=== PATIENT | female | born 1975 | race Caucasian/White ===

== ENCOUNTER 2024-06-20 11:13 | Outpatient (OUT) | payer BC, SELFPAY | END 2024-06-20 11:14 | disposition home or self-care (01) | LOC: PST 11:14 | PROVIDERS: Visit Provider Surgery | DX: Z01.818 Encounter for other preprocedural examination (principal); Z12.11 Encounter for screening for malignant neoplasm of colon ==

== ENCOUNTER 2024-06-25 09:51 | Day surgery (SDC) | payer BC, SELFPAY ==
--- NOTE | 2024-06-25 | OP_ITS ---
OPERATION DATE: 06/25/2024 PREOPERATIVE DIAGNOSIS: Colorectal screening. POSTOPERATIVE DIAGNOSIS: Normal colonoscopy to cecum. PROCEDURE: Colonoscopy to cecum. SURGEON: Aly Willingham M.D. ANESTHESIA: Monitored anesthesia care. ESTIMATED BLOOD LOSS: Zero. INDICATIONS AND CONSENT: Patient is a 48-year-old female who presents for colorectal screening. Indications, risks, benefits, alternatives of proceeding with colonoscopy were explained extensively to the patient, including the risks of bleeding, colon perforation or anesthetic complications. All of her questions were answered. Informed consent was obtained. PROCEDURE: Patient brought to the operating room, placed in the left lateral decubitus position. Monitored anesthesia care was provided. Rectal exam was performed which showed no masses or blood. The scope was inserted into the anal canal. Under direct visualization was advanced. With the aid of abdominal compression, it was advanced to the cecum where cecal markings were clearly identified. There was noted to be a good prep. Upon withdrawal of the scope, mucosal surfaces were carefully examined. There were no mass lesions or polyps. No inflammatory changes or ulcerations. No significant diverticulosis. The scope was retroflexed in the anal canal. There were noted to be some prominent rectal veins. No significant hemorrhoidal disease. Scope was then withdrawn. Patient tolerated procedure well, was sent to recovery room in good condition. Follow up colonoscopy for screening should be in 10 years. CC: Patient?s family physician BRET
[2024-06-25 10:15] VITALS: BP 113/74; PULSE 83; TEMP 36.2; O2SAT 98; BMI 29.8
[2024-06-25] MEDS: 0.9 % SODIUM CHLORIDE 500 ML 50 ML IV (10:28)
[2024-06-25 11:52] VITALS: BP 93/64; PULSE 75; TEMP 36.6; O2SAT 97
[2024-06-25 12:07] VITALS: BP 106/56; PULSE 70; O2SAT 99
[2024-06-25 12:22] VITALS: BP 115/78; PULSE 68; O2SAT 100
== END 2024-06-25 12:29 | disposition home or self-care (01) ==
PROVIDERS: PCP Family Medicine; Visit Provider Surgery
PROC: (CPT 00812; principal; 2024-06-25 10:45)
DX: Z12.11 Encounter for screening for malignant neoplasm of colon (principal); Z86.73 Personal history of transient ischemic attack (TIA), and cerebral infarction without residual deficits; Z79.01 Long term (current) use of anticoagulants; Z79.02 Long term (current) use of antithrombotics/antiplatelets; I77.6 Arteritis, unspecified; D68.59 Other primary thrombophilia; M47.812 Spondylosis without myelopathy or radiculopathy, cervical region; E78.5 Hyperlipidemia, unspecified; Z90.710 Acquired absence of both cervix and uterus; Z90.49 Acquired absence of other specified parts of digestive tract; Z90.81 Acquired absence of spleen; E11.9 Type 2 diabetes mellitus without complications
CPT/HCPCS: 00812; 45378; J2704

== ENCOUNTER 2025-01-27 19:29 | Outpatient (REF) | payer BC, SELFPAY ==
--- OUTSIDE RECORDS SUMMARY | 2024-10-17 11:15 | XMS_ITS ---
Author Organization [facility] in [place] Address [address] [place] [address] Care Team Providers Care Manager Wind Name Role Phone Kinza BERGER, Ilana Primary Care Provider Mahad Egan Unavailable REASON FOR VISIT MD Encounters Encounter Location Date Provider Diagnosis [address] [place] [address] 10/17/2024 Mahad Dodd Plan Of Treatment Next Appt Details Provider Name:uJlianne rivera, 04/22/2025 08:15:00 AM, [address] [place], [address], Progress Notes * Zo HEADLEY RDOB: [birth year] (49 yo F)Acc No.[id number]:10/17/2024 UNLOCKED PROGRESS NOTE Progress Notes Patient: Abelardo ZAMORAnicole Oliveira Provider: Chelsi Dodd MD :1975 A ge:48 Y S ex:Female Date:10/17/2024 Address:[address] [id number] Pcp:Ilana Echols MD Subjective: * Chief Complaints: * 1 . MD. * Medical History: Objective: * Vitals: Assessment: Plan: * Treatment: * * Electronic signature of Sulma Dodd MD, [id number] on 01/27/2025 at 01:39 PM EDT Sign off status: Pending Visit Status: C ANC (Cancelled) * Provider: Chelsi Dodd MD Date: 0 10/17/2024 Generated for Jessie lundberg/Sunitha/Cheikh on: 0 01/27/2025 01:39 PM EDT
--- OUTSIDE RECORDS SUMMARY | 2024-10-30 09:00 | XMS_ITS | Encounter Summary ---
Author Organization [facility] Address [address] [place] [address] Care Team Providers Care Global Lead Name Role Phone Ilana Echols MD Primary Care Provider [phone] Ilana Echols MD Unavailable Encounter Details Date Type Department Care Team (Late st Contact Info) Description 10/30/2024 9:00 AM EDT Office Visit [facility] [address] [place] [address] Ilana Echols MD [address] [place] [address] Viral upper respiratory tract infection (Primary Dx); Nasal congestion; Left foot drop Social History Tobacco Use Types Packs/Day Years Used Date Smoking Tobacco: Never Smokeless Tobacco: Never Alcohol Use Standard Drinks/Week Comments Never 0 (1 standard drink = 0.6 oz pur e alcohol) Caffine: 1 cup B1300 Health Literacy Answer Date Recor ded How often do you need to hav e someone help you when you read instructions, pamphlets, or other written material from your doctor or pharmacy? Never 01/29/2024 Humiliation, Afraid, Rape, and Kick questionnair e Answer Date Recorded Within the last year, have y ou been afraid of your partner or ex-partner? No 01/24/2023 Within the last year, have y ou been humiliated or emotionally abused in other ways by your partner or ex-partner? No Within the last year, have y ou been kicked, hit, slapped, or otherwise physically hurt by your partner or ex-partner? No 01/24/2023 Within the last year, have y ou been raped or forced to have any kind of sexual activity by your partner or ex-partner? No 01/24/2023 Social Connection and Isolat ion Panel [NHANES] Answer Date Recorded In a typical week, how many times do you talk on the phone with family, friends, or neighbors? More than three times a week 01/29/2024 How often do you get togethe r with friends or relatives? More than three times a week 01/29/2024 How often do you attend chur or synagogue services? More than 4 times per year 01/29/2024 Do you belong to any clubs o r organizations such as uatsdin groups, unions, fraternal or athletic groups, or school groups? No 01/29/2024 How often do you attend meet ings of the clubs or organizations you belong to? Never 01/29/2024 Are you , , di vorced, , never , or living with a partner? 01/29/2024 AUDIT-C Answer Date Recorded Q1: How often do you have a drink containing alcohol? Never 01/29/2024 Q2: How many drinks containi ng alcohol do you have on a typical day when you are drinking? Patient does not drink Q3: How often do you have si x or more drinks on one occasion? Never 01/29/2024 Overall Financial Resource Strain (CARDIA) Answe r Date Recorded How hard is it for you to pa y for the very basics like food, housing, medical care, and heating? Not hard at all 01/29/2024 PHQ-2 Answer Date Recorded Patient Health Questionnaire-2 Score 0 10/30/2024 [facility] Occupat ional Health - Occupational Stress Questionnaire Answer Date Recorded Do you feel stress - tense, restless, nervous, or anxious, or unable to sleep at night because your mind is troubled all the time - these days? Only a little 01/29/2024 Exercise Vital Sign Answer Date Recorde d On average, how many days pe r week do you engage in moderate to strenuous exercise (like a brisk walk)? 3 days 01/29/2024 On average, how many minutes do you engage in exercise at this level? 20 min 01/29/2024 Hunger Vital Sign Answer Date Recorded Within the past 12 months, y ou worried that your food would run out before you got the money to buy more. Never true 01/29/20 24 Within the past 12 months, t he food you bought just didn't last and you didn't have money to get more. Never true 01/29/2024 PRAPARE - Transportation Answer Date Re corded In the past 12 months, has l ack of transportation kept you from medical appointments or from getting medications? No 03/2024 In the past 12 months, has l ack of transportation kept you from meetings, work, or from getting things needed for daily living? No 01/29/2024 Housing Stability Vital Sign Answer Malcolm e Recorded In the last 12 months, was t here a time when you were not able to pay the mortgage or rent on time? No 01/24/2023 In the last 12 months, how many places have you lived? 1 01/24/2023 In the last 12 months, was t here a time when you did not have a steady place to sleep or slept in a prison (including now)? No 01/24/2023 Housing Stability Vital Sign Answer Malcolm e Recorded In the last 12 months, was t here a time when you were not able to pay the mortgage or rent on time? No 01/29/2024 In the past 12 months, how m any times have you moved where you were living? 0 01/29/2024 At any time in the past 12 m [place], were you homeless or living in a prison (including now)? No 01/29/2024 Comments No Sex and Gender Information Value Date Recorded Sex Assigned at Not on file Legal Sex Female 7:16 PM EDT Gender Identity Not on file Sexual Orientation Not on file documented as of this encounter Last Filed Vital Signs Vital Sign Reading Time Taken Comments Blood Pressure 128/82 10/30/2024 8:51 AM EDT Pulse 86 10/30/2024 8:51 AM EDT Temperature - - Respiratory Rate - - Oxygen Saturation 99% 10/30/2024 8:51 AM EDT Inhaled Oxygen Concentration - - Weight 83.5 kg (184 lb) 10/30/2024 8:51 AM EDT Height 165.1 cm (5' 5 ) 10/30/2024 8:51 AM EDT Body Mass Index 30.62 10/30/2024 8:51 AM EDT documented in this encounter Functional Status * Over the past 2 weeks, how often have you been bothered by any of the following problems? Question Answer Date of Assessment Author Little interest or pleasure in doing things Not at all 10/30/2024 8:56 AM EDT Rohini Ruvalcaba MA Feeling down, depressed, or hopeless Not at all 10/30/2024 8:56 AM EDT Rohini Ruvalcaba MA Patient Health Questionnaire -2 Score 0 10/30/2024 8:56 AM EDT Rohini Ruvalcaba MA documented as of this encounter Progress Notes * Ilana Echols MD - 10/30/2024 9:00 AM EDT Images from the original note were not included. Zo Mike is a 49 y.o. female presents with chief complaint of URI follow up. Sx the same aslast week. HPI: HPI History of Present Illness The patient presents for evaluation of ear infection, throat irritation, nasal inflammation, and lung immobility. She was diagnosed with an ear infection last week and prescribed Augmentin. Despite the treatment, she reports no improvement in her symptoms. She has been experiencing ear pain, a new symptom for her. She also reports persistent throat discomfort and a sensation of a foreign body in her throat, necessitating constant clearing. She is currently on Augmentin. She was diagnosed with throat irritation last week and prescribed Augmentin. Despite the treatment,she reports no improvement in her symptoms. She also reports persistent throat discomfort and a sensation of a foreign body in her throat, necessitating constant clearing. She is currently on Augmentin. She was diagnosed with nasal inflammation last week and prescribed Augmentin. Despite the treatment, she reports no improvement in her symptoms. She has been using Flonase, which does not seem to be effective. She experiences nosebleeds when blowing her nose but does not have active bleeding. She has been using saline nasal spray in conjunction with Flonase. She is currently on Augmentin and Flonase. She was diagnosed with lung immobility last week and prescribed Augmentin. Despite the treatment, she reports no improvement in her symptoms. She is currently on Augmentin. Supplemental Information She is coming up on 2 years of long-term disability. They want her to fill out that she is unable to do any work of any sort and then send it back to them. She is taking [employer] to work for 12-hour shift yesterday. She slept 8 out of the 12 hours. She is sure right now it is because she is not feeling good. Mike had her order a different brace, the one that they were doing for the footdrop is not working, so she is going to look like an old person and wear the one that goes from the knee down tothe bottom of the foot. She can not concentrate. He was very concerned that it is just fatigue. He is like you can not do a 30- minute exercise with him and he is worried about her driving home. She is following heme-onc and cardiology. MEDICATIONS Current: Augmentin, Flonase SUBJECTIVE: MEDICATIONS: Current Outpatient Medications Medication Instructions albuterol HFA 90 mcg/act inhaler 2 puffs, Inhalation, Every 4 hours PRN atorvastatin (Lipitor) 40 MG tablet calcium 500 mg, 2 times daily with meals chlorhexidine (Peridex) 0.12 % solution 15 mL, 2 times daily clopidogrel (PLAVIX) 75 mg, Oral, Every morning cyanocobalamin (VITAMIN B-12) 1,000 mcg, Every 48 hours fluticasone (Flonase) 50 MCG/ACT nasal spray 1 spray, Each Nostril, Daily, Shake gently. Before first use, prime pump. After use, clean tip and replace cap. folic acid (FOLVITE) 1,000 mcg, Every morning hydroxychloroquine (PLAQUENIL) 200 mg, Daily magnesium oxide (MAG-OX) 400 mg, Daily methotrexate 2.5 MG tablet take 7 tablets by mouth ONE TIME PER WEEK as directed predniSONE (DELTASONE) 7.5 mg, Daily predniSONE (DELTASONE) 1 mg, Every morning pyridoxine (VITAMIN B-6) 50 mg, Oral, Every morning SF 5000 Plus 1.1 % cream USE DIRECTED IN PLACE OF TOOTHPASTE. BRUSH FOR TWO MINUTES TWI... (REFER TO PRESCRIPTION NOTES). tiZANidine (Zanaflex) 2 MG tablet topiramate (TOPAMAX) 200 mg, 2 times daily venlafaxine XR (Effexor XR) 37.5 MG 24 hr capsule Vitamin D-[address] 1,000 Units, Daily RT warfarin (Coumadin) 5 MG tablet TAKE 1 TABLET BY MOUTH four times weekly, TAKE 1 & 1/2 (ONE ANDONE-HALF) TABLETS BY MOUTH three times a week warfarin (COUMADIN) 1 mg, Oral, Daily I have reviewed and reconciled the history and medication list with the patient today. REVIEW OF SYMPTOMS: Review of Systems HENT: Positive for congestion and sore throat. Respiratory: Positive for cough. OBJECTIVE: Visit Vitals BP 128/82 Pulse 86 Ht 5' 5 Wt 184 lb SpO2 99% BMI 30.62 kg/m?? OB Status Hysterectomy Smoking Status Never BSA 1.96 m?? Physical Exam Vitals and nursing note reviewed. Constitutional: Appearance: Normal appearance. HENT: Head: Normocephalic and atraumatic. Right Ear: Tympanic membrane normal. Left Ear: Tympanic membrane normal. Ears: Comments: Cerumen removed from the right ear. Nose: Nose normal. Mouth/Throat: Comments: Swelling in posterior pharynx bilaterally with drainage down the middle. Cardiovascular: Rate and Rhythm: Normal rate and regular rhythm. Pulses: Normal pulses. Heart sounds: Normal heart sounds. Pulmonary: Effort: Pulmonary effort is normal. Breath sounds: Normal breath sounds. Musculoskeletal: Cervical back: Normal range of motion and neck supple. Neurological: Mental Status: She is alert. ASSESSMENT AND PLAN: Assessment & Plan 1. Ear Infection. The patient was previously diagnosed with an ear infection and prescribed Augmentin. However, she reports no improvement in symptoms. Examination revealed wax in the ear, which will be flushed out toallow for a better assessment. 2. Throat Irritation. The patient's throat remains red and swollen with significant drainage, likely causing the sensation of a foreign body in the throat. Despite being on Augmentin, there has been no improvement. A chest x-ray was considered but deemed unnecessary due to good air movement in the lungs. Guaifenesin will be prescribed to help dry up the drainage and reduce throat swelling. 3. Nasal Inflammation. The patient reports nasal inflammation and bleeding when blowing her nose. Examination showed slight swelling and congestion, but not severe. Flonase appears to be helping somewhat. Guaifenesin will be prescribed to help dry up the nasal drainage. 4. Lung Immobility. The patient reported a lack of movement in one lung as previously noted by another provider. However, examination today showed good air movement and no issues in the lungs. No further action is required at this time. Assessment/Plan Problem List Items Addressed This Visit None Visit Diagnoses Viral upper respiratory tract infection - Primary Nasal congestion Left foot drop She is in need of an AFO for this foot drop. PHYSICAL THERAPY has tried multiple strengthening exercises and braces with no resolution or help. Other braces have been tried and failed. Concern for falls and difficulties with ambulation with current state. documented in this encounter Plan of Treatment Upcoming Encounters Date Type Department Care Team (Late st Contact Info) Description 07/13/2025 8:00 AM EST Ancillary Procedure [facility] [address] [facility] [address] [place] [id number] documented as of this encounter Visit Diagnoses Diagnosis Viral upper respiratory tract infection- Primary Acute upper respiratory infections of unspecified site Nasal congestion Other diseases of nasal cavity and sinuses Left foot drop Other acquired deformity of ankle and foot documented in this encounter Additional Health Concerns Assessment Noted Time PHQ-9 Depression Total Score: 0 03/06/20 23 8:10 AM EDT documented as of this encounter Care Teams Global Lead Relationship Specialty Start Date End Date Ilana Echols MD [address] [facility] [place] [address] PCP - General Family Medicine 12/11/22 Ilana Echols MD [address] [place] [address] PCP - Bea Bland 04/22/23 documented as of this encounter
--- OUTSIDE RECORDS SUMMARY | 2025-01-07 09:20 | XMS_ITS ---
Author Organization [facility] [place] in [place] Address [address] [place] [address] Care Team Providers Care Ms Sql Dba Name Role Phone Kinza BERGER, Ilana Primary Care Provider Le Oconnell [phone] Allergies Allergen (clinical drug ingredient) Drug/Non Drug Allergy documented on EMR Reaction Allergy Type Onset Date Status Biaxin Unknown Drug Allergy Active meperidine Demerol Unknown Drug Allergy Active REASON FOR VISIT h/o right MCA M1 subocclusive thrombus (prior Eliquis, as of 06/2023 plavix + coumadin)- sees Dr. Dodd [facility] ( Dr. Knox- [employer]PER[employer] vasculitis specialist), Headache s/p stroke (right basal ganglia, predominantly in the putamen), cognitive complaints Medications Medication SIG (Take, Route, Frequency, Duration) Notes Start Date End Date Status Methotrexate Sodium 2.5 MG 7 tablets Orally once a day 10/08/2024 Active Vitamin B12 1000 MCG 1 tablet Orally every other day Active predniSONE 5 MG 1 tablet Orally Once a day Active Plavix 75 MG 1 tablet Orally Once a day Active Plaquenil 200 MG 1 tablet Orally daily Active Magnesium Oxide 400 MG 1 tablet as neede d Orally Once a day Active Folic Acid 1 MG 1 tablet Orally Once a day Active Lipitor 40 MG 1 tablet Orally Once a day HOLD per pt Active Warfarin Sodium 5 MG 1 tablet Orally Onc e a day twice a week Active Topamax 200 MG 1 tablet Orally BID Active Warfarin Sodium 6 MG 1 tablet Orally 5 days a week 5 times per week Active Vitamin B6 50 MG 1 tablet Orally Active Venlafaxine HCl ER 37.5 mg TAKE 1 CAPSULE BY MOUTH EVERY EVENING Active Social History Tobacco Use: Social History Observation Description Date Details (start date - stop date) Never Smoker NA - NA Tobacco Use/Smoking Question Answer Notes Patient is a nonsmoker Encounters Encounter Location Date Provider Diagnosis Adult Neurology [facility] [address] [place] [address] 01/07/2025 Le Hernández Headache, unspecifie d R51.9 and Personal history of transient ischemic attack (TIA), and cerebral infarction without residual deficits Z86.73 Assessments Encounter Date Diagnosis (ICD Code) Assessment Notes Treatment Notes Treatment Clinical Notes Section Notes 01/07/2025 Headache, unspecified (ICD-10 - R51.9) At this point I know that she still having headaches but they are low-grade and manageable and for right now I would like to hold off on changing her Topamax. She does still feel that he manage it would be appropriate for her neck and we agree that is why we provided the referral in the first place. I did let her know if she feels the tizanidine was offering her relief that typically I would recommend refilling this but during our conversation today there was a concern that she had mentioned to her master black belt where she was having difficulty getting up from the floor she has left sided weakness which is known since her stroke and she is not sure for the weakness that is preventing her from getting up but she is really not having pain limitations either. I would like to hold off on refilling the muscle relaxer and allow us to reevaluate her strength testing if our examination does not show any change then I do feel at that point I would recommend getting back on the atorvastatin. She is very well aware of why this is being utilized the risk factors around stroke management and for that reason I would like to see her sometime next week she is aware that I am going to try to move some things around to get her into reevaluate this. It is simply to make sure that her strength is intact at her baseline and to allow us to quickly as possible get her back on atorvastatin if needed. If however there is additional weakness concerns I feel it would still be appropriate for me to reevaluate her for this. She does remain on her Plavix she is still utilizing her warfarin and I have no new recommendations for this. She is aware if there is any concern for any stroke or strokelike symptoms to go to the emergency room. I did find a spot in our schedule she is comfortable with this and I we will be seeing her January 15 at 4:40 PM to reevaluate. Time of visit: 1:15 PM of and 1:32 PM, 17 minutes and 30 seconds 01/07/2025 Personal history of transient ischemic attack (TIA), and cerebral infarction without residual deficits (ICD-10 - Z86.73) At this point I know that she still having headaches but they are low-grade and manageable and for right now I would like to hold off on changing her Topamax. She does still feel that he manage it would be appropriate for her neck and we agree that is why we provided the referral in the first place. I did let her know if she feels the tizanidine was offering her relief that typically I would recommend refilling this but during our conversation today there was a concern that she had mentioned to her master black belt where she was having difficulty getting up from the floor she has left sided weakness which is known since her stroke and she is not sure for the weakness that is preventing her from getting up but she is really not having pain limitations either. I would like to hold off on refilling the muscle relaxer and allow us to reevaluate her strength testing if our examination does not show any change then I do feel at that point I would recommend getting back on the atorvastatin. She is very well aware of why this is being utilized the risk factors around stroke management and for that reason I would like to see her sometime next week she is aware that I am going to try to move some things around to get her into reevaluate this. It is simply to make sure that her strength is intact at her baseline and to allow us to quickly as possible get her back on atorvastatin if needed. If however there is additional weakness concerns I feel it would still be appropriate for me to reevaluate her for this. She does remain on her Plavix she is still utilizing her warfarin and I have no new recommendations for this. She is aware if there is any concern for any stroke or strokelike symptoms to go to the emergency room. I did find a spot in our schedule she is comfortable with this and I we will be seeing her January 15 at 4:40 PM to reevaluate. Time of visit: 1:15 PM of and 1:32 PM, 17 minutes and 30 seconds Plan Of Treatment Medication Medication Name Sig Start Date Stop Date Notes Plavix 75 MG 1 tablet Orally Once a day Topamax 200 MG 1 tablet Orally BID Venlafaxine HCl ER 37.5 mg TAKE 1 CAPSUL E BY MOUTH EVERY EVENING Next Appt Details Follow Up: keep appt schedul ed today, Reason: Provider Name:Julianne So nciole, 04/22/2025 08:15:00 AM, [address], [place], [address], Progress Notes * Zo HEADLEY RDOB: [birth year] (49 yo F)Acc No.[id number]:01/07/2025 TeleMed via [employer] Patient: Zo ZAMORA Provider: SKINNY Silva :1975 A ge:49 Y S ex:Female Date:01/07/2025 Address:[address] [place], [place] [id number] Pcp:Ilana Echols MD Check In:01:15 PM ESTCheck O ut:01:33 PM EST Subjective: * Chief Complaints: * h /o right MCA M1 subocclusive thrombus (prior Eliquis, as of 06/2023 plavix + coumadin)- sees Dr. Dodd [facility] ( Dr. Knox- [employer] vasculitis specialist)Headache s/p stroke (right basal ganglia, predominantly in the putamen)Cognitive complaints * HPI: G eneral: The patient's name and date of have been confirmed This is a telemedicine with audio and video using [employer].nd visit that was performed with the patient in [place], [place] and provider in [place], [place] The verbal consent to participate in the video visit was obtained. I discussed with the patient the nature of the telemedicine visit that: 1) I would evaluate the patient and the recommended diagnostics and the treatment based on my assessment. 2) the sessions are not being recorded and that personal information is protected 3) our team will provide follow-up care in person if/when patient requires. 4) Reason for virtual appointment: schedule availability she is seeing Silvia Dsouza for breast nodules at [facility] and she is going to have biopsies. she is getting an US on January 16 to do follow up after MRI findings. The patient is on Topamax for headaches. She is having about 12 headache days a month which is about 3/week but she states that they are only made about a 3 out of 10 on a pain scale she feels she can function with them and they are not coming with any nausea light or sound sensitivity. The patient was recommended to try tizanidine for muscle relaxation. She states the tizanidine was offering some relief with her neck but that the plan was for her to see pain management which was provided by our office in referral but because everything mentioned above around her breast evaluation she has held off on doing so. Interestingly made in the last couple weeks between appointments she started to experience weakness of the proximal joints around the shoulders and hips she had sat down on the floor and was having trouble getting up. Her master black belt felt this may be related to her Lipitor and recommend that she hold this for a month it has been a week. It is important to mention that this was recommended because of her history of right MCA M1 subocclusive thrombus. She is on Plavix still high along with warfarin. She has not had any concern for any stroke or strokelike symptoms between appointments. * ROS: r efer to hpi. * Active Problem List Z47.89 Encounter for other orthopedic aftercare Modified On:07/03/2022/U Status:confirmed R22.32 Localized swelling, mass and lump, left upper limb Modified On:02/01/2023/U Status:confirmed I77.6 Arteritis, unspecifi ed Modified On:10/08/2024/U Status:confirmed I69.30 Unspecified sequelae of cerebral infarction Modified On:02/13/2024/U Status:confirmed G40.89 Other seizures Modified On:02/13/2024/U Status:confirmed R93.89 Abnormal findings on diagnostic imaging of other specified body structures Modified On:08/26/2024/U Status:confirmed * Medical History: * Surgical History: S pleen removal 1989Appendix/gallbladder removal 1992Tonsil removal 1993Hysterectomy 2010 * Hospitalization/Major Diagno stic Procedure: F [facility] for 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 M other: alive 66 yrs, hypothyroidism, diagnosed with Unspecified essential hypertension.?Brother(s): alive 42 yrs. * Social History: T obacco Use: T obacco Use/Smoking P atient is a n onsmoker * Medications: T akingFolic Acid 1 MG Tablet 1 tablet Orally Once a day Lipitor(Atorvastatin Calcium) 40 MG Tablet 1 tablet Orally Once a day , Notes to Pharmacist: HOLD per ptMagnesium Oxide 400 MG Tablet 1 tablet as needed Orally Once a day Methotrexate Sodium 2.5 MG Tablet 7 tablets Orally once a day Plaquenil(Hydroxychloroquine Sulfate) 200 MG Tablet 1 tablet Orally daily Plavix(Clopidogrel Bisulfate) 75 MG Tablet 1 tablet Orally Once a day predniSONE 5 MG Tablet 1 tablet Orally Once a day Topamax(Topiramate) 200 MG Tablet 1 tablet Orally BID Venlafaxine HCl ER 37.5 mg Capsule Extended Release 24 Hour TAKE 1 CAPSULE BY MOUTH EVERY EVENING Vitamin B12 1000 MCG Tablet Extended Release 1 tablet Orally every other day Vitamin B6 50 MG Tablet 1 tablet Orally Warfarin Sodium 5 MG Tablet 1 tablet Orally Once a day , Notes to Pharmacist: twice a weekWarfarin Sodium 6 MG Tablet 1 tablet Orally 5 days a week , Notes to Pharmacist: 5 times per weekTaking Folic Acid 1 MG Tablet 1 tablet Orally Once a day Taking Lipitor(Atorvastatin Calcium) 40 MG Tablet 1 tablet Orally Once a day , Notes to Pharmacist: HOLD per ptTaking Magnesium Oxide 400 MG Tablet 1 tablet as needed Orally Once a day Taking Methotrexate Sodium 2.5 MG Tablet 7 tablets Orally once a day Taking Plaquenil(Hydroxychloroquine Sulfate) 200 MG Tablet 1 tablet Orally daily Taking Plavix(Clopidogrel Bisulfate) 75 MG Tablet 1 tablet Orally Once a day Taking predniSONE 5 MG Tablet 1 tablet Orally Once a day Taking Topamax(Topiramate) 200 MG Tablet 1 tablet Orally BID Taking Venlafaxine HCl ER 37.5 mg Capsule Extended Release 24 Hour TAKE 1 CAPSULE BY MOUTH EVERY EVENING Taking Vitamin B12 1000 MCG Tablet Extended Release 1 tablet Orally every other day Taking Vitamin B6 50 MG Tablet 1 tablet Orally Taking Warfarin Sodium 5 MG Tablet 1 tablet Orally Once a day , Notes to Pharmacist: twice a weekTaking Warfarin Sodium 6 MG Tablet 1 tablet Orally 5 days a week , Notes to Pharmacist: 5 times per weekDiscontinuedtiZANidine HCl 2 MG Tablet Take 1 tablet at bedtime for 1 week then take 2 tablets at bedtime. Orally Once a day Medication List reviewed and reconciled with the patientDiscontinued tiZANidine HCl 2 MG Tablet Take 1 tablet at bedtime for 1 week then take 2 tablets at bedtime. Orally Once a day Medication List reviewed and reconciled with the patient * Allergies: B iakassiDemerolbridger[Allergies Verified] Objective: * Vitals: * Examination: N eurological: T he patient is awake, alert, attentive. Speech, language, cognition are normal. Patient does not appear to be in distress. Well-nourished. extraocular movements are intact without nystagmus. Pupils are symmetric and normal in size. Face is symmetric and has full movement of the facial muscles. Hearing is intact to voice. Sensation is intact when touching one's own face bilaterally, Tongue is midline and has normal range of motion. Shoulders shrug is normal bilaterally. She does still have that gait steadiness but with decreased movement on that left lower extremity, no ataxia, no tremors on exam, she follows directions well and she is able to stand up and sit down with no difficulty no walking aid was required today, no involuntary movements and no numbness reported. Assessment: * Assessment: 1. H eadache, unspecified - R51.9 (Primary) 2 . P ersonal history of transient ischemic attack (TIA), and cerebral infarction without residual deficits - Z86.73 ? At this point I know that sh e still having headaches but they are low-grade and manageable and for right now I would like to hold off on changing her Topamax. She does still feel that he manage it would be appropriate for her neck and we agree that is why we provided the referral in the first place. I did let her know if she feels the tizanidine was offering her relief that typically I would recommend refilling this but during our conversation today there was a concern that she had mentioned to her master black belt where she was having difficulty getting up from the floor she has left sided weakness which is known since her stroke and she is not sure for the weakness that is preventing her from getting up but she is really not having pain limitations either. I would like to hold off on refilling the muscle relaxer and allow us to reevaluate her strength testing if our examination does not show any change then I do feel at that point I would recommend getting back on the atorvastatin. She is very well aware of why this is being utilized the risk factors around stroke management and for that reason I would like to see her sometime next week she is aware that I am going to try to move some things around to get her into reevaluate this. It is simply to make sure that her strength is intact at her baseline and to allow us to quickly as possible get her back on atorvastatin if needed. If however there is additional weakness concerns I feel it would still be appropriate for me to reevaluate her for this. She does remain on her Plavix she is still utilizing her warfarin and I have no new recommendations for this. She is aware if there is any concern for any stroke or strokelike symptoms to go to the emergency room. I did find a spot in our schedule she is comfortable with this and I we will be seeing her January 15 at 4:40 PM to reevaluate. Time of visit: 1:15 PM of and 1:32 PM, 17 minutes and 30 seconds Plan: * Treatment: 2. 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 * Procedure Codes: * Follow Up: k eep appt scheduled today * * Sign off status: Completed Visit Status: C HK (Check Out) true * Provider: SKINNY Silva Date: 0 01/07/2025 Generated for Jessie lundberg/Sunitha/Daronitting on: 0 01/27/2025 01:39 PM EDT History and Physical Notes * Examination Category Sub-Category Detail Notes Category Not es Neurological The patient is awake, alert, attentive. Speech, language, cognition are normal. Patient does not appear to be in distress. Well-nourished. extraocular movements are intact without nystagmus. Pupils are symmetric and normal in size. Face is symmetric and has full movement of the facial muscles. Hearing is intact to voice. Sensation is intact when touching one's own face bilaterally, Tongue is midline and has normal range of motion. Shoulders shrug is normal bilaterally. She does still have that gait steadiness but with decreased movement on that left lower extremity, no ataxia, no tremors on exam, she follows directions well and she is able to stand up and sit down with no difficulty no walking aid was required today, no involuntary movements and no numbness reported
--- OUTSIDE RECORDS SUMMARY | 2025-01-16 13:32 | XMS_ITS | Encounter Summary ---
Author Organization [facility] Address [address] [place] [address] Care Team Providers Care Post Office Clerk Name Role Phone Ilana Echols MD Primary Care Provider [phone] Mahad Dodd MD Unavailable [phone] Encounter Details Date Type Department Care Team (Latest Contact Info) Description 01/16/2025 1:32 PM EDT - 01/16/2025 11:59 PM EDT Hospital Encounter [facility] Ul[facility]ound Imaging [address] [place] [id number] Abnormal MRI, breast Discharge Disposition: Home or Self Care () Social History Tobacco Use Types Packs/Day Years Used Date Smoking Tobacco: Never Smokeless Tobacco: Never Alcohol Use Standard Drinks/Week Comments Never 0 (1 standard drink = 0.6 oz pur e alcohol) Humiliation, Afraid, Rape, and Kick questionnair e Answer Date Recorded Within the last year, have y ou been afraid of your partner or ex-partner? No 12/25/2024 Emotionally Abused Not on file 12/25/2024 Physically Abused Not on file 12/25/2024 Sexually Abused Not on file 12/25/2024 PHQ-2 Answer Date Recorded Patient Health Questionnaire-2 Score 0 12/25/2024 Transportation Answer Date Recorded In the past 12 months, has l ack of transportation kept you from medical appointments or from getting medications? No 02/20 In the past 12 months, has l ack of transportation kept you from meetings, work, or from getting things needed for daily living? No 03/08/2023 Housing Stability Vital Sign Answer Malcolm e Recorded In the last 12 months, was t here a time when you were not able to pay the mortgage or rent on time? No 03/08/2023 [address] Lived in the Last Year Not on f ile 03/08/2023 In the last 12 months, was t here a time when you did not have a steady place to sleep or slept in a assisted (including now)? No 03/08/2023 Comments Unknown Sex and Gender Information Value Date Recorded Sex Assigned at Female 10/04/2022 8:34 AM EDT Legal Sex Female 2:18 PM EST Gender Identity Female 10/04/2022 8:34 AM EDT Sexual Orientation Heterosexual or Straight 09/20 8:34 AM EDT documented as of this encounter Medications at Time of Discharge acetaminophen (Tylenol 8 Hour) 650 mg ER tablet every 8 (eight) hours. amoxicillin (Amoxil) 500 mg capsule TAKE 1 CAPSULE BY MOUTH THREE TIMES DAILY (IN THE MORNING, IN THE EVENING and BEFORE bedtime) 04/10/2024 atorvastatin (Lipitor) 20 mg tablet Take 20 mg by mouth in the morning. 01/02/2023 atorvastatin (Lipitor) 40 mg tablet Take 40 mg by mouth in the morning. benzocaine-menthoL (Cepastat Sore Throat) 15-3.6 mg Take 1 lozenge by mouth every 2 (two) hours if needed. 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 180 tablet 3 09/24/2024 chlorhexidine (Peridex) 0.12 % solution Use 15 mL in the mouth or throat twice a day. 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 90 tablet 3 09/24/2024 6 clopidogrel (Plavix) 75 mg tablet Take 75 mg by mouth in the morning. 04/03/2023 cyanocobalamin (Vitamin B-12) 1,000 mcg tablet Take 1,000 mcg by mouth every other day. 02/07/2023 enoxaparin (Lovenox) 80 mg/0.8 mL syringe INJECT 1 syringe TWICE DAILY (IN THE MORNING and BEFORE bedtime) FOR 7 DAYS 06/10/2024 fluconazole (Diflucan) 150 mg tablet TAKE 1 TABLET BY MOUTH A SINGLE DOSE 05/01/2024 folic acid (Folvite) 1 mg tabletIndications:C NS vasculitis Take 1 tablet (1,000 mcg) by mouth in the morning. 90 tablet 3 09/24/2024 6 hydroxychloroquine (Plaquenil) 200 mg tabletIndications:S ystemic lupus erythematosus, unspecified SLE type, unspecified organ involvement status (CMS/HCC) Take 1 tablet (200 mg) by mouth in the morning. 30 tablet 11 04/09/2024 5 magnesium oxide (Mag-Ox) 400 mg (241.3 mg magnesium) tablet Take 400 mg by mouth in the morning. 11/12/2022 magnesium oxide (Mag-Ox) 400 mg (241.3 mg magnesium) tablet every 12 (twelve) hours. methotrexate (Xatmep) 2.5 mg/mL oral solution as directed Orally methotrexate 2.5 mg tabletIndications:C NS vasculitis Take 7 tablets (17.5 mg total) by mouth 1 (one) time per week Follow directions carefully, and ask to explain any part you do not understand. Take exactly as directed. 84 tablet 3 09/24/2024 6 nitrofurantoin, macrocrystal-monohy drate, (Macrobid) 100 mg capsule TAKE 1 CAPSULE BY MOUTH TWICE DAILY (IN THE MORNING and BEFORE bedtime) 04/30/2024 Nurtec ODT 75 mg tablet,disintegrati ng dissolve 75 milligram under the tongue once daily if needed for MIGRAINE HEADACHE 05/08/2023 oxyCODONE-acetamino phen (Percocet) 5-325 mg tablet Take 1 tablet by mouth every 6 (six) hours if needed. 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 90 tablet 3 09/24/2024 scopolamine (Transderm-Scop) 1 mg over 3 days patch [address] 1 patch on the skin every 3rd (third) day. 08/20/2024 topiramate (Topamax) 100 mg tablet Take 200 mg by mouth in the morning and at bedtime. 07/10/2023 topiramate (Topamax) 200 mg tablet Take 200 mg by mouth in the morning and at bedtime. venlafaxine (Effexor) 37.5 mg tablet Take 37.5 mg by mouth in the morning and at bedtime. Vitamin B-6 50 mg tablet Take 50 mg by mouth in the morning. 08/26/2023 warfarin (Coumadin) 1 mg tablet Take 1 mg by mouth. warfarin (Coumadin) 5 mg tablet 6 mg in the morning. 07/21/2023 documented as of this encounter Plan of Treatment Upcoming Encounters Date Type Department Care Team (Late st Contact Info) Description 02/10/2025 11:00 AM EDT Hospital Encounter [facility] [address] [place] [id number] 02/10/2025 12:00 PM EDT Hospital Encounter [facility] Ultrasound Imaging [address] [place] [address] 03/25/2025 9:30 AM EDT Follow-Up [facility] Rheumatology [address] [place] [id number] Jeimy Morejon MD [address] [facility] [place] [phone] 04/15/2025 9:30 AM EDT Follow-Up [facility] Oncology Clinic [address] [place] [address] Mahad Dodd MD [address] [place] [address] 04/30/2025 9:15 AM EDT Follow-Up [facility] [address] [place] [address] Silvia Dsouza MD [address] [place] [address] Pending Results Name Type Priority Associated Diagnoses Date /Time Bilateral breast US limited Imaging Routine Abnormal MRI, breast 01/16/2025 2:00 PM EDT Scheduled Orders Name Type Priority Associated Diagnoses Orde r Schedule Bilateral breast US limited Imaging Routine Abnormal MRI, breast Once for 1 Occurrences starting 01/16/2025 until 01/16/2025 documented as of this encounter Visit Diagnoses Diagnosis Abnormal MRI, breast documented in this encounter Care Teams Post Office Clerk Relationship Specialty Start Date End Date Ilana Echols MD PCP - General 11/15/22 Mahad Dodd MD [address] [place] [address] Hematology and Oncology 10/03/24 documented as of this encounter
--- OUTSIDE RECORDS SUMMARY | 2025-01-27 13:58 | XMS_ITS ---
Author Name Auto Generated Organization OHIP Support Name Relationship Address Phone ANJEL MIKE Next of Kin [address] [place] [address] + ANJEL MIKE Next of Kin Unknown [phone] KAYLIE MIKEIAN Next of Kin [address] [place] [id number] + CEE, ANJEL Next of Kin Unknown [phone] CEE, ANJEL Next of Kin Unknown [phone] CEE, ANJEL Next of Kin Unknown [phone] CEE, ANJEL Next of Kin [address] [place] [address] + CEE, ANJEL Next of Kin Unknown [phone] CEE, ANJEL Next of Kin Unknown [phone] CEE, ANJEL Next of Kin Unknown [phone] CEE, ANJEL Next of Kin Unknown [phone] CEE, ANJEL Next of Kin [address] [place] [address] + ECE, ANJEL Next of Kin [address] [place] [address] + CEE, ANJEL Next of Kin [address] [place] [address] + CEE, ANJEL Next of Kin Unknown [phone] CEE, ANJEL Next of Kin Unknown [phone] Cee, Anjel Next of Kin [address] [place] [address] + Marlys Mike Next of Kin [address] [place] [address] + ANJEL MIKE Next of Kin Unknown [phone] ANJEL MIKE Next of Kin [address] [place] [address] + KAYLIE MIKEIAN Next of Kin [address] [place] [address] + KAYLIE MIKEIAN Next of Kin [address] [place] [address] Unavailable ANJEL MIKE Next of Kin [address] [place] [address] + ANJEL MIKE Next of Kin [address] [place] [address] + ANJEL MIKE Next of Kin Unknown [phone] ANJEL MIKE Next of Kin [address] [place] [address] + ANJEL MIKE Next of Kin [address] [place] [address] Unavailable ANJEL MIKE Next of Kin [address] [place] [address] + ANJEL IMKE Next of Kin [address] [place] [address] Unavailable ANJEL MIKE Next of Kin Unknown [phone] ANJEL MIKE Next of Kin Unknown [phone] ANJEL MIKE Next of Kin [address] [place] [address] Unavailable ANJEL MIKE Next of Kin [address] [place] [address] Unavailable ANJEL MIKE Next of Kin [address] [place] [address] + ANJEL MIKE Next of Kin [address] [place] [address] Unavailable ANJEL MIKE Next of Kin [address] [place] [address] + ANJEL MIKE Next of Kin [address] [place] [address] Unavailable CEE, ANJEL Next of Kin [address] [place] [address] Unavailable KAYLIE MIKEIAN Next of Kin [address] [place] [address] Unavailable KAYLIE MIKEIAN Next of Kin [address] [place] [address] Unavailable CEE, ANJEL Next of Kin [address] [place] [address] + CEE, ANJEL Next of Kin [address] [place] [address] Unavailable CEE, ANJEL Next of Kin Unknown [phone] CEE, ANJEL Next of Kin Unknown [phone] CEE, ANJEL Next of Kin [address] [place] [address] + KAYLIE MIKEIAN Next of Kin [address] [place] [address] + KAYLIE MIKEIAN Next of Kin [address] [place] [address] + ANJEL IMKE Next of Kin [address] [place] [address] + KAYLIE MIKEIAN Next of Kin [address] [place] [address] + ANJEL MIKE Next of Kin [address] [place] [address] + KAYLIE MIKEIAN Next of Kin [address] [place] [address] + ANJEL MIKE Next of Kin [address] [place] [address] + CEE ANJEL Next of Kin [address] [place] [address] + KAYLIE MIKEIAN Next of Kin [address] [place] [address] + KAYLIE MIKEIAN Next of Kin [address] [place] [address] + KAYLIE MIKEIAN Next of Kin [address] [place] [address] Unavailable ANJEL MIKE Next of Kin [address] [place] [address] + ANJEL MIKE Next of Kin [address] [place] [address] + ANJEL MIKE Next of Kin Unknown [phone] ANJEL MIKE Next of Kin [address] [place] [address] + ANJEL MIKE Next of Kin [address] [place] [address] + ANJEL MIKE Next of Kin [address] [place] [address] + ANJEL MIKE Next of Kin [address] [place] [address] + ANJEL MIKE Next of Kin [address] [place] [address] + ANJEL MIKE Next of Kin [address] [place] [address] + ANJEL MIKE Next of Kin [address] [place] [address] Unavailable ANJEL MIKE Next of Kin [address] [place] [address] Unavailable ANJEL MIKE Next of Kin [address] [place] [address] Unavailable ANJEL MIKE Next of Kin [address] [place] [address] + ANJEL MIKE Next of Kin [address] [place] [address] Unavailable ANJEL MIKE Next of Kin [address] [place] [address] Unavailable ANJEL MIKE Next of Kin [address] [place] [address] + Anjel Mike Next of Kin [address] [place] [address] + ANJEL MIKE Next of Kin [address] [place] [address] + Care Team Providers Care Welding Inspector Name Role Phone ILANA RUANO Attending Unavailable SERGEY DALY Attending Unavailable ILANA RUANO Referring Unavailable SERGEY DALY Attending Unavailable ILANA RUANO Referring Unavailable TONE DOLL Attending Unavailable SERGEY DALY Attending Unavailable ILANA RUANO Referring Unavailable BINDUILANA BRADLEY Attending Unavailable SERGEY DALY Attending Unavailable BINDU, ILANA Referring Unavailable LAVON, TONE Henry Attending Unavailable LAVON, TONE Henry Referring Unavailable ADDY, SERGEY Wong Attending Unavailable BINDU, ILANA Referring Unavailable MARIEL SANTANA Attending Unavailab le LAVON, TONE Henry Attending Unavailable LAVON, TONE Henry Referring Unavailable ADDY, SERGEY Wong Attending Unavailable BINDU, ILANA Referring Unavailable LAVON, TONE Henry Attending Unavailable ADDYSERGEY Attending Unavailable BINDU, ILANA Referring Unavailable BINDU, ILANA Attending Unavailable ADDYSERGEY Attending Unavailable BINDU, ILANA Referring Unavailable ADDY, SERGEY Wong Attending Unavailable BINDU, ILANA Referring Unavailable BINDU, ILANA Attending Unavailable ADDY, SERGEY Wong Attending Unavailable BINDU, ILANA Referring Unavailable ADDY, SERGEY Wong Attending Unavailable BINDU, ILANA Referring Unavailable BINDU, ILANA Attending Unavailable NICOLE MEDINA Attending Unavailable MARIEL SANTANA Attending Unavailab le ILANA RUANO Attending Unavailable SUZY WONG Attending Unavailab SUZY Obrien Referring Unavailab QUINN Pierre Attending Unavailable NICOLE MEDINA Referring Unavailable NICOLE MEDINA Attending Unavailable MAHAD AGUAYO Referring Unavailable ILANA RUANO Primary Care Unavailable NEO, [place] R Referring Unavailable ILANA RUANO Primary Care Unavailable ILANA RUANO Primary Care Unavailable DEBRA CAZARES Attending Unavailable JOSE PETTIT Attending Unavailable JOSE PETTIT Referring Unavailable ILANA RUANO Primary Care Unavailable JOSE PETTIT Attending Unavailable JOSE PETTIT Referring Unavailable ILANA RUANO Primary Care Unavailable ACACIA SHELTON Attending Unavailable ILANA RUANO Referring Unavailable ILANA RUANO Primary Care Unavailable SARAIYA, [place] R Referring Unavailable ILANA RUANO Primary Care Unavailable JEIMY MOREJON Referring Unavailab le ILANA RUANO Primary Care Unavailable SARYONGYA, [place] R Referring Unavailable ILANA RUANO Primary Care Unavailable SARAIYA, [place] R Referring Unavailable ILANA RUANO Primary Care Unavailable BINDUILANA Primary Care Unavailable BINDUILANA G Primary Care Unavailable SILVINO VEGA Attending Unavailjonh e RAFAEL NEGRON Admitting Unavailable ERNA, EHAD Consulting Unavailable TELESTROKE, TC ONLY Consulting Unavailjonh hartman BINDU, ILANA Marcano Referring Unavailable ILANA RUANO G Primary Care Unavailable KAVON HERNÁNDEZ Referring Unavailable BINDU, ILANA G Primary Care Unavailable BINDU, ILANA G Referring Unavailable BINDU, ILANA G Primary Care Unavailable MAHAD AGUAYO H Referring Unavailable BINDU, ILANA G Primary Care Unavailable NICOLE MEDINA Referring Unavailable BINDU ILANA G Primary Care Unavailable Self, Referral Admitting Unavailable Self, Referral Attending Unavailable Azael Ruano Ilana Cary Primary Care Un available Yessy Lynfer L Referring Un available Abilio Dsouza Attending Unavailable Yessy Lynfer L Primary Care Un available Abilio Dsouza N Admitting Unavailable CASSI YOUNG Attending Unavailable CASSI YOUNG Referring Unavailable ILANA RUANO G Primary Care Unavailable ADA JONES Attending Unavailable BETTYE BOWERS Referring Unavailable ILANA RUANO G Primary Care Unavailable BETTYE BOWERS Attending Unavailable ILANA RUANO G Primary Care Unavailable Aly RICARDO Attending Unavailable BINDU, ILANA G Referring Unavailable Aly RICARDO Attending Unavailable ABILIO DSOUZA Attending Unavailable BRIANABILIO Referring Unavailable BRIAN, ABILIO Referring Unavailable BRIAN, ABILIO Referring Unavailable BRIAN, ABILIO Referring Unavailable MAHAD AGUAYO Attending Unavailable NEGRA MYRICK Attending Unavailab NEGRA Pandey Attending Unavailab JEIMY Zepeda I Attending Unavailable ABILIO DSOUZA Attending Unavailable JEIMY MOREJON I Attending Unavailable BRIANABILIO Attending Unavailable PROBLEMS DATE TYPE CONDITION / CODE ATTENDING STATUS [facility] 01/16/2025 Admitting Diagnosis Other abnormal and inconclusive findings on diagnostic imaging of breast / R92.8(ICD-10) NA Active [facility] 12/24/2024 Admitting Diagnosis Muscle weakness (generalized) / M62.81(ICD-10) NA [facility] 12/24/2024 Admitting Diagnosis Deficiency of other specified B group vitamins / E53.8(ICD-10) NA [facility] 12/24/2024 Admitting Diagnosis Vitamin D deficiency, unspecified / E55.9(ICD-10) NA [facility] 12/24/2024 Admitting Diagnosis Other specified hypothyroidism / E03.8(ICD-10) NA [facility] 12/18/2024 Admitting Diagnosis Nipple discharge / N64.52(ICD-10) NA [facility] 04/09/2024 Admitting Diagnosis Other hyperlipidemia / E78.49(ICD-10) NA [facility] 12/28/2023 Admitting Diagnosis Arteritis, unspecified / I77.6(ICD-10) NA [facility] 12/28/2023 Admitting Diagnosis Other organ or system involvement in systemic lupus erythematosus / M32.19(ICD-10) NA [facility] 07/27/2023 Admitting Diagnosis Personal history of transient ischemic attack (TIA), and cerebral infarction without residual deficits / Z86.73(ICD-10) NA [facility] 12/08/2024 Admitting Diagnosis 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 / Z79.899(ICD-10) NA [facility] 12/08/2024 Admitting Diagnosis salvage determiner (current) use of antimetabolite agent / Z79.631(ICD-10) NA [facility] 12/08/2024 Admitting Diagnosis salvage determiner (current) use of systemic steroids / Z79.52(ICD-10) NA [facility] 11/27/2024 Admitting Diagnosis Follow-up / [id number]() ABILIO DSOUZA [facility] 11/20/2024 Unknown Mastitis without abscess / N61.0(ICD-10) Abilio Dsouza N [facility] 11/13/2024 Admitting Diagnosis Mastitis without abscess / N61.0(ICD-10) ABILIO DSOUZA [facility] 10/16/2024 Unknown Unspecified ovar maya cyst, right side / N83.201(ICD-10) [facility] 09/26/2024 Unknown Unspecified ovar maya cyst, unspecified side / N83.209(ICD-10) [facility] 09/12/2024 Unknown Disorder of adre nal gland, unspecified / E27.9(ICD-10) [facility] 09/12/2024 Unknown Abnormal finding s on diagnostic imaging of other specified body structures / R93.89(ICD-10) [facility] 08/18/2024 Unknown Acute gastroente ropathy due to [place] agent / A08.11(ICD-10) [facility] 08/16/2024 Unknown Unspecified symp toms and signs involving the nervous system / R29.90(ICD-10) [facility]I [facility] 08/16/2024 Unknown Elevated white b lood cell count, unspecified / D72.829(ICD-10) [facility] 08/16/2024 Unknown Nausea with vomi ting, unspecified / R11.2(ICD-10) [facility] 08/16/2024 Unknown Diarrhea, unspec ified / R19.7(ICD-10) [facility] 08/16/2024 Unknown Stroke Alert / FREETEXT(AOF) [facility] 07/02/2024 Unknown Extravasation of other vesicant agent, initial encounter / T80.818A(ICD-10) [facility] 07/02/2024 Unknown Medical Screenin g / FREETEXT(AOF) [facility] 07/02/2024 Unknown residential (curre nt) use of systemic steroids / Z79.52(ICD-10) NA [facility] 07/27/2023 Admitting Diagnosis Other specified abnormal immunological findings in serum / R76.8(ICD-10) NEGRA MYRICK [facility] 06/11/2024 Admitting Diagnosis Myalgia, unspecified site / M79.10(ICD-10) [facility] 05/01/2024 Unknown Follow-up / FREETEXT(AOF) ACACIA SHELTON [facility] 12/28/2023 Admitting Diagnosis Systemic lupus erythematosus, unspecified / M32.9(ICD-10) JEIMY MOREJON I [facility] 04/03/[address] 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) ADA JONES [facility] 04/03/2024 Active Hyperlipidemia, unspecified hyperlipidemia type / E78.5(ICD-10) ADA JONES [facility] 04/03/2024 Active History of DVT ( deep vein thrombosis) / Z86.718(ICD-10) ADA JONES [facility] 03/18/2024 Active History of strok e / Z86.73(ICD-10) CASSI YOUNG [facility] 03/18/2024 Active Personal history of venous thrombosis and embolism / Z86.718(ICD-10) CASSI YOUNG [facility] 03/18/2024 Active Anticoagulation management encounter / Z51.81(ICD-10) CASSI YOUNG [facility] 03/18/2024 Active Anticoagulation management encounter / Z79.01(ICD-10) CASSI YOUNG [facility] 03/05/2024 Unknown Unspecified frac ture of right wrist and hand, initial encounter for closed fracture / S62.91XA(ICD-10) DEBRA CAZARES [facility] 03/05/2024 Unknown Syncope and jun apse / R55(ICD-10) DEBRA CAZARES [facility] 03/05/2024 Unknown Syncope / FREETEXT(AOF) DEBRA CAZARES [facility] 03/05/2024 Unknown PASSED OUT, FELL ON RT ARM / UNK(Unknown) DEBRA CAZARES [facility] 02/26/2024 Unknown Other seizures / G40.89(ICD-10) [facility] 02/19/2024 Unknown Other fatigue / R53.83(ICD-10) [facility] 02/19/2024 Unknown Abnormal weight loss / R63.4(ICD-10) [facility] 02/19/2024 Unknown Cervical root disorders, not elsewhere classified / G54.2(ICD-10) [facility] 02/19/2024 Unknown Unspecified rota tor cuff tear or rupture of left shoulder, not specified as traumatic / M75.102(ICD-10) [facility] 02/19/2024 Unknown Other specified abnormal immunological findings in serum / R76.8(ICD-10) [facility] 02/11/2024 Unknown Encounter for sc reening mammogram for malignant neoplasm of breast / Z12.31(ICD-10) Self, Referral [facility] PROCEDURES No Procedure Records Found RESULTS US PELVIC COMPLETE W/ TV Observed: 01/12 8:36 AM Status: F Source: [facility] EPIC Order Comment: US PELVIS-TRA NSVAG IF INDICATED No LMP recorded. Patient has had a hysterectomy. EXAM: US PELVIC COMPLETE W/ TV HISTORY: History of ovarian cysts, PCOS. Partial hysterectomy with left oophorectomy. COMPARISON: None available. TECHNIQUE: Two-dimensional transabdominal grayscale ultrasound imaging of the pelvis was performed. Color flow Doppler imaging of the ovaries was also performed. Transvaginal was performed. FINDINGS: UTERUS The uterus is surgically absent, and the midline pelvis appears unremarkable. RIGHT OVARY 4.7 x 2.1 x 4.0 cm The right ovary demonstrates a normal echotexture. There is normal color Doppler flow. There are multiple follicles/cysts visualized, with the largest measuring 2.0 cm. LEFT OVARY The left ovary is surgically absent. No fluid is present within the cul-de-sac. IMPRESSION: 1. Surgically absent uterus. 2. Multiple right ovarian follicles/cysts, measuring up to 2.0 cm. 3. Normal color Doppler flow within the right ovary, the left ovary is surgically absent. Interpreted by: Electronically signed by TONE PRESTON II, MD, PHD at 13-Jan-2025 08:30:54 AM [facility] PROGRESS Observed: 12/25/2024 10:15 AM Status: COMPLETED Source: [facility] Subjective Patient ID: Dorene Mike is a 49 y.o. female who presents for No chief complaint on file.. Continues to have pain and nipple discharge on the right. Completed ABX Narrative & Impression BI MR BREAST BILATERAL W AND WO CONTRAST 12/18/2024 3:52 PM HISTORY: Patient is complaining of nipple discharge. Prior hysterectomy and oophorectomy. COMPARISON: Right breast echo and right mammogram from 11/20/2024 at outside institution. PROTOCOL: All images are generated with the Opara 3T MRI . Three-dimensional, high-resolution fat-suppressed T1 weighted images were obtained prior to, immediately following, and after a delay relative to contrast administration. Precontrast axial T2 fat-sat sequences were also obtained. 3-D image and subtraction processing were performed using CAD Stream software. The images were interpreted using image subtraction, re-registration, multiplanar reconstruction, 2-D and 3-D acquisition and subtraction MIP, BINTA, time activity curves and color mapping. CONTRAST: 15 mL of IV contrast FINDINGS: Background parenchymal enhancement: Marked. There is well-defined rounded mass with type I washout curve in the right breast lower inner aspect at 6 o'clock position anterior depth measuring 10 x 7 x 10 mm likely representing fibroadenoma. There are also multiple foci of enhancement seen scattered throughout both breasts. The largest focus in the right breast in the upper inner quadrant at 2 o'clock position middle depth measuring 18 x 8 x 12 mm with mixture of type I, type II and type III washout curves. The largest focus in the left breast is in the lower outer quadrant at 5 o'clock position middle depth measuring 29 x 9.7 x 22 mm with similar mixture of type I, type II and type III washout curves. Multiple additional smaller foci are seen. No significant pathologic adenopathy is appreciated. Artifact is seen from loop recorder along the left medial chest wall. MR ductogram did not reveal any significant dilated ducts. No ductal pathologic enhancement is appreciated. IMPRESSION: No MRI evidence for malignancy. ASSESSMENT: BI-RADS 3: Probably Benign RECOMMENDATION: Breast MRI in 6 Months Review of Systems Objective Visit Vitals BP 136/77 (BP Location: Left arm, Patient Position: Sitting) Pulse 84 Temp 36.7 ???C (98.1 ???F) (Oral) Physical Exam Pulmonary: Effort: Pulmonary effort is normal. Chest: Comments: Right: Nipple discharge, tenderness present. No swelling, no bleeding, no inverted nipple or mass, no erythema. Musculoskeletal: Cervical back: Normal range of motion. Neurological: Mental Status: She is alert. Assessment/Plan Dorene Mike is a 49 y.o. 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 Currently coumadin. Plavix, methotrexate and Plaquenil, presents with right nipple pain and discharge for the last 4-months. Breast MRI completed which demonstrated, Marked, Background parenchymal enhancement. Recommendation for follow-up breast MRI in 6 months, however, the patient feels awfully anxious regarding her symptoms and her preference is to biopsy these areas, I discussed at length that we could potentially get bilateral breast ultrasound to further evaluate the MRI findings in both the left and right breast. Depending on what is seen on ultrasound, I will leave it at the discretion of the radiologist whether or not to biopsy the areas. Diagnosis Plan 1. Abnormal MRI, breast Bilateral breast US limited Orders Placed This Encounter Procedures Bilateral breast US limited Standing Status: Future Standing Expiration Date: 02/24/2026 Scheduling Instructions: The phone number to contact [facility] Radiology is Once you have been placed into the phone tree, it will prompt with the following options. 1 - CT scheduling 2 - MRI scheduling 3 - Ultrasound scheduling 4 - X-ray, Nuclear Medicine, Mammograms scheduling 5 - Reports/Image requests or general questions Order Specific Question: Reason for exam: Answer: eval breast MR findings; pt has high anxiety regarding findings Order Specific Question: May perform additional testing - diagnostic imaging, ultrasound and biopsy at the Radiologist discretion? Answer: Yes Order Specific Question: Release to Patient Answer: Immediately Recent Results (from the past 36 hour(s)) Comprehensive metabolic panel Collection Time: 12/24/24 9:24 AM Result Value Ref Range Sodium 138 136 - 145 mmol/L Potassium 4.5 3.5 - 5.1 mmol/L Chloride 110 (H) 98 - 107 mmol/L CO2 21 21 - 31 mmol/L Anion Gap 12 7 - 20 mmol/L BUN 11 7 - 25 mg/dL Creatinine 0.74 0.60 - 1.20 mg/dL BUN/Creatinine Ratio 14.9 Glucose 94 70 - 100 mg/dL Calcium 8.8 8.6 - 10.3 mg/dL AST 50 (H) 13 - 39 U/L ALT (SGPT) 34 7 - 52 U/L Alkaline Phosphatase 54 34 - 104 U/L Total Protein 6.3 6.0 - 8.3 g/dL Albumin 3.8 3.5 - 5.7 g/dL Total Bilirubin 0.3 0.3 - 1.0 mg/dL eGFR 99.7 >60.0 mL/min/1.73m*2 Sedimentation rate Collection Time: 12/24/24 9:24 AM Result Value Ref Range Sed Rate 3 <20 mm/hr CK Collection Time: 12/24/24 9:24 AM Result Value Ref Range Total CK 98.0 30.0 - 223.0 U/L Vitamin D 25 hydroxy Collection Time: 12/24/24 9:24 AM Result Value Ref Range Vit D, 25-Hydroxy 34.2 30.0 - 80.0 ng/mL TSH Collection Time: 12/24/24 9:24 AM Result Value Ref Range TSH 1.24 0.34 - 5.60 mIU/L T4, free Collection Time: 12/24/24 9:24 AM Result Value Ref Range Free T4 0.56 (L) 0.71 - 1.85 ng/dL Vitamin B12 Collection Time: 12/24/24 9:24 AM Result Value Ref Range Vitamin B-12 429 180 - 914 pg/mL CBC auto differential Collection Time: 12/24/24 9:24 AM Result Value Ref Range Auto WBC 7.04 4.00 - 10.60 10*3/uL RBC 4.02 3.80 - 5.00 10*6/uL Hemoglobin 12.9 12.0 - 15.0 g/dL Hematocrit 39.6 36.0 - 45.0 % MCV 98.5 (H) 82.0 - 98.0 fL MCH 32.1 27.0 - 33.0 pg MCHC 32.6 32.0 - 35.0 g/dL RDW 15.5 (H) 11.5 - 15.0 % Neutrophils % 78.8 (H) 40.0 - 72.0 % Lymphocytes % 13.6 (L) 20.0 - 45.0 % Monocytes % 5.8 5.0 - 12.0 % Eosinophils % 0.9 0.0 - 6.0 % Basophils % 0.6 0.0 - 1.0 % Neutrophils Absolute 5.55 1.60 - 7.60 10*3/uL Lymphocytes Absolute 0.96 (L) 1.20 - 4.00 10*3/uL Monocytes Absolute 0.41 0.10 - 1.00 10*3/uL Eosinophils Absolute 0.06 0.00 - 0.50 10*3/uL Basophils Absolute 0.04 0.00 - 0.20 10*3/uL Platelets 322 150 - 400 10*3/uL nRBC % 0.0 0 % Immature Granulocytes % 0.3 0.0 - 1.0 % Immature Granulocytes Absolute 0.02 0.00 - 0.20 10*3/uL No follow-ups on file. FOLLOW-UP Observed: 12/25/2024 10:15 AM Status: COMPLETED Source: [facility] [id number] Zo Mike F Date Provider Department [place] 12/25/2024 [id number]-DQPHABILIO DSOUZA DCC ONC DCC Family History Problem Relation Age of Onset Hypertension Mother Cancer Maternal Grandfather Clotting disorder Maternal Grandmother Clotting disorder Mother's Sister Family Status - Relation Status Age at Mother Maternal Grandfather Maternal Grandmother Mother's Sister Level of Service:[id number] SC OFFICE/OUTPATIENT ESTABLISHED LOW MDM 20 MIN LAB Observed: 12/24/2024 9:45 AM Status: COMPLETED Source: [facility] [id number] Zo Mike F Date Provider Department [place] 12/24/2024 2245-[facility] OPD LAB RESOURCE [facility] OPD ME Medical C Family History Problem Relation Age of Onset Hypertension Mother Cancer Maternal Grandfather Clotting disorder Maternal Grandmother Clotting disorder Mother's Sister Family Status - Relation Status Age at Mother Maternal Grandfather Maternal Grandmother Mother's Sister CK Collected: 9:24 AM Status: UNK Source: [facility] TYPE CODE TESTS RESULT OUT OF RANGE REFERENCE UNITS LAB [id number] CREATINE KINASE (U/L) IN SER/PLAS 98.0 30.0-223.0 U/L Performed By: #### [id number] ### # [facility] ([facility]AK[facility]) [address] [place] [address] SEDIMENTATION RATE Collected: 12/24/2024 9:24 AM Sta tus: UNK Source: [facility] TYPE CODE TESTS RESULT OUT OF RANGE REFERENCE UNITS LAB [id number] SEDIMENTATION RATE, ERYTHROCYTE 3 <20 mm/hr Performed By: #### [id number] ## ## [facility] ([facility]) [address] [place] [address] CBC WITH AUTO DIFFERENTIAL Collected: 12/24/2024 9:24 AM Status: UNK Source: [facility] TYPE CODE TESTS RESULT OUT OF RANGE REFERENCE UNITS LAB [id number] LEUKOCYTES(10*3/ UL) IN BLOOD BY AUTOMATED COUNT 7.04 4.00-10.60 10*3/uL LAB [id number] ERYTHROCYTES (10*6/UL) IN BLOOD BY AUTOMATED COUNT 4.02 3.80-5.00 10*6/uL LAB [id number] HEMOGLOBIN (G/DL) IN BLOOD 12.9 12.0-15.0 g/dL LAB [id number] HEMATOCRIT (%) IN BLOOD BY AUTOMATED COUNT 39.6 36.0-45.0 % LAB [id number] ERYTHROCYTE MEAN CORPUSCULAR VOLUME (FL) BY AUTOMATED COUNT 98.5 High 82.0-98.0 fL LAB 2260060 ERYTHROCYTE MEAN CORPUSCULAR HEMOGLOBIN (PG) BY AUTOMATED COUNT 32.1 27.0-33.0 pg LAB [id number] ERYTHROCYTE MEAN CORPUSCULAR HEMOGLOBIN CONCENTRATION (G/DL) BY AUTOMATED 32.6 32.0-35.0 g/dL LAB [id number] ERYTHROCYTE DISTRIBUTION WIDTH (RATIO) BY AUTOMATED COUNT 15.5 High 11.5-15.0 % LAB [id number] NEUTROPHILS/100 LEUKOCYTES IN BLOOD BY AUTOMATED COUNT 78.8 High 40.0-72.0 % LAB [id number] LYMPHOCYTES/100 LEUKOCYTES IN BLOOD BY AUTOMATED COUNT 13.6 Low 20.0-45.0 % LAB [id number] MONOCYTES/100 LEUKOCYTES IN BLOOD BY AUTOMATED COUNT 5.8 5.0-12.0 % LAB [id number] EOSINOPHILS/100 LEUKOCYTES IN BLOOD BY AUTOMATED COUNT 0.9 0.0-6.0 % LAB [id number] BASOPHILS/100 LEUKOCYTES IN BLOOD BY AUTOMATED COUNT 0.6 0.0-1.0 % LAB [id number] NEUTROPHILS (10*3/UL) IN BLOOD BY AUTOMATED COUNT 5.55 1.60-7.60 10*3/uL LAB [id number] LYMPHOCYTES (10*3/UL) IN BLOOD BY AUTOMATED COUNT 0.96 Low 1.20-4.00 10*3/uL LAB [id number] MONOCYTES (10*3/UL) IN BLOOD BY AUTOMATED COUNT 0.41 0.10-1.00 10*3/uL LAB 5931809 EOSINOPHILS (10*3/UL) IN BLOOD BY AUTOMATED COUNT 0.06 0.00-0.50 10*3/uL LAB [id number] BASOPHILS (10*3/UL) IN BLOOD BY AUTOMATED COUNT 0.04 0.00-0.20 10*3/uL LAB [id number] PLATELETS (10*3/UL) IN BLOOD AUTOMATED COUNT 322 150-400 10*3/uL LAB 254 NRBC (PER 100 WBCS) BY AUTOMATED COUNT 0.0 0 % LAB 1767 IMMATURE GRANULOCYTES/100 LEUKOCYTES IN BLOOD BY AUTOMATED COUNT 0.3 0.0-1.0 % LAB 1768 IMMATURE GRANULOCYTES (10*3/UL) IN BLOOD BY AUTOMATED COUNT 0.02 0.00-0.20 10*3/uL Performed By: #### [id number] # ### [facility] ([facility]) [address] [place] [address] VITAMIN D 25 HYDROXY Collected: 12/24/2024 9:24 AM S tatus: UNK Source: [facility] TYPE CODE TESTS RESULT OUT OF RANGE REFERENCE UNITS LAB [id number] CALCIDIOL (25 [place] VITAMIN D3) (NG/ML) IN SER/PLAS 34.2 30.0-80.0 ng/mL Result Comment: >80.0 Toxici ty possible Performed By: #### [id number] ## ## [facility] ([facility]) [address] [place] [address] TSH Collected: 12/24/2024 9:24 AM Status: UN K Source: [facility] TYPE CODE TESTS RESULT OUT OF RANGE REFERENCE UNITS LAB [id number] THYROTROPIN (MIU/L) IN SER/PLAS BY DETECTION LIMIT <= 0.05 MIU/L 1.24 0.34-5.60 mIU/L Performed By: #### [id number] ## ## [facility] ([facility]) [address] [place] [address] T4, FREE Collected: 12/24/2024 9:24 AM Status: UN K Source: [facility] TYPE CODE TESTS RESULT OUT OF RANGE REFERENCE UNITS LAB [id number] THYROXINE (T4) FREE (NG/DL) IN [facility] 0.56 Low 0.71-1.85 ng/dL Performed By: #### [id number] ## ## [facility] ([facility]) [address] [place] [address] COMPREHENSIVE METABOLIC PANEL Collected: 12/24/2024 9 :24 AM Status: UNK Source: [facility] TYPE CODE TESTS RESULT OUT OF RANGE REFERENCE UNITS LAB [id number] SODIUM (MMOL/L) IN SER/PLAS 138 136-145 mmol/L LAB [id number] POTASSIUM (MMOL/ L) IN SER/PLAS 4.5 3.5-5.1 mmol/L LAB 8790154 CHLORIDE (MMOL/L ) IN SER/PLAS 110 High 98-107 mmol/L LAB 3089253 CARBON DIOXIDE, TOTAL (MMOL/L) IN SER/PLAS 21 21-31 mmol/L LAB 9014155 ANION GAP IN SER/PLAS 12 7-20 mmol/L LAB 2926437 UREA NITROGEN (MG/DL) IN SER/PLAS 11 7-25 mg/dL LAB 9830519 CREATININE (MG/D L) IN SER/PLAS 0.74 0.60-1.20 mg/dL LAB 6621357 UREA NITROGEN/CREATININ E (MASS RATIO) IN SER/PLAS 14.9 NA LAB 6686571 GLUCOSE (MG/DL) IN SER/PLAS 94 70-100 mg/dL LAB 6091113 CALCIUM (MG/DL) IN SER/PLAS 8.8 8.6-10.3 mg/dL LAB 5146012 ASPARTATE AMINOTRANSFERASE (SGOT) (U/L) IN SER/PLAS 50 High 13-39 U/L LAB 7952547 ALANINE AMINOTRANSFERASE (SGPT) (U/L) IN SER/PLAS 34 7-52 U/L LAB 1815113 ALKALINE PHOSPHATASE (U/L) IN SER/PLAS 54 34-104 U/L LAB 2982235 PROTEIN (G/DL) I N SER/PLAS 6.3 6.0-8.3 g/dL LAB 2562905 ALBUMIN (G/DL) I N SER/PLAS 3.8 3.5-5.7 g/dL LAB 1386462 BILIRUBIN TOTAL (MG/DL) IN SER/PLAS 0.3 0.3-1.0 mg/dL LAB 1406984 GLOMERULAR FILTRATION RATE ML/MIN/1.73 SQ M.PREDICTED 99.7 >60.0 mL/min /1.73m *2 Result Comment: The [facility]???s estimated glomerular filtration rate (eGFR) will no longer include consideration of race in its calculation. The National Kidney Foundation???s eGFR Task Force developed new recommendations for the estimation of the glomerular filtration rate in the [place] They recommend immediate implementation of the new equation refit without the race variable in all laboratories because the calculation does not include race. In addition to not including race in the calculation and reporting, it included diversity in its development, and has acceptable performance characteristics and potential consequences that do not disproportionately affect any one group of individuals. Performed By: #### [id number] ### # [facility] ([facility]) [address] [place] [address] VITAMIN B12 Collected: 9:24 AM Status: UNK Source: [facility] TYPE CODE TESTS RESULT OUT OF RANGE REFERENCE UNITS LAB 2666130 COBALAMIN (VITAMIN B12) (PG/ML) IN SER/PLAS 429 180-914 pg/mL Result Comment: REFERENCE RA NGES: 180-914 pg/mL Normal 145-179 pg/mL Indeterminate <145 pg/mL Deficient Performed By: #### [id number] ### # [facility] ([facility]) [address] [place] [address] FOLLOW-UP Observed: 12/24/2024 9:00 AM Status: COMPLETED Source: [facility] [id number] Zo Mike F Date Provider Department Center 12/24/2024 215-JEIMY MOREJON I [facility] Jose Heal Family History Problem Relation Age of Onset Hypertension Mother Cancer Maternal Grandfather Clotting disorder Maternal Grandmother Clotting disorder Mother's Sister Family Status - Relation Status Age at Mother Maternal Grandfather Maternal Grandmother Mother's Sister Level of Service:73453 SC OFFICE/OUTPATIENT ESTABLISHED MOD [facility] 30 MIN Reason for Visit and Comments: Systemic lupus erythematosus with other organ involvement, [Other] Follow-up [[id number]] PROGRESS Observed: 12/24/2024 9:00 AM Status: COMPLETED Source: [facility] Subjective Dorene Mike is a 49 y.o. 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 She presents for Systemic lupus erythematosus with other organ involvement, and Follow-up. Medication regimen: Plaquenil 200 mg every day, Methotrexate 17.5 mg (7 tabs of 2.5 mg) weekly, folate supplementation. Prednisone 5 mg daily SHE IS HAVING SOME PAIN IN THE JOINTS, AND WEAKNESS IN PROXIMAL MUSCLES. It started in the last two months. She has weakness in combing her hair. She has difficulty concentrating and thought processing. Patient saw [facility] via telemedicine on 04/16/2024 w/ Dr. Mac who upon review note her prior history of DVT during , family history of blood clots, and thrombus on cerebral angiogram suspect that patient's isolated stroke was thrombotic in nature. They note lower suspicion of COT ASSEMBLER vasculitis and do not think lupus is playing in her role of recurrent syncopal episodes. Patient was seen in ED 08/16/2024 for reported stroke like symptoms with reported facial droop and strange behavior, was found to have norovirus at the time. No acute stroke per MRI. She reports she was treated with IV steroids at that time. Today she reports she remains on medications as above and has not noted any changes in symptoms relative to her prior visit. She reports she has some chronic left sided weakness and is working with PT for strengthening. Otherwise no acute complaints at this time. HPI Review of Systems Constitutional: Positive for appetite change (after TIA taste change) and fatigue. Negative for chills, fever and unexpected weight change. HENT: Negative for ear pain, mouth sores, rhinorrhea, sinus pain, sore throat and trouble swallowing. No dry mouth. Eyes: Positive for visual disturbance (B/L vision loss since TIA, Optho appt upcoming, peripheral vision gone). Negative for pain and redness. No dry eyes. Respiratory: Negative for cough, chest tightness, shortness of breath and wheezing. Cardiovascular: Negative for chest pain, palpitations and leg swelling. No Raynaud's phenomenon. S/p loop recorder in place. Gastrointestinal: Positive for nausea. Negative for abdominal pain, blood in stool, constipation, diarrhea and vomiting. No GERD. Genitourinary: Negative for difficulty urinating, dysuria, flank pain, frequency, hematuria and urgency. Musculoskeletal: Positive for arthralgias and myalgias. Negative for back pain, joint swelling and neck pain. Skin: Negative for rash. Itching skin, no rash. Neurological: Positive for dizziness, weakness (L sided, working with PT; L foot drop), numbness (Hands and feet) and headaches (Constant, R sided headache). Negative for seizures, syncope, speech difficulty and light-headedness. Cognitive took a hit, new baseline below what it was. 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 Psychiatric/Behavioral: Positive for confusion (Intermittent episodes that started with TIA) and sleep disturbance (Unrefreshing sleep). Negative for agitation and dysphoric mood. The patient is not nervous/anxious. Objective Visit Vitals BP 106/70 (BP Location: Right arm, Patient Position: Sitting, BP Cuff Size: Adult) Pulse 82 Physical Exam Vitals and nursing note reviewed. Constitutional: General: She is awake. She is not in acute distress. Appearance: Normal appearance. HENT: Head: Normocephalic and atraumatic. Mouth/Throat: Mouth: Mucous membranes are moist. Pharynx: Oropharynx is clear. Eyes: General: No scleral icterus. Right eye: No discharge. Left eye: No discharge. Extraocular Movements: Extraocular movements intact. Conjunctiva/sclera: Conjunctivae normal. Pupils: Pupils are equal, round, and reactive to light. Cardiovascular: Rate and Rhythm: Normal rate and regular rhythm. Pulses: Normal pulses. Heart sounds: Normal heart sounds. No murmur heard. No friction rub. No gallop. Pulmonary: Effort: Pulmonary effort is normal. No respiratory distress. Breath sounds: Normal breath sounds. No wheezing, rhonchi or rales. Abdominal: General: Bowel sounds are normal. There is no distension. Palpations: Abdomen is soft. Tenderness: There is no guarding. Musculoskeletal: General: No swelling or tenderness. Normal range of motion. Right shoulder: No swelling or tenderness. Normal range of motion. Left shoulder: No swelling or tenderness. Normal range of motion. Right elbow: No swelling. Normal range of motion. No tenderness. Left elbow: No swelling. Normal range of motion. No tenderness. Right wrist: No swelling or tenderness. Normal range of motion. Left wrist: No swelling or tenderness. Normal range of motion. Right hand: No swelling or tenderness. Left hand: No swelling or tenderness. Cervical back: Normal range of motion and neck supple. No tenderness. Thoracic back: No tenderness. Lumbar back: No tenderness. Right hip: No tenderness. Left hip: No tenderness. Right knee: No swelling. Normal range of motion. No tenderness. Left knee: No swelling. Normal range of motion. No tenderness. Right lower leg: No edema. Left lower leg: No edema. Right ankle: No swelling. No tenderness. Left ankle: No swelling. No tenderness. Right foot: No tenderness. Left foot: No tenderness. Skin: General: Skin is warm and dry. Findings: No rash. Neurological: General: No focal deficit present. Mental Status: She is alert and oriented to person, place, and time. Mental status is at baseline. Cranial Nerves: No cranial nerve deficit. Sensory: No sensory deficit. Motor: Weakness (Mild weakness on left upper extremity) present. Psychiatric: Mood and Affect: Mood normal. Behavior: Behavior normal. Behavior is cooperative. Thought Content: Thought content normal. Judgment: Judgment normal. No results found for this or any previous visit (from the past 36 hour(s)). Assessment/Plan There are no diagnoses linked to this encounter. Medication regimen: Plaquenil 200 mg every day, Methotrexate 17.5 mg (7 tabs of 2.5 mg) weekly, folate supplementation. Prednisone 7.5 mg daily. She is on warfarin per [facility] and Plavix. Proximal muscle weakness, hold atorvastatin and do labs. 2. History of CVA (cerebrovascular accident) ---- R MCA CVA in October 2022 I believe this could be based and primary angiitis of the central nervous system. Continue current treatment with Plaquenil 200 mg daily, methotrexate 17.5 mg weekly and prednisone 5 mg daily. We will taper gradually. 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 Systemic lupus erythematosus, unspecified SLE type, unspecified organ involvement status (CMS/HCC) ---- presumed incomplete SLE vs UCTD 5. High risk medication use 6. residential methotrexate user 7. 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 Raynaud phenomenon 10. Osteopenia *Initially consulted for concerns of autoimmune contribution to R MCA CVA in October 2022 --> TIA in Feb 2023 then again in Jul 2023. She failed Eliquis, so was started on warfarin. Slowly improving deficits of R sided headache, blurred vision, dysarthria/aphasia, left-sided weakness, confusion/cognitive trouble per patient. Also has sx of widespread MSK pain, fatigue, unrefreshing sleep. Mild dilated nailfold capillaries noted under dermatoscope, nonspecific finding. *Extensive work-up following with Neurology, Cardiology, Hematology, second opinion from [facility] in December 2022. S/p loop recorder, though cardiac work-up has not revealed etiology beyond Lambl's excrescence on aortic valve (where risk of AVR outweighs benefit). *Work-up revealed: non-clonal bone marrow plasmacytosis, increased circulating VEGF, elevated IgA, elevated free kappa light chain, prior fever/lympadenopathy,prior related DVT, (+) RAMYA at 1:160 --> 1:640 in Jul 2023. No indication of Antiphopspholipid ab syndrome, B2 GP1 and anticardiolipin ab are negative. SPEP WNL, negative for prothrombin gene, factor 5 Leiden, homocysteine. Negative for dsDNA and ANAYELI, HLAB27, with C4 and CK WNL. Joint scan negative for inflammatory uptake; MRI femurs and MRI SI joints unremarkable, cerebral angiogram showed no large vessel arterial occlusion, significant stenosis, sizable aneursym, or malformation. *MR Brain Vessel Wall Imaging with and without contrast December 2022 = October 2022 exam had focal near occlusion of distal M1 segment of R middle cerebral artery, with a filling defect suggestive of thrombus or thromboembolism ---> resolved in December 2022 exam, no underlying stenosis or vessel wall abnormality now normal diameter of R middle cerebral artery without surrounding wall enhancement of this segment of artery, no new arterial stenosis. *06/27/23 MRI brain shows small right basal ganglia lacunar infarct. 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 Brain bx was discussed but this is felt to have more risk than benefit especially considering low diagnostic yield in 30-40% of cases. BI MR BREAST BILATERAL W AND WO CONTRAST Observed: 12/18/2024 3:40 PM Status: UNK Source: [facility] This is a summary report. Th e complete report is available in the patient's medical record. If you cannot access the medical record, please contact the sending organization for a detailed fax or copy. BI MR BREAST BILATERAL W AND WO CONTRAST 12/18/2024 3:52 PM HISTORY: Patient is complaining of nipple discharge. Prior hysterectomy and oophorectomy. COMPARISON: Right breast echo and right mammogram from 11/20/2024 at outside institution. PROTOCOL: All images are generated with the Opara 3T MRI . Three-dimensional, high-resolution fat-suppressed T1 weighted images were obtained prior to, immediately following, and after a delay relative to contrast administration. Precontrast axial T2 fat-sat sequences were also obtained. 3-D image and subtraction processing were performed using CAD Stream software. The images were interpreted using image subtraction, re-registration, multiplanar reconstruction, 2-D and 3-D acquisition and subtraction MIP, BINTA, time activity curves and color mapping. CONTRAST: 15 mL of IV contrast FINDINGS: Background parenchymal enhancement: Marked. There is well-defined rounded mass with type I washout curve in the right breast lower inner aspect at 6 o'clock position anterior depth measuring 10 x 7 x 10 mm likely representing fibroadenoma. There are also multiple foci of enhancement seen scattered throughout both breasts. The largest focus in the right breast in the upper inner quadrant at 2 o'clock position middle depth measuring 18 x 8 x 12 mm with mixture of type I, type II and type III washout curves. The largest focus in the left breast is in the lower outer quadrant at 5 o'clock position middle depth measuring 29 x 9.7 x 22 mm with similar mixture of type I, type II and type III washout curves. Multiple additional smaller foci are seen. No significant pathologic adenopathy is appreciated. Artifact is seen from loop recorder along the left medial chest wall. MR ductogram did not reveal any significant dilated ducts. No ductal pathologic enhancement is appreciated. IMPRESSION: No MRI evidence for malignancy. ASSESSMENT: BI-RADS 3: Probably Benign RECOMMENDATION: Breast MRI in 6 Months A letter of notification will be sent to the patient regarding the results. Electronically signed: Oren Beatty MD. Not Vldtd LAB Observed: 12/08/2024 9:00 AM Status: COMPLETED Source: [facility] [id number] CeeZo F Date Provider Department Center 12/08/2024 2245-[facility] RESOURCE [facility] ME Medical C Family History Problem Relation Age of Onset Hypertension Mother Cancer Maternal Grandfather Clotting disorder Maternal Grandmother Clotting disorder Mother's Sister Family Status - Relation Status Age at Mother Maternal Grandfather Maternal Grandmother Mother's Sister COMPREHENSIVE METABOLIC PANEL Collected: 12/08/2024 8 :55 AM Status: UNK Source: [facility] TYPE CODE TESTS RESULT OUT OF RANGE REFERENCE UNITS LAB [id number] SODIUM (MMOL/L) IN SER/PLAS 140 136-145 mmol/L LAB [id number] POTASSIUM (MMOL/ L) IN SER/PLAS 3.7 3.5-5.1 mmol/L LAB 8834315 CHLORIDE (MMOL/L ) IN SER/PLAS 110 High 98-107 mmol/L LAB 9758953 CARBON DIOXIDE, TOTAL (MMOL/L) IN SER/PLAS 24 21-31 mmol/L LAB 5868106 ANION GAP IN SER/PLAS 10 7-20 mmol/L LAB 8797263 UREA NITROGEN (MG/DL) IN SER/PLAS 10 7-25 mg/dL LAB 8900359 CREATININE (MG/D L) IN SER/PLAS 0.83 0.60-1.20 mg/dL LAB 1064582 UREA NITROGEN/CREATININ E (MASS RATIO) IN SER/PLAS 12.0 NA LAB [id number] GLUCOSE (MG/DL) IN SER/PLAS 83 70-100 mg/dL LAB 3022971 CALCIUM (MG/DL) IN SER/PLAS 9.0 8.6-10.3 mg/dL LAB 5561736 ASPARTATE AMINOTRANSFERASE (SGOT) (U/L) IN SER/PLAS 30 13-39 U/L LAB 8146030 ALANINE AMINOTRANSFERASE (SGPT) (U/L) IN SER/PLAS 35 7-52 U/L LAB 7771955 ALKALINE PHOSPHATASE (U/L) IN SER/PLAS 66 34-104 U/L LAB 5924924 PROTEIN (G/DL) I N SER/PLAS 7.1 6.0-8.3 g/dL LAB 4314252 ALBUMIN (G/DL) I N SER/PLAS 4.0 3.5-5.7 g/dL LAB 7753928 BILIRUBIN TOTAL (MG/DL) IN SER/PLAS 0.4 0.3-1.0 mg/dL LAB 1468848 GLOMERULAR FILTRATION RATE ML/MIN/1.73 SQ M.PREDICTED 86.9 >60.0 mL/min /1.73m *2 Result Comment: The [facility]???s estimated glomerular filtration rate (eGFR) will no longer include consideration of race in its calculation. The National Kidney Foundation???s eGFR Task Force developed new recommendations for the estimation of the glomerular filtration rate in the [place] They recommend immediate implementation of the new equation refit without the race variable in all laboratories because the calculation does not include race. In addition to not including race in the calculation and reporting, it included diversity in its development, and has acceptable performance characteristics and potential consequences that do not disproportionately affect any one group of individuals. Performed By: #### [id number] ### # [facility] ([facility]) [address] [place] [address] SEDIMENTATION RATE Collected: 12/08/2024 8:55 AM Sta tus: UNK Source: [facility] TYPE CODE TESTS RESULT OUT OF RANGE REFERENCE UNITS LAB [id number] SEDIMENTATION RATE, ERYTHROCYTE 5 <20 mm/hr Performed By: #### [id number] ## ## [facility] ([facility]) [address] [place] [address] CBC WITH AUTO DIFFERENTIAL Collected: 12/08/2024 8:55 AM Status: UNK Source: [facility] TYPE CODE TESTS RESULT OUT OF RANGE REFERENCE UNITS LAB 5871298 LEUKOCYTES(10*3/ UL) IN BLOOD BY AUTOMATED COUNT 7.92 4.00-10.60 10*3/uL LAB 9745828 ERYTHROCYTES (10*6/UL) IN BLOOD BY AUTOMATED COUNT 4.41 3.80-5.00 10*6/uL LAB 5207346 HEMOGLOBIN (G/DL) IN BLOOD 13.6 12.0-15.0 g/dL LAB 7558783 HEMATOCRIT (%) IN BLOOD BY AUTOMATED COUNT 43.6 36.0-45.0 % LAB 3088129 ERYTHROCYTE MEAN CORPUSCULAR VOLUME (FL) BY AUTOMATED COUNT 98.9 High 82.0-98.0 fL LAB [id number] ERYTHROCYTE MEAN CORPUSCULAR HEMOGLOBIN (PG) BY AUTOMATED COUNT 30.8 27.0-33.0 pg LAB [id number] ERYTHROCYTE MEAN CORPUSCULAR HEMOGLOBIN CONCENTRATION (G/DL) BY AUTOMATED 31.2 Low 32.0-35.0 g/dL LAB 9260659 ERYTHROCYTE DISTRIBUTION WIDTH (RATIO) BY AUTOMATED COUNT 15.1 High 11.5-15.0 % LAB 4160315 NEUTROPHILS/100 LEUKOCYTES IN BLOOD BY AUTOMATED COUNT 47.5 40.0-72.0 % LAB 8345844 LYMPHOCYTES/100 LEUKOCYTES IN BLOOD BY AUTOMATED COUNT 39.6 20.0-45.0 % LAB [id number] MONOCYTES/100 LEUKOCYTES IN BLOOD BY AUTOMATED COUNT 8.6 5.0-12.0 % LAB 9659604 EOSINOPHILS/100 LEUKOCYTES IN BLOOD BY AUTOMATED COUNT 2.8 0.0-6.0 % LAB 2679200 BASOPHILS/100 LEUKOCYTES IN BLOOD BY AUTOMATED COUNT 0.9 0.0-1.0 % LAB 1969595 NEUTROPHILS (10*3/UL) IN BLOOD BY AUTOMATED COUNT 3.76 1.60-7.60 10*3/uL LAB [id number] LYMPHOCYTES (10*3/UL) IN BLOOD BY AUTOMATED COUNT 3.14 1.20-4.00 10*3/uL LAB 6839780 MONOCYTES (10*3/UL) IN BLOOD BY AUTOMATED COUNT 0.68 0.10-1.00 10*3/uL LAB 7595649 EOSINOPHILS (10*3/UL) IN BLOOD BY AUTOMATED COUNT 0.22 0.00-0.50 10*3/uL LAB 7463230 BASOPHILS (10*3/UL) IN BLOOD BY AUTOMATED COUNT 0.07 0.00-0.20 10*3/uL LAB 7066552 PLATELETS (10*3/UL) IN BLOOD AUTOMATED COUNT 466 High 150-400 10*3/uL LAB 254 NRBC (PER 100 WBCS) BY AUTOMATED COUNT 0.0 0 % LAB 1767 IMMATURE GRANULOCYTES/100 LEUKOCYTES IN BLOOD BY AUTOMATED COUNT 0.6 0.0-1.0 % LAB 1768 IMMATURE GRANULOCYTES (10*3/UL) IN BLOOD BY AUTOMATED COUNT 0.05 0.00-0.20 10*3/uL Performed By: #### [id number] # ### [facility] ([facility]) [address] [place] [address] LIPID PANEL Collected: 12/08/2024 8:55 AM Status: UN K Source: [facility] TYPE CODE TESTS RESULT OUT OF RANGE REFERENCE UNITS LAB 6671200 TRIGLYCERIDE (MG/DL) IN SER/PLAS 126 <150 mg/dL Result Comment: TRIGLYCERIDE REFERENCE RANGE: 20 YEARS AND OLDER CARDIOVASCULAR RISK LESS THAN 150 mg/dL LOW RISK 150 TO 199 mg/dL BORDERLINE RISK 200 mg/dL AND GREATER HIGH RISK LAB 4852870 CHOLESTEROL (MG/DL) IN SER/PLAS 123 120-200 mg/dL LAB 2123248 CHOLESTEROL IN LDL (MG/DL) IN SERUM OR PLASMA BY CALCULATION 39 0-160 mg/dL LAB 6924377 CHOLESTEROL IN HDL (MG/DL) IN SER/PLAS 59 23-92 mg/dL LAB 2348453 NON HDL CHOL. (LDL+VLDL) 64 NA LAB 6189465 TOTAL VLDL-C 25 0-40 mg/dL LAB 2481 CHOL/HDL 2.1 mg/dL Performed By: #### [id number] ### # [facility] [facility] [address] [place] [address] XR CHEST 2 VIEWS Observed: 12/01/2024 2:23 PM Status: F Source: [facility] XR CHEST 2 VIEWS Reason for exam: Acute cough, fever, chills for two days Technique: PA and lateral view Findings: Loop recorder in the cervical spine fusion are noted. There are surgical clips in the left upper quadrant of the abdomen. The heart size is normal. The pulmonary vascularity is unremarkable. The lungs are fully expanded and clear. No pleural abnormalities are seen. No evidence of mediastinal or hilar enlargement. The osseous structures are intact. No soft tissue abnormalities are seen. IMPRESSION: No evidence of active cardiopulmonary disease. Dictated on: 12/01/2024 12:53 PM This report has been electronically signed and approved by the interpreting Radiologist. PROTEIN ELECTROPHORESIS, SERUM Collected: 11/27/2024 2:30 PM Status: UNK Source: [facility] TYPE CODE TESTS RESULT OUT OF RANGE REFERENCE UNITS LAB [id number] PROTEIN (G/DL) I N SER/PLAS 6.9 6.0-8.3 g/dL LAB 1681 PROTEIN FRACTION (INTERPRETATION) IN SER/PLAS BY ELECTROPHORESIS Please see attached report. Performed By: #### [id number] ## ## [facility] [address] [place] [address] PROGRESS Observed: 11/27/2024 2:00 PM Status: COMPLETED Source: [facility] Subjective Patient ID: Dorene Mike is a 48 y.o. female who presents for Follow-up (Here for F/U of her nipple discharge - review mamm and USN results.). Continues to have pain and nipple discharge on the right. Completed ABX Review of Systems Objective Visit Vitals BP 119/79 (BP Location: Left arm, Patient Position: Sitting) Pulse 96 Temp 36.9 ???C (98.5 ???F) (Oral) Physical Exam Pulmonary: Effort: Pulmonary effort is normal. Chest: Breasts: Right: Nipple discharge, skin change (Mild erythema in 2 areas of the right breast 1 area extending from 9:00 to 12:00 mildly erythematous second area from 4:00 to 7:00 about 2 cm from the areolar edge again mildly erythema) and tenderness present. No swelling, bleeding, inverted nipple or mass. Musculoskeletal: Cervical back: Normal range of motion. Lymphadenopathy: Upper Body: Right upper body: No axillary adenopathy. Left upper body: No axillary adenopathy. Neurological: Mental Status: She is alert. Assessment/Plan Dorene Mike is a 48 y.o. 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 Currently coumadin. Plavix, methotrexate and Plaquenil, presents with right nipple discharge. Recommendation was made for 14-day course of antibiotics and there has been no significant changes in the clinical breast exam with worsening symptoms of bloody nipple discharge. My recommendation is for a breast MRI to be completed. Patient did have a mammogram and ultrasound completed which did not demonstrate significant findings to further explain her symptoms. Further recommendations to follow. Diagnosis Plan 1. Nipple discharge Bilateral breast MR with and without contrast Orders Placed This Encounter Procedures Bilateral breast MR with and without contrast Standing Status: Future Standing Expiration Date: 01/27/2026 Scheduling Instructions: The phone number to contact [facility] Radiology is Once you have been placed into the phone tree, it will prompt with the following options. 1 - CT scheduling 2 - MRI scheduling 3 - Ultrasound scheduling 4 - X-ray, Nuclear Medicine, Mammograms scheduling 5 - Reports/Image requests or general questions Order Specific Question: Reason for exam: Answer: nipple discharge Order Specific Question: May perform additional testing - diagnostic imaging, ultrasound and biopsy at the Radiologist discretion? Answer: Yes Order Specific Question: Is the patient ? Answer: No Order Specific Question: What is the patient's sedation requirement? Answer: No Sedation Order Specific Question: Release to Patient Answer: Immediately No results found for this or any previous visit (from the past 36 hour(s)). No follow-ups on file. FOLLOW-UP Observed: 11/27/2024 2:00 PM Status: COMPLETED Source: [facility] [id number] oZ Mike F Date Provider Department Center 11/27/2024 [id number]-NLFNABILIO OLIVEIRA ONC DCC Family History Problem Relation Age of Onset Hypertension Mother Cancer Maternal Grandfather Clotting disorder Maternal Grandmother Clotting disorder Mother's Sister Family Status - Relation Status Age at Mother Maternal Grandfather Maternal Grandmother Mother's Sister Level of Service:05431 SC OFFICE/OUTPATIENT ESTABLISHED LOW MDM 20 MIN Reason for Visit and Comments: Follow-up [909253] - Here for F/U of her nipple discharge - review mamm and USN results. US BREAST RT LIMITED Observed: 5 8:56 AM Status: COMPLETED Source: [facility] [address] [place] [address] [place] [address] Mammography Report Signed Patient: Zo Mike MR#: [id number] : 1975 Acct:[id number] Age/Sex: 48 / F Adm Date: 11/20/24 Loc: [place] Room: Type: [facility] Attending Dr: Abilio Dsouza MD Ordering Provider: Abilio Dsouza MD Date of Service: 11/20/24 Procedure(s): MM diagnostic mammo RT w/CAD; US breast RT limited Accession Number(s): ([id number]) MM/MM diagnostic mammo RT w/CAD: N61.0 ([id number]) US/US breast RT limited: N61.0 Copies to: MD Abilio Sultana MD CLINICAL DATA: Clear to brown-colored right nipple discharge over the past week and tenderness on that side. RIGHT DIAGNOSTIC MAMMOGRAMS - FULL FIELD DIGITAL WITH TOMOSYNTHESIS AND CAD Tomosynthesis craniocaudal and mediolateral oblique views of the right breast were obtained using low-dose digital technique. Comparison is made to prior studies from December 10, 2019 through February 11, 2024. This examination was reviewed with the aid of CAD. There are scattered fibroglandular densities. There are no definite developing masses, typically malignant calcifications or architectural distortion. There has been no significant interval change. LIMITED RIGHT BREAST ULTRASOUND Real-time ultrasound evaluation the retroareolar/periareolar region was performed. There is some echogenic breast tissue with mild duct ectasia and tiny cysts. In the lateral periareolar region at 9:00, there is a well-defined hypoechoic nodule with through transmission measuring 8 x 6 x 10 mm. Abutting the inferior medial aspect of the nipple, there appears to be another well-defined hypoechoic nodular area measuring 6 x 4 x 7 mm. Also medial to the nipple, just below the skin layer is a third hypoechoic nodular area measuring 4 x 2 x 5 mm. MM/MM diagnostic mammo RT w/CAD IMPRESSION: THREE HYPOECHOIC NODULES IN THE RETROAREOLAR/PERIAREOLAR REGION. THESE DO NOT HAVE AGGRESSIVE FEATURES HOWEVER GIVEN THE HISTORY OF NIPPLE DISCHARGE, FOLLOW-UP WILL BE NEEDED. THE AREA AT 9:00 WOULD BE AMENABLE TO ULTRASOUND-GUIDED BIOPSY. THE AREA CONTACTING THE NIPPLE AND THE OTHER DIRECTLY BELOW THE SKIN WOULD NOT BE AMENABLE DUE TO POSITION. MRI MIGHT ALSO BE HELPFUL TO ASSIST IN MANAGEMENT OF THE FINDINGS AND TO EXCLUDE ANY OTHER POTENTIAL ETIOLOGIES FOR THE NIPPLE DISCHARGE. Findings were reviewed with the patient at the time of the study. RESULT CODE: 4 Suspicious Abnormality - Biopsy Considered DENSITY CODE: 2 (approximately 25-50% glandular) FOLLOW UP: BIO The false-negative rate of mammography is approximately 10-percent. Management of a palpable abnormality must be based on clinical grounds. Patient was entered into a reminder system with a target due date for the next mammogram. Impression dictated by: Chelsie Bailon M.D. 11/20/2024 10:45 AM Dictation Location: [facility] Dictated By: Chelsie Bailon MD 11/20/24 0856 Signed By: <Electronically signed by MD Chelsie Bailon in OV> 11/20/24 1045 ABSTRACT Observed: 11/20/2024 12:00 AM Status: COMPLETED Source: [facility] [id number] Zo Mkie F Date Provider Department Center 11/20/2024 46743-LAEVABILIO OLIVEIRA ONC DCC Family History Problem Relation Age of Onset Hypertension Mother Cancer Maternal Grandfather Clotting disorder Maternal Grandmother Clotting disorder Mother's Sister Family Status - Relation Status Age at Mother Maternal Grandfather Maternal Grandmother Mother's Sister PROGRESS Observed: 11/13/2024 3:45 PM Status: COMPLETED Source: [facility] Subjective Patient ID: Dorene Mike is a 48 y.o. female who presents for Consult ([employer]ER ref'd by Dr. Aguayo for right nipple discharge for the past 3 days with associated right breast tenderness.). 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 Currently coumadin. Plavix, methotrexate and Plaquenil. RIGHT BREAST Associated symptoms of pain, skin changes, and nipple discharge. Denies trauma to the chest wall and bilateral breast. Denies previous breast biopsies Denies personal history of primary cancer Review of symptoms: She denies fatigue, fevers, chills, headaches, visual changes, chest pain, SOB, back pain, abdominal pain, nausea, emesis, and diarrhea. ALL other systems are negative per intake sheet. FAMILY HISTORY: Otherwise, She denies a family history of breast, prostate, ovarian, or other cancer in her family. 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 Chest: Breasts: Right: Nipple discharge, skin change (Mild erythema in 2 areas of the right breast 1 area extending from 9:00 to 12:00 mildly erythematous second area from 4:00 to 7:00 about 2 cm from the areolar edge again mildly erythema) and tenderness present. No swelling, bleeding, inverted nipple or mass. Left: No swelling, bleeding, inverted nipple, mass, nipple discharge, skin change or tenderness. Musculoskeletal: Cervical back: Normal range of motion. Lymphadenopathy: Upper Body: Right upper body: No axillary adenopathy. Left upper body: No axillary adenopathy. Neurological: Mental Status: She is alert. Assessment/Plan Dorene Mike is a 48 y.o. 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 Currently coumadin. Plavix, methotrexate and Plaquenil, presents with right nipple discharge for the past 3 days with associated right breast tenderness.. Clinical breast exam demonstrates findings consistent with Right breast mastitis with scant nipple discharge, recommendation for 14-day course of Augmentin, and right breast ultrasound to further evaluate. Patient is to follow-up in 2 weeks. Diagnosis Plan 1. Mastitis amoxicillin-pot clavulanate (Augmentin) 875-125 mg tablet Right breast US limited Orders Placed This Encounter Procedures Right breast US limited Standing Status: Future Standing Expiration Date: 01/13/2026 Scheduling Instructions: The phone number to contact [facility] Radiology is Once you have been placed into the phone tree, it will prompt with the following options. 1 - CT scheduling 2 - MRI scheduling 3 - Ultrasound scheduling 4 - X-ray, Nuclear Medicine, Mammograms scheduling 5 - Reports/Image requests or general questions Order Specific Question: Reason for exam: Answer: right breast mastitis, please schedule patient in the next 5-10 days Order Specific Question: May perform additional testing - diagnostic imaging, ultrasound and biopsy at the Radiologist discretion? Answer: Yes Order Specific Question: Release to Patient Answer: Immediately No results found for this or any previous visit (from the past 36 hour(s)). No follow-ups on file. OFFICE VISIT Observed: 11/13/2024 3:45 PM Status: COMPLETED Source: [facility] [id number] Zo Mike F Date Provider Department Center 11/13/2024 [id number]-NRZGABILIO DSOUZA ONC DCC Family History Problem Relation Age of Onset Hypertension Mother Cancer Maternal Grandfather Clotting disorder Maternal Grandmother Clotting disorder Mother's Sister Family Status - Relation Status Age at Mother Maternal Grandfather Maternal Grandmother Mother's Sister Level of Service:21232 SC OFFICE/OUTPATIENT NEW LOW MDM 30 MINUTES Reason for Visit and Comments: Consult [484] - [employer]ER ref'd by Dr. Aguayo for right nipple discharge for the past 3 days with associated right breast tenderness. ALPHA FETOPROTEIN Collected: 10/16/2024 10:24 A M Status: COMPLETED Source: [facility] TYPE CODE TESTS RESULT OUT OF RANGE REFERENCE UNITS LAB AFP(LOINC) ALPHA FETOPROTEIN 2.0 0-9.9 ng/mL Performed By: #### 1834-1, 1 0334-1, 2039-6 #### [facility] ([id number]) [address] [place] [address], [address] [place] [address] #### 96226-0, AGO #### [facility] ([id number]) [address] [facility], [place] [address] CA 125 Collected: 10:24 AM Status: COMPLETED Source: [facility] TYPE CODE TESTS RESULT OUT OF RANGE REFERENCE UNITS LAB C125(LOINC) CA 125 9 0-35 U/mL Result Comment: The method used for this test is [employer] DXI chemiluminescent immunoassay. Values obtained by different assay methods cannot be used interchangeably. Performed By: #### 1834-1, 1 0334-1, 2038-12 #### [facility] ([id number]) [address] [place] [address], [place] [address] #### 06701-5, AGO #### [facility] ([id number]) [address] [place] [address] CEA Collected: 10:24 AM Status: COMPLETED Source: [facility] TYPE CODE TESTS RESULT OUT OF RANGE REFERENCE UNITS LAB CEA(LOINC) CEA 2.2 0.0-3.0 ng/mL Result Comment: 0.0-3.0 ng/mL FOR NON SMOKERS 0.0-5.0 ng/mL FOR SMOKERS The method used for this test is Markell Tougaloo DXI chemiluminescent immunoassay. Values obtained by different assay methods cannot be used interchangeably. Performed By: #### 1834-1, 1 0334-1, 2038-12 #### [facility] ([id number]) [address] [place] [address], [place] [address] #### 06796-9, AGO #### [facility] ([id number]) [address] [place] [address] B-HCG QUANT TUMOR MARKER Collected: 10:24 AM Status: COMPLETED Source: [facility] TYPE CODE TESTS RESULT OUT OF RANGE REFERENCE UNITS LAB BHCG(LOINC) B-HCG Quant Tumor Marker <0.6 IU/L Result Comment: NOTE REFERENCE VALUE Females: <1.0 (Premenopausal, non-) <7.0 (Postmenopausal) ADDITIONAL INFORMATION This test has been modified from the geriatric social worker's instructions. Its performance characteristics were determined by [facility] in a manner consistent with CLIA requirements. This test has not been cleared or approved by the U.S. Food and Drug Administration. The testing method is an electrochemiluminescence assay manufactured by [employer] and performed on the Modular or Dorothea system. Values obtained with different assay methods or kits may be different and cannot be used interchangeably. Test results cannot be interpreted as absolute evidence for the presence or absence of malignant disease. Test Performed by: [facility] [address] [place] [address] Social Professionals: Presley Abreu Ph.D.; CLIA# [id number] Performed By: #### 1834-1, 1 0334-1, 2039-6 #### [facility] ([id number]) [address] [place] [address], [address] [place] [address] #### 95154-4, AGO #### [facility] ([id number]) [address] [place] [address], [place] [address] [facility]UP GENERIC ORDER Collected: 10:24 AM Status: COMPLETED Source: [facility] TYPE CODE TESTS RESULT OUT OF RANGE REFERENCE UNITS LAB ARPTST([facility]) TEST NAME [id number] LACTAT E DEHYDROGENASE ISOENZYMES ON SERUM LAB ARPRES(LOINC) TEST RESULT SEE NOTE Result Comment: NOTE Test name Result Flag Units RefIntvl Lactate Dehydrogenase, Total 194 U/L 105-230 Lactate Dehydrogenase - 1 27 % 14-27 Lactate Dehydrogenase - 2 33 % 29-42 Lactate Dehydrogenase - 3 21 % 18-30 Lactate Dehydrogenase - 4 8 % 8-15 Lactate Dehydrogenase - 5 11 % 6-23 Performed By: [facility] [address] [place] [address] Skating Rink Manager: Harshad Pang MD, PhD CLIA Number: [id number] Performed By: #### 1834-1, 1 0334-1, 9-6 #### [facility] ([id number]) [address] [facility], [address] [place] [address] #### 25474-5, AGO #### [facility] ([id number]) [address] [facility], [place] [address] UNLISTED LAB TEST Collected: 10/16/2024 10:24 A M Status: COMPLETED Source: [facility] TYPE CODE TESTS RESULT OUT OF RANGE REFERENCE UNITS LAB LOOK(LOINC) UNLISTED LAB TEST Sent to reference lab OFFICE VISIT Observed: 10/08/2024 9:40 AM Status: COMPLETED Source: [facility] [id number] Zo Mike F Date Provider Department Center 10/08/2024 409-MAHAD AGUAYO DCC ONC DCC Family History Problem Relation Age of Onset Hypertension Mother Cancer Maternal Grandfather Clotting disorder Maternal Grandmother Clotting disorder Mother's Sister Family Status - Relation Status Age at Mother Maternal Grandfather Maternal Grandmother Mother's Sister Level of Service:69703 SC OFFICE/OUTPATIENT ESTABLISHED MOD MDM 30 MIN Reason for Visit and Comments: Follow-up [092973] - Bone marrow issues (previously seen at [place] office) PROGRESS Observed: 10/08/2024 9:40 AM Status: COMPLETED Source: [facility] Oncology History No history exists. History of Present Illness Impression Chronically elevated inflammatory markers COT ASSEMBLER vasculitis. She is currently on MTX and prednisone and Plaquenil COT ASSEMBLER thrombosis: She on coumadin and Plavix Recommendations Labs reviewed No clotting since she has been on coumadin and Plavix Records reviewed We will reassess labs . Physical examination Visit Vitals BP 121/77 (BP Location: Left arm, Patient Position: Sitting) Pulse 82 Temp 36.7 ???C (98.1 ???F) (Oral) Ht 1.651 m (5' 5 ) Wt 85.3 kg (188 lb) SpO2 100% BMI 31.28 kg/m??? Smoking Status Never BSA 1.98 m??? Patient is alert, oriented x 3, CN II-XII intact. Strength and sensation symmetric and intact throughout. Reflexes 2+ throughout. Cerebellar testing normal. Normal S1 and S2. No S3, S4 or murmurs. Rhythm is regular Positive bowel sounds. Soft, nondistended, nontender. No guarding or rebound. No masses. Peripheral pulses are OK, no pedal edema Clear to auscultation and percussion without rales, rhonchi, wheezing or diminished breath sounds No cyanosis, jaundice or clubbing Laboratory Data Auto WBC Date/Time Value Ref Range Status 09/19/2024 12:52 PM 9.98 4.00 - 10.60 10*3/uL Final 06/11/2024 12:40 PM 8.39 4.00 - 10.60 10*3/uL Final RBC Date/Time Value Ref Range Status 09/19/2024 12:52 PM 4.19 3.80 - 5.00 10*6/uL Final 06/11/2024 12:40 PM 4.24 3.80 - 5.00 10*6/uL Final Hematocrit Date/Time Value Ref Range Status 09/19/2024 12:52 PM 41.8 36.0 - 48.0 % Final 06/11/2024 12:40 PM 42.4 36.0 - 48.0 % Final Hemoglobin Date/Time Value Ref Range Status 09/19/2024 12:52 PM 13.4 12.0 - 15.0 g/dL Final 06/11/2024 12:40 PM 13.7 12.0 - 15.0 g/dL Final Platelets Date/Time Value Ref Range Status 09/19/2024 12:52 PM 390 150 - 400 10*3/uL Final 06/11/2024 12:40 PM 370 150 - 400 10*3/uL Final Sodium Date/Time Value Ref Range Status 09/19/2024 12:52 PM 140 136 - 145 mmol/L Final 06/11/2024 12:40 PM 138 136 - 145 mmol/L Final Potassium Date/Time Value Ref Range Status 09/19/2024 12:52 PM 3.7 3.5 - 5.1 mmol/L Final 06/11/2024 12:40 PM 3.8 3.5 - 5.1 mmol/L Final Chloride Date/Time Value Ref Range Status 09/19/2024 12:52 PM 111 (H) 98 - 107 mmol/L Final 06/11/2024 12:40 PM 112 (H) 98 - 107 mmol/L Final Glucose Date/Time Value Ref Range Status 09/19/2024 12:52 PM 91 70 - 100 mg/dL Final 06/11/2024 12:40 PM 111 (H) 70 - 100 mg/dL Final Calcium Date/Time Value Ref Range Status 09/19/2024 12:52 PM 9.3 8.6 - 10.3 mg/dL Final 06/11/2024 12:40 PM 8.9 8.6 - 10.3 mg/dL Final CO2 Date/Time Value Ref Range Status 09/19/2024 12:52 PM 21 21 - 31 mmol/L Final 06/11/2024 12:40 PM 20 (L) 21 - 31 mmol/L Final BUN Date/Time Value Ref Range Status 09/19/2024 12:52 PM 12 7 - 25 mg/dL Final 06/11/2024 12:40 PM 13 7 - 25 mg/dL Final Creatinine Date/Time Value Ref Range Status 09/19/2024 12:52 PM 0.78 0.60 - 1.20 mg/dL Final 06/11/2024 12:40 PM 0.72 0.60 - 1.20 mg/dL Final Total Bilirubin Date/Time Value Ref Range Status 09/19/2024 12:52 PM 0.3 0.3 - 1.0 mg/dL Final 06/11/2024 12:40 PM 0.5 0.3 - 1.0 mg/dL Final ALT (SGPT) Date/Time Value Ref Range Status 09/19/2024 12:52 PM 37 7 - 52 U/L Final 06/11/2024 12:40 PM 35 7 - 52 U/L Final AST Date/Time Value Ref Range Status 09/19/2024 12:52 PM 27 13 - 39 U/L Final 06/11/2024 12:40 PM 27 13 - 39 U/L Final Alkaline Phosphatase Date/Time Value Ref Range Status 09/19/2024 12:52 PM 65 34 - 104 U/L Final 06/11/2024 12:40 PM 55 34 - 104 U/L Final Albumin Date/Time Value Ref Range Status 09/19/2024 12:52 PM 4.3 3.5 - 5.7 g/dL Final 06/11/2024 12:40 PM 4.0 3.5 - 5.7 g/dL Final Imaging studies Most recent XR, CT, MRI *Refer to patient's chart for complete imaging records === 03/08/23 === XR SHOULDER 2+ VIEWS LEFT - Impression - Degenerative changes without evidence of acute ossific abnormality. No ossific mass lesion identified. If persistent concern for soft tissue mass consider focused ultrasound. Electronically signed: Aly Farrell. === 07/12/23 === MR SHOULDER LEFT W AND WO IV CONTRAST - Impression - *No discrete soft tissue mass or cyst identified in the visualized soft tissues. However, the reported mass is not marked for the exam, and I cannot determine if the reported mass is within the [id number] for this exam. Consider dedicated ultrasound at the site of palpable concern for further evaluation, as small lipomas may not be clearly visualized on MRI (and given that the mass is not marked for this exam). *Mild tendinosis of the supraspinatus tendon. *Small amount of fluid and enhancement of the subacromial/subdural bursa compatible with bursitis. This could be sequela of impingement given the presence of lateral acromial downsloping. Approved by:Yoan Cage07/12/2023 12:10 PM. I, Noe Ponce,have reviewed the image(s) and agree with the findings in this report. Electronically signed: Noe Ponce. Medications Current Outpatient Medications Medication Instructions acetaminophen (Tylenol 8 Hour) 650 mg ER tablet Every 8 hours amoxicillin (Amoxil) 500 mg capsule TAKE 1 CAPSULE BY MOUTH THREE TIMES DAILY (IN THE MORNING, IN THE EVENING and BEFORE bedtime) atorvastatin (LIPITOR) 20 mg, oral, Daily RT benzocaine-menthoL (Cepastat Sore Throat) 15-3.6 mg 1 lozenge, oral, Every 2 hour PRN calcium 500 mg, oral, 2 times daily with meals chlorhexidine (Peridex) 0.12 % solution 15 mL, Mouth/Throat, 2 times daily cholecalciferol (VITAMIN D-3) 1,000 Units, oral, Daily clopidogrel (PLAVIX) 75 mg, oral, Daily cyanocobalamin (VITAMIN B-12) 1,000 mcg, oral, Every other day enoxaparin (Lovenox) 80 mg/0.8 mL syringe INJECT 1 syringe TWICE DAILY (IN THE MORNING and BEFORE bedtime) FOR 7 DAYS fluconazole (Diflucan) 150 mg tablet TAKE 1 TABLET BY MOUTH A SINGLE DOSE folic acid (FOLVITE) 1,000 mcg, oral, Every morning hydroxychloroquine (PLAQUENIL) 200 mg, oral, Daily magnesium oxide (Mag-Ox) 400 mg (241.3 mg magnesium) tablet Every 12 hours magnesium oxide (MAG-OX) 400 mg, oral, Daily RT methotrexate (Xatmep) 2.5 mg/mL oral solution as directed Orally methotrexate 17.5 mg, oral, Weekly, Follow directions carefully, and ask to explain any part you do not understand. Take exactly as directed. nitrofurantoin, macrocrystal-monohydrate, (Macrobid) 100 mg capsule TAKE 1 CAPSULE BY MOUTH TWICE DAILY (IN THE MORNING and BEFORE bedtime) Nurtec ODT 75 mg tablet,disintegrating dissolve 75 milligram under the tongue once daily if needed for MIGRAINE HEADACHE oxyCODONE-acetaminophen (Percocet) 5-325 mg tablet 1 tablet, oral, Every 6 hours PRN predniSONE (DELTASONE) 7.5 mg, oral, Daily predniSONE (DELTASONE) 1 mg, oral, Daily scopolamine (Transderm-Scop) 1 mg over 3 days patch 3 day 1 patch, transdermal, Every 72 hours topiramate (TOPAMAX) 200 mg, oral, 2 times daily RT venlafaxine (EFFEXOR) 37.5 mg, oral, 2 times daily Vitamin B-6 50 mg, oral, Every morning warfarin (Coumadin) 5 mg tablet Currently taking 7.5mg daily ORDERS ONLY Observed: 10/07/2024 12:00 AM Status: COMPLETED Source: [facility] [id number] Zo Mike F Date Provider Department [place] 10/07/2024 [facility] D[facility] Family History Problem Relation Age of Onset Hypertension Mother Cancer Maternal Grandfather Clotting disorder Maternal Grandmother Clotting disorder Mother's Sister Family Status - Relation Status Age at Mother Maternal Grandfather Maternal Grandmother Mother's Sister CBC AND AUTO DIFF Collected: 09/30/2024 8:42 AM Status: COMPLETED Source: [facility] TYPE CODE TESTS RESULT OUT OF RANGE REFERENCE UNITS LAB WBC(LOINC) WBC COUNT 9.2 4.0-11.0 X10E9/L LAB RBC(LOINC) RBC COUNT 4.33 3.80-5.20 X10E12/L LAB HGB(LOINC) HEMOGLOBIN 14.2 11.7-15.5 g/dL LAB HCT(LOINC) HEMATOCRIT 42.1 35-47 % LAB MCV(LOINC) MCV 97 80-100 fL LAB MCH(LOINC) MCH 32.9 27-34 pg LAB MCHC(LOINC) MCHC 33.9 32-36 g/dL LAB RDW(LOINC) RDW 15.7 High 11.5-15.0 % LAB PLTC(LOINC) PLATELET COUNT 367 150-450 X10E9 /L LAB MPV(LOINC) MPV 8.6 7-12 fL LAB NEUT(LOINC) % NEUTROPHILS 68.7 % LAB LYMP(LOINC) % LYMPHOCYTES 20.9 % LAB MONO(LOINC) % MONOCYTES 8.5 % LAB EOS(LOINC) % EOSINOPHILS 1.3 % LAB BASO(LOINC) % BASOPHILS 0.6 % LAB ANEUT(LOINC) ABSOLUTE NEUTROPHIL 6.3 1.5-6.6 X10E9/L LAB ALYMP(LOINC) ABSOLUTE LYMPHOCYTE 1.9 1.0-3.5 X10E9/L LAB AMONO(LOINC) ABSOLUTE MONOCYTE 0.8 0-0.9 X10E9/L LAB AEOS(LOINC) ABSOLUTE EOSINOPHIL 0.1 0.0-0.4 X10E9/L LAB ABASO(LOINC) ABSOLUTE BASOPHIL 0.1 0.0-0.2 X10E9/L Performed By: #### CBCA, NGOZI L, CMP #### [facility] ([id number]) [address], [address] [place] [address] IMMUNOELECTROPHORESIS FOR TH ERAPY MONITORING Collected: 09/30/2024 8:42 AM Status: COMPLETED Source: [facility] TYPE CODE TESTS RESULT OUT OF RANGE REFERENCE UNITS LAB IGA(LOINC) IGA 482 High 68-378 mg/dL LAB IGM(LOINC) IGM 24 Low 45-281 mg/dL LAB IGG(LOINC) IGG 0470 847-4528 mg/dL LAB KFLC(LOINC) FREE KAPPA LT CHAINS 2.42 High 0.33-1.94 mg/dL LAB LFLC(LOINC) FREE LAMBDA LT CHAINS 1.93 0.57-2.63 mg/dL LAB FKLR(LOINC) FREE RAVINDER/LAMBD RATIO 1.25 0.26-1.65 LAB IMINT(LOINC) IMMUNE PROFILE INTERP SEE SEPARATE REPORT Performed By: #### CBCA, NGOZI L, CMP #### [facility] ([id number]) [address] [place] [address], [address] [place] [address] COMPREHENSIVE METABOLIC PANEL Collected: 2024 8:42 AM Status: COMPLETED Source: [facility] TYPE CODE TESTS RESULT OUT OF RANGE REFERENCE UNITS LAB NA(LOINC) SODIUM 138 134-146 mmol/L LAB K(LOINC) POTASSIUM 4.3 3.5-5.0 mmol/L Result Comment: SPECIMEN HEM OLYZED, RESULTS INCREASED MODERATELY HEMOLYZED LAB CL(LOINC) CHLORIDE 111 High 98-109 mmol/L LAB CO2(LOINC) CARBON DIOXIDE 21 Low 22-32 mmol/L LAB AGAP(LOINC) ANION GAP 6 5-15 mmol/L LAB BUN(LOINC) BLOOD UREA NITROGEN 13 5-23 mg/dL LAB CRET(LOINC) CREATININE 0.77 0.40-1.00 mg/dL Result Comment: METHOD TRACE ABLE TO IDMS STANDARD LAB GLU(LOINC) GLUCOSE 93 65-99 mg/dL LAB CA(LOINC) CALCIUM 9.1 8.5-10.5 mg/dL LAB TP(LOINC) TOTAL PROTEIN 6.7 6.0-8.0 g/dL LAB ALB(LOINC) ALBUMIN 3.9 3.2-5.3 g/dL LAB ALK(LOINC) ALKALINE PHOSPHATASE 54 39-130 U/L LAB AST(LOINC) AST 46 High 0-41 U/L LAB ALT1(LOINC) ALT 37 High 0-31 U/L LAB TBIL(LOINC) BILIRUBIN,TOTAL 0.4 0.3-1.2 mg/d L LAB EGFR([facility]) eGFR (CKD-EPI) NON-RACE DEPENDENT >90 >59 ml/min/1 .73sq.m Result Comment: Reported eGFR is based on the CKD-EPI 2020 equation that does not use a race coefficient. Performed By: #### CBCA, NGOZI L, CMP #### [facility] ([id number]) [address] [place] [address], [address] [place] [address] CLINICAL PATHOLOGY Collected: 12:00 AM Status: COMPLETED Source: [facility] TYPE CODE TESTS RESULT OUT OF RANGE REFERENCE UNITS LAB [id number] Clinical Pathology Result Comment: [facility] [address] [place] [address] Clinical Pathology Report Patient Name:ZO MIKE:1975 (Age: 48)Gender:FTaken:09/30/2024Reported:10/02/2024Physician(s):Mahad Aguayo M.D. ([phone])Copy To: Rec. #:[id number]: #[id number] Final Pathologic Diagnosis No monoclonal protein identified. Report Electronically Signed Out df/10/02/2024Elroy Burnett MD [place] [address], License number: [id number]. Clinical History R53.83, R63.4, G54.2, M75.102, R76.8. SERUM IEP SAMPLE NUMBER: [id number] IMMUNOGLOBULIN LEVELS (mg/dL): IgG : 1036 IgA : 482 IgM : 24 Free [place]: 2.42 Free Lambda: 1.93 Free [place]/Lambda ratio: 1.25 Specimen(s) Received Serum IEP Fee Codes(s): 1; 13261-21 US PELVIC WITH TRANSVAGINAL Observed: 09/26/2024 7:57 AM Status: COMPLETED Source: [facility] US PELVIC WITH TRANSVAGINAL Transabdominal and transvaginal pelvic ultrasound dated 7 09/26/2024 at 8:19 AM INDICATION: Cyst of the ovary. FINDINGS: No comparisons available. Status post hysterectomy. The right ovary measures 4.3 x 3 x 2.8 cm and contains 2 small cysts measuring 1.8 and 1.6 cm each. There is a heterogeneous area in the right ovary measuring 1.7 x 1.3 cm. The left ovary is surgically removed. No free fluid. IMPRESSION: 1. Small cysts in the right ovary measuring up to 1.8 cm. 2. Heterogeneous area in the right ovary measuring 1.7 x 1.3 cm, may represent a prior hemorrhagic cyst. 3. No free fluid. 4. Status post hysterectomy and left oophorectomy. Finalized by Julio Higgins MD on 09/28/2024 2:47 PM FOLLOW-UP Observed: 09/24/2024 11:20 AM Status: COMPLETED Source: [facility] [id number] CeeZo F Date Provider Department Center 09/24/2024 12[facility] Family History Problem Relation Age of Onset Hypertension Mother Cancer Maternal Grandfather Family Status - Relation Status Age at Mother Maternal Grandfather Level of Service:08828 SC OFFICE/OUTPATIENT ESTABLISHED MOD MDM 30 MIN () Reason for Visit and Comments: Follow-up [165656] - Was in the hospital in Jul. Very tired and joints are so achy. Legs feel heavy and having dry mouth PROGRESS Observed: 09/24/2024 11:20 AM Status: COMPLETED Source: [facility] Attestation signed by Jeimy Morejon MD at 09/24/2024 4:59 PM GC: I saw this patient. I personally performed the critical/england portions that determines the level of service. I was directly involved in the management and treatment plan of the patient. I reviewed note and agree with the documentation Subjective Dorene Mike is a 48 y.o. 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 She presents for No chief complaint on file.. Medication regimen: Plaquenil 200 mg every day, Methotrexate 17.5 mg (7 tabs of 2.5 mg) weekly, folate supplementation. Prednisone 7.5 mg daily Patient saw [facility] via telemedicine on 04/16/2024 w/ Dr. Mac who upon review note her prior history of DVT during , family history of blood clots, and thrombus on cerebral angiogram suspect that patient's isolated stroke was thrombotic in nature. They note lower suspicion of COT ASSEMBLER vasculitis and do not think lupus is playing in her role of recurrent syncopal episodes. Patient was seen in ED 08/16/2024 for reported stroke like symptoms with reported facial droop and strange behavior, was found to have norovirus at the time. No acute stroke per MRI. She reports she was treated with IV steroids at that time. Today she reports she remains on medications as above and has not noted any changes in symptoms relative to her prior visit. She reports she has some chronic left sided weakness and is working with PT for strengthening. Otherwise no acute complaints at this time. HPI Review of Systems Constitutional: Positive for appetite change (after TIA taste change) and fatigue. Negative for chills, fever and unexpected weight change. HENT: Negative for ear pain, mouth sores, rhinorrhea, sinus pain, sore throat and trouble swallowing. No dry mouth. Eyes: Positive for visual disturbance (B/L vision loss since TIA, Optho appt upcoming, peripheral vision gone). Negative for pain and redness. No dry eyes. Respiratory: Negative for cough, chest tightness, shortness of breath and wheezing. Cardiovascular: Negative for chest pain, palpitations and leg swelling. No Raynaud's phenomenon. S/p loop recorder in place. Gastrointestinal: Positive for nausea. Negative for abdominal pain, blood in stool, constipation, diarrhea and vomiting. No GERD. Genitourinary: Negative for difficulty urinating, dysuria, flank pain, frequency, hematuria and urgency. Musculoskeletal: Positive for arthralgias and myalgias. Negative for back pain, joint swelling and neck pain. Skin: Negative for rash. Itching skin, no rash. Neurological: Positive for dizziness, weakness (L sided, working with PT; L foot drop), numbness (Hands and feet) and headaches (Constant, R sided headache). Negative for seizures, syncope, speech difficulty and light-headedness. Cognitive took a hit, new baseline below what it was. 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 Psychiatric/Behavioral: Positive for confusion (Intermittent episodes that started with TIA) and sleep disturbance (Unrefreshing sleep). Negative for agitation and dysphoric mood. The patient is not nervous/anxious. Objective There were no vitals taken for this visit. Physical Exam Vitals and nursing note reviewed. Constitutional: General: She is awake. She is not in acute distress. Appearance: Normal appearance. HENT: Head: Normocephalic and atraumatic. Mouth/Throat: Mouth: Mucous membranes are moist. Pharynx: Oropharynx is clear. Eyes: General: No scleral icterus. Right eye: No discharge. Left eye: No discharge. Extraocular Movements: Extraocular movements intact. Conjunctiva/sclera: Conjunctivae normal. Pupils: Pupils are equal, round, and reactive to light. Cardiovascular: Rate and Rhythm: Normal rate and regular rhythm. Pulses: Normal pulses. Heart sounds: Normal heart sounds. No murmur heard. No friction rub. No gallop. Pulmonary: Effort: Pulmonary effort is normal. No respiratory distress. Breath sounds: Normal breath sounds. No wheezing, rhonchi or rales. Abdominal: General: Bowel sounds are normal. There is no distension. Palpations: Abdomen is soft. Tenderness: There is no guarding. Musculoskeletal: General: No swelling or tenderness. Normal range of motion. Right shoulder: No swelling or tenderness. Normal range of motion. Left shoulder: No swelling or tenderness. Normal range of motion. Right elbow: No swelling. Normal range of motion. No tenderness. Left elbow: No swelling. Normal range of motion. No tenderness. Right wrist: No swelling or tenderness. Normal range of motion. Left wrist: No swelling or tenderness. Normal range of motion. Right hand: No swelling or tenderness. Left hand: No swelling or tenderness. Cervical back: Normal range of motion and neck supple. No tenderness. Thoracic back: No tenderness. Lumbar back: No tenderness. Right hip: No tenderness. Left hip: No tenderness. Right knee: No swelling. Normal range of motion. No tenderness. Left knee: No swelling. Normal range of motion. No tenderness. Right lower leg: No edema. Left lower leg: No edema. Right ankle: No swelling. No tenderness. Left ankle: No swelling. No tenderness. Right foot: No tenderness. Left foot: No tenderness. Skin: General: Skin is warm and dry. Findings: No rash. Neurological: General: No focal deficit present. Mental Status: She is alert and oriented to person, place, and time. Mental status is at baseline. Cranial Nerves: No cranial nerve deficit. Sensory: No sensory deficit. Motor: Weakness (Mild weakness on left upper extremity) present. Psychiatric: Mood and Affect: Mood normal. Behavior: Behavior normal. Behavior is cooperative. Thought Content: Thought content normal. Judgment: Judgment normal. No results found for this or any previous visit (from the past 36 hour(s)). Assessment/Plan There are no diagnoses linked to this encounter. Medication regimen: Plaquenil 200 mg every day, Methotrexate 17.5 mg (7 tabs of 2.5 mg) weekly, folate supplementation. Prednisone 7.5 mg daily. She is on warfarin per Clinic and Plavix. 1. 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 Myalgia 4. Systemic lupus erythematosus, unspecified SLE type, unspecified organ involvement status ([facility]) ---- presumed incomplete SLE vs UCTD 5. High risk medication use 6. 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 Raynaud phenomenon 10. Osteopenia *Initially consulted for concerns of autoimmune contribution to R MCA CVA in October 2022 --> TIA in Feb 2023 then again in Jul 2023. She failed Eliquis, so was started on warfarin. Slowly improving deficits of R sided headache, blurred vision, dysarthria/aphasia, left-sided weakness, confusion/cognitive trouble per patient. Also has sx of widespread MSK pain, fatigue, unrefreshing sleep. Mild dilated nailfold capillaries noted under dermatoscope, nonspecific finding. *Extensive work-up following with Neurology, Cardiology, Hematology, second opinion from [facility] in December 2022. S/p loop recorder, though cardiac work-up has not revealed etiology beyond Lambl's excrescence on aortic valve (where risk of AVR outweighs benefit). *Work-up revealed: non-clonal bone marrow plasmacytosis, increased circulating VEGF, elevated IgA, elevated free kappa light chain, prior fever/lympadenopathy,prior related DVT, (+) RAMYA at 1:160 --> 1:640 in Jul 2023. No indication of Antiphopspholipid ab syndrome, B2 GP1 and anticardiolipin ab are negative. SPEP WNL, negative for prothrombin gene, factor 5 Leiden, homocysteine. Negative for dsDNA and ANAYELI, HLAB27, with C4 and CK WNL. Joint scan negative for inflammatory uptake; MRI femurs and MRI SI joints unremarkable, cerebral angiogram showed no large vessel arterial occlusion, significant stenosis, sizable aneursym, or malformation. *MR Brain Vessel Wall Imaging with and without contrast December 2022 = October 2022 exam had focal near occlusion of distal M1 segment of R middle cerebral artery, with a filling defect suggestive of thrombus or thromboembolism ---> resolved in December 2022 exam, no underlying stenosis or vessel wall abnormality now normal diameter of R middle cerebral artery without surrounding wall enhancement of this segment of artery, no new arterial stenosis. *06/27/23 MRI brain shows small right basal ganglia lacunar infarct. 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 Brain bx was discussed but this is felt to have more risk than benefit especially considering low diagnostic yield in 30-40% of cases. Plan: - Dicussed brain bx, but due to possible low diagnostic yield in 30-40% of cases, benefit vs risk there is more risk than benefit. There is enough evidence as it stands to treat as COT ASSEMBLER vasculitis. Discussed condition typically needs 2 years of treatment. - recommend follow-up with Dr Mac at [facility] - recommend follow-up with cardiology - Continue medication regimen: - Plaquenil 200 mg every day. . - Decrease Prednisone to 6 mg daily for one month then decrease to 5 mg daily until next follow up, will re-evaluate next follow up - Dexa 07/02/2024: Osteopenia, L spine T -1.0, L total femur T -0.8, L fem neck T -2.1, Right fem neck T -2.0, Right total femur T -0.9 - Start Vitamin D and ca Supplementation - continue Methotrexate at 17.5 mg weekly - Medication monitoring with CBC and CMP every 3 months, wnl 09/19/2024. Repeat CBC, CMP, lipid panel, and ESR prior to next visit - discussed risks and benefits of brain biopsy, we opted to defer - Continue Warfarin per [facility] and Plavix per Neurology and Cardiology. - Follow up with [facility]ology at [facility], as well as Neurology, Cardiology, and Hematology. - Return to clinic in [address] Peng and Dr Morejon COMPREHENSIVE METABOLIC PANEL Collected: 09/19/2024 1 2:52 PM Status: UNK Source: [facility] TYPE CODE TESTS RESULT OUT OF RANGE REFERENCE UNITS LAB [id number] SODIUM (MMOL/L) IN SER/PLAS 140 136-145 mmol/L LAB [id number] POTASSIUM (MMOL/ L) IN SER/PLAS 3.7 3.5-5.1 mmol/L LAB 1328701 CHLORIDE (MMOL/L ) IN SER/PLAS 111 High 98-107 mmol/L LAB 8460082 CARBON DIOXIDE, TOTAL (MMOL/L) IN SER/PLAS 21 21-31 mmol/L LAB [id number] ANION GAP IN SER/PLAS 12 7-20 mmol/L LAB [id number] UREA NITROGEN (MG/DL) IN SER/PLAS 12 7-25 mg/dL LAB 6475339 CREATININE (MG/D L) IN SER/PLAS 0.78 0.60-1.20 mg/dL LAB [id number] UREA NITROGEN/CREATININ E (MASS RATIO) IN SER/PLAS 15.4 NA LAB 2632999 GLUCOSE (MG/DL) IN SER/PLAS 91 70-100 mg/dL LAB 6432752 CALCIUM (MG/DL) IN SER/PLAS 9.3 8.6-10.3 mg/dL LAB 3422680 ASPARTATE AMINOTRANSFERASE (SGOT) (U/L) IN SER/PLAS 27 13-39 U/L LAB [id number] ALANINE AMINOTRANSFERASE (SGPT) (U/L) IN SER/PLAS 37 7-52 U/L LAB [id number] ALKALINE PHOSPHATASE (U/L) IN SER/PLAS 65 34-104 U/L LAB 2328829 PROTEIN (G/DL) I N SER/PLAS 7.4 6.0-8.3 g/dL LAB 7429554 ALBUMIN (G/DL) I N SER/PLAS 4.3 3.5-5.7 g/dL LAB 1753286 BILIRUBIN TOTAL (MG/DL) IN SER/PLAS 0.3 0.3-1.0 mg/dL LAB 5632772 GLOMERULAR FILTRATION RATE ML/MIN/1.73 SQ M.PREDICTED 94.2 >60.0 mL/min /1.73m *2 Result Comment: The [facility]???s estimated glomerular filtration rate (eGFR) will no longer include consideration of race in its calculation. The National Kid[employer] Foundation???s eGFR Task Force developed new recommendations for the estimation of the glomerular filtration rate in the [place] They recommend immediate implementation of the new equation refit without the race variable in all laboratories because the calculation does not include race. In addition to not including race in the calculation and reporting, it included diversity in its development, and has acceptable performance characteristics and potential consequences that do not disproportionately affect any one group of individuals. Performed By: #### [id number] ### # [facility] (YASEM[facility]) [place] [address] CBC WITH AUTO DIFFERENTIAL Collected: 0 09/19/2024 12:52 PM Status: UNK Source: [facility] TYPE CODE TESTS RESULT OUT OF RANGE REFERENCE UNITS LAB 9452975 LEUKOCYTES(10*3/ UL) IN BLOOD BY AUTOMATED COUNT 9.98 4.00-10.60 10*3/uL LAB 6944591 ERYTHROCYTES (10*6/UL) IN BLOOD BY AUTOMATED COUNT 4.19 3.80-5.00 10*6/uL LAB 5298592 HEMOGLOBIN (G/DL) IN BLOOD 13.4 12.0-15.0 g/dL LAB 6068420 HEMATOCRIT (%) IN BLOOD BY AUTOMATED COUNT 41.8 36.0-48.0 % LAB 1237552 ERYTHROCYTE MEAN CORPUSCULAR VOLUME (FL) BY AUTOMATED COUNT 99.8 High 82.0-98.0 fL LAB 6921600 ERYTHROCYTE MEAN CORPUSCULAR HEMOGLOBIN (PG) BY AUTOMATED COUNT 32.0 27.0-33.0 pg LAB 6322337 ERYTHROCYTE MEAN CORPUSCULAR HEMOGLOBIN CONCENTRATION (G/DL) BY AUTOMATED 32.1 32.0-35.0 g/dL LAB 2781714 ERYTHROCYTE DISTRIBUTION WIDTH (RATIO) BY AUTOMATED COUNT 15.4 High 11.5-15.0 % LAB 8152193 NEUTROPHILS/100 LEUKOCYTES IN BLOOD BY AUTOMATED COUNT 78.8 High 40.0-72.0 % LAB [id number] LYMPHOCYTES/100 LEUKOCYTES IN BLOOD BY AUTOMATED COUNT 15.3 Low 20.0-45.0 % LAB 0974645 MONOCYTES/100 LEUKOCYTES IN BLOOD BY AUTOMATED COUNT 4.6 Low 5.0-12.0 % LAB 0596404 EOSINOPHILS/100 LEUKOCYTES IN BLOOD BY AUTOMATED COUNT 0.5 0.0-6.0 % LAB 0440029 BASOPHILS/100 LEUKOCYTES IN BLOOD BY AUTOMATED COUNT 0.4 0.0-1.0 % LAB 4520312 NEUTROPHILS (10*3/UL) IN BLOOD BY AUTOMATED COUNT 7.86 High 1.60-7.60 10*3/uL LAB 6764053 LYMPHOCYTES (10*3/UL) IN BLOOD BY AUTOMATED COUNT 1.53 1.20-4.00 10*3/uL LAB 8906021 MONOCYTES (10*3/UL) IN BLOOD BY AUTOMATED COUNT 0.46 0.10-1.00 10*3/uL LAB 4724070 EOSINOPHILS (10*3/UL) IN BLOOD BY AUTOMATED COUNT 0.05 0.00-0.50 10*3/uL LAB 3759533 BASOPHILS (10*3/UL) IN BLOOD BY AUTOMATED COUNT 0.04 0.00-0.20 10*3/uL LAB 7023011 PLATELETS (10*3/UL) IN BLOOD AUTOMATED COUNT 390 150-400 10*3/uL LAB 254 NRBC (PER 100 WBCS) BY AUTOMATED COUNT 0.5 High 0 % LAB 1767 IMMATURE GRANULOCYTES/100 LEUKOCYTES IN BLOOD BY AUTOMATED COUNT 0.4 0.0-1.0 % LAB 1768 IMMATURE GRANULOCYTES (10*3/UL) IN BLOOD BY AUTOMATED COUNT 0.04 0.00-0.20 10*3/uL Performed By: #### [id number] # ### [facility] ([facility]) [address] [place] [address] SEDIMENTATION RATE Collected: 09/19/2024 12:[address] [facility]: UNK Source: [facility] TYPE CODE TESTS RESULT OUT OF RANGE REFERENCE UNITS LAB 7838120 SEDIMENTATION RATE, ERYTHROCYTE 7 <20 mm/hr Performed By: #### [id number] ## ## [facility] ([facility]) [address] [place] [address] LAB Observed: 09/19/2024 12:50 PM Status: COMPLETED Source: [facility] [id number] CeeZo F Date Provider Department Center 09/19/2024 2245-[facility] RESOURCE [facility] ME Medical C Family History Problem Relation Age of Onset Hypertension Mother Cancer Maternal Grandfather Family Status - Relation Status Age at Mother Maternal Grandfather CT ABDOMEN AND PELVIS W WO CONT Observed: 09/12/2024 12:37 PM Status: COMPLETED Source: [facility] CT ABDOMEN AND PELVIS W WO C ONT CT ABDOMEN AND PELVIS W WO CONT HISTORY: Adrenal nodule, follow-up renal mass. Abnormal CT. Follow-up. COMPARISON: CT abdomen and pelvis 08/16/2024 TECHNIQUE: CT images of the abdomen and pelvis obtained without and with administration of intravenous contrast. Automated exposure control was utilized. All CT scans at this facility use dose modulation, iterative reconstruction, and/or weight based dosing when appropriate to reduce radiation dose to as low as reasonably achievable. FINDINGS: Streak artifact from patient's left arm. LOWER CHEST: No lower lung consolidation. No pleural effusion. Minimal bibasilar dependent atelectasis. No cardiomegaly or pericardial effusion. No significant vascular calcifications. VASCULATURE: Nonaneurysmal abdominal aorta. No significant vascular calcifications. The main portal, splenic and superior mesenteric vein are patent. LIVER AND BILIARY: Noncirrhotic liver morphology. Status post cholecystectomy. No biliary dilation. PANCREAS: Unremarkable. SPLEEN: Status post splenectomy. ADRENALS: Unremarkable. KIDNEYS/URETERS/BLADDER: Nonobstructive 4 mm calculus arising from the inferior pole of the left kidney. No ureteral calculi or collecting system dilation. Within the inferior pole of the right kidney there is a unilocular, hypoattenuating lesion without internal septations or calcifications and no perceptible wall. There is no significant enhancement on postcontrast images. The urinary bladder is unremarkable. No ureteral filling defects on delayed contrast images. REPRODUCTIVE ORGANS: Status post hysterectomy. Similar appearing right ovary with a few internal simple fluid cystic structures with adjacent bowel loops. This finding appears similar dating back to study 2022. No left ovary visualized. A 3.7 cm cystic-appearing lesion is seen in the right adnexa. GI TRACT AND PERITONEUM: Similar small hiatal hernia. No evidence of free air or bowel obstruction. The appendix is not clearly visualized however there are no secondary signs of acute appendicitis in the right lower quadrant. LYMPH NODES: No enlarged lymph nodes. MUSCULOSKELETAL: No abdominal wall abnormalities. No acute osseous abnormalities. IMPRESSION: * Hypoattenuating lesion in the right kidney is compatible with a Bosniak 1 simple benign renal cyst and requires no dedicated follow-up. * A cystic-appearing right adnexal lesion measuring 3.7 cm is seen. In a pre-menopausal woman, recommend no additional imaging or follow-up. In an early post-menopausal woman (<5 years since menopause), follow-up ultrasound at 6-12 months is recommended. In a late post-menopausal woman (>5 years since menopause), because of its size >3 cm, further evaluation with ultrasound is recommended. Approved by Merlyn Rosas MD on 09/12/2024 2:13 PM Recommendations for adnexal lesion management based on Kowalski, et al., J Am Jun Radiol 10:675-81 (2013). I, Aly Farrell MD have personally reviewed the image(s) and agree with and/or edited the report Finalized by Aly Farrell MD on 09/12/2024 3:[address] CTA HEAD Observed: 09/12/2024 12:37 PM Status: COMPLETED Source: [facility] CT CTA HEAD CLINICAL INFORMATION: Fusiform prominence of the proximal left internal carotid artery. COMPARISON: 08/16/2024 PROCEDURE: Routine CTA [place] was obtained after the uncomplicated intravenous administration of 100 cc Omnipaque 350. Sagittal and coronal reformatted images with 3-D Maximum intensity projection reconstructions of the [place] constructed under concurrent physician supervision on a independent workstation for evaluation of aneurysm. Arterial blood flow was measured to assist the stroke clinical team in the diagnosis of large vessel occlusion in patients undergoing screening for acute ischemic stroke using Rapid AI software when clinically indicated. Automated exposure control was utilized. FINDINGS: On the current examination, the cavernous portions of the internal carotid arteries are symmetric in size. The questionable prominence of the proximal cavernous segment of the left internal carotid artery described on the prior study is not demonstrated on the current examination. Intrarenal portions of the internal carotid arteries are patent bilaterally. The anterior and middle cerebral arteries are also patent and unremarkable. No stenoses, occlusions, or aneurysms are identified. The vertebrobasilar system is normal in appearance. No basilar tip aneurysms are seen. 3-D reformatted images confirm the source data findings. IMPRESSION: 1. Normal CT angiogram of the intracranial vessels. The questionable fusiform dilatation of the cavernous portion of the left internal carotid artery described previous examination dated 08/16/2024 is not demonstrated on the current study. All CT scans at this facility use dose modulation, iterative reconstruction, and/or weight based dosing when appropriate to reduce radiation dose to as low as reasonably achievable. Finalized by Sergey Cai MD on 09/15/2024 6:52 AM CBC AND AUTO DIFF Collected: 08/19/2024 4:23 AM Status: COMPLETED Source: [facility] TYPE CODE TESTS RESULT OUT OF RANGE REFERENCE UNITS LAB WBC(LOINC) WBC COUNT 7.7 4.0-11.0 X10E9/L LAB RBC(LOINC) RBC COUNT 3.61 Low 3.80-5.20 X10E12/L LAB HGB(LOINC) HEMOGLOBIN 11.9 11.7-15.5 g/dL LAB HCT(LOINC) HEMATOCRIT 34.9 Low 35-47 % LAB MCV(LOINC) MCV 97 80-100 fL LAB MCH(LOINC) MCH 32.9 27-34 pg LAB MCHC(LOINC) MCHC 34.0 32-36 g/dL LAB RDW(LOINC) RDW 14.7 11.5-15.0 % LAB PLTC(LOINC) PLATELET COUNT 247 150-450 X10E9 /L LAB MPV(LOINC) MPV 8.7 7-12 fL LAB NEUT(LOINC) % NEUTROPHILS 56.6 % LAB LYMP(LOINC) % LYMPHOCYTES 23.1 % LAB MONO(LOINC) % MONOCYTES 17.1 % LAB EOS(LOINC) % EOSINOPHILS 2.9 % LAB BASO(LOINC) % BASOPHILS 0.3 % LAB ANEUT(LOINC) ABSOLUTE NEUTROPHIL 4.4 1.5-6.6 X10E9/L LAB ALYMP(LOINC) ABSOLUTE LYMPHOCYTE 1.8 1.0-3.5 X10E9/L LAB AMONO(LOINC) ABSOLUTE MONOCYTE 1.3 High 0-0.9 X10E9/L LAB AEOS(LOINC) ABSOLUTE EOSINOPHIL 0.2 0.0-0.4 X10E9/L LAB ABASO(LOINC) ABSOLUTE BASOPHIL 0.0 0.0-0.2 X10E9/L Performed By: #### CBCA, CMP , PINR, 1988- #### [facility] ([id number]) [address] [place] [address], [place] [address] #### [id number] #### [facility] ([id number]) [address] [place] [address], [address] [place] [address] COMPREHENSIVE METABOLIC PANEL Collected: 2024 4:23 AM Status: COMPLETED Source: [facility] TYPE CODE TESTS RESULT OUT OF RANGE REFERENCE UNITS LAB NA(LOINC) SODIUM 139 134-146 mmol/L LAB K(LOINC) POTASSIUM 3.5 3.5-5.0 mmol/L LAB CL(LOINC) CHLORIDE 116 High 98-109 mmol/L LAB CO2(LOINC) CARBON DIOXIDE 15 Low 22-32 mmol/L LAB AGAP(LOINC) ANION GAP 8 5-15 mmol/L LAB BUN(LOINC) BLOOD UREA NITROGEN 7 5-23 mg/dL LAB CRET(LOINC) CREATININE 0.62 0.40-1.00 mg/dL Result Comment: METHOD TRACE ABLE TO IDMS STANDARD LAB GLU(LOINC) GLUCOSE 89 65-99 mg/dL LAB CA(LOINC) CALCIUM 8.0 Low 8.5-10.5 mg/dL LAB TP(LOINC) TOTAL PROTEIN 5.8 Low 6.0-8.0 g/dL LAB ALB(LOINC) ALBUMIN 2.9 Low 3.2-5.3 g/dL LAB ALK(LOINC) ALKALINE PHOSPHATASE 44 39-130 U/L LAB AST(LOINC) AST 44 High 0-41 U/L LAB ALT1(LOINC) ALT 54 High 0-31 U/L LAB TBIL(LOINC) BILIRUBIN,TOTAL 0.5 0.3-1.2 mg/d L LAB EGFR(LOINC) eGFR (CKD-EPI) NON-RACE DEPENDENT >90 >59 ml/min/1 .73sq.m Result Comment: Reported eGFR is based on the CKD-EPI 2020 equation that does not use a race coefficient. Performed By: #### CBCA, CMP , PINR, 1987- #### [facility] ([id number]) [address] [facility], [place] [address] #### [id number] #### [facility] ([id number]) [facility] [facility], [address] [place] [address] PROTIME AND INR Collected: 08/19/2024 4:23 AM Status: COMPLETED Source: [facility] TYPE CODE TESTS RESULT OUT OF RANGE REFERENCE UNITS LAB PROX(LOINC) PROTIME 53.0 High 9.8-13.2 sec Result Comment: NEW REFERENC E RANGE LAB INR(LOINC) INR 4.8 High Alert 0.8-1.1 Performed By: #### CBCA, CMP , PINR, 1987-11 #### [facility] ([id number]) [address] [place] [address] #### [id number] #### [facility] ([id number]) [address] [place] [address], [address] [address] C REACTIVE PROTEIN Collected: 08/19/2024 4:23 A M Status: COMPLETED Source: [facility] TYPE CODE TESTS RESULT OUT OF RANGE REFERENCE UNITS LAB CRP(LOINC) C REACTIVE PROTEIN 2.5 High 0.000-0.744 mg/dL Performed By: #### CBCA, CMP , PINR, 1987-11 #### [facility] ([id number]) [address] [place] [address] #### [id number] #### [facility] ([id number]) [address] [place] [address] ESR, ERYTHROCYTE SEDIMENTATI ON RATE Collected: 08/19/2024 4:23 AM Status: COMPLETED Source: [facility] TYPE CODE TESTS RESULT OUT OF RANGE REFERENCE UNITS LAB ESR(LOINC) ESR, ERYTHROCYTE SEDIMENTATION RATE 3 0-20 mm/h Performed By: #### CBCA, CMP , PINR, 1987-11 #### [facility] ([id number]) [address] [place] [address] #### [id number] #### [facility] ([id number]) [address] [place] [address] REFILL Observed: 08/19/2024 12:00 AM Status: COMPLETED Source: [facility] [id number] Zo Mike F Date Provider Department Center 08/19/2024 JEIMY BHATT I [facility] Family History Problem Relation Age of Onset Hypertension Mother Cancer Maternal Grandfather Family Status - Relation Status Age at Mother Maternal Grandfather Reason for Visit and Comments: Med Refill [[id number]] 37 Observed: 08/18/2024 8:22 AM Status: COMPLETED Source: [facility] Pt called and notified that labs were ordered. Pt states that she has been [facility] for [facility] norovirus andwant to updated you MR BRAIN WO CONT Observed: 08/18/2024 7:30 AM Status: COMPLETED Source: [facility] MR BRAIN WO CONT MR BRAIN WO CONT 08/18/2024 7:30 AM INDICATION: Stroke, follow up COMPARISON: MR brain 08/14/2023 TECHNIQUE: Multiplanar multisequence MR images of the brain were obtained without intravenous contrast. FINDINGS: BRAIN: There is redemonstration of area of signal abnormality centered within the superior right basal ganglia/deep white matter right frontal lobe, with central increased T2 signal surrounding increased FLAIR signal, without definite associated diffusion restriction, likely bone infarct. No definite diffusion restriction on this exam. No acute intracranial hemorrhage. No mass lesion. VENTRICLES: Normal ventricular size. VASCULATURE: Major arterial and venous intracranial flow voids are present. ORBITS: Unremarkable. PARANASAL SINUSES: Moderate paranasal sinus mucosal thickening. TEMPORAL BONE: Right mastoid effusion. SOFT TISSUES: The visualized head and neck soft tissues are unremarkable. OSSEOUS STRUCTURES: Degenerative postsurgical changes of visualized portions of the cervical spine. IMPRESSION: 1. No definite acute stroke. 2. Likely chronic ischemic insult of right superior basal ganglia ganglia/deep frontal white matter region. Finalized by Abdiel Nunez DO on 08/18/2024 7:58 AM COMPREHENSIVE METABOLIC PANEL Collected: 2024 5:19 AM Status: COMPLETED Source: [facility] TYPE CODE TESTS RESULT OUT OF RANGE REFERENCE UNITS LAB NA(LOINC) SODIUM 139 134-146 mmol/L LAB K(LOINC) POTASSIUM 3.3 Low 3.5-5.0 mmol/L LAB CL(LOINC) CHLORIDE 115 High 98-109 mmol/L LAB CO2(LOINC) CARBON DIOXIDE 17 Low 22-32 mmol/L LAB AGAP(LOINC) ANION GAP 7 5-15 mmol/L LAB BUN(LOINC) BLOOD UREA NITROGEN 12 5-23 mg/dL LAB CRET(LOINC) CREATININE 0.69 0.40-1.00 mg/dL Result Comment: METHOD TRACE ABLE TO IDMS STANDARD LAB GLU(LOINC) GLUCOSE 94 65-99 mg/dL LAB CA(LOINC) CALCIUM 8.1 Low 8.5-10.5 mg/dL LAB TP(LOINC) TOTAL PROTEIN 5.7 Low 6.0-8.0 g/dL LAB ALB(LOINC) ALBUMIN 3.1 Low 3.2-5.3 g/dL LAB ALK(LOINC) ALKALINE PHOSPHATASE 37 Low 39-130 U/L LAB AST(LOINC) AST 21 0-41 U/L LAB ALT1(LOINC) ALT 26 0-31 U/L LAB TBIL(LOINC) BILIRUBIN,TOTAL 0.5 0.3-1.2 mg/d L LAB EGFR(LOINC) eGFR (CKD-EPI) NON-RACE DEPENDENT >90 >59 ml/min/1 .73sq.m Result Comment: Reported eGFR is based on the CKD-EPI 2020 equation that does not use a race coefficient. Performed By: #### CMP, CBCA , 1987-, PINR #### [facility] ([id number]) [address] [place] [address], [place] [address] #### [id number] #### [facility] ([id number]) [address] [place] [address], [address] [place] [address] CBC AND AUTO DIFF Collected: 08/18/2024 5:19 AM Status: COMPLETED Source: [facility] TYPE CODE TESTS RESULT OUT OF RANGE REFERENCE UNITS LAB WBC(LOINC) WBC COUNT 12.4 High 4.0-11.0 X10E9/L LAB RBC(LOINC) RBC COUNT 3.75 Low 3.80-5.20 X10E12/L LAB HGB(LOINC) HEMOGLOBIN 12.2 11.7-15.5 g/dL LAB HCT(LOINC) HEMATOCRIT 36.2 35-47 % LAB MCV(LOINC) MCV 96 80-100 fL LAB MCH(LOINC) MCH 32.4 27-34 pg LAB MCHC(LOINC) MCHC 33.7 32-36 g/dL LAB RDW(LOINC) RDW 14.7 11.5-15.0 % LAB PLTC(LOINC) PLATELET COUNT 261 150-450 X10E9 /L LAB MPV(LOINC) MPV 8.2 7-12 fL LAB NEUT(LOINC) % NEUTROPHILS 83.1 % LAB LYMP(LOINC) % LYMPHOCYTES 7.7 % LAB MONO(LOINC) % MONOCYTES 7.6 % LAB EOS(LOINC) % EOSINOPHILS 1.3 % LAB BASO(LOINC) % BASOPHILS 0.3 % LAB ANEUT(LOINC) ABSOLUTE NEUTROPHIL 10.4 High 1.5-6.6 X10E9/L LAB ALYMP(LOINC) ABSOLUTE LYMPHOCYTE 1.0 1.0-3.5 X10E9/L LAB AMONO(LOINC) ABSOLUTE MONOCYTE 0.9 0-0.9 X10E9/L LAB AEOS(LOINC) ABSOLUTE EOSINOPHIL 0.2 0.0-0.4 X10E9/L LAB ABASO(LOINC) ABSOLUTE BASOPHIL 0.0 0.0-0.2 X10E9/L Performed By: #### CMP, CBCA , 1987-11, PINR #### [facility] ([id number]) [address] [place] [address] #### [id number] #### [facility] ([id number]) [facility] [facility], [address] [address] C REACTIVE PROTEIN Collected: 08/18/2024 5:19 A M Status: COMPLETED Source: [facility] TYPE CODE TESTS RESULT OUT OF RANGE REFERENCE UNITS LAB CRP(LOINC) C REACTIVE PROTEIN 3.4 High 0.000-0.744 mg/dL Performed By: #### CMP, CBCA , 1987-11, PINR #### [facility] ([id number]) [address] [place] [address] #### [id number] #### [facility] ([id number]) [address] [facility], [address] [place] [address] PROTIME AND INR Collected: 08/18/2024 5:19 AM Status: COMPLETED Source: [facility] TYPE CODE TESTS RESULT OUT OF RANGE REFERENCE UNITS LAB PROX(LOINC) PROTIME 73.0 High 9.8-13.2 sec Result Comment: NEW REFERENC E RANGE LAB INR(LOINC) INR 6.7 High Alert 0.8-1.1 Performed By: #### CMP, CBCA , 1987-11, PINR #### [facility] ([id number]) [address] [place] [address] #### [id number] #### [facility] ([id number]) [address] [place] [address], [address] [place] [address] ESR, ERYTHROCYTE SEDIMENTATI ON RATE Collected: 08/18/2024 5:19 AM Status: COMPLETED Source: [facility] TYPE CODE TESTS RESULT OUT OF RANGE REFERENCE UNITS LAB ESR(LOINC) ESR, ERYTHROCYTE SEDIMENTATION RATE 3 0-20 mm/h Performed By: #### CMP, CBCA , 1987-11, PINR #### [facility] ([id number]) [address] [place] [address] #### [id number] #### [facility] ([id number]) [address] [place] [address], [address] [place] [address] CBC AND AUTO DIFF Collected: 08/17/2024 4:10 PM Status: COMPLETED Source: [facility] TYPE CODE TESTS RESULT OUT OF RANGE REFERENCE UNITS LAB WBC(LOINC) WBC COUNT 18.3 High 4.0-11.0 X10E9/L LAB RBC(LOINC) RBC COUNT 3.92 3.80-5.20 X10E12/L LAB HGB(LOINC) HEMOGLOBIN 12.4 11.7-15.5 g/dL LAB HCT(LOINC) HEMATOCRIT 38.1 35-47 % LAB MCV(LOINC) MCV 97 80-100 fL LAB MCH(LOINC) MCH 31.6 27-34 pg LAB MCHC(LOINC) MCHC 32.6 32-36 g/dL LAB RDW(LOINC) RDW 14.6 11.5-15.0 % LAB PLTC(LOINC) PLATELET COUNT 284 150-450 X10E9 /L LAB MPV(LOINC) MPV 8.2 7-12 fL LAB NEUTM(LOINC) SEG NEUTROPHIL 87.0 % LAB LYMM(LOINC) LYMPHOCYTE 6.0 % LAB MONOM(LOINC) MONOCYTE 4.0 % LAB EOSM(LOINC) EOSINOPHIL 2.0 % LAB LREAC(LOINC) LYMPHOCYTE, ATYPICAL 1.0 % LAB ANEUTM(LOINC) ABSOLUTE NEUTROPHILS 15.9 High 1.5-6.6 X10E9/L LAB ALYMM(LOINC) ABSOLUTE LYMPHOCYTE 1.3 1.0-3.5 X10E9/L LAB AMONOM(LOINC) ABSOLUTE MONOCYTES 0.7 0-0.9 X10E9/L LAB AEOSM(LOINC) ABSOLUTE EOSINOPHIL 0.4 0.0-0.4 X10E9/L LAB FRAG(LOINC) FRAGMENT 1+ Abnormal NONE LAB ACAN(LOINC) ACANTHOCYTE 1+ Abnormal NONE Performed By: #### CBCA, CMP , 1987- #### [facility] ([id number]) [address] [place] [address], [place] [address] #### [id number] #### [facility] ([id number]) [address] [place] [address], [address] [place] [address] COMPREHENSIVE METABOLIC PANEL Collected: 2024 4:10 PM Status: COMPLETED Source: [facility] TYPE CODE TESTS RESULT OUT OF RANGE REFERENCE UNITS LAB NA(LOINC) SODIUM 137 134-146 mmol/L LAB K(LOINC) POTASSIUM 3.1 Low 3.5-5.0 mmol/L LAB CL(LOINC) CHLORIDE 114 High 98-109 mmol/L LAB CO2(LOINC) CARBON DIOXIDE 19 Low 22-32 mmol/L LAB AGAP(LOINC) ANION GAP 4 Low 5-15 mmol/L LAB BUN(LOINC) BLOOD UREA NITROGEN 13 5-23 mg/dL LAB CRET(LOINC) CREATININE 0.84 0.40-1.00 mg/dL Result Comment: METHOD TRACE ABLE TO IDMS STANDARD LAB GLU(LOINC) GLUCOSE 97 65-99 mg/dL LAB CA(LOINC) CALCIUM 8.0 Low 8.5-10.5 mg/dL LAB TP(LOINC) TOTAL PROTEIN 6.1 6.0-8.0 g/dL LAB ALB(LOINC) ALBUMIN 3.3 3.2-5.3 g/dL LAB ALK(LOINC) ALKALINE PHOSPHATASE 43 39-130 U/L LAB AST(LOINC) AST 24 0-41 U/L LAB ALT1(LOINC) ALT 28 0-31 U/L LAB TBIL(LOINC) BILIRUBIN,TOTAL 0.9 0.3-1.2 mg/d L LAB EGFR(LOINC) eGFR (CKD-EPI) NON-RACE DEPENDENT 86 >59 ml/min/1 .73sq.m Result Comment: Reported eGFR is based on the CKD-EPI 2020 equation that does not use a race coefficient. Performed By: #### MELODIE HAHN , 1986-11 #### [facility] ([id number]) [address] [place] [address] #### [id number] #### [facility] ([id number]) [address] [place] [address], [address] [place] [address] C REACTIVE PROTEIN Collected: 08/17/2024 4:10 P M Status: COMPLETED Source: [facility] TYPE CODE TESTS RESULT OUT OF RANGE REFERENCE UNITS LAB CRP(LOINC) C REACTIVE PROTEIN 5.1 High 0.000-0.744 mg/dL Performed By: #### MELODIE HAHN , 1986-11 #### [facility] ([id number]) [address] [place] [address] #### [id number] #### [facility] ([id number]) [address] [place] [address], [address] [place] [address] ESR, ERYTHROCYTE SEDIMENTATI ON RATE Collected: 08/17/2024 4:10 PM Status: COMPLETED Source: [facility] TYPE CODE TESTS RESULT OUT OF RANGE REFERENCE UNITS LAB ESR(LOINC) ESR, ERYTHROCYTE SEDIMENTATION RATE 6 0-20 mm/h Performed By: #### MELODIE HAHN , 1986-11 #### [facility] ([id number]) [address] [place] [address] #### [id number] #### [facility] ([id number]) [address] [place] [address], [address] [place] [address] GI PANEL Observed: 08/17/2024 11:55 AM Status: COMPLETED Source: [facility] SPECIMEN SOURCE STOOL CAMPYLOBACTER Not detected (qualifier value)PLESIOMONAS Not detected (qualifier value)SALMONELLA Not detected (qualifier value)VIBRIO Not detected (qualifier value)VIBRIO CHOLERAE Not detected (qualifier value)Y. ENTEROCOLITICA Not detected (qualifier value)AGGREGATIVE E COLI Not detected (qualifier value)PATHOGENIC E COLI Not detected (qualifier value)TOXIGENIC E COLI Not detected (qualifier value)SHIGA TOXIN E COLI Not detected (qualifier value)SHIGELLA-E COLI Not detected (qualifier value)CRYPTOSPORIDIUM Not detected (qualifier value)CYCLOSPORA Not detected (qualifier value)E HISTOLYTICA Not detected (qualifier value)GIARDIA LAMBLIA Not detected (qualifier value)ADENOVIRUS Not detected (qualifier value)ASTROVIRUS Not detected (qualifier value)NOROVIRUS Detected (qualifier value) Detects the following: Norovirus Genogroups I, II The geriatric social worker has reported an increase in false positive Norovirus results. If the positive test is inconsistent with clinical presentation, a secondary method should be used to confirm the results. ROTAVIRUS A Not detected (qualifier value)SAPOVIRUS Not detected (qualifier value) Performed By: #### [id number] # ### [facility] ([id number]) [address] [place] [address] [facility] ([id number]) [address] [place] [address], [facility] [address] [place] [address] LIPID PROFILE Collected: 08/17/2024 5:16 AM Status: COMPLETED Source: [facility] TYPE CODE TESTS RESULT OUT OF RANGE REFERENCE UNITS LAB CHOL(LOINC) CHOLESTEROL 91 Low 150-200 mg/dL LAB TRIG(LOINC) TRIGLYCERIDE 36 27-150 mg/dL LAB HDL(LOINC) HDL CHOLESTEROL 59 >39 mg/dL Result Comment: HDL <40 mg/dL - High Risk HDL > or = 40mg/dL- Desirable HDL >60 mg/dL - Negative Risk LAB VLDL(LOINC) VERY LOW LIPOPROTEIN 7 0-30 mg/dL LAB LDL(LOINC) LDL (CALC) 25 <130 mg/dL Result Comment: LDL <100 mg/dL - Desirable LDL >160 mg/dL - High Risk LAB CHDL(LOINC) CHOLESTEROL:HDL 1.5 1.0-5.0 Performed By: #### 22101-2 # ### [facility] ([id number]) [address] [facility], [address] [place] [address] LACTATE Collected: 08/17/2024 2:12 AM S tatus: COMPLETED Source: [facility] TYPE CODE TESTS RESULT OUT OF RANGE REFERENCE UNITS LAB LACTA(LOINC) LACTATE 2.2 High 0.4-2.0 mmol/L Performed By: #### 33711-4 # ### [facility] ([id number]) [address] [place] [address], [place] [address] CT ABDOMEN AND PELVIS WO CONT Observed: 08/16/2024 10:34 PM Status: COMPLETED Source: [facility] CT ABDOMEN AND PELVIS WO CON T CLINICAL INFORMATION: Abdominal pain, acute, nonlocalized. Surgical history includes splenectomy at age 15, cholecystectomy, hysterectomy. Stroke alert earlier today, with leukocytosis. Patient is asplenic with nausea and vomiting. TECHNIQUE: CT Abdomen and Pelvis without intravenous contrast. All CT scans at this facility use dose modulation, iterative reconstruction, and/or weight based dosing when appropriate to reduce radiation dose to as low as reasonably achievable. COMPARISON: 11/10/2022 FINDINGS: Evaluation of solid organs, blood vessels, and lymph nodes is limited without IV contrast. Lower chest: Calcified left lower lobe granuloma. Hepatobiliary: Unremarkable liver. Absent gallbladder. Spleen, pancreas, and adrenal glands: Absent spleen. Small nodules along the diaphragm posteriorly, which may be residual splenic tissue or pancreatic tissue. Tail of the pancreas lies posterior to the stomach in the left upper quadrant adjacent to diaphragm. The pancreas appears unremarkable. Adrenal glands unremarkable. Genitourinary: Kidneys with contrast in collecting systems from prior study. Intermediate attenuation lesion in the lower pole of the right kidney measuring 21 mm. Hounsfield units measure in the mid 30s. Kidneys are otherwise unremarkable. Uterus surgically absent. Bladder dense with excreted contrast. Bowel and mesentery: GI tract with mainly liquid appearing contents. Much of the colon is decompressed. I am unable to identify the appendix conclusively. No inflammatory changes noted in the right lower quadrant, no fat stranding or abnormal collection. There is a small hiatal hernia. Stomach is otherwise unremarkable. Small bowel appears nondilated. No obvious wall thickening. There are no areas of inflammatory change noted in the peritoneal fat. No mesenteric masses, or abnormally enlarged mesenteric lymph nodes. Retroperitoneum, pelvis and vascular: Retroperitoneum unremarkable. In the pelvis, there is a 40 x 29 x 20 mm soft tissue density along the right lateral pelvic wall, superior and lateral to the bladder, which was present on the prior study of 2022, at which time it also a low-attenuation rounded structure with peripheral enhancement suggestive of cyst. This appears to be the right ovary. Currently there is an approximately 13 mm low-attenuation area which may be a cyst. As on the prior study, there are bowel loops directly adjacent to it which may be adhered to it. I do not see left ovary, which is likely surgically removed. Soft tissues and bones: No body wall soft tissue abnormalities noted. No concerning bone lesions. IMPRESSION: * No acute intra-abdominal abnormality is noted. * Indeterminate left kidney lesion, with Hounsfield units in the 30s. This may be a benign lesion such as a hemorrhagic cyst. It cannot be further characterized on this study, and will need follow-up with adrenal protocol CT or MRI to further evaluate the lesion. Finalized by Madi Reyes MD on 08/16/2024 11:00 PM XR CHEST 1 VW Observed: 08/16/2024 10:33 PM Status: COMPLETED Source: [facility] XR CHEST 1 VW XR CHEST 1 VW: 08/16/2024 10:33 PM CLINICAL INDICATION: Fever TECHNIQUE: AP view of the chest COMPARISON: 08/15/2023. FINDINGS: The cardiomediastinal silhouette and pulmonary vessels are within normal limits. Lungs and pleural spaces are clear. There is no pneumothorax. Loop recorder device overlying the left chest. IMPRESSION: No acute cardiopulmonary process. Finalized by Damon Mcleod MD on 08/16/2024 10:36 PM LACTATE W/REFLEX Collected: 10:15 PM Status: COMPLETED Source: [facility] TYPE CODE TESTS RESULT OUT OF RANGE REFERENCE UNITS LAB LACTS(LOINC) LACTATE W/REFLEX 3.7 High 0.4-2.0 mmol/L Performed By: #### 32810-0 # ### [facility] ([id number]) [address] [place] [address] 1 HOUR TROP I, HIGH SENSITIVITY Collected: 07/24 10:15 PM Status: COMPLETED Source: [facility] TYPE CODE TESTS RESULT OUT OF RANGE REFERENCE UNITS LAB TNIHS1(LOINC) 1 HOUR TROP I, HIGH SENSITIVITY <2 <16 ng/L Performed By: #### [id number] # ### [facility] ([id number]) [address] [place] [address] [id number] BLOOD CULTURE Observed: 08/16/2024 10:15 PM Status: COMPLETED Source: [facility] SPECIMEN NOTES 5ml r hand CULTURE RESULTS NO GROWTH 5 DAYS Performed By: #### [id number] # ### [facility] ([id number]) [address] [place] [address] [id number] URN MACROSCOPIC REGGIE Collected: 08/16/19 10:07 PM Status: COMPLETED Source: [facility] TYPE CODE TESTS RESULT OUT OF RANGE REFERENCE UNITS LAB SPGRN(LOINC) SPECIFIC GRAVITY REGGIE 1.015 1.003-1.035 LAB LESTN(LOINC) LEUKOCYTE ESTERASE REGGIE Negative (qualifier value) NEG LAB NITN(LOINC) NITRITE REGGIE Negative (qualifier value) NEG LAB PHURN(LOINC) PH REGGIE 5.5 5.0-8.5 LAB PRURN(LOINC) PROTEIN REGGIE Negative (qualifier value) NEG mg/dL LAB GLURN(LOINC) GLUCOSE REGGIE Negative (qualifier value) NEG mg/dL LAB KETN(LOINC) KETONES REGGIE Negative (qualifier value) NEG mg/dL LAB UROBN(LOINC) UROBILINOGEN REGGIE 0.2 <1.1 eu/dL LAB BILEN(LOINC) BILIRUBIN REGGIE Negative (qualifier value) NEG LAB BLURN(LOINC) BLOOD/HGB REGGIE Trace Abnormal NEG Performed By: #### NUM #### [facility] ([id number]) [address] [place] [address], [place] [address] SARS/FLU A+B/RSV BY NAAT/MOLECULAR Observed: 08/16/2024 9:58 PM Status: COMPLETED Source: [facility] FLU A PCR Negative (qualifier value) FLU B PCR Negative (qualifier value) RSV by PCR Negative (qualifier value) SARS CoV 2 Not detected (qualifier value) NOTE The Xpert Xpress SARS-CoV-2/Flu/RSV Plus test is a rapid, multiplexed real-time RT-PCR test intended for the simultaneous qualitative detection and differentiation of SARS-CoV-2, influenza A, influenza B and respiratory syncytial virus (RSV) viral RNA from individuals suspected of respiratory viral infection consistent with COVID-19 by their healthcare provider. This test has not been validated in asymptomatic patients. The Xpert Xpress SARS-CoV-2 test is intended for use by qualified and trained operators who are performing tests using either [employer] or [employer] systems and is limited to laboratories that meet the CLIA requirements to perform high and moderate complexity tests. The Xpert Xpress SARS-CoV-2/Flu/RSV Plus is only for use under the Food and Drug Administration's Emergency Use Authorization. Results are for the simultaneous detection and differentiation of SARS-CoV-2, influenza A, influenza B and RSV nucleic acids in clinical specimens. SARS-CoV-2, influenza A, influenza B and RSV RNA identified by this test are generally detectable in upper respiratory samples during the acute phase of infection. Positive results are indicative of the presence of the identified virus, but do not rule out bacterial infection or co-infection with other pathogens not detected by this test. Clinical correlation with patient history and other diagnostic information is necessary to determine patient infection status. The agent detected may not be the definite cause of disease. Negative results do not preclude SARS-CoV-2, influenza A, influenza B and RSV infection and should not be used as the sole basis for treatment or other patient management decisions. Negative results must be combined with clinical observations, patient history and epidemiological information. An Invalid result may occur with specimen-associated inhibition unable to be resolved with specimen repeat. Fact Sheet for Healthcare Providers: https://www.fda.gov/media/237343/download Fact Sheet for Patients: https://www.fda.gov/media/196677/download Performed By: #### COVFLR ## ## [facility] ([id number]) [address] [place] [address] BLOOD CULTURE Observed: 08/16/2024 9:40 PM Status: COMPLETED Source: [facility] SPECIMEN NOTES 3ml r ac CULTURE RESULTS NO GROWTH 5 DAYS Performed By: #### [id number] # ### [facility] ([id number]) [address] [place] [address] URINE CULTURE Observed: 08/16/2024 9:25 PM Status: COMPLETED Source: [facility] CULTURE RESULTS NO GROWTH AT <1000 CFU/mL Performed By: #### [id number] ### # [facility] ([id number]) [address] [place] [address], [address] [place] [address] CBC AND AUTO DIFF Collected: 08/16/2024 9:08 PM Status: COMPLETED Source: [facility] TYPE CODE TESTS RESULT OUT OF RANGE REFERENCE UNITS LAB WBC(LOINC) WBC COUNT 21.0 High 4.0-11.0 X10E9/L LAB RBC(LOINC) RBC COUNT 4.76 3.80-5.20 X10E12/L LAB HGB(LOINC) HEMOGLOBIN 15.2 11.7-15.5 g/dL LAB HCT(LOINC) HEMATOCRIT 46.3 35-47 % LAB MCV(LOINC) MCV 97 80-100 fL LAB MCH(LOINC) MCH 31.9 27-34 pg LAB MCHC(LOINC) MCHC 32.7 32-36 g/dL LAB RDW(LOINC) RDW 14.6 11.5-15.0 % LAB PLTC(LOINC) PLATELET COUNT 380 150-450 X10E9 /L LAB MPV(LOINC) MPV 7.9 7-12 fL LAB NEUT(LOINC) % NEUTROPHILS 93.0 % LAB LYMP(LOINC) % LYMPHOCYTES 4.5 % LAB MONO(LOINC) % MONOCYTES 2.1 % LAB EOS(LOINC) % EOSINOPHILS 0.3 % LAB BASO(LOINC) % BASOPHILS 0.1 % LAB ANEUT(LOINC) ABSOLUTE NEUTROPHIL 19.2 High 1.5-6.6 X10E9/L LAB ALYMP(LOINC) ABSOLUTE LYMPHOCYTE 0.9 Low 1.0-3.5 X10E9/L LAB AMONO(LOINC) ABSOLUTE MONOCYTE 0.4 0-0.9 X10E9/L LAB AEOS(LOINC) ABSOLUTE EOSINOPHIL 0.1 0.0-0.4 X10E9/L LAB ABASO(LOINC) ABSOLUTE BASOPHIL 0.0 0.0-0.2 X10E9/L Performed By: #### CBCA, CMP , PINR, [id number], 3040-3 #### [facility] ([id number]) [address] [place] [address], [place] [address] #### HA1C #### [facility] ([id number]) [address] [place] [address], [address] [place] [address] COMPREHENSIVE METABOLIC PANEL Collected: 2024 9:08 PM Status: COMPLETED Source: [facility] TYPE CODE TESTS RESULT OUT OF RANGE REFERENCE UNITS LAB NA(LOINC) SODIUM 138 134-146 mmol/L LAB K(LOINC) POTASSIUM 3.6 3.5-5.0 mmol/L LAB CL(LOINC) CHLORIDE 108 98-109 mmol/L LAB CO2(LOINC) CARBON DIOXIDE 18 Low 22-32 mmol/L LAB AGAP(LOINC) ANION GAP 12 5-15 mmol/L LAB BUN(LOINC) BLOOD UREA NITROGEN 17 5-23 mg/dL LAB CRET(LOINC) CREATININE 0.99 0.40-1.00 mg/dL Result Comment: METHOD TRACE ABLE TO IDMS STANDARD LAB GLU(LOINC) GLUCOSE 164 High 65-99 mg/dL LAB CA(LOINC) CALCIUM 9.4 8.5-10.5 mg/dL LAB TP(LOINC) TOTAL PROTEIN 8.0 6.0-8.0 g/dL LAB ALB(LOINC) ALBUMIN 4.4 3.2-5.3 g/dL LAB ALK(LOINC) ALKALINE PHOSPHATASE 62 39-130 U/L LAB AST(LOINC) AST 28 0-41 U/L LAB ALT1(LOINC) ALT 38 High 0-31 U/L LAB TBIL(LOINC) BILIRUBIN,TOTAL 0.8 0.3-1.2 mg/d L LAB EGFR(LOINC) eGFR (CKD-EPI) NON-RACE DEPENDENT 71 >59 ml/min/1 .73sq.m Result Comment: Reported eGFR is based on the CKD-EPI 2020 equation that does not use a race coefficient. Performed By: #### CBCA, CMP , PINR, 35680-9, 3040-3 #### [facility] ([id number]) [address] [place] [address] #### HA1C #### [facility] ([id number]) [address] [place] [address], [address] [address] PROTIME AND INR Collected: 08/16/2024 9:08 PM Status: COMPLETED Source: [facility] TYPE CODE TESTS RESULT OUT OF RANGE REFERENCE UNITS LAB PROX(LOINC) PROTIME 50.2 High 9.8-13.2 sec Result Comment: NEW REFERENC E RANGE LAB INR(LOINC) INR 4.6 High Alert 0.8-1.1 Performed By: #### CBCA, CMP , PINR, 31956-3, 3040-3 #### [facility] ([id number]) [address] [place] [address] #### HA1C #### [facility] ([id number]) [address] [place] [address], [address] [place] [address] TROPONIN I, HIGH SENSITIVITY Collected: 9:08 PM Status: COMPLETED Source: [facility] TYPE CODE TESTS RESULT OUT OF RANGE REFERENCE UNITS LAB TNIHS(LOINC) TROPONIN I, HIGH SENSITIVITY <2 <16 ng/L Performed By: #### CBCA, CMP , PINR, [id number], 3040-3 #### [facility] ([id number]) [address] [place] [address] #### HA1C #### [facility] ([id number]) [address] [place] [address], [address] [place] [address] LIPASE Collected: 08/16/2024 9:08 PM S tatus: COMPLETED Source: [facility] TYPE CODE TESTS RESULT OUT OF RANGE REFERENCE UNITS LAB LIPA(LOINC) LIPASE 60 High 17-40 U/L Performed By: #### CBCA, CMP , PINR, 87494-2, 3040-3 #### [facility] ([id number]) [address] [place] [address] #### HA1C #### [facility] ([id number]) [address] [place] [address], [address] [place] [address] HGB A1C (GLYCO-HGB) Collected: 08/16/2024 9:08 PM Status: COMPLETED Source: [facility] TYPE CODE TESTS RESULT OUT OF RANGE REFERENCE UNITS LAB HBA1C(LOINC) HEMOGLOBIN A1C 5.1 4.4-5.6 % Result Comment: NOTE ADA Guidelines Result HgbA1c Normal : less than 5.7 % Prediabetes : 5.7 % to 6.4 % Diabetes : > 6.4 % Use with caution in patients with abnormal hemoglobin variants as the half-life of red blood cells and in vivo glycation rates are affected. LAB EAG(LOINC) AVERAGE GLUCOSE 100 mg/dL Performed By: #### CBCA, CMP , PINR, 49509-4, 3040-3 #### [facility] ([id number]) [address] [facility], [place] [address] #### HA1C #### [facility] ([id number]) [address] [place] [address], [address] [place] [address] CT CTA HEAD Observed: 08/16/2024 8:52 PM Status: COMPLETED Source: [facility] CT CTA HEAD CLINICAL INFORMATION: Neuro deficit, acute, stroke suspected TECHNIQUE: CT angiogram of the head was performed following intravenous administration of nonionic intravenous contrast. 3-D maximum intensity projection images generated and reviewed under concurrent physician supervision. Automated exposure control was utilized. Arterial blood flow was measured to assist the stroke clinical team in the diagnosis of large vessel occlusion in patients undergoing screening for acute ischemic stroke using Rapid AI software when clinically indicated. All CT scans at this facility use dose modulation, iterative reconstruction, and/or weight based dosing when appropriate to reduce radiation dose to as low as reasonably achievable. COMPARISON: 07/09/2024. FINDINGS: Contrast enhanced study cavernous sinus limits evaluation of the cavernous carotids. The carotids are patent bilaterally. Questionable fusiform prominence of the proximal cavernous segment. The carotids are otherwise normal. ACAs and anterior communicating arteries are patent. MCAs are patent bilaterally. Symmetric distal arborization. Vertebral arteries are normal to the confluence with the basilar. Basilar artery is normal. origin of the left PUBLIC RECORDS OFFICER with diminutive left P1 segment. Codominant supply of the right PUBLIC RECORDS OFFICER territory with a prominent posterior communicating artery. 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 No filling defects identified within the venous system. Chronic right basal ganglia infarct. No large extra-axial fluid collection. IMPRESSION: * No large vessel occlusion, flow-limiting stenosis, or sizable aneurysm. Questionable mild fusiform prominence of the proximal cavernous segment of the left ICA. This is favored to be artifactual as there is significant venous contamination of the adjacent cavernous sinuses. Finalized by Aly Dsouza on 08/16/2024 9:[address] CTA CAROTID Observed: 08/16/2024 8:51 PM Status: COMPLETED Source: [facility] CT CTA CAROTID EXAM:CT CTA CAROTID INDICATION: Neuro deficit, acute, stroke suspected COMPARISON: 06/13/2024 TECHNIQUE/PROTOCOL: Contrast enhanced neck CT arteriogram was performed. 3D reconstructions were performed to evaluate vascular anatomy. All internal carotid measurements were made according to the NASCET criteria. All CT scans at this facility use dose modulation, iterative reconstruction, and/or weight based dosing when appropriate to reduce radiation dose to as low as reasonably achievable. CONTRAST: 100mL Omnipaque IV. FINDINGS: Arch & Subclavian Arteries: Normal triple vessel takeoff. No significant atherosclerosis. Carotids: Normal bilaterally. Vertebral arteries: Left side dominant. Widely patent bilaterally. NECK FINDINGS: Anterior cervical fusion of C5-C7 without evidence of complication. No acute osseous abnormalities. Lungs are clear. IMPRESSION: No high-grade stenosis, occlusion, or evidence of acute vascular injury. Finalized by Aly Dsouza on 08/16/2024 9:[address] BRAIN WO CONT STROKE ALERT Observed: 08/16/2024 8:45 PM Status: COMPLETED Source: [facility] CT BRAIN WO CONT STROKE ALER T CT BRAIN WO CONT STROKE ALERT: 08/16/2024 8:45 PM CLINICAL INFORMATION: Neuro deficit, acute, stroke suspected TECHNIQUE: CT Head without intravenous contrast. Coronal sagittal reformatted images were also obtained. All CT scans at this facility use dose modulation, iterative reconstruction, and/or weight based dosing when appropriate to reduce radiation dose to as low as reasonably achievable. COMPARISON: 08/14/2023 FINDINGS: Chronic infarct involving the right ansari radiata and basal ganglia. The ventricular system is normal in caliber. No large vessel territory infarct or acute intracranial hemorrhage. No extra-axial fluid collection. No midline shift. Rush-white matter differentiation is maintained. No effacement of the basal cisterns. The calvarium is intact. Paranasal sinuses are well pneumatized. IMPRESSION: * No acute intracranial abnormality * Chronic infarct of the right basal ganglia Finalized by Damon Mcleod MD on 08/16/2024 8:54 PM BEDSIDE GLUCOSE LAB Collected: 08/16/2024 8:42 PM Status: COMPLETED Source: [facility] TYPE CODE TESTS RESULT OUT OF RANGE REFERENCE UNITS LAB BEDG(LOINC) BEDSIDE GLUCOSE LAB 134 High 65-99 mg/dL 36 Observed: 08/15/2024 10:38 AM Status: COM PLETED Source: [facility] ordered 36 Observed: 08/14/2024 9:57 AM Status: COMPLETED Source: [facility] Pt needs lab orders for ever y 3 months due to the Methotrexate, Pt will come to [facility] to complete before her next visit on [birth year], Last visit 06/11/24, Last labs, CBC,CMP 06/11/24 TELEPHONE Observed: 08/14/2024 12:00 AM Status: COMPLETED Source: [facility] [id number] Zo Mike F Date Provider Department Center 08/14/2024 Milena-GONZALEZ HUERTA [facility] RHEUM Jose Heal Family History Problem Relation Age of Onset Hypertension Mother Cancer Maternal Grandfather Family Status - Relation Status Age at Mother Maternal Grandfather CT CTA HEAD Observed: 07/09/2024 11:35 AM Status: COMPLETED Source: [facility] CT CTA HEAD STUDY: CT CTA HEAD INDICATION: Syncope and collapse. Technique: * CT angiogram of the head was performed following intravenous administration nonionic intravenous contrast. * 3-D maximum intensity projection images generated and reviewed under concurrent physician supervision. Automated exposure control was utilized. * All CT scans at this facility use dose modulation, iterative reconstruction, and/or weight based dosing when appropriate to reduce radiation dose to as low as reasonably achievable. FINDINGS: Comparison is made to 08/14/2023. The intracranial internal carotid arteries are normal in configuration. Anterior cerebral arteries are patent. Unremarkable anterior communicating artery complex. Middle cerebral arteries are patent. The vertebral and basilar arteries demonstrate normal enhancement without stenosis or occlusion. The posterior communicating arteries are visualized. The posterior cerebral arteries have a normal caliber and branching pattern. Venous contamination degrades the diagnostic evaluation of arteries. Remote infarct right basal ganglia. Mucosal thickening of the right maxillary sinus possibly odontogenic given the adjacent periapical lucency. Right nasal septal deviation. IMPRESSION: * No high grade arterial stenosis, large vessel occlusion, aneurysm or malformation. * Odontogenic right maxillary sinus mucosal thickening. Recommend nonemergent dental exam. Finalized by Jamil Jean Baptiste on 07/09/2024 2:51 PM DEXA SCAN CENTRAL SKELETAL Observed: 05/2024 10:04 AM Status: COMPLETED Source: [facility] DEXA SCAN CENTRAL SKELETAL CLINICAL INFORMATION: residential current use of systemic steroids. TECHNIQUE: Dual X-ray Absorptiometry (DXA) was performed. COMPARISON: No relevant prior studies available. FINDINGS: LUMBAR SPINE (L1-L4): BMD is 1.071 gm/cm2. T-score is -1.0. Z-score is -1.4. LEFT FEMORAL NECK: BMD is 0.749 gm/cm2. T-score is -2.1. Z-score is -1.8. LEFT TOTAL FEMUR: BMD is 0.908 gm/cm2. T-score is -0.8. Z-score is -0.8. RIGHT FEMORAL NECK: BMD is 0.765 gm/cm2. T-score is -2.0. Z-score is -1.6. RIGHT TOTAL FEMUR: BMD is 0.898 gm/cm2. T-score is -0.9. Z-score is -0.9. The estimated 10-year probability for a major osteoporotic fracture (utilizing FRAX) is 8.7% and for a hip fracture is 1.6%. IMPRESSION: The exam is considered to be osteopenic by the National Osteoporosis Foundation guidelines. Recommend consideration for initiation of therapy. Secondary causes of bone loss should be evaluated if clinically indicated since the etiology of low BMD cannot be determined by BMD measurement alone. The current National Osteoporosis Foundation guide recommends treating patients with FRAX ten year risk scores of greater than or equal to 3% for hip fracture or greater than or equal to 20% for major osteoporotic fracture, to reduce their fracture risk. Finalized by Ezio Graham MD on 07/03/2024 3:14 PM REMINDERS Observed: 06/26/2024 12:52 PM Status: F Source: [facility] Reminders From: Lupis Chahal LPN To: GSN - Clinical; Sent: 06/26/2024 12:52:11 EST Show up: 05/26/2034 07:00:00 EDT Subject: colonoscopy recall Due Date/Time: 06/25/2034 07:00:00 EST Reminder/Recall Patient due for screening colonoscopy 06/25/2034. CT CTA CAROTID Observed: 06/13/2024 7:38 AM Status: COMPLETED Source: [facility] CT CTA CAROTID CT ANGIOGRAM OF THE NECK CLINICAL INFORMATION: Syncope and collapse. TECHNIQUE: CT angiogram performed following intravenous administration of nonionic intravenous contrast. Coronal and sagittal and 3-D volume rendered maximum intensity projection images generated and reviewed under concurrent physician supervision. Automated exposure control utilized. The [place] Symptomatic Carotid Endarterectomy Trial (NASCET) method for calculating the degree of stenosis was utilized for stenosis measurements. COMPARISON: CTA neck dated 08/14/2023 FINDINGS: There is a standard aortic arch configuration. There is no significant stenosis at the arch origins of the vessels. The visualized portions of the subclavian arteries are unremarkable. The common carotid arteries are well opacified without evidence for significant stenosis. The right carotid bifurcation is unremarkable with a widely patent origin of the internal carotid artery. The left carotid bifurcation is unremarkable with a widely patent origin of the internal carotid artery. The internal carotid arteries are symmetric and well opacified throughout their cervical courses. The vertebral arteries are symmetric. The vertebral arteries are well opacified throughout their cervical courses and join to form a normal diameter basilar artery. Again seen are changes of T5-C7 anterior spinal fusion. IMPRESSION: Stable normal CTA neck. All CT scans at this facility use dose modulation, iterative reconstruction, and/or weight based dosing when appropriate to reduce radiation dose to as low as reasonably achievable. Finalized by José Luis Scruggs MD on 06/13/2024 12:39 PM CBC WITH AUTO DIFFERENTIAL Collected: 1 08/11/2023 12:40 PM Status: UNK Source: [facility] TYPE CODE TESTS RESULT OUT OF RANGE REFERENCE UNITS LAB [id number] LEUKOCYTES(10*3/ UL) IN BLOOD BY AUTOMATED COUNT 8.39 4.00-10.60 10*3/uL LAB [id number] ERYTHROCYTES (10*6/UL) IN BLOOD BY AUTOMATED COUNT 4.24 3.80-5.00 10*6/uL LAB [id number] HEMOGLOBIN (G/DL) IN BLOOD 13.7 12.0-15.0 g/dL LAB [id number] HEMATOCRIT (%) IN BLOOD BY AUTOMATED COUNT 42.4 36.0-48.0 % LAB [id number] ERYTHROCYTE MEAN CORPUSCULAR VOLUME (FL) BY AUTOMATED COUNT 100.0 High 82.0-98.0 fL LAB [id number] ERYTHROCYTE MEAN CORPUSCULAR HEMOGLOBIN (PG) BY AUTOMATED COUNT 32.3 27.0-33.0 pg LAB [id number] ERYTHROCYTE MEAN CORPUSCULAR HEMOGLOBIN CONCENTRATION (G/DL) BY AUTOMATED 32.3 32.0-35.0 g/dL LAB [id number] ERYTHROCYTE DISTRIBUTION WIDTH (RATIO) BY AUTOMATED COUNT 15.9 High 11.5-15.0 % LAB [id number] NEUTROPHILS/100 LEUKOCYTES IN BLOOD BY AUTOMATED COUNT 69.3 40.0-72.0 % LAB [id number] LYMPHOCYTES/100 LEUKOCYTES IN BLOOD BY AUTOMATED COUNT 19.2 Low 20.0-45.0 % LAB [id number] MONOCYTES/100 LEUKOCYTES IN BLOOD BY AUTOMATED COUNT 9.5 5.0-12.0 % LAB [id number] EOSINOPHILS/100 LEUKOCYTES IN BLOOD BY AUTOMATED COUNT 1.0 0.0-6.0 % LAB 6070093 BASOPHILS/100 LEUKOCYTES IN BLOOD BY AUTOMATED COUNT 0.4 0.0-1.0 % LAB 2221703 NEUTROPHILS (10*3/UL) IN BLOOD BY AUTOMATED COUNT 5.82 1.60-7.60 10*3/uL LAB [id number] LYMPHOCYTES (10*3/UL) IN BLOOD BY AUTOMATED COUNT 1.61 1.20-4.00 10*3/uL LAB 6021378 MONOCYTES (10*3/UL) IN BLOOD BY AUTOMATED COUNT 0.80 0.10-1.00 10*3/uL LAB 5605529 EOSINOPHILS (10*3/UL) IN BLOOD BY AUTOMATED COUNT 0.08 0.00-0.50 10*3/uL LAB 1157886 BASOPHILS (10*3/UL) IN BLOOD BY AUTOMATED COUNT 0.03 0.00-0.20 10*3/uL LAB 4952725 PLATELETS (10*3/UL) IN BLOOD AUTOMATED COUNT 370 150-400 10*3/uL LAB 254 NRBC (PER 100 WBCS) BY AUTOMATED COUNT 0.0 0 % LAB 1767 IMMATURE GRANULOCYTES/100 LEUKOCYTES IN BLOOD BY AUTOMATED COUNT 0.6 0.0-1.0 % LAB 1768 IMMATURE GRANULOCYTES (10*3/UL) IN BLOOD BY AUTOMATED COUNT 0.05 0.00-0.20 10*3/uL Performed By: #### [id number] # ### [facility] (BEAKER) [address] [place] [address] COMPREHENSIVE METABOLIC PANEL Collected: 06/11/2024 1 2:40 PM Status: UNK Source: [facility] TYPE CODE TESTS RESULT OUT OF RANGE REFERENCE UNITS LAB [id number] SODIUM (MMOL/L) IN SER/[facility] 138 136-145 mmol/L LAB [id number] POTASSIUM (MMOL/ L) IN SER/PLAS 3.8 3.5-5.1 mmol/L LAB 2601414 CHLORIDE (MMOL/L ) IN SER/PLAS 112 High 98-107 mmol/L LAB 2192724 CARBON DIOXIDE, TOTAL (MMOL/L) IN SER/[facility] 20 Low 21-31 mmol/L LAB 4973013 ANION GAP IN SER/PLAS 10 7-20 mmol/L LAB 3599404 UREA NITROGEN (MG/DL) IN SER/PLAS 13 7-25 mg/dL LAB 2493860 CREATININE (MG/D L) IN [facility] 0.72 0.60-1.20 mg/dL LAB 5532582 UREA NITROGEN/CREATININ E (MASS RATIO) IN [facility]/PLAS 18.1 NA LAB 7210016 GLUCOSE (MG/DL) IN [facility] 111 High 70-100 mg/dL LAB [id number] CALCIUM (MG/DL) IN [facility]/PLAS 8.9 8.6-10.3 mg/dL LAB 9406063 ASPARTATE AMINOTRANSFERASE (SGOT) (U/L) IN [facility] 27 13-39 U/L LAB 1102523 ALANINE AMINOTRANSFERASE (SGPT) (U/L) IN [facility]/PLAS 35 7-52 U/L LAB 0540648 ALKALINE PHOSPHATASE (U/L) IN SER/PLAS 55 34-104 U/L LAB 1308686 PROTEIN (G/DL) I N SER/PLAS 6.8 6.0-8.3 g/dL LAB 7930302 ALBUMIN (G/DL) I N SER/PLAS 4.0 3.5-5.7 g/dL LAB 8545163 BILIRUBIN TOTAL (MG/DL) IN [facility] 0.5 0.3-1.0 mg/dL LAB 1544955 GLOMERULAR FILTRATION RATE ML/MIN/1.73 SQ M.PREDICTED 103.7 >60.0 mL/min /1.73m *2 Result Comment: [facility]???s estimated glomerular filtration rate (eGFR) will no longer include consideration of race in its calculation. The National Kidney Foundation???s eGFR Task Force developed new recommendations for the estimation of the glomerular filtration rate in the [place] They recommend immediate implementation of the new equation refit without the race variable in all laboratories because the calculation does not include race. In addition to not including race in the calculation and reporting, it included diversity in its development, and has acceptable performance characteristics and potential consequences that do not disproportionately affect any one group of individuals. Performed By: #### [id number] ### # [facility] (YASEMIN) [address] [place] [address] LAB Observed: 06/11/2024 12:35 PM Status: COMPLETED Source: [facility] [id number] Zo Mike [facility] 06/11/2024 2245-[facility] OPD LAB RESOURCE [facility] OPD [facility] Family History Problem Relation Age of Onset Hypertension Mother Cancer Maternal Grandfather Family Status - Relation Status Age at Mother Maternal Grandfather FOLLOW-UP Observed: 06/11/2024 11:40 AM Status: COMPLETED Source: [facility] [id number] Zo Mike [facility] 06/11/2024 [facility] Family History Problem Relation Age of Onset Hypertension Mother Cancer Maternal Grandfather Family Status - Relation Status Age at Mother Maternal Grandfather Level of Service:86770 SC OFFICE/OUTPATIENT ESTABLISHED MOD MDM 30 MIN (GC) Reason for Visit and Comments: Systemic lupus erythematosus with other organ involvement, [Other] Follow-up [[id number]] PROGRESS Observed: 06/11/2024 11:40 AM Status: COMPLETED Source: [facility] Attestation signed by Jeimy Morejon MD at 06/11/2024 8:39 PM GC: I saw this patient. I personally performed the critical/england portions that determines the level of service. I was directly involved in the management and treatment plan of the patient. I reviewed note and agree with the documentation Subjective Dorene Mike is a 48 y.o. 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 She presents for No chief complaint on file.. Medication regimen: Plaquenil 200 mg every day, Methotrexate 17.5 mg (7 tabs of 2.5 mg) weekly, folate supplementation. Prednisone 7.5 mg daily Patient saw [facility] via telemedicine on 04/16/2024 w/ Dr. Mac who upon review note her prior history of DVT during , family history of blood clots, and thrombus on cerebral angiogram suspect that patient's isolated stroke was thrombotic in nature. They note lower suspicion of COT ASSEMBLER vasculitis and do not think lupus is playing in her role of recurrent syncopal episodes. She appears to have had another 'black out' episode on 03/05/2024 and sustained a non-displaced fracture of the right 5th metacarpal. She has had no further episodes since that time. She reports she will have a CTA of her head done Sunday. She additionally reports 3 weeks of pain and numbness with color change from red to white of the fingers on cold exposure lasting a few minutes, consistent with raynaud's. HPI Review of Systems Constitutional: Positive for appetite change (after TIA taste change) and fatigue. Negative for chills, fever and unexpected weight change. HENT: Negative for ear pain, mouth sores, rhinorrhea, sinus pain, sore throat and trouble swallowing. No dry mouth. Eyes: Positive for visual disturbance (B/L vision loss since TIA, Optho appt upcoming, peripheral vision gone). Negative for pain and redness. No dry eyes. Respiratory: Negative for cough, chest tightness, shortness of breath and wheezing. Cardiovascular: Negative for chest pain, palpitations and leg swelling. No Raynaud's phenomenon. S/p loop recorder in place. Gastrointestinal: Positive for nausea. Negative for abdominal pain, blood in stool, constipation, diarrhea and vomiting. No GERD. Genitourinary: Negative for difficulty urinating, dysuria, flank pain, frequency, hematuria and urgency. Musculoskeletal: Positive for arthralgias and myalgias. Negative for back pain, joint swelling and neck pain. Skin: Negative for rash. Itching skin, no rash. Neurological: Positive for dizziness, weakness (L sided, working with PT; L foot drop), numbness (Hands and feet) and headaches (Constant, R sided headache). Negative for seizures, syncope, speech difficulty and light-headedness. Cognitive took a hit, new baseline below what it was. 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 Psychiatric/Behavioral: Positive for confusion (Intermittent episodes that started with TIA) and sleep disturbance (Unrefreshing sleep). Negative for agitation and dysphoric mood. The patient is not nervous/anxious. Objective There were no vitals taken for this visit. Physical Exam Vitals and nursing note reviewed. Constitutional: General: She is awake. She is not in acute distress. Appearance: Normal appearance. HENT: Head: Normocephalic and atraumatic. Mouth/Throat: Mouth: Mucous membranes are moist. Pharynx: Oropharynx is clear. Eyes: General: No scleral icterus. Right eye: No discharge. Left eye: No discharge. Extraocular Movements: Extraocular movements intact. Conjunctiva/sclera: Conjunctivae normal. Pupils: Pupils are equal, round, and reactive to light. Cardiovascular: Rate and Rhythm: Normal rate and regular rhythm. Pulses: Normal pulses. Heart sounds: Normal heart sounds. No murmur heard. No friction rub. No gallop. Pulmonary: Effort: Pulmonary effort is normal. No respiratory distress. Breath sounds: Normal breath sounds. No wheezing, rhonchi or rales. Abdominal: General: Bowel sounds are normal. There is no distension. Palpations: Abdomen is soft. Tenderness: There is no guarding. Musculoskeletal: General: No swelling or tenderness. Normal range of motion. Right shoulder: No swelling or tenderness. Normal range of motion. Left shoulder: No swelling or tenderness. Normal range of motion. Right elbow: No swelling. Normal range of motion. No tenderness. Left elbow: No swelling. Normal range of motion. No tenderness. Right wrist: No swelling or tenderness. Normal range of motion. Left wrist: No swelling or tenderness. Normal range of motion. Right hand: No swelling or tenderness. Left hand: No swelling or tenderness. Cervical back: Normal range of motion and neck supple. No tenderness. Thoracic back: No tenderness. Lumbar back: No tenderness. Right hip: No tenderness. Left hip: No tenderness. Right knee: No swelling. Normal range of motion. No tenderness. Left knee: No swelling. Normal range of motion. No tenderness. Right lower leg: No edema. Left lower leg: No edema. Right ankle: No swelling. No tenderness. Left ankle: No swelling. No tenderness. Right foot: No tenderness. Left foot: No tenderness. Skin: General: Skin is warm and dry. Findings: No rash. Neurological: General: No focal deficit present. Mental Status: She is alert and oriented to person, place, and time. Mental status is at baseline. Cranial Nerves: No cranial nerve deficit. Sensory: No sensory deficit. Motor: Weakness (Mild weakness on left upper extremity) present. Psychiatric: Mood and Affect: Mood normal. Behavior: Behavior normal. Behavior is cooperative. Thought Content: Thought content normal. Judgment: Judgment normal. No results found for this or any previous visit (from the past 36 hour(s)). Assessment/Plan There are no diagnoses linked to this encounter. Medication regimen: Plaquenil 200 mg every day, Methotrexate 17.5 mg (7 tabs of 2.5 mg) weekly, folate supplementation. Prednisone 7.5 mg daily. She is on warfarin per Clinic and Plavix. 1. 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 Myalgia 4. Systemic lupus erythematosus, unspecified SLE type, unspecified organ involvement status ([facility]) ---- presumed incomplete SLE vs UCTD 5. High risk medication use 6. 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 Raynaud phenomenon *Initially consulted for concerns of autoimmune contribution to R MCA CVA in October 2022 --> TIA in Feb 2023 then again in Jul 2023. She failed Eliquis, so was started on warfarin. Slowly improving deficits of R sided headache, blurred vision, dysarthria/aphasia, left-sided weakness, confusion/cognitive trouble per patient. Also has sx of widespread MSK pain, fatigue, unrefreshing sleep. Mild dilated nailfold capillaries noted under dermatoscope, nonspecific finding. *Extensive work-up following with Neurology, Cardiology, Hematology, second opinion from [facility] Rhe[facility]ology in December 2022. S/p loop recorder, though cardiac work-up has not revealed etiology beyond Lambl's excrescence on aortic valve (where risk of AVR outweighs benefit). *Work-up revealed: non-clonal bone marrow plasmacytosis, increased circulating VEGF, elevated IgA, elevated free kappa light chain, prior fever/lympadenopathy,prior related DVT, (+) RAMYA at 1:160 --> 1:640 in Jul 2023. No indication of Antiphopspholipid ab syndrome, B2 GP1 and anticardiolipin ab are negative. SPEP WNL, negative for prothrombin gene, factor 5 Leiden, homocysteine. Negative for dsDNA and ANAYELI, HLAB27, with C4 and CK WNL. Joint scan negative for inflammatory uptake; MRI femurs and MRI SI joints unremarkable, cerebral angiogram showed no large vessel arterial occlusion, significant stenosis, sizable aneursym, or malformation. *MR Brain Vessel Wall Imaging with and without contrast December 2022 = October 2022 exam had focal near occlusion of distal M1 segment of R middle cerebral artery, with a filling defect suggestive of thrombus or thromboembolism ---> resolved in December 2022 exam, no underlying stenosis or vessel wall abnormality now normal diameter of R middle cerebral artery without surrounding wall enhancement of this segment of artery, no new arterial stenosis. *06/27/23 MRI brain shows small right basal ganglia lacunar infarct. 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 Brain bx was discussed but this is felt to have more risk than benefit especially considering low diagnostic yield in 30-40% of cases. Plan: - Dicussed brain bx, but due to possible low diagnostic yield in 30-40% of cases, benefit vs risk there is more risk than benefit. There is enough evidence as it stands to treat as COT ASSEMBLER vasculitis. Discussed condition typically needs 2 years of treatment. - recommend follow-up with Dr Mac at [facility] - recommend follow-up with cardiology - Continue medication regimen: - Plaquenil 200 mg every day. . - Decrease Prednisone to 5 mg daily, will re-evaluate next follow up - check Dexa Scan given chronic glucocorticoid use - continue Methotrexate at 17.5 mg weekly - Medication monitoring with CBC and CMP every 3 months. - discussed risks and benefits of brain biopsy, we opted to defer - Continue Warfarin per [facility] and Plavix per Neurology and Cardiology. - Follow up with Rheumatology at [facility], as well as Neurology, Cardiology, and Hematology. - Return to clinic in [address] Peng and Dr Morejon GENERAL SURGERY OFFICE/CLINI C NOTE Observed: 05/27/2024 4:15 PM Status: F Source: [facility] General Surgery Office/Clini c Note Chief Complaint consultation for colonoscopy HPI Staff 48 year old female presents on consultation from Mariel Santana for screening colonoscopy. Previous colonoscopy completed greater than 10 years ago- report not available. Patient on Plavix for history of CVA. History of Present Illness 48 yo female with Lupus, CVA 16 months ago, on Coumadin and Plavix, vasculitis, thrombophilia, cervical spondylosis, hyperlipidemia, referred for colorectal screening; denies change in bms or blood in stools, no abd complaints; abd operations significant for cholecystectomy, appendectomy, splenectomy, SANDIE; on Methotrexate, Plavix and Coumadin, no asa or NSAID use; no tobacco use. no fmhx of GI malignancy; fmhx of Crohn's disease in patient's brother and daughter. Review of Systems PHQ Score Initial Depression Screen Score: 0 SCORE ROS - Provider Constitutional: no fever, no sweats, no weight loss. Eyes: no glasses, no blurred vision, no visual loss. ENMT: no dentures, no hoarseness, no swallowing difficulties, no hearing loss, no ear infection(s), no nose bleeds. Cardiovascular: normal blood pressure, no chest pain, regular heartbeat, no heart murmur. Respiratory: no shortness of breath, no cough, no asthma, no wheezing. Gastrointestinal: no nausea, no vomiting, no diarrhea, no constipation, no blood in stool, no change in bowel habits, no abdominal pain, no hepatitis. Genitourinary: no kidney stones, no urine infection, no dysuria. Musculoskeletal: no pain, no weakness. Skin: no changing moles, no rash, no skin lumps. Neurologic: no seizures, no epilepsy, no headache. Psychiatric: no emotional or psychiatric problem. Heme/Lymph: no bleeding problems, no anemia, no blood clots, no transfusions. Allergy/Immunologic: no swollen lymph nodes/glands, no IV drug abuse. Other: Additional ROS info: Except as noted in the above Review of Systems and in the History of Present Illness, all other systems have been reviewed and are negative or noncontributory. Physical Exam Vitals & Measurements HR: 76(Peripheral) RR: 16 BP: 132/84 HT: 66 in HT: 167.6 cm WT: 84 kg WT: 184.8 lb BMI: 29.9 HEENT: normal conjunctiva, sclera clear, no scleral icterus, EOM intact, PERRLA, oral mucosa moist without lesions. Neck: trachea midline, no mass, symmetric, no thyromegaly or nodules, no adenopathy Respiratory: lungs CTA, respirations non labored. Cardiovascular: regular rate and rhythm, no murmur, no pedal edema or varicosities. Gastrointestinal: soft, non distended, no tenderness, no masses, no palpable hernias, diastasis recti no, no hepatosplenomegaly; normal bs Lymphatic: no cervical adenopathy, no supraclavicular adenopathy. Musculoskeletal: normal gait, digits and nails without infection, nodes, cyanosis, clubbing. Skin: no rashes, no lesions, no ulcers, no subcutaneous nodules, induration. Psychiatric/Neuro: oriented to time, place, person, judgement normal, affect appropriate for age, insight intact, no focal deficits. Tests: , review of old records completed , Discussed surgical options, risks, and possible complications with patient. Assessment/Plan 1. Screening for malignant neoplasm of colon (Z12.11: Encounter for screening for malignant neoplasm of colon) plan colonoscopy under anesthesia, informed consent obtained; will check with patient's Neurologist to see if Plavix and Coumadin can be held, or if she will require bridging with Lovenox. should hold Plavix for 5 days and Coumadin for 4 days. Follow-up No qualifying data available Problem List/Past Medical History Ongoing Allergic rhinitis Aortic valve vegetations Asplenia BMI 29.0-29.9,adult Cerebrovascular accident Cervical spondylosis Chronic tension-type headache Drop foot gait Hereditary thrombophilia Hyperlipidemia Lupus erythematosus Memory impairment Mixed anxiety and depressive disorder Screening for malignant neoplasm of colon Thyroid nodule Vasculitis Vitamin B 12 deficiency Historical Diabetes mellitus Systemic lupus erythematosus Procedure/Surgical History Abdominal hysterectomy, Angiogram, Appendectomy, Bone marrow biopsy, Cervical discectomy, Cholecystectomy, Colonoscopy, EGD - esophagogastroduodenoscopy, Endometrial biopsy, Implantation of insertable loop recorder, Splenectomy, Tonsillectomy. Medications atorvastatin 40 mg Tab, 40 mg= 1 tab(s), Oral, Daily Effexor XR 37.5 mg Cap-ER, 37.5 mg= 1 cap(s), Oral, Daily folic acid 1 mg Tab, 1 mg= 1 tab(s), Oral, Daily hydroxychloroquine 200 mg Tab, 200 mg= 1 tab(s), Oral, BID magnesium oxide 400 mg Tab, 400 mg= 1 tab(s), Oral, Daily methotrexate 2.5 mg Tab, 17.5 mg= 7 tab(s), Oral, q7day Plavix 75 mg Tab, 75 mg= 1 tab(s), Oral, Daily predniSONE 5 mg Tab, 7.5 mg= 1.5 tab(s), Oral, Daily Topamax 200 mg Tab, 200 mg= 1 tab(s), Oral, BID Vitamin B12 1000 mcg Tab, 1000 mcg= 1 tab(s), Oral, Every other day warfarin 5 mg Tab, as directed Allergies clarithromycin (Gastrointestinal upset) meperidine (Gastrointestinal upset) Social History Alcohol Never., 05/24/2024 Substance Abuse Never., 05/24/2024 Tobacco Never (less than 100 in lifetime) Tobacco Use:. Never Smokeless Tobacco Use:., 05/27/2024 Family History Crohn's disease: Brother. Heart disease: Father. Hypertension: Mother and Father. Hypothyroidism: Mother. Immunizations Vaccine Date Status Comments SARS-CoV-2 (COVID-19) Ad26 vaccine 06/15/2021 Recorded 2024-05-05: [id number] SARS-CoV-2 (COVID-19) Ad26 vaccine 10/25/2020 Recorded Result Comment: Electronical ly Signed By: DAVION BERGER, Aly Oliveira\.br\Date and Time Signed: 05/27/24 16:16 EST AMBULATORY VISIT SUMMARY Observed: 05/27 3:28 PM Status: F Source: [facility] Ambulatory Visit Summary ZO MIKE :1975 Visit Date:05/27/2024 Ambulatory Visit Instructions Your Care Team Attending Physician - Aly RICARDO MD Primary Care Physician - MARIEL SANTANA CNP Referring Physician - ILANA RUANO MD This Is Your Medications List Contact prescribing physician if questions or concerns atorvastatin (atorvastatin 40 mg Tab) clopidogrel (Plavix 75 mg Tab) cyanocobalamin (Vitamin B12 1000 mcg Tab) folic acid (folic acid 1 mg Tab) hydroxychloroquine (hydroxychloroquine 200 mg Tab) magnesium oxide (magnesium oxide 400 mg Tab) methotrexate (methotrexate 2.5 mg Tab) predniSONE (predniSONE 5 mg Tab) topiramate (Topamax 200 mg Tab) venlafaxine (Effexor XR 37.5 mg Cap-ER) warfarin (warfarin 5 mg Tab) Procedures Performed Abdominal hysterectomy, Angiogram, Appendectomy, Bone marrow biopsy, Cervical discectomy, Cholecystectomy, Colonoscopy, EGD - esophagogastroduodenoscopy, Endometrial biopsy, Implantation of insertable loop recorder, Splenectomy, Tonsillectomy. Discharge Vitals Heart Rate (Peripheral) 76 Respiratory Rate 16 Blood Pressure 132/84 Height 167.6 cm Height 66 in Weight 84 kg Weight 184.8 lb BMI 29.9 Medications What How Much When Instructions Unchanged atorvastatin (atorvastatin 40 mg Tab) 1 Tablets By Mouth Every day Contact prescribing physician if questions or concerns Unchanged clopidogrel (Plavix 75 mg Tab) 1 Tablets By Mouth Every day Contact prescribing physician if questions or concerns Unchanged cyanocobalamin (Vitamin B12 1000 mcg Tab) 1 Tablets By Mouth Every other day Contact prescribing physician if questions or concerns Unchanged folic acid (folic acid 1 mg Tab) 1 Tablets By Mouth Every day Contact prescribing physician if questions or concerns Unchanged hydroxychloroquine (hydroxychloroquine 200 mg Tab) 1 Tablets By Mouth 2 times a day Contact prescribing physician if questions or concerns Unchanged magnesium oxide (magnesium oxide 400 mg Tab) 1 Tablets By Mouth Every day Contact prescribing physician if questions or concerns Unchanged methotrexate (methotrexate 2.5 mg Tab) 7 Tablets By Mouth Every 7 days Contact prescribing physician if questions or concerns Unchanged predniSONE (predniSONE 5 mg Tab) 1.5 Tablets By Mouth Every day Contact prescribing physician if questions or concerns Unchanged topiramate (Topamax 200 mg Tab) 1 Tablets By Mouth 2 times a day Contact prescribing physician if questions or concerns Unchanged venlafaxine (Effexor XR 37.5 mg Cap-ER) 1 Capsules By Mouth Every day Contact prescribing physician if questions or concerns Unchanged warfarin (warfarin 5 mg Tab) as directed Contact prescribing physician if questions or concerns Allergies clarithromycin (Gastrointestinal upset) meperidine (Gastrointestinal upset) Problems Ongoing - Any problem that you are currently receiving treatment for. Allergic rhinitis Aortic valve vegetations Asplenia BMI 29.0-29.9,adult Cerebrovascular accident Cervical spondylosis Chronic tension-type headache Drop foot gait Hereditary thrombophilia Hyperlipidemia Lupus erythematosus Memory impairment Mixed anxiety and depressive disorder Thyroid nodule Vasculitis Vitamin B 12 deficiency Historical - Any problem that you are no longer receiving treatment for. Diabetes mellitus Systemic lupus erythematosus Patient Survey You may receive a survey via text or e-mail asking about your office visit. Please share your experience with us by completing your survey. We appreciate your feedback and thank you for choosing us for your care. ORDERS ONLY Observed: 05/27/2024 12:00 AM Status: COMPLETED Source: [facility] [id number] Zo Mike F Date Provider Department Center 05/27/2024 [id number] MOREJON I [facility] Family History Problem Relation Age of Onset Hypertension Mother Cancer Maternal Grandfather Family Status - Relation Status Age at Mother Maternal Grandfather PROGRESS Observed: 04/16/2024 10:15 AM Status: COMPLETED Source: [facility] ID: [id number] Author: BETTYE BOWERS MD Service: ? Author Type: Physician Type: Progress Notes Filed: 04/17/2024 17:46 Note Text: Rheumatology FOLLOW UP Referring Provider: Date of Service: 04/16/2024 Gender: female Ethnicity: White Age: [age] year old Chief Complaint: Neurologic Problem Last Rheumatology visit: 04/16/2024 (with Bettye Blackman) I have communicated my name and active licensure. The patient's identity and physical location were verified at the time of this visit. Either the patient or their legal vaccine customer representative has been informed of the risks and benefits of -- and alternatives to -- treatment through a remote evaluation and consents to proceed with the evaluation remotely. Zo De León is a 48 year old White female who presents on 04/16/2024 for virtual visit for evaluation of Neurologic Problem. HISTORY OF PRESENT ILLNESS History dates back to October 2022. - LE DVTs during (age [age]) requiring Lovenox. Stopped Lovenox after this and no DVT since. - Since 2020, episode of loss consciousness. Underwent extensive evaluation including Brain MRI, Echo, Holter Monitor, Carotid ultrasound without etiology. - Since 2021, fatigue and decreased energy. Followed with Hematology with Elevated kappa/lambda light chains and elevated VEGF. Had bone marrow biopsy that did not show malignancy. - 4 days before her stroke in October 2022, she had acute onset of severe headache with vision loss. Her vision loss returned. Atypical. Did not seek medical attention. - November 08, 2022: dropping her comb a lot while doing her hair. Severe headache, blurry vision, L sided-weakness, facial droop, slurred speech. Presented to OSH and transferred to [facility], found to have right MCA ischemic CVA. Cerebral angiogram with thrombus of R M1 segment with collaterals to R MCA territory. Did not receive TPA as outside of window. TTE normal. Started on aspirin, Eliquis. RAMYA positive 1:160, APLA negative. Elevated VEGF and IL-6. Saw Hematology in [place] who did not find hypercoagulable disorder. Brain MRI 10/2022 There are no intracranial masses, mass-effect, extra-axial fluid collection, or hydrocephalus. Sensitivity for acute hemorrhage limited on MRI, but grossly no acute hemorrhage identified. Midline sagittal structures are negative including pituitary fossa, infundibulum, optic chiasm, corpus callosum, brainstem, fourth ventricle, cerebellum, and cranio-cervical junction. There are appropriate flow voids in large cerebral vessels on T2 weighted imaging. Acute infarct with restricted diffusion involving the right caudate nucleus, lentiform nucleus, and extreme capsule as well as junctional zone adjacent to the insular cortex and temporal lobe and also acute lacunar infarct within the deep white matter of the posterior frontal parietal junction on the right. Cerebral Angiogram 10/2022 Impression: -right M1 near occlusion with apparent thrombus -collaterals to the right MCA territory via the right AILYN, the right PUBLIC RECORDS OFFICER, the right ECA, and circumferentially around the clot to a lesser extent. - Saw Rheumatology at [facility] 11/17/22, Dr. Morejon. Noted clinical pictures does support chronic inflammatory state w non-clonal bone marrow plasmacytosis, increased circulating VEGF, prior fever/lympadenopathy, prior related DVT, (+) RAMYA, and recent R MCA ischemic CVA. This could be preclinical lupus, though she does have other overt lupus features at this time. Started on hydroxychloroquine. - Cardiology evaluation including loop recorder was negative. - December 2022 she had return of her symptoms, change aspirin to plavix. Stopped eliquis and changed to coumadin. - December 2022, Consulted with [facility] Rheumatology as well as Cardiology, Neurology. Did not suspect an underlying rheumatologic, vasculitis condition. Stopped hydroxychloroquine. Other specialties could not find an underlying etiology. Were told that needed things to develop further to make a diagnosis. Brain MR with vessel wall imaging with contrast 12/2022 In October 2022, there was focal near occlusion of the distal M1 segment of the right middle cerebral artery, with a filling defect within this artery suggestive of thrombus or thromboembolism. This near occlusion has resolved by today's vessel wall imaging, and no underlying stenosis or vessel wall abnormality is evident. That is, normal diameter of the right middle cerebral artery has been restored. No surrounding wall enhancement of this segment of artery, nor elsewhere in the visualized volume is there abnormal arterial wall enhancement. No new arterial stenosis. Expected evolution of the right basal ganglia and insular and to a lesser extent opercular infarction which was acute in October 2022. Relatively large bilateral posterior communicating arteries and intact kaw of [place]. - February 2023, sustained TIA which caused L sided weakness, more confusion and worsening vision. Reports no medication changes. Brain MRI 03/21/2023 1. Contrast brain MR shows no acute findings. 2. Old right basal ganglia infarct noted. No new infarct. - March 2023, possible TIA, had change in vision - April 2023, continued on hydroxychloroquine by [facility] Rheumatology Brain MRI 06/27/2023 1. No acute intracranial or orbital abnormality. 2. Small right basal ganglia lacunar infarct. 3. Mild chronic small vessel disease. 4. Minimal right maxillary sinus and mastoid air cell mucosal thickening. - Jul 2023, had another TIA (R sided severe headache, facial droop, L sided weakness, difficulty thinking and aphasia). Patient states same symptoms as October 2022. Difficulty with memory, dropping things - felt like a stroke. LP traumatic: TNC <5, RBC 638, protein 149, glucose 57, infectious meningitis panel negative, Lyme negative, IgG/oligoclonal bands negative, flow cytometry done. Brain biopsy considered but not pursued - elected for treatment of COT ASSEMBLER vasculitis with prednisone taper started at 50mg (headaches were much better) and got down to 27.5mg but then headaches returns. Started on methotrexate 17.5mg weekly. Anjel MRI 08/14/23 Findings: There are no intracranial masses, mass-effect, extra-axial fluid collection, or hydrocephalus. Sensitivity for acute hemorrhage limited on MRI, but grossly no acute hemorrhage identified. Midline sagittal structures are negative including pituitary fossa, infundibulum, optic chiasm, corpus callosum, brainstem, fourth ventricle, cerebellum, and cranio-cervical junction. There are appropriate flow voids in large cerebral vessels on T2 weighted imaging. No pathologic contrast enhancement. Diffusion weighted images show no evidence for acute infarct. Old right basal ganglia lacunar infarct is stable. INTERVAL HISTORY Saw vascular medicine in January 2024 and was recommended to continue warfarin, antiplatelet therapy and intensify statin. She lost consciousness and fell in Feb 2024 with right wrist fracture. Review of Systems Constitutional: Negative for fever and recent unintentional weight change. Head: Positive for headaches. ENT: Negative for mouth sores and nosebleeds. Eyes: Negative for pain and redness. Respiratory: Negative for cough, respiratory pain and shortness of breath. Cardiovascular: Negative for chest pain. Gastrointestinal: Negative for abdominal pain, diarrhea, heartburn and melena. Urinary: Negative for dysuria and hematuria. Musculoskeletal: Negative for joint pain, joint swelling, muscle weakness and myalgias. Neurological: Positive for numbness and headaches. Skin: Negative for rash. All other reviewed and negative other than HPI. Disease History Disease Manifestations Relevant Previous Investigations Latest Ref Rng AND Units 08/18/2023 08/23/2023 08/23/2023 CMP Potassium 3.5 - 5.0 mmol/L 4.1 3.7 3.9 This result is from an external source. Latest Ref Rng AND Units 01/22/2024 Antibodies Beta 2 Glycoprotein, IgM <20 SMU <9 Cardiolipin Ab, IgG <15.0 GPL <9.0 Cardiolipin Ab, IgM <12.5 MPL <9.0 Cardiolipin Ab, IgA <12.0 APL <9.0 PT Sec 9.7 - 13.0 sec 27.5 PT INR 0.9 - 1.3 2.8 APTT 23.0 - 32.4 sec 36.7 Platelet Neut <1.9 Seconds 0.0 DRVVT Screen 32.0 - 45.7 seconds 48.5 DRVVT Confirm Ratio <1.32 1.08 DRVVT 1:1 Mix 32.0 - 45.7 seconds 34.8 Hex Phase Screen 34.0 - 51.8 seconds 42.4 Hex Phase Confirm 34.2 - 47.9 seconds 40.5 Hex Phase Delta <7.1 delta seconds 1.9 APTT Screen 24.0 - 35.1 seconds 31.4 Thrombin Time <18.6 seconds 17.7 Anti Xa Inhib Assay <0.10 <0.10 <0.10 <0.10 Imaging / Studies Last 2 CT Chest (does not include CT Angio) Impression Only CT CHEST WO IVCON Exam End: 10/04/2021 8:21 AM (Final result) Last 2 CT Sinus - Impression Only No resulted procedures found. Last 2 MRI Head/Brain - Impression Only MRI BRAIN WO/W IVCON Exam End: 01/14/2024 5:20 PM (Final result) Impression: IMPRESSION: 1. No acute intracranial abnormality. 2. Redemonstration of chronic infarct of RIGHT distal ganglia. 3. No significant intracranial stenosis. No large vessel occlusion. 3. Concentric vessel wall enhancement along the RIGHT greater than LEFT MCAs, as detailed above suspicious for vasculitis. ... MRI BRAIN WO/W IVCON Exam End: 08/14/2023 2:38 PM (Final result) Date of last DEXA: None on file Problem List There is no problem list on file for this patient. Past Medical History No past medical history on file. Past Surgical History No past surgical history on file. Family History FAMILY HISTORY Problem Relation Age of Onset Crohn's Disease Daughter Social History Social History Tobacco Use Smoking status: Never Smokeless tobacco: Never Substance Use Topics Alcohol use: Not Currently Drug use: Never Medications Current Outpatient Medications Medication Sig methotrexate 2.5 mg tablet Take 2.5 mg by mouth every Sunday. 7 tabs weekly atorvastatin (LIPITOR) 40 mg tablet Take 1 tablet by mouth once daily. clopidogrel (PLAVIX) 75 mg tablet Take 75 mg by mouth every 24 hours. cyanocobalamin (VITAMIN B-12) 1,000 mcg tab Take 1 tablet by mouth every other day. folic acid 1 mg tablet Take 1 mg by mouth every 24 hours. hydrOXYchloroQUINE (PLAQUENIL) 200 mg tablet Take 200 mg by mouth every morning. Magnesium Oxide 500 mg cap 500 mg once daily. methotrexate 2.5 mg tablet 2.5 mg one time a week. 7 tabs weekly pyridoxine, vitamin B6, (VITAMIN B6) 50 mg tablet Take 50 mg by mouth every morning. rimegepant (NURTEC ODT) 75 mg disintegrating tablet Take by mouth at bedtime as needed. topiramate (TOPAMAX) 100 mg tablet Take 200 mg by mouth two times a day. venlafaxine ER (EFFEXOR XR) 37.5 mg 24 hr capsule 37.5 mg daily at bedtime. warfarin (COUMADIN) 7.5 mg tablet Take 7.5 mg by mouth. warfarin (COUMADIN) 5 mg tablet Take 5 mg by mouth. methotrexate (XATMEP) 2.5 mg/mL oral liquid 2.5 mg every Sunday. 7 tabs every sunday (Patient not taking: Reported on 04/15/2024) Physical Exam There were no vitals taken for this visit. GENERAL APPEARANCE: well NEURO: Alert, oriented. Actively bilateral upper extremities Treatment History Date of Last Rheumatology Infusion (last 3 years): *most recent date of each type of infusionLast Ophthalmology Check for Plaquenil (Hydroxychloroquine) Last OCT Macula Exam No resulted procedures found. Last Visual Field Exam No resulted procedures found. Patient-Entered Data PROMIS Assessments 11/14/2023 04/01/2024 PROMIS Global Health - (T-Scores - the mean of general population = 50. Five points is a clinically meaningful difference.) Physical T-Score 37.4 34.9 Mental T-Score 50.8 45.8 11/14/2023 04/01/2024 PROMIS CAT Pain Interference PROMIS Pain Interference T-Score (range: 10 - 90) 62 (moderate) 68 (moderate) PROMIS Pain Interference Percentile 12 4 PROMIS Adult Short Form-Global Health Score (Mental) 50.8 (Very Good) 45.8 (Good) 11/14/2023 04/01/2024 PROMIS CAT Fatigue PROMIS Fatigue T-Score 78 (severe) 64 (moderate) PROMIS Fatigue Percentile 0 8 11/14/2023 04/01/2024 PROMIS PHYSICAL FUNCTION T-SCORE PROMIS Physical Function T-Score 32 (moderate dysfunction) 33 (moderate dysfunction) Physical Function Percentile 4 4 RAPID 3 [place] Activities of Daily Living 04/09/2024 8:39 PM 11/14/2023 7:53 PM Dress self? With SOME difficulty Without ANY difficulty Get in and out of bed? Without ANY difficulty Without ANY difficulty Walk outdoors? Without ANY difficulty Without ANY difficulty Wash and dry body? With SOME difficulty Without ANY difficulty Get in and out of car? Without ANY difficulty Without ANY difficulty RAPID 3 Disease Activity Weighed Score Levels: 0 - 1: Near Remission 1.3 - 2.0: Low Severity 2.3 - 4.0: Moderate Severity 4.3 - 10.0: High Severity 11/14/2023 04/09/2024 RAPID-3 Weighed Score RAPID 3 Weighed Score 3.11 (Moderate severity ) Incomplete 04/09/2024 RAPID-3 Weighed Score Percentage Change Compared to Last Score -100 PHQ-9 0 - 4: Minimal Depression 5 - 9: Mild Depression 10 - 14: Moderate Depression 15 - 19: Moderately Severe Depression 20 - 27: Severe Depression 11/14/2023 04/01/2024 PHQ-9 PHQ-2 Score 0 0 PHQ-9 Score 3 PAIN EVALUATION 04/15/2024 1344 Pain Level: 7 Pain Location: -- right hand Frequency: Continuous Medication Authorization Primary Diagnosis: History of stroke [Z86.73] Impression and Plan Diagnoses: (Z86.73) History of stroke (primary encounter diagnosis) (I63.311) Cerebral infarction due to thrombosis of right middle cerebral artery (HCC) Patient presented with recurrent ischemic stroke/TIA since October 2022. Cerebral angiogram revealed thrombus with collaterals (indicating that this occlusion was not acute given the collateral development). LP in Jul 2023 did have elevated protein but suspected to be secondary to traumatic tap given elevated RBC, importantly her TNC count was normal which is very reassuring against COT ASSEMBLER inflammation. 7T MRI showed concentric vessel wall enhancement which can be seen in thrombosis, which is likely in her case. There is a lower overall suspicion for COT ASSEMBLER vasculitis at this time based on review of patient's records and clinical history today. Given the thrombus seen on cerebral angiogram, personal history of DVT during , and family history of blood clots, suspect that patient's isolated stroke was thrombotic in nature. She has been on anticoagulation since without recurrence of stroke. Despite no known hypercoagulable condition, the clinical course and response to anticoagulant suggest benefits of long-term anticoagulant. As there is lower suspicion for COT ASSEMBLER vasculitis, we recommend tapering off prednisone. She was prescribed with hydroxychloroquine and methotrexate by Dr. Morejon for lupus. We do not think lupus played a role in her recurrent strokes/TIA. - Taper off prednisone - Defer hydroxychloroquine and methotrexate to Dr. Morejon Follow up as needed [facility] on 04/16/24 methotrexate (XATMEP) 2.5 mg/mL oral liquid methotrexate 2.5 mg tablet I spent a total of 30 minutes on the date of the service which included preparing to see the patient, [id number] patient care, completing clinical documentation, obtaining and/or reviewing separately obtained history, performing a medically appropriate examination, counseling and educating the patient/family/caregiver, ordering medications, tests, or procedures, communicating with other HCPs (not separately reported), independently interpreting results (not separately reported), communicating results to the patient/family/caregiver, and care coordination (not separately reported). Rheumatology Staff I have reviewed the history and physical examination obtained and documented by the fellow and I personally participated in the [place] components. I have discussed the case and management of the patient's care with the fellow. The above plan reflects my recommendations Current syncopal attack are probably related to POTS she is being evaluated Bettye Blackman MD cc: PCP: Ilana Ruano MD ([facility]) [address] [place] [address] FOLLOW-UP Observed: 04/09/2024 8:45 AM Status: COMPLETED Source: [facility] [id number] Zo Mike F Date Provider Department Center 04/09/2024 Patrick-JEIMY MOREJON I [facility] RHEUM Jose Heal Family History Problem Relation Age of Onset Hypertension Mother Cancer Maternal Grandfather Family Status - Relation Status Age at Mother Maternal Grandfather Level of Service:71649 SC OFFICE/OUTPATIENT ESTABLISHED MOD MDM 30 MIN (GC) Reason for Visit and Comments: History of CVA (cerebrovascular accident) [Other] Follow-up [[id number]] PROGRESS Observed: 04/09/2024 8:45 AM Status: COMPLETED Source: [facility] Attestation signed by Jeimy Morejon MD at 04/09/2024 8:16 PM GC: I saw this patient. I personally performed the critical/[place] portions that determines the level of service. I was directly involved in the management and treatment plan of the patient. I reviewed note and agree with the documentation Subjective Dorene Mike is a 48 y.o. 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 She presents for History of CVA (cerebrovascular accident) and Follow-up. Medication regimen: Plaquenil 200 mg every day, Methotrexate 15 mg (6 tabs of 2.5 mg) weekly, folate supplementation. Prednisone 15 mg daily 04/09/2024 Patient presents for follow-up today. Patient reports 3 more episodes of passing out since we last saw her, witnessed by her , he describes she loses consciousness for seconds, no symptoms prior to passing out. does not report shaking or repetitive movements. She fractured her right hand 4 weeks ago after her last episode. Continues to have joints pain and weakness as well as fatigue. She did see rheumatology at [facility] but is not interested to follow-up with them. No headaches, chest pain, shortness of breath, rash or hair loss. Compliant with her medications and denies any side effects. Most recent tests discussed with the patient. Her prednisone was increased to 15 mg daily by her PCP following her last episode. We discussed risks and benefits of brain biopsy for definitive diagnosis and patient opted not to go for it Review of Systems Constitutional: Positive for appetite change (after TIA taste change) and fatigue. Negative for chills, fever and unexpected weight change. HENT: Negative for ear pain, mouth sores, rhinorrhea, sinus pain, sore throat and trouble swallowing. No dry mouth. Eyes: Positive for visual disturbance (B/L vision loss since TIA, Optho appt upcoming, peripheral vision gone). Negative for pain and redness. No dry eyes. Respiratory: Negative for cough, chest tightness, shortness of breath and wheezing. Cardiovascular: Negative for chest pain, palpitations and leg swelling. No Raynaud's phenomenon. S/p loop recorder in place. Gastrointestinal: Positive for nausea. Negative for abdominal pain, blood in stool, constipation, diarrhea and vomiting. No GERD. Genitourinary: Negative for difficulty urinating, dysuria, flank pain, frequency, hematuria and urgency. Musculoskeletal: Positive for arthralgias and myalgias. Negative for back pain, joint swelling and neck pain. Skin: Negative for rash. Itching skin, no rash. Neurological: Positive for dizziness, weakness (L sided, working with PT; L foot drop), numbness (Hands and feet) and headaches (Constant, R sided headache). Negative for seizures, syncope, speech difficulty and light-headedness. Cognitive took a hit, new baseline below what it was. 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 Psychiatric/Behavioral: Positive for confusion (Intermittent episodes that started with TIA) and sleep disturbance (Unrefreshing sleep). Negative for agitation and dysphoric mood. The patient is not nervous/anxious. Objective Visit Vitals BP 116/76 (BP Location: Left arm, Patient Position: Sitting) Pulse 101 Physical Exam Vitals and nursing note reviewed. Constitutional: General: She is awake. She is not in acute distress. Appearance: Normal appearance. HENT: Head: Normocephalic and atraumatic. Mouth/Throat: Mouth: Mucous membranes are moist. Pharynx: Oropharynx is clear. Eyes: General: No scleral icterus. Right eye: No discharge. Left eye: No discharge. Extraocular Movements: Extraocular movements intact. Conjunctiva/sclera: Conjunctivae normal. Pupils: Pupils are equal, round, and reactive to light. Cardiovascular: Rate and Rhythm: Normal rate and regular rhythm. Pulses: Normal pulses. Heart sounds: Normal heart sounds. No murmur heard. No friction rub. No gallop. Pulmonary: Effort: Pulmonary effort is normal. No respiratory distress. Breath sounds: Normal breath sounds. No wheezing, rhonchi or rales. Abdominal: General: Bowel sounds are normal. There is no distension. Palpations: Abdomen is soft. Tenderness: There is no guarding. Musculoskeletal: General: No swelling or tenderness. Normal range of motion. Right shoulder: No swelling or tenderness. Normal range of motion. Left shoulder: No swelling or tenderness. Normal range of motion. Right elbow: No swelling. Normal range of motion. No tenderness. Left elbow: No swelling. Normal range of motion. No tenderness. Right wrist: No swelling or tenderness. Normal range of motion. Left wrist: No swelling or tenderness. Normal range of motion. Right hand: No swelling or tenderness. Left hand: No swelling or tenderness. Cervical back: Normal range of motion and neck supple. No tenderness. Thoracic back: No tenderness. Lumbar back: No tenderness. Right hip: No tenderness. Left hip: No tenderness. Right knee: No swelling. Normal range of motion. No tenderness. Left knee: No swelling. Normal range of motion. No tenderness. Right lower leg: No edema. Left lower leg: No edema. Right ankle: No swelling. No tenderness. Left ankle: No swelling. No tenderness. Right foot: No tenderness. Left foot: No tenderness. Skin: General: Skin is warm and dry. Findings: No rash. Neurological: General: No focal deficit present. Mental Status: She is alert and oriented to person, place, and time. Mental status is at baseline. Cranial Nerves: No cranial nerve deficit. Sensory: No sensory deficit. Motor: Weakness (Mild weakness on left upper extremity) present. Psychiatric: Mood and Affect: Mood normal. Behavior: Behavior normal. Behavior is cooperative. Thought Content: Thought content normal. Judgment: Judgment normal. No results found for this or any previous visit (from the past 36 hour(s)). Assessment/Plan Diagnoses and all orders for this visit: Systemic lupus erythematosus with other organ involvement, unspecified SLE type (CMS/HCC) - predniSONE (Deltasone) 5 mg tablet; Take 1 tablet (5 mg) by mouth in the morning. History of CVA (cerebrovascular accident) High risk medication use salvage determiner methotrexate user COT ASSEMBLER vasculitis (CMS/HCC) - predniSONE (Deltasone) 5 mg tablet; Take 1 tablet (5 mg) by mouth in the morning. Systemic lupus erythematosus, unspecified SLE type, unspecified organ involvement status (CMS/HCC) - hydroxychloroquine (Plaquenil) 200 mg tablet; Take 1 tablet (200 mg) by mouth in the morning. Taper prednisone by 2.5 mg in total daily dose every 2 weeks from current dose of 15 mg daily. Continue methotrexate to 17.5 mg weekly. Medication regimen: Plaquenil 200 mg every day, Methotrexate 15 mg (6 tabs of 2.5 mg) weekly, folate supplementation. Prednisone 15 mg daily, will decrease to 7.5 mg daily. She is on warfarin per [facility] and Plavix. 1. History of CVA (cerebrovascular accident) ---- R MCA CVA in October 2022 2. Myalgia 3. Systemic lupus erythematosus, unspecified SLE type, unspecified organ involvement status (CMS/HCC) ---- presumed incomplete SLE vs UCTD 4. High risk medication use 5. salvage determiner methotrexate user 6. salvage determiner systemic steroid user 7. 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 She failed Eliquis, so was started on warfarin. Slowly improving deficits of R sided headache, blurred vision, dysarthria/aphasia, left-sided weakness, confusion/cognitive trouble per patient. Also has sx of widespread MSK pain, fatigue, unrefreshing sleep. Mild dilated nailfold capillaries noted under dermatoscope, nonspecific finding. *Extensive work-up following with Neurology, Cardiology, Hematology, second opinion from [facility] Rheumatology in December 2022. S/p loop recorder, though cardiac work-up has not revealed etiology beyond Lambl's excrescence on aortic valve (where risk of AVR outweighs benefit). *Work-up revealed: non-clonal bone marrow plasmacytosis, increased circulating VEGF, elevated IgA, elevated free kappa light chain, prior fever/lympadenopathy,prior related DVT, (+) RAMYA at 1:160 --> 1:640 in Jul 2023. No indication of Antiphopspholipid ab syndrome, B2 GP1 and anticardiolipin ab are negative. SPEP WNL, negative for prothrombin gene, factor 5 Leiden, homocysteine. Negative for dsDNA and ANAYELI, [id number], with C4 and CK WNL. Joint scan negative for inflammatory uptake; MRI femurs and MRI SI joints unremarkable, cerebral angiogram showed no large vessel arterial occlusion, significant stenosis, sizable aneursym, or malformation. *MR Brain Vessel Wall Imaging with and without contrast December 2022 = October 2022 exam had focal near occlusion of distal M1 segment of R middle cerebral artery, with a filling defect suggestive of thrombus or thromboembolism ---> resolved in December 2022 exam, no underlying stenosis or vessel wall abnormality now normal diameter of R middle cerebral artery without surrounding wall enhancement of this segment of artery, no new arterial stenosis. *06/27/23 MRI brain shows small right basal ganglia lacunar infarct. 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 Brain bx was discussed but this is felt to have more risk than benefit especially considering low diagnostic yield in 30-40% of cases. Plan: - Dicussed brain bx, but due to possible low diagnostic yield in 30-40% of cases, benefit vs risk there is more risk than benefit. There is enough evidence as it stands to treat as COT ASSEMBLER vasculitis. Discussed condition typically needs 2 years of treatment. - recommend follow-up with Dr Mac at [facility] - recommend follow-up with cardiology - Continue medication regimen: - Plaquenil 200 mg every day. . - Prednisone 15 mg daily, will decrease by 2.5 mg every week to reach maintenance of 7.5 mg daily - continue Methotrexate at 17.5 mg weekly - Medication monitoring with CBC and CMP every 3 months. - discussed risks and benefits of brain biopsy, we opted to defer - Continue Warfarin per [facility] and Plavix per Neurology and Cardiology. - Follow up with Rheumatology at [facility], as well as Neurology, Cardiology, and Hematology. - Return to clinic in [address] Reilly and Dr Morejon PROGRESS Observed: 04/03/2024 11:02 AM Status: COMPLETED Source: [facility] HNO ID: [id number] Author: ADA JONES MD, PhD Service: ? Author Type: Physician Type: Progress Notes Filed: 04/28/2024 23:47 Note Text: VIRTUAL VISIT PROGRESS NOTE This is a virtual visit using [employer] Video Visit. It required patient-provider interaction for the medical decision making as documented below. I have communicated my name and active licensure. The patient's identity and physical location were verified at the time of this visit. Either the patient or their legal vaccine customer representative has been informed of the risks and benefits of -- and alternatives to -- treatment through a remote evaluation and consents to proceed with the evaluation remotely. Zo De León is a 48 year old female seen for stroke evaluation. Patient has stroke in October 2022. Patient was normal the night before. In the morning, her noticed she had problem with your eyes. Patient dropped her comb from the left side. Patient was noticed to have slurred speech. Patient was confused when she arrived in the office, and was noticed to have right MCA stroke, with right MCA thrombus. She was put on asa and apixaban. Patient had LP done showed normal cells but with elevated protein. Patient had severe LAGUNA about 3 days ago. Resolved before the stroke symptoms. Patient has history of DVT during the first . Denied history Patient has been on anticoagulation since October 2022. TIA Patient has LAGUNA, not able to talk, slurred speech, and left side weakness. Patient was able to understand. This happened about 4 times. The last episode was Jul 2023. The episodes lasted for several more than 24hr, typically speech is recovered first. Patient had EEG which is negative. Patient had no EEG monitoring done. Patient has passing out spells. Patient was standing. 3 episodes. The last episode was mar 08. When she was on 5mg prednisone. Patient is on 10mg once a day now. Patient has been followed by hematology for elevated VEGF and light chain. Patient's antiplatelet and anticoagulation were changed. Patient was thought to have vasculitis, put on immunosuppression medication, including steroid. Repeat vessel imaging showed resolution of the right MCA thrombus. HISTORY REVIEWED (electronic chart updated): No past medical history on file. No past surgical history on file. FAMILY HISTORY Problem Relation Age of Onset Crohn's Disease Daughter Social History Tobacco Use Smoking status: Never Smokeless tobacco: Never Substance Use Topics Alcohol use: Not Currently Drug use: Never Current Outpatient Medications Medication Sig methotrexate (XATMEP) 2.5 mg/mL oral liquid 2.5 mg every Sunday. 7 tabs every sunday (Patient not taking: Reported on 04/15/2024) methotrexate 2.5 mg tablet Take 2.5 mg by mouth every Sunday. 7 tabs weekly atorvastatin (LIPITOR) 40 mg tablet Take 1 tablet by mouth once daily. clopidogrel (PLAVIX) 75 mg tablet Take 75 mg by mouth every 24 hours. cyanocobalamin (VITAMIN B-12) 1,000 mcg tab Take 1 tablet by mouth every other day. folic acid 1 mg tablet Take 1 mg by mouth every 24 hours. hydrOXYchloroQUINE (PLAQUENIL) 200 mg tablet Take 200 mg by mouth every morning. Magnesium Oxide 500 mg cap 500 mg once daily. methotrexate 2.5 mg tablet 2.5 mg one time a week. 7 tabs weekly pyridoxine, vitamin B6, (VITAMIN B6) 50 mg tablet Take 50 mg by mouth every morning. rimegepant (NURTEC ODT) 75 mg disintegrating tablet Take by mouth at bedtime as needed. topiramate (TOPAMAX) 100 mg tablet Take 200 mg by mouth two times a day. venlafaxine ER (EFFEXOR XR) 37.5 mg 24 hr capsule 37.5 mg daily at bedtime. warfarin (COUMADIN) 7.5 mg tablet Take 7.5 mg by mouth. warfarin (COUMADIN) 5 mg tablet Take 5 mg by mouth. No current facility-administered medications for this visit. ALLERGIES Allergen Reactions Clarithromycin Other: See Comments, Intolerance, GI Upset, Rash Other reaction(s): GI Disturbance Other reaction(s): GI intolerance Other Reaction(s): GI intolerance, Other (see comments) Other reaction(s): GI Disturbance Other reaction(s): GI Disturbance Other reaction(s): GI Disturbance Other Reaction(s): GI intolerance, Other (see comments) Other reaction(s): GI Disturbance Meperidine GI Upset, Vomiting, Other: See Comments Other reaction(s): GI Other Reaction(s): Other (see comments) Other reaction(s): GI Other reaction(s): GI Other reaction(s): GI Other Reaction(s): Other (see comments) Other reaction(s): GI REVIEW OF SYSTEMS: Negative except in HPI PHYSICAL EXAMINATION: VIDEO EXAM: (if completed, performed via video enabled technology) Awake, alert, oriented, cooperative, no dysarthria, no aphasia Mental status exam: normal CN. EOMI, facial symmetrical bilaterally, tongue midline, palate evelation symmetrically, shoulder shrug grossly normal, hearing grossly intact bilaterally. Motor: with antigravity of upper and lower extremity muscle strength. Coordination:normal Gait: normal ASSESSMENT and PLAN: History of stroke (primary encounter diagnosis) Occlusion and stenosis of right middle cerebral artery History of DVT during Hyperlipidemia, unspecified hyperlipidemia type Continue current medication, including antiplatelet and anticoagulation,and statin. Recurrent sterotypical episode, similar to the previous stroke presentation likely due to worsening of previous deficit vs seizure. Patient can follow local neurologist for possible EMU. Discussed with Dr. Blackman, no clear evidence of COT ASSEMBLER vasculitis. Stroke likely due to central embolic cause, ? Hypercoagulation. F/u with vascular medicine. Ok to wean off steroid from stroke perspective. Bp control 100-130/60-80 Glucose and lipid control F/u as needed. Signs and symptoms of TIA/Stroke were discussed with patient. Patient will go to ER immediately if having signs or symptoms of stroke. Exercise as tolerated, healthy diet, and weight loss Call if having any questions. I spent a total of 60 minutes on the date of the service which included preparing to see the patient, [id number] patient care, completing clinical documentation, obtaining and/or reviewing separately obtained history, performing a medically appropriate examination, counseling and educating the patient/family/caregiver, independently interpreting results (not separately reported), and communicating results to the patient/family/caregiver Ada Jones MD, PhD PROGRESS Observed: 03/18/2024 8:45 AM Status: COMPLETED Source: [facility] ID: [id number] Author: CASSI YOUNG MD Service: ? Author Type: Physician Type: Progress Notes Filed: 03/18/2024 09:34 Note Text: [facility] [place] [facility] Department of Cardiovascular Medicine SECTION OF VASCULAR MEDICINE OUTPATIENT VISIT DATE March 18, 2024 OUTPATIENT VISIT TYPE CONSULT [facility] [place] [facility] Department of Cardiovascular Medicine SECTION OF VASCULAR MEDICINE Patient: Zo De León : 1975 Date: 03/18/2024 The patient's verbal consent for this telehealth visit was obtained at the beginning of the visit. This is a virtual video visit. It required patient-provider interaction for the medical decision making as documented below. The patient has consented to this video encounter. I have communicated my name and active licensure in the States of [place], [place], and [place]. The patient's identity and physical location were verified at the time of this visit. Either the patient or their legal vaccine customer representative has been informed of the risks and benefits of -- and alternatives to -- treatment through a remote evaluation and consents to proceed with the evaluation remotely. Patient was advised that today's virtual visit had a limited scope of addressing only vascular medicine issues that may be causing her symptoms and that she should seek their primary care physician's advice for any non-vascular causes of their symptoms. At the conclusion of the visit the patient clearly understood the plan of management, had no further questions and was satisfied with the time and care provided. This is a EST Online [facility] Level 3 [15 min] ([id number]) Telehealth visit, more than 50% of the 25 minute Zoom platform visit time was spent reviewing EMR chart data and imaging, communicating with the patient for counseling, discussing the various treatment options and therapeutic modalities that are relevant to the current patient's Vascular Medicine problems/needs. Name: Zo De León Zo De León is a 48 year old female with a past history as outlined below presenting today for follow-up after initial Vascular Medicine consult regarding history of DVT and concern for hypercoagulable state. . EMR and chart reviewed. Born 1975 in [facility].. Healthy as a child, no developmental milestone issues. No congenital limb discrepancy or vascular malformations. 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 FH reviewed for any significant vascular issues. Grandmother had calf vein DVT, was on truck terminal manager anticoagulation and had IVC filter placed, aunt had AF, another aunt had LE DVT and is correction anticoagulation. Had a hysterectomy in the past for endometriosis. Extensive records reviewed including progress notes, specialty consultations, procedure notes, hospital notes, labs, vascular testing, triage notes, and available applicable information in regard to initial vascular consultation. Referral information and appropriate triages were perused as well. Records, charts and EMR perused and reviewed at length prior to initial visit as necessary. PMH reviewed. No history of stroke, LA, TIA. No history of diabetes, sleep apnea or cancer. No history of HTN, or hyperlipidemia Patient was recently evaluated by the rheumatology service for concerns of COT ASSEMBLER vasculitis.. She related to history of associated VTE, thrombotic stroke with cerebral angiogram with right M1 near occlusion with apparent thrombus,, and family history of VTE. Patient is referred to vascular medicine for concerns of underlying hypercoagulable state. First and only event VTE was calf vein DVT associated with , was treated with enoxaparin. This was her first child, had VTE Px with subsequent two pregnancies, no recurrent VTE. G-3 P-3, all . Had a stroke event at age 47 in 09-14.. Presented with severe headache, vision loss, and lack of focus and slurred speech. 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 Had right M1 occlusive thrombus, unable to be retrieved because of location. Was placed on UFH, was discharged on apixiban and clopidogrel. Had residual symptoms of left sided weakness, vision loss of peripheral vision and left foot drop. Went to [facility] as concern for stroke at young age with no risk factors. Had extensive work up and saw vascular medicine at that facility. Saw rheumatology, neurology, cardiology, hematology, and vascular medicine at that facility. No etiology was uncovered and felt to be cryptogenic. Symptoms persisted. In June of 2023 had a second stroke with aphasia, left facial droop and confusion, and left sided weakness. Was hospitalized at [facility], no tPA, was switched from apixibian to warfarin as was told failed apixiban. States infarct was basal ganglia in different location from previous. 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 She was readmitted in July of 2023 with TIA symptoms and had LP with abnormalities, and had elevated inflammatory markers including VGEF.. Has had bone marrow biopsy in past. Was placed on MTX and prednisone taper which states improved neuro symptoms. Preceding her stroke, she had no obvious symptoms for vasculitis including Behcet's, GCA, etc. Was not on migraine medications, or ADHD medications. Is up to date with all age appropriate cancer screening. At the present time she has memory loss, inability to concentrate, and fatigue. Has fallen twice, has residual left sided weakness and left foot droop. Is working with PT. No leg swelling, no claudication symptoms or digital color changes. Has numbness and tingling in both hands and feet. Still with peripheral vision loss. No cardiopulmonary symptoms. Medications reviewed and discussed. On moderate intensity dose of atorvastatin, VKA+clopidgrel, has INR machine at home and calls into PCP who manages INR with target 2.5-3.0. Last INR was 2.3. On topiraimate for headaches. Lives in [place] between [place] and [place], children are aged 15-26. Kids healthy except middle daughter has Crohns and youngest daughter has CVID. Never smoker. 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 No special diet. Doing PT, trying to stay active. Likes to camp close to [place]. Patient was seen for initial vascular medicine consultation in January 2024 as outlined above. Patient presented for a virtual visit utilizing the [employer] platform in February 2024 for follow-up. Was in ED in February for drop attacks thought to be related to cerebral vasculitis. On prednisone and MTX and sees rheumatology in [place] with Dr. Morejon.. He recommended continued VKA therapy and sees again next week. No untoward bleeding. Thrombophilia work up reviewed, no APS and low protein S is secondary to warfarin therapy. Checks INR at home weekly and family physician is managing. Broke right hand with latest drop attack. Still doing PT. No new limb weakness or numbness. Seeing neurology Dr. Hernández, also sees hematology Dr. 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 Sees later this week. Had recent EEG that was unremarkable. No past medical history on file. No past surgical history on file. FAMILY HISTORY Problem Relation Age of Onset Crohn's Disease Daughter Review of Systems: General Fever or chills - No Night sweats - No Change in weight - No Lumps in groin, underarms - No Neurological Headaches - YES Seizures - No Passing out - Unsure, possible Dizziness/light headedness - YES Numbness, tingling, pins or needles - YES Weakness in arms or legs - YES Head, eyes, ears, nose and throat Changes in hearing - No Changes in vision - YES Nose bleeds - No Difficulty or pain with swallowing - No Cardiovascular Chest pain or pressure - No Palpitations - No Irregular heartbeat - No Shortness of breath - No Respiratory Cough - No Wheezing - No Shortness of breath at rest - No Shortness of breath with exertion - No Coughing up blood - No Sleep apnea - No Gastrointestinal Abdominal pain - No Nausea/vomiting - No Diarrhea/Constipation - No Stomach pain after eating - No Blood in stool - No Black stool - No Genitourinary and OIL DISPATCHER Pain with urination - No Blood in urine - No Difficulty achieving an erection - NA Abnormal vaginal bleeding - No History of loss - No Extremity Bulging veins - No Swelling in arms or legs - No Redness of extremities - No Pain with walking - No Color change of hands/feet/digits - No Musculoskeletal Joint pain - No Joint swelling - No Back pain - No Muscle pain or ache - YES Skin Rash - No Lesions - No Slow healing sores - No Tight or thickened skin - No Hematology Low blood counts - No Easy bruising - YES Blood transfusions - No Psychology Depressed mood - YES Anxiety or history of panic attacks - YES History of recreational drug use - No Cancer screening (up to date?): Colonoscopy: No Pap smear: N/A Mammogram: YES Prostate: N/A Smoking history: -Current or past smoker? No -If current smoker, are you interested in help with quitting? N/A Reviewed and completed per patient questionnaire, all others negative unless otherwise stated in the HPI. Const: Denies anorexia, fever, night sweats and weight change. Eyes: Denies abnormal vision, pain and visual disturbance. ENMT: Denies discharge from the ears, ear pain and tinnitus. Denies altered smell and soreness. Denies dysphagia and sore throat. CV: Denies chest pain, diaphoresis and syncope. Resp: Denies cough, orthopnea, PND, SOB and wheezing. GI: Denies abdominal pain, change in appetite, diarrhea, hematemesis, hematochezia and melena. Musculo: Denies musculoskeletal symptoms other than outlined above. Skin: Denies skin, hair and nail symptoms other than outlined above. Neuro: Denies symptoms other than stated above. Endocrine: Denies intolerance to heat, intolerance to cold, polydipsia, polyphagia and polyuria. Geovanni: Denies bleeding/bruising tendency Vascular: As above ALLERGIES Allergen Reactions Clarithromycin Other: See Comments, Intolerance, GI Upset, Rash Other reaction(s): GI Disturbance Other reaction(s): GI intolerance Other Reaction(s): GI intolerance, Other (see comments) Other reaction(s): GI Disturbance Other reaction(s): GI Disturbance Other reaction(s): GI Disturbance Other Reaction(s): GI intolerance, Other (see comments) Other reaction(s): GI Disturbance Meperidine GI Upset, Vomiting, Other: See Comments Other reaction(s): GI Other Reaction(s): Other (see comments) Other reaction(s): GI Other reaction(s): GI Other reaction(s): GI Other Reaction(s): Other (see comments) Other reaction(s): GI predniSONE (DELTASONE) 5 mg tablet, Take 3 tablets (15 mg) by mouth in the morning for 14 days, THEN 2 tablets (10 mg) in the morning for 14 days, THEN 1.5 tablets (7.5 mg) in the morning., Disp: , Rfl: atorvastatin (LIPITOR) 40 mg tablet, Take 1 tablet by mouth once daily., Disp: 30 tablet, Rfl: 5 clopidogrel (PLAVIX) 75 mg tablet, Take 75 mg by mouth every 24 hours., Disp: , Rfl: cyanocobalamin (VITAMIN B-12) 1,000 mcg tab, Take 1 tablet by mouth every other day., Disp: , Rfl: folic acid 1 mg tablet, Take 1 mg by mouth every 24 hours., Disp: , Rfl: hydrOXYchloroQUINE (PLAQUENIL) 200 mg tablet, Take 200 mg by mouth every morning., Disp: , Rfl: Magnesium Oxide 500 mg cap, 500 mg once daily., Disp: , Rfl: methotrexate 2.5 mg tablet, 2.5 mg one time a week. 7 tabs weekly, Disp: , Rfl: pyridoxine, vitamin B6, (VITAMIN B6) 50 mg tablet, Take 50 mg by mouth every morning., Disp: , Rfl: rimegepant (NURTEC ODT) 75 mg disintegrating tablet, Take by mouth at bedtime as needed., Disp: , Rfl: topiramate (TOPAMAX) 100 mg tablet, Take 100 mg by mouth two times a day., Disp: , Rfl: venlafaxine ER (EFFEXOR XR) 37.5 mg 24 hr capsule, 37.5 mg daily at bedtime., Disp: , Rfl: warfarin (COUMADIN) 7.5 mg tablet, Take 7.5 mg by mouth., Disp: , Rfl: warfarin (COUMADIN) 5 mg tablet, Take 5 mg by mouth., Disp: , Rfl: No facility-administered encounter medications on file as of 03/18/2024. Physical Examination: There were no vitals taken for this visit. Last In Person Visit Const: Appears well nourished. Appears to weigh within normal range. No signs of acute distress present. Speech is clear and appropriate. Alert and oriented. Height is within normal range. Exhibits good posture. Eyes: Conjunctivae clear. Eyelids normal and palpebral fissures equal. No discharge from the eyes. Sclerae are white and without lesions. HEENT: No bifid uvula. Neck is supple and symmetric. No masses appreciated. Trachea midline. Thyroid exhibits no nodule or thyromegaly. No JVD. Resp: Respirations are regular. No use of accessory muscles noted. No intercostal retraction. No wheezing. AP diameter is unremarkable. Chest inspection and palpation reveals no lesions or tenderness. Normal and symmetrical fremitus throughout. Auscultate good airflow. Lungs are clear bilaterally. No prolonged inspiration to expiration ratio. CV: Precordium: no lifts or thrills. Rate is regular. Rhythm is regular. Carotids: 2+ and equal bilaterally, without bruits. Skin: No clubbing, cyanosis or edema. GI: Bowel sounds are normoactive. Abdomen is soft, non tender, and non distended. No abdominal masses palpable. Musculo: Walks with a normal gait for age. Upper Extremities: Strength: Normal and symmetric. Full ROM bilaterally. Lower Extremities: Strength: Normal and symmetric. Full ROM bilaterally. Psych: Alert and oriented x 3. Cooperative during examination. Neuro: Left sided weakness arm 4/5 and left foot droop. Heme/Lymph: No obvious bruising or adenopathy. Vascular: Femoral pulses: 2+ and equal bilaterally, without bruits. DP 2+ and equal, normal tones, no livedo or ulcerations, Labs: Component 1 mo ago [id number]: Interpretation (Lupus Anticoagulant) Abnormal - see comment below. Significant findings. DRUG EFFECT: Warfarin Lupus Anticoagulant: NEGATIVE Laboratory testing was performed to evaluate the presence of a lupus anticoagulant and antiphospholipid antibodies. Both the PT and APTT were elevated. The elevated PT is consistent with a history of warfarin therapy. The thrombin time and anti-Xa screen were normal. No heparin, anti-Xa or direct thrombin inhibitor drug effect is present. LUPUS ANTICOAGULANT STUDIES: There is no evidence for a lupus anticoagulant or other coagulation inhibitor at this time. Imaging: Assessment AND Plan: 1. History of stroke At the time of initial consultation this was a delightful 48-year-old female who was accompanied by her for initial consultation at the [facility] in January [facility]24. We reviewed her thrombosis history at length including an episode of venous thrombosis with her related calf vein DVT, as well as evidence of arterial thrombosis resulting in recurrent stroke at a relatively young age. First event and recurrent neurovascular event with TIA/stroke like symptoms as outlined above. At the time of initial consultation she had no symptoms or evidence of recurrence but did have residual neurological deficits.. Potential risk factors reviewed and discussed including smoking, HTN, hyperlipidemia, diabetes, and previous stroke. Patient counseled at length regarding the importance of medication compliance, a robust plaque stabilization/regression strategy, and risk factor modification. We discussed lifestyle modifications including diet and exercises. DASH diet recommended to patient. Secondary prevention measures reviewed and discussed at length, handouts given to patient.Would suggest high intensity atorvastatin based on SPARCL trial if able to tolerate and we did uptitrate her statin.. Would recommend continuing her ARB egimen based on current literature which which showed a decrease in recurrent stroke with ACEI/ramipril and ARB initiation. Discussed recent literature regarding antiplatelets and antithrombotics for secondary stroke prevention, including CAPRIE and COMPASS trials. Discussed clopidogrel therapy with patient with this class of medication the five factors that can contribute to its variable response including patient noncompliance, malabsorption, drug to drug interactions, platelet ADP receptor heterogeneity, and differences in the rate of drug metabolism. Discussed clopidogrel response testing with patient if applicable. A lower PRU indicates good response to clopidogrel, while a higher number indicates less than optimal response. Responders usually have PRU <200. PRU values >230 are often referred to as high on-treatment platelet reactivity (HPR) and have been associated with an increased risk of ischemic events after PCI including , LA and stent thrombosis. These patients may benefit from either a higher dose of clopidogrel or alternative antiplatelet therapy such as prasugrel or ticagrelor. In contrast to patients with HPR, patients with low platelet reactivity (PRU <200) have a higher risk of bleeding, especially after PCI. Discussed importance of neurological and stroke symptom vigilance, optimal medical therapy, and RFM. Ischemic stroke in young adults (15-45 years) is relatively frequent and is thought to represent more than 10% of all first ischemic strokes. There are a myriad of potential causes and this generally has a good prognosis. Currently, the most frequent causes of ischemic stroke in young adults are cardioembolism, premature atherosclerosis, dissection of extracranial arteries, migraine, drugs and hypercoagulable states. After work up, however, undetermined etiologies still make up a portion of these type of strokes. Work up should include consideration for large vessel atherosclerosis, small vessel disease, cardioembolic source, and non-atherosclerotic etiologies. These may include dissection of extracranial arteries, migraines, thrombophilias, CTD, illicit drugs, FMD, vasculitis, and infection Patient was evaluated extensively at the [facility] after her first event stroke as above. Patient had evidence of a MCA M1 occlusive thrombosis. We discussed various potential etiologies for arterial thrombosis including de nathan thrombosis. We evaluated the patient for risk factors for atherosclerotic arterial disease include smoking, diabetes, hyperlipidemia, and hypertension. We discussed unusual causes for recurrent arterial thrombosis as well as the usual suspects. We discussed at length the importance of risk factor medication, antiplatelet therapy, plaque stabilization regimen with statins, and also entertained more unusual causes of recurrent arterial thrombosis including underlying thrombophilias namely circulating antiphospholipid antibodies and antiphospholipid antibody syndrome, malignancy, heparin-induced thrombocytopenia, vasculitis, and cardioembolic sources of embolization. We discussed common mechanical forces and etiologies with vascular surgery interventions that are often implicated in recurrent arterial thrombosis. We discussed arterial thrombosis germane to this particular patient's clinical situation. We entertained risk factors include including the classical risk factors for atherosclerosis, age, underlying thrombophilias (including antiphospholipid antibody syndrome, and protein S deficiency), previous thrombosis, cancer, and instrumentation. We also discussed clinical associations including heparin-induced thrombocytopenia, recent viruses, paroxysmal nocturnal hemoglobinuria, mechanical factors associated with vascular surgery, trauma, vasculitis, cryoglobulinemia cardioembolic sources, and thrombotic microangiopathies.. We discussed appropriate workup and further testing as outlined above. In regards to antithrombotic regimen, there really is a paucity of reliable data regarding optimal regimens for stent protection and prevention of recurrent arterial thrombosis. We discussed current consensus and literature support for various antithrombotic and antiplatelet regimens. Antiplatelet options include clopidogrel, aspirin, and antithrombotics such as the heparinoid's, warfarin, and the direct oral anticoagulants. Stroke prophylaxis and secondary prevention is different than our usual PAD and/or arterial thrombosis regimen and vascular disease. Patient has a family history of venous thrombosis, personal history of related venous thrombosis, and evidence of arterial occlusive disease which is related to her neurovascular events. Certainly concern for underlying thrombophilia or hypercoagulable status is appropriate at this juncture. There is presently also concern for COT ASSEMBLER vasculitis and the patient continues to be worked up towards that end. That certainly would alter the treatment regimen and the patient has been tried on methotrexate and corticosteroids with some improvement in symptoms. This would not obviate, however, the use of aggressive plaque stabilization and mitigation strategies, optimal medical therapies, risk factor mitigation, antiplatelet/anticoagulation, diet and exercise. Patient is seeing other specialists and presently has a loop recorder implant. We did uptitrate her atorvastatin and we will complete her underlying thrombophilia workup with laboratory assays for the sake of completeness. At the time of initial consultation we discussed antiplatelet therapies, possible anticoagulation therapies,We would recommend to continue present antiplatelet and anticoagulant therapy, escalate atorvastatin to high intensity statin dosing, and we discussed the importance of close vigilance for any signs or symptoms of neurovascular event recurrence. The case was discussed at length with the patient and her at the time of initial consultation. We recommended follow-up with the patient virtually after lab testing and go from there. On virtual video follow-up in February 2024 we discussed the patient's interim issues. She has been having syncopal episodes that are thought to be secondary to her underlying cerebral vasculitis. She is presently seeing neurology, rheumatology and hematology as well. We discussed COT ASSEMBLER vasculitis. Central nervous system (COT ASSEMBLER) vasculitis can be very similar to RCVS. COT ASSEMBLER Vasculitis is a condition that results in inflammation of blood vessel padron of the brain or spine This can appear along with other autoimmune diseases such as systemic lupus erythematosus, dermatomyositis, and rheumatoid arthritis (in rare cases). It may come along with a viral or bacterial infection. It may be associated with vasculitis disorders (granulomatosis with polyangiitis (GPA), microscopic polyangiitis, Bechet's syndrome). It may also appear on its own; in such cases it is referred to as primary angiitis of the COT ASSEMBLER (PACNS). We reviewed and discussed her APS studies which were unremarkable. Her protein S level is decreased but this is most likely secondary to warfarin therapy. She is presently on warfarin plus clopidogrel. She is following up with her other specialist within the next few weeks and we discussed the importance of ascertaining antithrombotic regimens as well as secondary stroke prevention measures. She is presently on high intensity statin. We will follow-up with her in 4 weeks via virtual visit and go from there. 2. Personal history of venous thrombosis and embolis First and only event VTE was a associated calf vein DVT as outlined above. Patient was treated for 6 weeks and has had no evidence of recurrent venous thromboembolism. 3. Anticoagulation management encounter Discussed anticoagulation therapy at length with patient including medications available including heparinoids, vitamin K antagonist, and direct oral anticoagulants. Discussed if on warfarin that this medication has a narrow therapeutic index as well as drug-drug, drug-food interactions and genetic polymorphism. If on warfarin we discussed dietary and medication interactions and discussed need for serial blood testing for INR assay. Discussed fall precautions and likelihood of easy bruisability with patient. Discussed the newer direct oral anticoagulants that are now approved for VTE including the Xa inhibitors and direct thrombin inhibitors. Discussed with patient, including indications, possible side effects, bleeding risk, and possible antidotes. Anticoagulation in secondary stroke prevention has been studied in patients with nonvalvular cardioembolic strokes and strokes due to atrial fibrillation. 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 Patient is presently on warfarin with a target INR of 2.5-3 and tolerating well with no recent untoward bleeding. She is following up with rheumatology, neurology and hematology. We recommended to shared medical decision making discussion regarding the duration of anticoagulation with warfarin, and continued ongoing antithrombotic and secondary stroke prevention therapies. Thank you for this kind consultation and for utilizing our Vascular Medicine program here at the [facility]. Sincerely, Chacho Young MD, FACP, FSVM, FACC, RPVI Staff Physician Section of Vascular Medicine Lianna Nova Department of Cardiovascular Medicine Heart, Vascular and Thoracic [place] [facility] Desk [place] [address] Appts: [phone] 1 HOUR TROP I, HIGH SENSITIVITY Collected: 02/20 5:25 PM Status: COMPLETED Source: [facility] TYPE CODE TESTS RESULT OUT OF RANGE REFERENCE UNITS LAB TNIHS1(LOINC) 1 HOUR TROP I, HIGH SENSITIVITY <2 <16 ng/L Performed By: #### 50109-3 # ### [facility] ([id number]) [address] [place] [address], [place] [address] XR HAND RT MIN 3 VWS Observed: 5:14 PM Status: COMPLETED Source: [facility] XR HAND RT MIN 3 VWS XR HAND RT MIN 3 VWS HISTORY: Fall, hand injury, hand pain COMPARISON: None FINDINGS: AP, lateral, oblique views obtained. Nondisplaced fifth proximal metacarpal fracture. There is no destructive osseous lesion. Joint spaces are well-maintained without significant degenerative changes. Accessory ossicle distal to the ulnar styloid (lunula) versus remote healed avulsion injury. IMPRESSION: * Nondisplaced fifth proximal metacarpal fracture. Approved by Resident: Blaine Huynh DO on 03/05/2024 5:27 PM Jem Gomez MD have personally reviewed the image(s) and agree with and/or edited the report Finalized by Jem Subramanian MD on 03/05/2024 5:33 PM XR WRIST RT MIN 3 VWS Observed: 03/05/20 5:13 PM Status: COMPLETED Source: [facility] XR WRIST RT MIN 3 VWS Procedure: Right wrist radiographs performed Number of views:3 History:Pain Comparison: 10/11/2021 Findings: Nondisplaced fracture is seen of the base of the fifth metacarpal. No other definite fractures or dislocations are seen. There are no osteolytic or osteoblastic lesions Impression: Nondisplaced fracture base of the fifth metacarpal right hand. Finalized by Gloria Moon DO on 03/05/2024 5:27 PM CBC AND AUTO DIFF Collected: 03/05/2024 4:25 PM Status: COMPLETED Source: [facility] TYPE CODE TESTS RESULT OUT OF RANGE REFERENCE UNITS LAB WBC(LOINC) WBC COUNT 10.0 4.0-11.0 X10E9/L LAB RBC(LOINC) RBC COUNT 4.12 3.80-5.20 X10E12/L LAB HGB(LOINC) HEMOGLOBIN 13.1 11.7-15.5 g/dL LAB HCT(LOINC) HEMATOCRIT 39.5 35-47 % LAB MCV(LOINC) MCV 96 80-100 fL LAB MCH(LOINC) MCH 31.8 27-34 pg LAB MCHC(LOINC) MCHC 33.2 32-36 g/dL LAB RDW(LOINC) RDW 15.7 High 11.5-15.0 % LAB PLTC(LOINC) PLATELET COUNT 383 150-450 X10E9 /L LAB MPV(LOINC) MPV 7.7 7-12 fL LAB NEUT(LOINC) % NEUTROPHILS 75.7 % LAB LYMP(LOINC) % LYMPHOCYTES 17.5 % LAB MONO(LOINC) % MONOCYTES 6.1 % LAB EOS(LOINC) % EOSINOPHILS 0.1 % LAB BASO(LOINC) % BASOPHILS 0.6 % LAB ANEUT(LOINC) ABSOLUTE NEUTROPHIL 7.6 High 1.5-6.6 X10E9/L LAB ALYMP(LOINC) ABSOLUTE LYMPHOCYTE 1.8 1.0-3.5 X10E9/L LAB AMONO(LOINC) ABSOLUTE MONOCYTE 0.6 0-0.9 X10E9/L LAB AEOS(LOINC) ABSOLUTE EOSINOPHIL 0.0 0.0-0.4 X10E9/L LAB ABASO(LOINC) ABSOLUTE BASOPHIL 0.1 0.0-0.2 X10E9/L Performed By: #### CBCA, CMP , 70852-2, 32113-7 #### [facility] ([id number]) [address] [place] [address], [place] [address] COMPREHENSIVE METABOLIC PANEL Collected: 2023 4:25 PM Status: COMPLETED Source: [facility] TYPE CODE TESTS RESULT OUT OF RANGE REFERENCE UNITS LAB NA(LOINC) SODIUM 136 134-146 mmol/L LAB K(LOINC) POTASSIUM 3.6 3.5-5.0 mmol/L LAB CL(LOINC) CHLORIDE 109 98-109 mmol/L LAB CO2(LOINC) CARBON DIOXIDE 20 Low 22-32 mmol/L LAB AGAP(LOINC) ANION GAP 7 5-15 mmol/L LAB BUN(LOINC) BLOOD UREA NITROGEN 11 5-23 mg/dL LAB CRET(LOINC) CREATININE 0.82 0.40-1.00 mg/dL Result Comment: METHOD TRACE ABLE TO IDMS STANDARD LAB GLU(LOINC) GLUCOSE 118 High 65-99 mg/dL LAB CA(LOINC) CALCIUM 9.1 8.5-10.5 mg/dL LAB TP(LOINC) TOTAL PROTEIN 7.4 6.0-8.0 g/dL LAB ALB(LOINC) ALBUMIN 4.2 3.2-5.3 g/dL LAB ALK(LOINC) ALKALINE PHOSPHATASE 57 39-130 U/L LAB AST(LOINC) AST 30 0-41 U/L LAB ALT1(LOINC) ALT 40 High 0-31 U/L LAB TBIL(LOINC) BILIRUBIN,TOTAL 0.6 0.3-1.2 mg/d L LAB EGFR(LOINC) eGFR (CKD-EPI) NON-RACE DEPENDENT 89 >59 ml/min/1 .73sq.m Result Comment: Reported eGFR is based on the CKD-EPI 2020 equation that does not use a race coefficient. Performed By: #### MELODIE HAHN , 99263-8, 72296-9 #### [facility] ([id number]) [address] [place] [address] D DIMER Collected: 4:25 PM Status: COMPLETED Source: [facility] TYPE CODE TESTS RESULT OUT OF RANGE REFERENCE UNITS LAB DDMR(LOINC) D DIMER <150 <255 ng/mL DDU Result Comment: Results <255 ng/mL DDU: The presence of a VTE can safely be excluded with a negative D-Dimer result and Wells score. A negative result doesn't exclude the possibility of DIC. The test be repeated along with other diagnostic tests if the patient's symptoms persist or worsen. [email or web address] Performed By: #### MELODIE HAHN , 30251-7, 40675-0 #### [facility] ([id number]) [address] [place] [address] TROPONIN I, HIGH SENSITIVITY Collected: 024 4:25 PM Status: COMPLETED Source: [facility] TYPE CODE TESTS RESULT OUT OF RANGE REFERENCE UNITS LAB TNIHS(LOINC) TROPONIN I, HIGH SENSITIVITY <2 <16 ng/L Performed By: #### MELODIE HAHN , 45710-7, 25243-3 #### [facility] ([id number]) [address] [place] [address] REFILL Observed: 02/26/2024 12:00 AM Status: COMPLETED Source: [facility] [id number] Zo Mike F Date Provider Department Center 02/26/2024 215-JEIMY MOREJON I [facility] Family History Problem Relation Age of Onset Hypertension Mother Cancer Maternal Grandfather Family Status - Relation Status Age at Mother Maternal Grandfather Reason for Visit and Comments: Med Refill [[id number]] CBC AND AUTO DIFF Collected: 02/19/2024 10:25 A M Status: COMPLETED Source: [facility] TYPE CODE TESTS RESULT OUT OF RANGE REFERENCE UNITS LAB WBC(LOINC) WBC COUNT 10.1 4.0-11.0 X10E9/L LAB RBC(LOINC) RBC COUNT 4.64 3.80-5.20 X10E12/L LAB HGB(LOINC) HEMOGLOBIN 14.8 11.7-15.5 g/dL LAB HCT(LOINC) HEMATOCRIT 44.4 35-47 % LAB MCV(LOINC) MCV 96 80-100 fL LAB MCH(LOINC) MCH 31.8 27-34 pg LAB MCHC(LOINC) MCHC 33.3 32-36 g/dL LAB RDW(LOINC) RDW 15.1 High 11.5-15.0 % LAB PLTC(LOINC) PLATELET COUNT 307 150-450 X10E9 /L LAB MPV(LOINC) MPV 8.7 7-12 fL LAB NEUT(LOINC) % NEUTROPHILS 64.9 % LAB LYMP(LOINC) % LYMPHOCYTES 26.0 % LAB MONO(LOINC) % MONOCYTES 7.4 % LAB EOS(LOINC) % EOSINOPHILS 1.1 % LAB BASO(LOINC) % BASOPHILS 0.6 % LAB ANEUT(LOINC) ABSOLUTE NEUTROPHIL 6.6 1.5-6.6 X10E9/L LAB ALYMP(LOINC) ABSOLUTE LYMPHOCYTE 2.6 1.0-3.5 X10E9/L LAB AMONO(LOINC) ABSOLUTE MONOCYTE 0.7 0-0.9 X10E9/L LAB AEOS(LOINC) ABSOLUTE EOSINOPHIL 0.1 0.0-0.4 X10E9/L LAB ABASO(LOINC) ABSOLUTE BASOPHIL 0.1 0.0-0.2 X10E9/L Performed By: #### CBCA, NGOZI L, CMP #### [facility] ([id number]) [address] [place] [address], [address] [place] [address] IMMUNOELECTROPHORESIS FOR TH ERAPY MONITORING Collected: 02/19/2024 10:25 AM Status: COMPLETED Source: [facility] TYPE CODE TESTS RESULT OUT OF RANGE REFERENCE UNITS LAB IGA(LOINC) IGA 509 High 68-378 mg/dL LAB IGM(LOINC) IGM 23 Low 45-281 mg/dL LAB IGG(LOINC) IGG 619 178-6364 mg/dL LAB KFLC(LOINC) FREE KAPPA LT CHAINS 2.05 High 0.33-1.94 mg/dL LAB LFLC(LOINC) FREE LAMBDA LT CHAINS 1.69 0.57-2.63 mg/dL LAB FKLR(LOINC) FREE RAVINDER/LAMBD RATIO 1.21 0.26-1.65 LAB IMINT(LOINC) IMMUNE PROFILE INTERP SEE SEPARATE REPORT Performed By: #### CBCA, NGOZI L, CMP #### [facility] ([id number]) [address] [place] [address], [address] [place] [address] COMPREHENSIVE METABOLIC PANEL Collected : 02/19/2024 10:25 AM Status: COMPLETED Source: [facility] TYPE CODE TESTS RESULT OUT OF RANGE REFERENCE UNITS LAB NA(LOINC) SODIUM 139 134-146 mmol/L LAB K(LOINC) POTASSIUM 4.6 3.5-5.0 mmol/L Result Comment: SPECIMEN HEM OLYZED, RESULTS INCREASED MODERATELY HEMOLYZED LAB CL(LOINC) CHLORIDE 111 High 98-109 mmol/L LAB CO2(LOINC) CARBON DIOXIDE 18 Low 22-32 mmol/L LAB AGAP(LOINC) ANION GAP 10 5-15 mmol/L LAB BUN(LOINC) BLOOD UREA NITROGEN 14 5-23 mg/dL LAB CRET(LOINC) CREATININE 0.84 0.40-1.00 mg/dL Result Comment: METHOD TRACE ABLE TO IDMS STANDARD LAB GLU(LOINC) GLUCOSE 90 65-99 mg/dL LAB CA(LOINC) CALCIUM 9.0 8.5-10.5 mg/dL LAB TP(LOINC) TOTAL PROTEIN 7.3 6.0-8.0 g/dL LAB ALB(LOINC) ALBUMIN 4.1 3.2-5.3 g/dL LAB ALK(LOINC) ALKALINE PHOSPHATASE 59 39-130 U/L LAB AST(LOINC) AST 45 High 0-41 U/L LAB ALT1(LOINC) ALT 34 High 0-31 U/L LAB TBIL(LOINC) BILIRUBIN,TOTAL 0.5 0.3-1.2 mg/d L LAB EGFR(LOINC) eGFR (CKD-EPI) NON-RACE DEPENDENT 86 >59 ml/min/1 .73sq.m Result Comment: Reported eGFR is based on the CKD-EPI 2020 equation that does not use a race coefficient. Performed By: #### CBCA, NGOZI L, CMP #### [facility] ([id number]) [address] [place] [address] [address] [place] [address] CLINICAL PATHOLOGY Collected: 4 12:00 AM Status: COMPLETED Source: [facility] TYPE CODE TESTS RESULT OUT OF RANGE REFERENCE UNITS LAB [id number]&rpt Clinical Pathology Result Comment: [facility] [address] [place] [address] Clinical Pathology Report Patient Name:ZO MIKE:1975 (Age: 48)Gender:FTaken:4Reported:4Physician(s):Mahad Aguayo M.D. ([phone])Copy To: Rec. #:[id number]: #[id number] Final Pathologic Diagnosis Polyclonal pattern, no monoclonal bands. Elevated free kappa light chain suggestive of renal impairment. Report Electronically Signed Out sps/02/20/2024Gissel Barrera MD [place] [address], License number: [id number]. Clinical History R53.83, R63.4. SERUM IEP SAMPLE NUMBER: [id number] IMMUNOGLOBULIN LEVELS (mg/dL): IgG : 925 IgA : 509 IgM : 23 Free [place]: 2.05 Free Lambda: 1.69 Free [place]/Lambda ratio: 1.21 Specimen(s) Received Serum IEP Fee Codes(s): 1; 22163-23 MM SCREENING MAMMO BI W/CAD Observed: 02/11/2024 9:00 AM Status: COMPLETED Source: [facility] Main [place] [id number] Mammography Report Signed Patient: Zo Mike MR#: [id number] : 1975 Acct:[id number] Age/Sex: 48 / F ADM Date: 02/11/24 Loc: [place] Room: Type: [facility] Attending Dr: Referral Self Copies to: Ilana Ruano MD SELF,REFERRAL Ordering Provider: SELF,REFERRAL Date of Service: 02/11/24 MM/MM screening mammo BI w/CAD: SCREENING BILATERAL Screening Full Field digital mammogram with 3-D imaging. Full field digital CC and MLO imaging performed. CAD utilized. COMPARISON: 02/08/2023 HISTORY: Annual screening BREAST COMPOSITION: The breast parenchyma is heterogeneously dense. BREAST CALCIFICATIONS: Benign calcifications present. VASCULAR CALCIFICATIONS: None ARCHITECTURAL DISTORTION: None BREAST NODULE: None AXILLARY LYMPH NODES: Normal POSTSURGICAL CHANGES: None MM/MM screening mammo BI w/CAD IMPRESSION: No mammographic evidence of malignancy. Routine follow-up recommended in one year. RESULT CODE: 2 Benign Findings(s) DENSITY CODE: 2 (approximately 25-50% glandular) FOLLOW UP: 1YR THE FALSE-NEGATIVE RATE OF MAMMOGRAPHY IS APPROXIMATELY 10%. IMAGING OF A PALPABLE ABNORMALITY MUST BE BASED ON CLINICAL GROUNDS. PATIENT WAS ENTERED INTO A REMINDER SYSTEM WITH A TARGET DUE DATE FOR THE NEXT MAMMOGRAM. Impression dictated by: Bairon Paniagua M.D.02/11/2024 9:01 AM Dictation Location: [facility] Transcribed By: [facility] 02/11/24900 Dictated By: Bairon Paniagua DO 02/11/24899 Signed By: <Electronically signed by Bairon Paniagua DO in OV> 02/11/24 0901 36 Observed: 01/31/2024 3:04 PM Status: COMPLETED Source: [facility] Pt informed. Pt states she w ouldn't call is passing out but she doesn't know she is falling until she is already on the ground. 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 Pt wanted to let us know that. 36 Observed: 01/30/2024 2:10 PM Status: COMPLETED Source: [facility] Ok for higher dose lipitor. Does she pass out when she falls? 36 Observed: 01/29/2024 9:01 AM Status: COMPLETED Source: [facility] Pt called in to let us know Dr. Young a vascular doctor at [facility] and they increased your lipitor to 40mg now and in 2 months they are increasing it to 80mg. Due to the type of stroke she had that is the dosage she is supposed to be on. Pt also wants to let us know she had 2 fails in last week and a half, pt states she isn't aware that she is falling until she is on the ground. Her physical therapist thinks they are drop falls and wanted to be sure Dr. King is aware. Pt is still taking methotrexate and prednisone as prescribed for the vasculitis. TELEPHONE Observed: 01/29/2024 12:00 AM Status: COMPLETED Source: [facility] [id number] Zo Mike F Date Provider Department Center 01/29/2024 RAUL GRIMM [facility] Jose Heal Family History Problem Relation Age of Onset Hypertension Mother Cancer Maternal Grandfather Family Status - Relation Status Age at Mother Maternal Grandfather Reason for Visit and Comments: other [Other] ALLERGIES DATE TYPE / CODE NAME / CODE REACTION SEVERITY SOURCE 01/25/2022 DRUG INGREDI~NON-C BORD/04838228 3(SNOMED CT) [facility] DRUG INGREDI/98829 1003(SNOMED CT) CLARITHROMYCIN Rash~Nausea~Other~U nknown [facility] 08/16/2021 DRUG INGREDI/64328 1003(SNOMED CT) CLARITHROMYCIN OTHER: SEE Devin Mota [facility] 10/16/2017 DRUG INGREDI~NON-C BORD/32949270 3(SNOMED CT) MEPERIDINE Nausea and Vomiting [facility] 05/30/2017 DRUG INGREDI/56779 1003(SNOMED CT) MEPERIDINE NandV~Unknown~Nause a~Other Low [facility] 05/23/2015 DRUG INGREDI/25659 1003(SNOMED CT) MEPERIDINE GI UPSET [facility] /846504946( SNOMED CT) meperidine [id number] [facility] DR/910046476( SNOMED CT) clarithromycin [id number] [facility] ENCOUNTERS ADMIT/DISCHARGE ACCOUNT NUMBER ADMITTING ENCOUNTER CLASS LOCATION SOURCE 01/27/2025/01/28/20 [id number] Ambulatory Building:NOM S BCP OB [facility] 01/16/2025/01/17/20 [id number] Ambulatory Buildin [id number] [facility] 01/12/2025/01/13/20 [id number] Ambulatory Building:NOM S BCP OB [facility] 12/25/2024/12/26/19 [id number] Ambulatory Buildin 0 [facility] 12/24/2024 [id number] Ambulatory Building:UTM C OPD [facility] 12/24/2024/12/25/19 [id number] Ambulatory Building:RHE U [facility] 12/23/2024/12/24/19 [id number] Ambulatory Building:FNR FAMMED [facility] EPIC 12/18/2024/12/19/19 [id number] Ambulatory Building:UTM C MR IMAGING [facility] 12/08/2024 [id number] Ambulatory Building:UTM C OPD [facility] 12/02/2024/12/03/19 [id number] Ambulatory Buildin [id number] [facility] 12/02/2024/12/03/19 [id number] Ambulatory Buildin [id number] [facility] 12/01/2024/12/02/19 [id number] Ambulatory Building:FNR IMG [facility] 12/01/2024/12/02/19 [id number] Ambulatory Building:[facility] EPIC 11/28/2024/11/29/19 [id number] Ambulatory Building:[facility] 11/27/2024 [id number] Ambulatory Building:UTM C OPD [facility] 11/27/2024/11/28/19 [id number] Ambulatory Buildin 0 [facility] 11/20/2024/11/21/19 [id number] [facility] 11/13/2024/11/14/19 [id number] Ambulatory Buildin 0 [facility] 10/30/2024/10/31/19 [id number] Ambulatory Building:[facility] 10/27/2024/10/28/19 [id number] Ambulatory Building:[facility] 10/16/2024/10/17/19 [id number] Ambulatory Building:PFM _LAB [facility] 10/16/2024/10/17/19 25 [id number] Ambulatory Building:NOM S BCP OB [facility] 10/09/2024/10/10/19 25 [id number] Ambulatory Building:[facility] 10/08/2024/10/09/19 [id number] Ambulatory Buildin 0 [facility] 10/02/2024/10/03/19 [id number] Ambulatory Building:NOM S NM PT [facility] 09/30/2024/10/01/19 25 [id number] Ambulatory Building:PFM _LAB [facility] 09/26/2024/09/27/19 [id number] Ambulatory Building:NOM S NM PT [facility] 09/26/2024/09/27/19 25 [id number] Ambulatory Building:PFM _US [facility] 09/24/2024/09/25/19 25 [id number] Ambulatory Building:[facility] 09/19/2024 [id number] Ambulatory Building:UT C OPD [facility] 09/12/2024/09/12/19 [id number] Ambulatory Building:[facility] 09/12/2024/09/12/19 [id number] Ambulatory Building:[facility] 08/28/2024/08/28/19 [id number] Ambulatory Building:FNR FAMMED [facility] 08/16/2024/08/19/19 [id number] RAFAEL NEGRON Inpatient Encounter Building:PF _ACUTERoom: 201Bed: 01 [facility] 07/18/2024/07/18/20 24 [id number] Ambulatory Building:NOM S NM PT [facility] 07/09/2024/07/09/20 24 [id number] Ambulatory Building:[facility] 07/02/2024/07/02/20 24 [id number] Emergency Building:[facility] _EDRoom: 9Bed: 09 [facility] 07/02/2024/07/02/20 24 [id number] Ambulatory Building:[facility] 07/02/2024/07/02/20 24 [id number] Ambulatory Building:[facility] 06/25/2024/06/25/20 24 [id number] Ambulatory CD:[id number] 7Building:CD :[id number] [facility] 06/18/2024/06/18/20 24 [id number] Ambulatory Building:NOM S NM PT [facility] 06/13/2024/06/13/20 24 [id number] Ambulatory Building:[facility] 06/11/2024 [id number] Ambulatory Building:UT C OPD [facility] 06/11/2024/06/11/20 24 [id number] Ambulatory Building:[facility] 06/10/2024/06/10/20 24 [id number] Ambulatory Building:[facility] 06/03/2024/06/03/20 24 [id number] Ambulatory Building:[facility] 05/29/2024/05/29/20 24 [id number] Ambulatory Building:[facility] 05/28/2024/05/28/20 24 [id number] Ambulatory Building:NOM S NM PT [facility] 05/27/2024/05/27/20 24 [id number] [place]ROW[place] Wis[place] : Exam 1 [facility] 05/27/2024/05/27/20 24 [id number] Ambulatory Building:[facility] 05/21/2024/05/21/20 24 [id number] Ambulatory Building:[facility] 05/13/2024/05/13/20 24 [id number] Ambulatory Building:[facility] 05/07/2024/05/07/20 24 [id number] Ambulatory Building:[facility] 05/07/2024/05/07/20 24 [id number] Ambulatory Building:NOM S NM PT [facility] 05/06/2024/05/06/20 24 [id number] Ambulatory Building:[facility] 05/06/2024/05/06/20 24 [id number] Ambulatory Building:[facility] 05/01/2024/05/01/20 [address] [id number] [address] [place] [address] Ambulatory [facility] 04/25/2024 [id number] Ambulatory [place]: Santos [facility] 04/23/2024/04/23/20 24 [id number] Ambulatory Building:[facility] 04/23/2024/04/23/20 24 [id number] Ambulatory Building:NOM S NM PT [facility] 04/16/2024/04/16/20 24 [id number] [facility] 04/09/2024/04/09/20 24 [id number] Ambulatory Building:RHE U [facility] 04/08/2024/04/08/20 24 [id number] Ambulatory Building:BATTERY RECHARGER [facility] EPIC 04/08/2024/04/08/20 24 [id number] Ambulatory Building:BATTERY RECHARGER [facility] EPIC 04/03/2024/04/03/20 24 [id number] [facility]NECV [facility] 03/26/2024/03/26/20 24 [id number] Ambulatory Building:NOM S NM PT [facility] 03/20/2024/03/20/20 24 [id number] Ambulatory Building:FNR FAMMED [facility] 03/18/2024/03/18/20 24 [id number] [facility]ulatory [facility]PERV [facility] 03/11/2024/03/11/20 24 [id number] Ambulatory Building:NOM S NM PT [facility] 03/06/2024/03/06/20 24 [id number] Ambulatory Building:O [facility] 03/05/2024/03/06/20 24 [id number] Emergency Building:PFM _XR [facility] 03/05/2024/03/06/20 24 [id number] Emergency Building:PFM _XR [facility] 03/05/2024/03/05/20 24 [id number] Emergency Building:PFM _EDRoom: 4Bed: 04 [facility] 02/28/2024/02/28/20 24 [id number] Ambulatory Building:NOM S NM PT [facility] 02/26/2024/02/26/20 24 [id number] Ambulatory Building:PFM _EEG [facility] 02/19/2024/02/19/20 24 [id number] Ambulatory Building:PFM _LAB [facility] 02/12/2024/02/12/20 24 [id number] Ambulatory Building:NOM S NM PT [facility] 02/11/2024/02/11/20 24 [id number] Self, Referral [facility] 01/31/2024/01/31/20 [id number] Ambulatory Building:KRZYSZTOFR KALIE [facility] EPIC PAYERS ENCOUNTER GUARANTOR PAYER SUBSCRIBER SOURCE 01/27/2025 ZO CATALANOB: [place] [address]Wgr: (HP) (WP) Primary Insurance:BCBSPolic y Number: [id number] ve Date:2021-07-23 ANJEL CATALANOB: [id number] [place] [address] [facility] EPIC 01/16/2025 Primary Insurance:ANTHEM REY MISSOURIPolicy Number: [id number] ve Date:2021-07-23 ANJEL CATALANOB: [id number] [place] [address] [facility] 01/12/2025 ZO CATALANOB: [place] [address]Tkq: (HP) (WP) Primary Insurance:BCBSPolic y Number: [id number] ve Date:2021-07-23 ANJEL CATALANOB: [id number] [place] [facility] [place] [address] [facility] EPIC 12/25/2024 Primary Insurance:[facility] FOR [facility] CAREPolicy Number: [id number] ve Date:2021-07-23 ANJEL CATALANOB: [id number] [place] [address] [facility] 12/24/2024 Primary Insurance:[facility] FOR SPECIAL CAREPoly Number: [id number] ve Date:2021-07-23 ANJEL CATALANOB: [id number] [place] [address] [facility] 12/24/2024 Primary Insurance:BEA LE MISSOURIPolicy Number: [id number] ve Date:2021-07-23 ANJEL Minnie HOSSEINOB: [id number] [place] [address] [facility] 12/23/2024 ZO CATALANOB: [place] [address]Png: (HP) (WP) Primary Insurance[facility] y Number: [id number] ve Date:2021-07-23 ANJEL CATALANOB: [id number] [place] [address] [facility] 12/18/2024 Primary Insurance:BEA LE MISSOURIPolicy Number: [id number] ve Date:2021-07-23 ANJEL CATALANOB: [id number] [place] [address] [facility] 12/08/2024 Primary Insurance:BEA LE MISSOURIPolicy Number: [id number] ve Date:2021-07-23 ANJEL CATALANOB: [id number] [address] [facility] [place] [address] [facility] 12/02/2024 Primary Insurance:BEA LE MISSOURIPolicy Number: [id number] Date:2021-07-23 ANJEL CATALANOB: [id number] [facility] [facility] [place] [address] [facility] 12/02/2024 Primary Insurance:BEA LE MISSOURIPolicy Number: [id number] ve Date:2021-07-23 ANJEL CATALANOB: [id number] [place] [address] [facility] 12/01/2024 ZO CATALANOB: [place] [address]Qfi: (HP) (WP) Primary Insurance:BCBSPolic y Number: [id number] ve Date:2021-07-23 ANJEL MONTESINOSDANETTEOB: [id number] [place] [address] [facility] EPIC 12/01/2024 ZO CATALANOB: [place] [address]Upo: (HP) (WP) [facility] y Number: [id number] ve Date:2021-07-23 ANJEL E HOSSEINOB: [id number] [place] [address] [facility] EPIC 11/28/2024 ZO CATALANOB: [place] [address]Wjl: (HP) (WP) [facility] y Number: [id number] ve Date:2021-07-23 ANJEL E HOSSEINOB: [id number] [place] [address] [facility] EPIC 11/27/2024 Primary Insurance:BEA [facility] Number: [id number] ve Date:2021-07-23 ANJEL E GEORGETTE: [id number] [place] [address] [facility] 11/27/2024 Primary Insurance:BEA [facility] Centery Number: [id number] ve Date:2021-07-23 ANJEL Minnie CATALANOB: [id number] [place] [address] [facility] 11/20/2024 [address] [place] [address]Tet: (HP) Primary Insurance:[place]/BSPolicy Number: [id number] ve Date:2024-11-14 Anjelmaya MontesinosDanetteOB: [id number] [place] [address]Sft: (HP) [facility] 11/20/2024 Secondary Insurance:Self PayPolicy Number: Effective Date:2024-11-17 NOT GIVENUNK [facility] 11/13/2024 Primary Insurance:ANTHEM DEREKBS OHIOPolicy Number: [id number] ve Date:2021-07-23 ANJEL Minnie HOSSEINOB: [id number] [place] [address] [facility] 10/30/2024 ZO CATALANOB: [place] [address]Ofi: (HP) (WP) Primary Insurance:BCBSPolic y Number: [id number] ve Date:2021-07-23 ANJEL PALOMINO: [id number] [place] [address] [facility] 10/27/2024 ZO CATALANOB: [place] [address]Jja: (HP) (WP) Primary Insurance:BCBSPolic y Number: [id number] Date:2021-07-23 ANJEL PALOMINO: [id number] [place] [address] [facility] 10/16/2024 ZO CATALANOB: [place] [address]Ahp: (HP) Primary Insurance:BLUE ACCESS (PPO)Policy Number: [id number] ve Date:2021-07-23 ANJEL CATALANOB: [id number] [place], [place] [address]Jpp: (HP) (WP) [facility] 10/16/2024 ZO CATALANOB: [place] [address]Uva: (HP) (WP) Primary Insurance:BCPol y Number: [id number] Date:2021-07-23 ANJEL MONTESINOSDANETTEOB: [id number] [place] [address] [facility] EPIC 10/09/2024 ZO CATALANOB: [place] [address]Xqu: (HP) (WP) Primary Insurance:BCBSPolic y Number: [id number] ve Date:2021-07-23 ANJEL MONTESINOSBELGICAVICTORINAOB: [id number] [address] [facility] [place] [address] [facility] EPIC 10/08/2024 Primary Insurance:[facility] FOR SPECIAL CAREPoly Number: [id number] ve Date:2021-07-23 ANJEL MONTESINOSBELGICAVICTORINAOB: [id number] [place] [address] [facility] 10/02/2024 ZO CATALANOB: [place] [address]Kqc: (HP) (WP) Primary Insurance:BCBSPolic y Number: [id number] ve Date:2021-07-23 ANJEL E HOSSEINOB: [id number] [place] [address] [facility] EPIC 09/30/2024 ZO CATALANOB: [place] [address]Ylw: (HP) Primary Insurance:BLUE ACCESS (PPO)Policy Number: [id number] Date:2021-07-23 ANJEL CATALANOB: [id number] [place] [address]Xjp: (HP) (WP) [facility] 09/26/2024 ZO CATALANOB: [place] [address]Khx: (HP) (WP) Primary Insurance:[facility] y Number: [id number] ve Date:2021-07-23 ANJEL CATALANOB: [id number] [place] [address] [facility] EPIC 09/26/2024 ZO CATALANOB: [place] [address]Wms: (HP) Primary Insurance:BLUE ACCESS (PPO)Policy Number: [id number] ve Date:2021-07-23 ANJEL CATALANOB: [id number] [place] [address]Zab: (HP) (WP) [facility] 09/24/2024 Primary Insurance:[facility] GREENEPolicy Number: [id number] ve Date:2021-07-23 ANJEL MONTESINOSBELGICAVICTORINAOB: [id number] [place] [address] [facility] 09/19/2024 Primary Insurance:[facility] CAREPolicy Number: [id number] ve Date:2021-07-23 ANJEL Minnie CATALANOB: [id number] [place] [address] [facility] 09/12/2024 ZO CATALANOB: [place] [address]Yow: (HP) Primary Insurance:BLUE ACCESS (PPO)Policy Number: [id number] ve Date:2021-07-23 ANJEL CATALANOB: [id number] [place] [address]Gel: (HP) (WP) [facility] 09/12/2024 ZO CATALANOB: [place] [address]Lgt: (HP) Primary Insurance:BLUE ACCESS (PPO)Policy Number: [id number] ve Date:2021-07-23 ANJEL SCHUSTERVICTORINAOB: [id number] [place] [address]Npj: (HP) (WP) [facility] 08/28/2024 ZO CATALANOB: [place] [address]Tzj: (HP) (WP) Primary Insurance:BCBSPolic y Number: [id number] ve Date:2021-07-23 ANJEL CATALANDLEIA: [id number] [place] [address] [facility] 08/16/2024 ZO CATALANOB: [place] [address]Uwh: (HP) Primary Insurance:BLUE ACCESS (PPO)Policy Number: [id number] ve Date:2021-07-23 ANJEL SCHUSTERVICTORINAOB: [id number] [place] [address]Udb: (HP) (WP) [facility] 07/18/2024 ZO CATALANOB: [place] [address]Pue: (HP) (WP) Primary Insurance:BCBSPolic y Number: [id number] ve Date:2021-07-23 ANJEL CATALANOB: [id number] [place] [address] [facility] 07/09/2024 ZO CATALANOB: [place] [address]Enp: (HP) Primary Insurance:BLUE ACCESS (PPO)Policy Number: [id number] ve Date:2021-07-23 ANJEL CATALANOB: [id number] [place] [address]Dht: (HP) (WP) [facility] 07/02/2024 ZO CATALANOB: [place] [address]Ylu: (HP) Primary Insurance:BLUE ACCESS (PPO)Policy Number: [id number] ve Date:2021-07-23 ANJEL CATALANOB: [id number] [place] [address]Qgu: (HP) (WP) [facility] 07/02/2024 ZO CATALANOB: [place] [address]Ccx: (HP) Primary Insurance:BLUE ACCESS (PPO)Policy Number: [id number] ve Date:2021-07-23 ANJEL CATALANOB: [id number] [place] [address]Qhf: (HP) (WP) [facility] 07/02/2024 ZO CATALANOB: [place] [address]Wne: (HP) Primary Insurance:BLUE ACCESS (PPO)Policy Number: [id number] ve Date:2021-07-23 ANJEL CATALANOB: [id number] [place] [address]Lus: (HP) (WP) [facility] 06/25/2024 ZO CATALANOB: RACE STTel: ~~(41 (HP) Primary Insurance:AnthemPol icy Number: [id number] ve Date:9242-28-57YN [address] [address]VB: [facility] 06/18/2024 ZO CATALANOB: [place] [address]Eeb: (HP) (WP) Primary Insurance:BCBSPolic y Number: [id number] ve Date:2021-07-23 ANJEL CATALANOB: [id number] [place] [address] [facility] 06/13/2024 ZO CATALANOB: [place] [address]Vhv: (HP) Primary Insurance:BLUE ACCESS (PPO)Policy Number: [id number] ve Date:2021-07-23 ANJEL CATALANOB: 0617-17-70VIJ616 [place], [place] [address]Yom: (HP) (WP) [facility] 06/11/2024 [facility] Insurance[facility] Number: [id number] ve Date:2021-07-23 ANJEL CATALANOB: [id number] [place] [address] [facility] 06/11/2024 Primary Insurance:[facility] Number: [id number] ve Date:2021-07-23 ANJEL CATALANOB: [id number] [place] [address] [facility] 06/10/2024 ZO CATALANOB: [place] [address]Bjv: (HP) (WP) [facility] Insurance:[facility] y Number: [id number] ve Date:2021-07-23 ANJEL CATALANOB: [id number] [place] [address] [facility] 06/03/2024 ZO CATALANOB: [place] [address]Ygy: (HP) (WP) Primary Insurance:BCBSPolic y Number: [id number] ve Date:2021-07-23 ANJEL E HOSSEINOB: [id number] [place] [address] [facility] 05/29/2024 ZO CATALANOB: [place] [address]Okx: (HP) (WP) Primary Insurance:BCBSPolic y Number: [id number] ve Date:2021-07-23 ANJEL CATALANOB: [id number] [place] [address] [facility] 05/28/2024 ZOCarl CATALANOB: [place] [address]Dye: (HP) (WP) Primary Insurance:BCBSPolic y Number: [id number] ve Date:2021-07-23 ANJEL CATALANOB: [id number] [place] [address] [facility] 05/27/2024 ZO Tee HOSSEINOB: RACE STTel: ~~(41 (HP) Primary Insurance:AnthemPol icy Number: [id number] ve Date:1560-62-59AV [address] [address]PA: ANJELMAYA MONTESINOSWILLIAM [facility] 05/27/2024 ZO CATALANOB: [place] [address]Blv: (HP) (WP) Primary Insurance:BCBSPolic y Number: [id number] ve Date:2021-07-23 ANJEL CATALANOB: [id number] [place] [address] [facility] 05/21/2024 ZO CATALANOB: [place] [address]Ejl: (HP) (WP) Primary Insurance:BCBSPolic y Number: [id number] ve Date:2021-07-23 ANJEL CATALANOB: [id number] [place] [address] [facility] 05/13/2024 ZOCarl MONTESINOSDANETTEOB: [place] [address]Vjh: (HP) (WP) Primary Insurance:BCBSPolic y Number: [id number] ve Date:2021-07-23 ANJELMAYA MONTESINOSDANETTEOB: [id number] [place] [address] [facility] 05/07/2024 ZO R HOSSEINOB: [place] [address]Xex: (HP) (WP) Primary Insurance:BCBSPolic y Number: [id number] ve Date:2021-07-23 ANJEL Minnie CATALANOB: [id number] [place] [address] [facility] 05/07/2024 ZO R HOSSEINOB: [place] [address]Tjf: (HP) (WP) Primary Insurance:BCBSPolic y Number: [id number] ve Date:2021-07-23 ANJEL E HOSSEINOB: [id number] [place] [address] [facility] 05/06/2024 ZO R HOSSEINOB: [place] [address]Fuc: (HP) (WP) Primary Insurance:BCBSPolic y Number: [id number] ve Date:2021-07-23 ANJEL Minnie CATALANOB: [id number] [place] [address] [facility] 05/06/2024 ZO CATALANOB: [place] [address]Mqz: (HP) (WP) Primary Insurance:BCBSPolic y Number: [id number] ve Date:2021-07-23 ANJEL CATALANOB: [id number] [place] [address] [facility] 05/01/2024 ZO CATALANOB: [place] [address]Mue: (HP) Primary Insurance:BLUE ACCESS (PPO)Policy Number: [id number] ve Date:2021-07-23 ANJEL CATALANOB: [id number] [place] [address]Xlc: (HP) (WP) [facility] 04/23/2024 ZO CATALANOB: [place] [address]Zul: (HP) (WP) Primary Insurance:BCBSPolic y Number: [id number] ve Date:2021-07-23 ANJEL CATALANOB: [id number] [place] [address] [facility] 04/23/2024 ZO CATALANOB: [place] [address]Jvj: (HP) (WP) Primary Insurance:BCBSPolic y Number: [id number] Date:2021-07-23 ANJEL CATALANOB: [id number] [place] [address] [facility] 04/16/2024 Primary Insurance:BLUE ACCESS OPolicy Number: [id number] ve Date:8449-72-00Yrns Name:Kami PALOMINO: [id number] [place] [address] [facility] 04/09/2024 Primary Insurance:[facility] Number: [id number] ve Date:2021-07-23 ANJEL CATALANOB: [id number] [place] [address] [facility] 04/08/2024 ZO CATALANOB: [place] [address]Umn: (HP) (WP) Primary Insurance:[facility] y Number: [id number] ve Date:2021-07-23 ANJEL CATALANOB: [id number] [place] [address] [facility] 04/08/2024 ZO CATALANOB: [place] [address]Egh: (HP) (WP) Primary Insurance:[facility] y Number: [id number] ve Date:2021-07-23 ANJEL CATALANOB: [id number] [place] [address] [facility] 04/03/2024 Primary Insurance:BLUE ACCESS OPolicy Number: [id number] ve Date:[id number] Name:Kami PALOMINO: [id number] [place] [address] [facility] 03/26/2024 ZO CATALANOB: [place] [address]Quv: (HP) (WP) Primary Insurance:[employer] y Number: [id number] Date:2021-07-23 ANJEL Hartman HOSSEINOB: [id number] [place] [address] [facility] 03/20/2024 ZO CATALANOB: [place] [address]Frv: (HP) (WP) Primary Insurance:[employer] y Number: [id number] ve Date:2021-07-23 ANJEL Hartman HOSSEINOB: [id number] [place] [address] [facility] EPIC 03/18/2024 [facility] Number: [id number] ve Date:[id number] Name:Kami CATALANDELIA: [id number] [place] [address] [facility] 03/11/2024 ZO CATALANOB: [place] [address]Jjz: (HP) (WP) Primary Insurance:[employer] y Number: [id number] Date:2021-07-23 ANJEL Hartman HOSSEINOB: [id number] [place] [address] [facility] EP[facility] 03/06/2024 ZO CATALANOB: [place] [address]Vca: (HP) (WP) Primary Insurance:[employer] y Number: [id number] Date:2021-07-23 ANJEL Minnie CATALANOB: [id number] [place] [address] [facility] EPIC 03/05/2024 ZO PALOMINO: [place] [address]Xgm: (HP) Primary Insurance:BLUE ACCESS (PPO)Policy Number: [id number] ve Date:2021-07-23 ANJEL CATALANOB: [id number] [place] [address]Vds: (HP) (WP) [facility] 03/05/2024 ZO CATALANOB: [place] [address]Dho: (HP) Primary Insurance:BLUE ACCESS (PPO)Policy Number: [id number] ve Date:2021-07-23 ANJEL CATALANOB: [id number] [place] [address]Wjg: (HP) (WP) [facility] 03/05/2024 ZO CATALANOB: [place] [address]Jqz: (HP) Primary Insurance:BLUE ACCESS (PPO)Policy Number: [id number] ve Date:2021-07-23 ANJEL CATALANOB: [id number] [place] [address]Gbk: (HP) (WP) [facility] 02/28/2024 ZO PALOMINO: [place] [address]Wem: (HP) (WP) Primary Insurance:BCBSPolic y Number: [id number] ve Date:2021-07-23 ANJEL CATALANOB: [id number] [place] [address] [facility] 02/26/2024 ZO [place]ALANOB: [place] [address]Nsb: (HP) Primary Insurance:BLUE ACCESS (PPO)Policy Number: [id number] ve Date:2021-07-23 ANJEL CATALANOB: [id number] [place] [address]Fll: (HP) (WP) [facility] 02/19/2024 ZO CATALANOB: [place] [address]Vcg: (HP) Primary Insurance:BLUE ACCESS (PPO)Policy Number: [id number] ve Date:2021-07-23 ANJEL CATALANOB: [id number] [place], [place] [address]Scj: (HP) (WP) [facility] 02/12/2024 ZO CATALANOB: [place] [address]Rkk: (HP) (WP) Primary Insurance:REYPol y Number: [id number] ve Date:2021-07-23 ANJELMAYA CATALANOB: [id number] [place] [address] [facility] 02/11/2024 [address] [place] [address]Pzm: (HP) Primary Insurance:Bea REED/BSPolicy Number: [id number] ve Date:2023-12-03 Anjel CatalanOB: [id number] [place] [address]Afy: (HP) [facility] 02/11/2024 Secondary Insurance:Self PayPolicy Number: Effective Date:2023-12-03 NOT GIVENUNK [facility] 01/31/2024 ZO PALOMINO: [facility] [place] [place] [address]Ocn: (HP) (WP) Primary Insurance:BCBSPolic y Number: [id number] ve Date:2021-07-23 ANJEL PALOMINO: [id number] [place] [address] [facility] EPIC
--- OUTSIDE RECORDS SUMMARY | 2025-01-27 14:20 | XMS_ITS | Encounter Summary ---
Author Organization [facility] Address [address] [place] [address] Care Team Providers Care Biochemical Development Engineer Name Role Phone Ilana Echols MD Primary Care Provider [phone] Reason for Visit * Reason Comments Well Women Visit Encounter Details Date Type Department Care Team (Late st Contact Info) Description 01/27/2025 2:20 PM EDT Office Visit [facility] [address] [place] [address] Kartik Nichols, DO [address] [facility] [address] Kathi Graham, [facility]11 Well woman exam with routine gynecological exam; Cyst of ovary, unspecified laterality; Abnormal liver enzymes Social History Tobacco Use Types Packs/Day Years [...] How often do you attend chur or muslim services? More than 4 times per year 01/29/2024 Do you belong to any clubs o r organizations such as baptist groups, unions, fraternal or athletic groups, or [...] Recorded Patient Health Questionnaire-2 Score 0 10/30/2024 [facility] [place] of Occupat ional Health - Occupational Stress [...] place to sleep or slept in a senior care (including now)? No 01/24/2023 Housing Stability Vital Sign Answer Malcolm e Recorded In the last 12 months, was t here a time when you were not able to pay the mortgage or rent on time? No 01/29/2024 In the past 12 months, how m any times have you moved where you were living? 0 01/29/2024 At any time in the past 12 m [facility], were you homeless or living in a senior care (including now)? No 01/29/2024 Comments No Sex and Gender Information Value Date Recorded Sex Assigned at Not on file Legal Sex Female 7:16 PM EDT Gender Identity Not on file Sexual Orientation Not on file documented as of this encounter Last Filed Vital Signs Vital Sign Reading Time Taken Comments Blood Pressure 122/78 01/27/2025 2:36 PM EDT Pulse - - Temperature - - Respiratory Rate - - Oxygen Saturation - - Inhaled Oxygen Concentration - - Weight 82.2 kg (181 lb 1.9 oz) 01/27/2025 2:36 P M EDT Height - - Body Mass Index 30.14 12/23/2024 3:30 PM EDT documented in this encounter Plan of Treatment Upcoming Encounters Date Type Department Care Team (Late st Contact Info) Description 07/13/2025 8:00 AM EST Ancillary Procedure [facility] [address] [place] [address] Scheduled Orders Name Type Priority Associated Diagnoses Orde r Schedule THIN PREP TIS PAP AND HR HPV DNA Pathology and Cytology Routine Well woman exam with routine gynecological exam Ordered: 01/27/2025 US Pelvis w/ TV Imaging Routine Cyst of ovary, unspecified laterality Expected: 07/30/2025, Expires: 07/30/2025 Comprehensive metabolic panel Lab Routine Abnormal liver enzymes Ordered: 01/27/2025 documented as of this encounter Visit Diagnoses Diagnosis Well woman exam with routine gynecological exam Routine gynecological examination Cyst of ovary, unspecified laterality Abnormal liver enzymes documented in this encounter Additional Health Concerns Assessment Noted Time PHQ-9 Depression Total Score: 0 03/06/20 8:10 AM EDT documented as of this encounter Care Teams Biochemical Development Engineer Relationship Specialty Start Date End Date Ilana Echols MD [address] [place] [address] PCP - General Family Medicine 12/11/22 documented as of this encounter
--- OUTSIDE RECORDS SUMMARY | 2025-01-27 19:33 | XMS_ITS | Encounter Summary ---
Author Organization [facility] Address [address] [place] [address] Care Team Providers Care Station Baggage Agent Name Role Phone Ilana Echols MD Primary Care Provider [phone] Ilana Echols MD Unavailable [phone] Encounter Details Date Type Department Care Team (Late st Contact Info) Description 03/21/2024 Abstract [facility] [address] [place] [address] Ilana Echols MD [address] [place] [address] Social History Tobacco Use Types Packs/Day Years Used Date Smoking Tobacco: Never Smokeless Tobacco: Never Alcohol Use Standard Drinks/Week Comments Never 0 (1 standard drink = 0.6 oz pur e alcohol) B1300 Health Literacy Answer Date Recor ded [...] any clubs o r organizations such as rastafari groups, unions, fraternal or athletic groups, or [...] Date Recorded Patient Health Questionnaire-2 Score 0 03/20/2024 [facility] of Occupat ional Health - Occupational Stress [...] place to sleep or slept in a fpc (including now)? No 01/24/2023 Housing Stability Vital Sign Answer Malcolm e Recorded In the last 12 months, was t here a time when you were not able to pay the mortgage or rent on time? No 01/29/2024 In the past 12 months, how m any times have you moved where you were living? 0 01/29/2024 At any time in the past 12 m [facility], were you homeless or living in a fpc (including now)? No 01/29/2024 Comments No Sex and Gender Information Value Date Recorded Sex Assigned at Not on file Legal Sex Female 7:16 PM EDT Gender Identity Not on file Sexual Orientation Not on file documented as of this encounter Plan of Treatment Upcoming Encounters Date Type Department Care Team (Late st Contact Info) Description 07/13/2025 8:00 AM EST Ancillary Procedure [facility] [address] [place] [address] [place] [address] documented as of this encounter Visit Diagnoses Not on filedocumented in this encounter Additional Health Concerns Assessment Noted Time PHQ-9 Depression Total Score: 0 03/06/20 23 8:10 AM EDT documented as of this encounter Care Teams Station Baggage Agent Relationship Specialty Start Date End Date Ilana Echols MD [address] [place] [address] PCP - General Family Medicine 12/11/22 Ilana Echols MD [address] [place] [address] PCP - Bea Bland 04/22/23 documented as of this encounter
--- OUTSIDE RECORDS SUMMARY | 2025-01-27 19:33 | XMS_ITS | Encounter Summary ---
Author Organization [facility] Address [address] [place] [address] Care Team Providers Care Household Appliance Installer Name Role Phone Ilana Echols MD Primary Care Provider [phone] Ilana Echols MD Unavailable [phone] Encounter Details Date Type Department Care Team (Late st Contact Info) Description 06/27/2024 Orders Only [facility] [address] [place] [address] Ilana Echols MD [address] [place] [address] Social History Tobacco Use Types [...] 01/29/2024 How often do you attend chur ch or advent services? More than 4 times per year 01/29/2024 Do you belong to any clubs o r organizations such as taoist groups, unions, fraternal or athletic groups, or [...] Recorded Patient Health Questionnaire-2 Score 0 03/20/2024 [facility] of Occupat ional Health - Occupational Stress [...] place to sleep or slept in a half-way (including now)? No 01/24/2023 Housing Stability Vital Sign Answer Malcolm e Recorded In the last 12 months, was t here a time when you were not able to pay the mortgage or rent on time? No 01/29/2024 In the past 12 months, how m any times have you moved where you were living? 0 01/29/2024 At any time in the past 12 m [facility], were you homeless or living in a half-way (including now)? No 01/29/2024 Comments No Sex and Gender Information Value Date Recorded Sex Assigned at Not on file Legal Sex Female 7:16 PM EDT Gender Identity Not on file Sexual Orientation Not on file documented as of this encounter Plan of Treatment Upcoming Encounters Date Type Department Care Team (Late st Contact Info) Description 07/13/2025 8:00 AM EST Ancillary Procedure [facility] [address] [place] [address] [place] [address] documented as of this encounter Procedures Procedure Name Priority Date/Time Associated Diagnosis Comments HM COLONOSCOPY Routine 06/25/2024 12:58 PM EST documented in this encounter Results * Hm Colonoscopy (06/25/2024 12:58 PM EST) Anatomical Region Laterality Modality Other Ilana Echols MD HEALTH MAINTENANCE Final Resu lt documented in this encounter Visit Diagnoses Not on filedocumented in this encounter Additional Health Concerns Assessment Noted Time PHQ-9 Depression Total Score: 0 03/06/20 8:10 AM EDT documented as of this encounter Care Teams Household Appliance Installer Relationship Specialty Start Date End Date Ilana Echols MD [address] [place] [address] PCP - General Family Medicine 12/11/22 Ilana Echols MD [address] [facility] [place] [address] PCP - Bea Commercial 04/22/23 documented as of this encounter
--- OUTSIDE RECORDS SUMMARY | 2025-01-27 19:33 | XMS_ITS | Encounter Summary ---
Author Organization [facility] Address [address] [place] [address] Care Team Providers Care Signaling Project Engineer Name Role Phone Ilana Echols MD Primary Care Provider [phone] Ilana Echols MD Unavailable [phone] Encounter Details Date Type Department Care Team (Late st Contact Info) Description 04/10/2024 Orders Only [facility] [address] [place] [address] Ilana Echols MD [address] [place] [address] Acute non-recurrent maxillary sinusitis (Primary Dx) Social History Tobacco Use Types Packs/Day Years [...] How often do you attend chur or pentecostalism services? More than 4 times per year 01/29/2024 Do you belong to any clubs o r organizations such as mandaen groups, unions, fraternal or athletic groups, or [...] Recorded Patient Health Questionnaire-2 Score 0 03/20/2024 [facility] of Occupat ional Health - Occupational Stress [...] place to sleep or slept in a [place] facility (including now)? No 01/24/2023 Housing Stability Vital Sign Answer Malcolm e Recorded In the last 12 months, was t here a time when you were not able to pay the mortgage or rent on time? No 01/29/2024 In the past 12 months, how m any times have you moved where you were living? 0 01/29/2024 At any time in the past 12 m [facility], were you homeless or living in a [place] health [place] facility (including now)? No 01/29/2024 Comments No Sex [...] EST Ancillary Procedure [facility] [address] [facility] [place] [address] documented as of this encounter Visit Diagnoses Diagnosis Acute non-recurrent maxillary sinusitis- Primary documented in this encounter Additional Health Concerns Assessment Noted Time PHQ-9 Depression Total Score: 0 03/06/20 8:10 AM EDT documented as of this encounter Care Teams Signaling Project Engineer Relationship Specialty Start Date End Date Ilana Echols MD [address] [place] [address] PCP - General Family Medicine 12/11/22 Ilana Echols MD [address] [place] [address] PCP - Bea Bland 04/22/23 documented as of this encounter
--- OUTSIDE RECORDS SUMMARY | 2025-01-27 19:33 | XMS_ITS | Clinical Summary ---
Author Organization [facility] Address [address] [place] [address] Care Team Providers Care Public Health Technician Name Role Phone Jeimy Morejon MD Unavailable [phone] Ilana Echols Primary Care Provider Allergies Active Allergy Reactions Criticality Noted Date Comments Clarithromycin Other: See Comments,Intolerance,GI Upset,Rash Low 08/16/2021 Other reaction(s): GI Disturbance Other reaction(s): GI intolerance Other Reaction(s): GI intolerance, Other (see comments) Other reaction(s): GI Disturbance Other reaction(s): GI Disturbance Other reaction(s): GI Disturbance Other Reaction(s): GI intolerance, Other (see comments) Other reaction(s): GI Disturbance Meperidine GI Upset,Vomiting,Ot her: See Comments Low 05/23/2015 Other reaction(s): GI Other Reaction(s): Other (see comments) Other reaction(s): GI Other reaction(s): GI Other reaction(s): GI Other Reaction(s): Other (see comments) Other reaction(s): GI Medications clopidogrel (PLAVIX) 75 mg tablet Take 75 mg by mouth every 24 hours. 3 Active cyanocobalamin (VITAMIN B-12) 1,000 mcg tab Take 1 tablet by mouth every other day. 4 Active hydrOXYchloroQUINE (PLAQUENIL) 200 mg tablet Take 200 mg by mouth every morning. 4 Active Magnesium Oxide 500 mg cap 500 mg once daily. Active methotrexate 2.5 mg tablet 2.5 mg one time a week. 7 tabs weekly 4 Active pyridoxine, vitamin B6, (VITAMIN B6) 50 mg tablet Take 50 mg by mouth every morning. 4 Active rimegepant (NURTEC ODT) 75 mg disintegrating tablet Take by mouth at bedtime as needed. 3 Active topiramate (TOPAMAX) 100 mg tablet Take 200 mg by mouth two times a day. 3 Active venlafaxine ER (EFFEXOR XR) 37.5 mg 24 hr capsule 37.5 mg daily at bedtime. 4 Active warfarin (COUMADIN) 7.5 mg tablet Take 7.5 mg by mouth. Active warfarin (COUMADIN) 5 mg tablet Take 5 mg by mouth. 3 Active methotrexate (XATMEP) 2.5 mg/mL oral liquid 2.5 mg every Sunday. 7 tabs every sunday Active methotrexate 2.5 mg tablet Take 2.5 mg by mouth every Sunday. 7 tabs weekly Active atorvastatin (LIPITOR) 40 mg tabletIndications:H istory of stroke Take 1 tablet by mouth once daily. 30 tablet 5 5 Active Immunizations Immunization Administration Dates Next Due influenza (HD-IIV3) vaccine, age 65+ yr, high dose, trivalent, PF (FLUZONE HIGH-DOSE) 04/26/2020 influenza (IIV3) vaccine, tr ivalent (AFLURIA, FLULAVAL, FLUVIRIN, FLUZONE) 05/23/2017 influenza (IIV4) vaccine, ag e 6 mo - 64 yr, quadrivalent, PF (AFLURIA, FLUARIX, FLULAVAL, FLUZONE) 06/07/2021,04/27/2020,05/23/2019,04/22 influenza (LAIV) vaccine, na roberto, unspecified formulation 05/19/2021 measles mumps rubella (MMR) vaccine (M-M-R II, PRIORIX) 09/16/2018,09/15/2018,04/03/2018,04/02 pneumococcal conjugate (PCV1 3) vaccine, 13 valent (PREVNAR 13) 04/22/2019 pneumococcal polysaccharide (PPV23) vaccine, 23 valent (PNEUMOVAX 23) 07/23/2012 tetanus diphtheria pertussis (Tdap) vaccine, age 7+ yr (ADACEL, BOOSTRIX) 12/21/2002,12/20/2002 varicella (CELIO) vaccine (VARIVAX) 2018,08/05/2018,05/08/2018,05/07 Family History Medical History Relation Comments Crohn's Disease Daughter Relation Status Comments Daughter Alive Social History Tobacco Use Types Packs/Day Years Used Date Smoking Tobacco: Never Smokeless Tobacco: Never Alcohol Use Standard Drinks/Week Comments Not Currently 0 (1 standard drink = 0.6 oz pur e alcohol) PHQ-2 Answer Date Recorded PHQ-2 score 0 04/01/2024 Area Deprivation Index Answer Date Jhonathan rded National Score (1-100), lower number is lower ri sk 74 01/14/2024 State Score (1-10), lower number is lower risk 6 01/14/2024 Data from: https://www.neighborhoodatlas.medicine.[facility]/. Last address used for calculation [address] 01/14/2024 Comments No Sex and Gender Information Value Date Recorded Sex Assigned at Not on file Legal Sex Female 9:35 AM EST Gender Identity Not on file Sexual Orientation Not on file Last Filed Vital Signs Vital Sign Reading Time Taken Comments Blood Pressure 121/75 01/22/2024 8:00 AM EDT Pulse 72 01/22/2024 7:58 AM EDT Temperature 36.8 C (98.3 F) 11/21/2023 7:53 AM EDT Respiratory Rate - - Oxygen Saturation 100% 01/22/2024 7:58 AM EDT Inhaled Oxygen Concentration - - Weight 82.2 kg (181 lb 3.2 oz) 01/22/2024 7:58 A M EDT Height 166.4 cm (5' 5.5 ) 01/22/2024 7:58 AM EDT Body Mass Index 29.69 01/22/2024 7:58 AM EDT Plan of Treatment Health Maintenance Due Date Last Done Comments Cervical Cancer Screening 12/07/1987 Anxiety Screening 1994 Depression Screening 1994 HIV Screening 1994 Hepatitis C Screening 1994 Hepatitis B Vaccine (1 of 3 - 19+ 3-dose series) 12/07/1995 DTaP,Tdap,Td Vaccine (3 - Td or Tdap) 12/21/2012 12/21/2002, 12/20/2002 Shingrix Vaccine (1 of 2) 10/01/2018 Pneumococcal Vaccine (3 of 3 - PPSV23, PCV20 or PCV21) 06/17/2019 04/22/2019, 07/23/2012 CT Colonography 2021 Cologuard (FIT-DNA) 2021 Colonoscopy 2021 Colorectal Cancer Screening 2021 Fecal Occult Blood 2021 Sigmoidoscopy 2021 Mammogram Screening 12/30/2022 12/30/2021, 12/30/2021, 12/30/2021, Additional history exists Covid-19 Vaccine (3 - 2023-2 5 season) 2024 06/15/2021, 10/25/2020 Influenza Vaccine (#1) 2025 , 05/19/2021, 04/27/2020, Additional history exists Diabetes Screening 03/05/2027 03/05/2024, 0 02/19/2024, 12/28/2023, Additional history exists Lipid Screening 11/10/2027 11/09/2022 Goals Goal Patient Goal Type Associated Problems Recent Progress Patient-Stated? Author Blood Pressure < 140/90 Blood Pressure 121/75( 024 8:00 AM EDT) Dominik Marquez MD Insurance [employer] PPO Care Teams Public Health Technician Relationship Specialty Start Date End Date Ilana Echols [address] [place] [address] PCP - General Family Medicine 09/20/23 Jeimy Morejon MD [address] [place] [address] Rheumatology 09/20/23
--- OUTSIDE RECORDS SUMMARY | 2025-01-27 19:33 | XMS_ITS | Encounter Summary ---
Author Organization [facility] Address [address] [place] [address] Care Team Providers Care Automotive Engineer Name Role Phone Jeimy Morejon MD Unavailable [phone] Ilana Echols Primary Care Provider [phone] Source Comments In the event this information is protected by the Federal Confidentiality of Alcohol and Drug AbusePatient Records regulations: The Federal rules restrict any use of the information to criminally investigate or prosecute any alcohol or drug abuse patient.[facility] Encounter Details Date Type Department Care Team (Late st Contact Info) Description 05/10/2024 Patient Msg Vascular Medicine [address] [place] [address] [place] [address] [place], [place] [id number] Appointment Cancellation Request Social History Tobacco Use Types Packs/Day Years [...] is lower risk 6 01/14/2024 Data from: https://www.neighborhoodatlas.medicine.[facility].edu/. Last address used for calculation [address] 01/14/2024 Comments No Sex and Gender Information Value Date Recorded Sex Assigned at Not on file Legal Sex Female 9:35 AM EST Gender Identity Not on file Sexual Orientation Not on file documented as of this encounter Plan of Treatment Not on file documented as of this encounter Goals Goal Patient Goal Type Associated Problems Recent Progress Patient-Stated? Author Blood Pressure < 140/90 Blood Pressure 121/75( 024 8:00 AM EDT) No Dominik Melgar MD documented as of this encounter Visit Diagnoses Not on filedocumented in this encounter Care Teams Automotive Engineer Relationship Specialty Start Date End Date Ilana Echols [address] [place] [address] PCP - General Family Medicine 09/20/23 Jeimy Morejon MD [address] [place] [address] Rheumatology 09/20/23 documented as of this encounter
--- OUTSIDE RECORDS SUMMARY | 2025-01-27 19:33 | XMS_ITS | Encounter Summary ---
Author Organization [facility] Address [address] [place] [address] Care Team Providers Care Mobile Patrol Officer Name Role Phone Jeimy Morejon MD Unavailable [phone] Ilana Echols Primary Care Provider [phone] Source Comments In the event this information is protected by the Federal Confidentiality of Alcohol and Drug AbusePatient Records regulations: The Federal rules restrict any use of the information to criminally investigate or prosecute any alcohol or drug abuse patient.[facility] Reason for Visit * Reason Comments Appointment Encounter Details Date Type Department Care Team (Late st Contact Info) Description 04/15/2024 Telephone Rheumatology [address] [id number] Marilee Anaya MD [address] [place] [address] Appointment Social History Tobacco Use Types Packs/Day Years [...] is lower risk 6 01/14/2024 Data from: https://www.neighborhoodatlas.medicine.[facility].edu/. Last address used for calculation [address] [...] on filedocumented in this encounter Care Teams Mobile Patrol Officer Relationship Specialty Start Date End Date Ilana Echols [address] [place] [address] PCP - General Family Medicine 09/20/23 Jeimy Morejon MD [address] [place] [address] Rheumatology 09/20/23 documented as of this encounter
--- OUTSIDE RECORDS SUMMARY | 2025-01-27 19:33 | XMS_ITS | Patient Health Record ---
Author Organization [facility] [place] Address [address] [place] [address] Care Team Providers Care Market Survey Representative Name Role Phone Ilana Echols MD Primary Care Provider Julianne Worthington Unavailable [phone] Provider, Radiology Unavailable [phone] Dodd, Mohammad Unavailable Unavailable Le Hernández Unavailable [phone] Allergies Allergen (clinical drug ingredient) Drug/Non Drug Allergy documented on EMR Reaction Allergy Type Onset Date Status Biaxin Unknown Drug Allergy Active meperidine Demerol Unknown Drug Allergy Active Results Component Value Reference Range Notes IMMUNOELECTROPHORESIS (Not y et reviewed by provider) Interpretation: Performing Lab:[facility] ([facility]), [facility], [place]. [address] PH:[phone] Notes/Report: IGA 509 68-378 mg/dL IGM 23 45-281 mg/dL IGG 030 122-9305 mg/dL FREE KAPPA LT CHAINS 2.05 0.33-1.94 mg/dL FREE LAMBDA LT CHAINS 1.69 0.57-2.63 mg/dL FREE RAVINDER/LAMBD RATIO 1.21 0.26-1.65 IMMUNE PROFILE INTERP SEE SEPARATE REPORT Clinical Pathology (Not yet reviewed by provider) Interpretation: Performing Lab:[facility] ([facility]), [address], [place]. [address] PH:[phone] Notes/Report: [facility] [address] [place] [address] Clinical Pathology Report Patient Name:STEFANIE MIKE:1975 (Age: 48)Gender:FTaken:09/20Reported:2024Physician(s):Milagros Dodd M.D. ([phone])Copy To: Rec. #:[id number]: #[id number] Final Pathologic Diagnosis No monoclonal protein identified. Report Electronically Signed Out df/10/02/2024Elroy Burnett MD Interpretation performed at [facility] [address], License number: [id number]. Clinical History R53.83, R63.4, G54.2, M75.102, R76.8. SERUM IEP SAMPLE NUMBER: [id number] IMMUNOGLOBULIN LEVELS (mg/dL): IgG : 1036 IgA : 482 IgM : 24 Free Vicco: 2.42 Free Lambda: 1.93 Free Vicco/Lambda ratio: 1.25 Specimen(s) Received Serum IEP Fee Codes(s): 1; 16822-88 COMPREHENSIVE METABOLIC PANE L (Not yet reviewed by provider) Interpretation: Performing Lab:[facility] ([facility]), [address] [place] [address], [address], [place]. [facility] PH:[phone] Notes/Report: SODIUM 138 134-146 mmol/L POTASSIUM 4.3 3.5-5.0 mmol/L SPECIMEN HEMOLYZED, RESULTS INCREASED MODERATELY HEMOLYZED CHLORIDE 111 98-109 mmol/L CARBON DIOXIDE 21 22-32 mmol/L ANION GAP 6 5-15 mmol/L BLOOD UREA NITROGEN 13 5-23 mg/dL CREATININE 0.77 0.40-1.00 mg/dL METHOD TRACE ABLE TO IDMS STANDARD GLUCOSE 93 65-99 mg/dL CALCIUM 9.1 8.5-10.5 mg/dL TOTAL PROTEIN 6.7 6.0-8.0 g/dL ALBUMIN 3.9 3.2-5.3 g/dL ALKALINE PHOSPHATASE 54 39-130 U/L AST 46 0-41 U/L ALT 37 0-31 U/L BILIRUBIN,TOTAL 0.4 0.3-1.2 mg/dL eGFR (CKD-EPI) NON-RACE DEPENDENT >90 >59 ml/min/1.73sq.m Reported eGFR is based on the CKD-EPI 2020 equation that does not use a race coefficient. PERFORMED AT [facility] [address],[place] [address] MRI Brain w/wo contrast * Reviewed date:04/30/2024 05:49:52 PM Interpretation: Performing Lab: Notes/Report: [facility], [facility] [address] [place] [address] Name: Cee Oliveira : 1975 Gender: F Referring Provider: Julianne Richter Exam: MRI BRAIN WITH AND WITHOUT CONTRAST Exam Start: 04/30/2024 Accn: [id number] History: Drop attacks. Prior stroke. MRI of the brain with and without gadolinium 04/30/24. Patient was given 15 mL of Clariscan IV. Exam is compared to the 08/14/23 MRI of the brain from [place]. Findings: No restricted diffusion to suggest a recent infarct. Chronic infarct in the right basal ganglia, unchanged since 08/14/23 MRI of the brain from [place]. No intracranial bleed or midline shift, and the ventricles are normal in size. No abnormal signal within the white matter. Mild cerebral atrophy. Normal vascular flow voids. Small right mastoid effusion with no aggressive features. No abnormalities in the region of the internal auditory canals or sella. Brainstem is unremarkable. No low-lying cerebellar tonsils. No abnormal enhancement. No venous thrombosis. Calvarium is unremarkable. Orbits are unremarkable. Nasal septal deviation to the right. Paranasal sinuses are clear. IMPRESSION: 1. Chronic infarct in the right basal ganglia, predominantly in the putamen, is unchanged since the 08/14/23 MRI of the brain from [place]. 2. No acute intracranial process. Specifically, no evidence for a recent infarct and no abnormal enhancement. 3. Mild chronic changes otherwise noted. Transcribed by: PRAKASH SHAHID 04/30/2024 15:15 Sincerely, Mike Moses MD Electronically Signed: 04/30/2024 15:35 Thank you for referring STEFANIE MIKE to the [facility] [place], [facility]. [email or web address]== [facility]Mike, [id number] [facility] [place] [facility], [place] [address] Name: Cee Oliveira : 1975 Gender: F Referring Provider: Julianne Richter Exam: MRI BRAIN WITH AND WITHOUT CONTRAST Exam Start: 04/30/2024 Accn: [id number] _ _ History: Drop attacks. Prior stroke. MRI of the brain wit h and without gadolinium 04/30/24. Patient was given 15 mL of Clariscan IV. Exam is compared to the 08/14/23 MRI of the brain from [place]. Findings: No restricted diffusion to suggest a recent infarct. Chronic infarct in the right basal ganglia, unchanged since 08/14/23 MRI of the brain from [place]. No intracranial bleed or midline shift, and the ventricles are normal in size. No abnormal signal within the white matter. Mild cerebral atrophy. Normal vascular flow voids. Small right mastoid effusion with no aggressive features. No abnormalities in the region of the internal auditory canals or sella. Brainstem is unremarkable. No low-lying cerebellar tonsils. No abnormal enhancement. No venous thrombosis. Calvarium is unremarkable. Orbits are unremarkable. Nasal septal deviation to the right. Paranasal sinuses are clear. IMPRESSION: 1. Chronic infarct i n the right basal ganglia, predominantly in the putamen, is unchanged since the 08/14/23 MRI of the brain from [place]. 2. No acute intracranial process. Specifically, no evidence for a recent infarct and no abnormal enhancement. 3. Mild chronic changes otherwise noted. Transcribed by: PRAKASH SHAHID 04/30/2024 15:15 Sincerely, Mike Moses MD Electronically Signed: 04/30/2024 15:35 Thank you for referring STEFANIE MIKE to the [facility] [place] [facility], [facility]. [email or web address] [id number]== CBC AND AUTO DIFF * (Not yet reviewed by provider) Interpretation: Performing Lab:[facility] ([facility]), [address], [place]. [address] PH:[phone] Notes/Report: WBC COUNT 9.2 4.0-11.0 X10E9/L RBC COUNT 4.33 3.80-5.20 X10E12/L HEMOGLOBIN 14.2 11.7-15.5 g/dL HEMATOCRIT 42.1 35-47 % MCV 97 80-100 fL MCH 32.9 27-34 pg MCHC 33.9 32-36 g/dL RDW 15.7 11.5-15.0 % PLATELET COUNT 367 150-450 X10E9/L MPV 8.6 7-12 fL % NEUTROPHILS 68.7 % LYMPHOCYTES 20.9 % MONOCYTES 8.5 % EOSINOPHILS 1.3 % BASOPHILS 0.6 ABSOLUTE NEUTROPHIL 6.3 1.5-6.6 X10E9/L ABSOLUTE LYMPHOCYTE 1.9 1.0-3.5 X10E9/L ABSOLUTE MONOCYTE 0.8 0-0.9 X10E9/L ABSOLUTE EOSINOPHIL 0.1 0.0-0.4 X10E9/L ABSOLUTE BASOPHIL 0.1 0.0-0.2 X10E9/L PERFORM ED AT [address] [place] [address] IMMUNOELECTROPHORESIS (Not y et reviewed by provider) Interpretation: Performing Lab:[facility] ([facility]), [address] [place] [address]., [address] [address] PH:[phone] Notes/Report: IGA 482 68-378 mg/dL IGM 24 45-281 mg/dL IGG 2066 425-2847 mg/dL FREE KAPPA LT CHAINS 2.42 0.33-1.94 mg/dL FREE LAMBDA LT CHAINS 1.93 0.57-2.63 mg/dL FREE RAVINDER/LAMBD RATIO 1.25 0.26-1.65 IMMUNE PROFILE INTERP SEE SEPARATE REPORT COMPREHENSIVE METABOLIC PANE L (Not yet reviewed by provider) Interpretation: Performing Lab:[facility] ([facility]), [address] [place] [address], [address] [address] PH:[phone] Notes/Report: SODIUM 139 134-146 mmol/L POTASSIUM 4.6 3.5-5.0 mmol/L SPECIMEN HEMOLYZED, RESULTS INCREASED MODERATELY HEMOLYZED CHLORIDE 111 98-109 mmol/L CARBON DIOXIDE 18 22-32 mmol/L ANION GAP 10 5-15 mmol/L BLOOD UREA NITROGEN 14 5-23 mg/dL CREATININE 0.84 0.40-1.00 mg/dL METHOD TRACE ABLE TO IDMS STANDARD GLUCOSE 90 65-99 mg/dL CALCIUM 9.0 8.5-10.5 mg/dL TOTAL PROTEIN 7.3 6.0-8.0 g/dL ALBUMIN 4.1 3.2-5.3 g/dL ALKALINE PHOSPHATASE 59 39-130 U/L AST 45 0-41 U/L ALT 34 0-31 U/L BILIRUBIN,TOTAL 0.5 0.3-1.2 mg/dL eGFR (CKD-EPI) NON-RACE DEPENDENT 86 >59 ml/min/1.73sq.m Reported eGFR is based on the CKD-EPI 2020 equation that does not use a race coefficient[place] [address] CBC AND AUTO DIFF * (Not yet reviewed by provider) Interpretation: Performing Lab:[facility] ([facility]), [address] [place] [address]. [address] PH:[phone] Notes/Report: WBC COUNT 10.1 4.0-11.0 X10E9/L RBC COUNT 4.64 3.80-5.20 X10E12/L HEMOGLOBIN 14.8 11.7-15.5 g/dL HEMATOCRIT 44.4 35-47 % MCV 96 80-100 fL MCH 31.8 27-34 pg MCHC 33.3 32-36 g/dL RDW 15.1 11.5-15.0 % PLATELET COUNT 307 150-450 X10E9/L MPV 8.7 7-12 fL % NEUTROPHILS 64.9 % LYMPHOCYTES 26.0 % MONOCYTES 7.4 % EOSINOPHILS 1.1 % BASOPHILS 0.6 ABSOLUTE NEUTROPHIL 6.6 1.5-6.6 X10E9/L ABSOLUTE LYMPHOCYTE 2.6 1.0-3.5 X10E9/L ABSOLUTE MONOCYTE 0.7 0-0.9 X10E9/L ABSOLUTE EOSINOPHIL 0.1 0.0-0.4 X10E9/L ABSOLUTE BASOPHIL 0.1 0.0-0.2 X10E9/L [place] [address] Clinical Pathology (Not yet reviewed by provider) Interpretation: Performing Lab:[facility] ([facility]), [address] [place] [address]. [address] PH:[phone] Notes/Report: [facility] [address] [place] [address] Clinical Pathology Report Patient Name:STEFANIE MIKE:1975 (Age: 48)Gender:FTaken:7/3 0/[birth year]24Reported:hysician(s):Milagros Dodd M.D. ([phone])Copy To: Rec. #:[id number]: #[id number] Final Pathologic Diagnosis Polyclonal pattern, no monoclonal bands. Elevated free kappa light chain suggestive of renal impairment. Report Electronically Signed Out sps/02/20/2024Gissel Barrera MD Interpretation performed at [facility], [address] [place] [address], License number: [id number]. Clinical History R53.83, R63.4. SERUM IEP SAMPLE NUMBER: [id number] IMMUNOGLOBULIN LEVELS (mg/dL): IgG : 925 IgA : 509 IgM : 23 Free Vicco: 2.05 Free Lambda: 1.69 Free Vicco/Lambda ratio: 1.21 Specimen(s) Received Serum IEP Fee Codes(s): 1; 91741-84 Reason For Referral Reason eval and treat Diagnosis 1 Cervicogenic headach e (G44.86) Referral Organization [facility] [place] Referring Provider First Name Julianne Referring Provider Last Name Rober Referring Provider Speciality Neurology Referred Provider Specialty Pain Medicin e Referral Priority Routine Medications Medication SIG (Take, Route, Frequency, Duration) Notes Start Date End Date Status Topamax 200 MG 1 tablet Orally BID Active Plavix 75 MG 1 tablet Orally Once a day Active Warfarin Sodium 5 MG 1 tablet Orally Onc e a day twice a week Active Warfarin Sodium 6 MG 1 tablet Orally 5 days a week 5 times per week Active Venlafaxine HCl ER 37.5 mg TAKE 1 CAPSULE BY MOUTH EVERY EVENING for 30 Active Magnesium Oxide 400 MG 1 tablet as neede d Orally Once a day Active Methotrexate Sodium 2.5 MG 7 tablets Orally once a day 10/08/2024 Active Plaquenil 200 MG 1 tablet Orally daily Active Vitamin B12 1000 MCG 1 tablet Orally every other day Active Vitamin B6 50 MG 1 tablet Orally Active Folic Acid 1 MG 1 tablet Orally Once a day Active Lipitor 40 MG 1 tablet Orally Once a day HOLD per pt Active predniSONE 5 MG 1 tablet Orally Once a day Active Social History Tobacco Use: Social History Observation Description Date Details (start date - stop date) Never Smoker NA - NA Tobacco Use/Smoking Question Answer Notes Patient is a nonsmoker Problems Problem Type SNOMED Code ICD Code Onset Dates Problem Status W/U Status Risk Notes Problem 23562652 Other seizures (G40.89) Active confirmed Problem 7508251211116 Unspecified sequelae of cerebral infarction (I69.30) Active confirmed right BG 2022 Problem 750572855 Arteritis, unspecified (I77.6) 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 (follows with [facility]) and DR Morejon Problem 556308799715878 Localized swelling, mass and lump, left upper limb (R22.32) Active confirmed Problem 607590064 Encounter for other orthopedic aftercare (Z47.89) Active confirmed Problem 133549537 Abnormal findings on diagnostic imaging of other specified body structures (R93.89) Active confirmed Vital Signs Heart Rate 76 /min 01/15/2025 Oximetry 98 % 04/15/2024 Blood pressure diastolic 80 mm Hg 01/15/2025 Height 65 in 01/15/2025 Blood pressure systolic 110 mm Hg 01/15/2025 Weight 181 lbs 01/15/2025 BMI 30.12 kg/m2 01/15/2025 Procedures Procedure Date Ordered Date Performed Result Body Sit e EEG Routine 02/13/2024 N/A Encounters Encounter Location Date Provider Diagnosis [facility] [place] [address] [facility] [place] [address] 02/13/2024 Julianne Saraiya Arteritis, unspecified I77.6 ; Headache, unspecified R51.9 ; Unspecified symptoms and signs involving cognitive functions and awareness R41.9 ; Unspecified sequelae of cerebral infarction I69.30 and Other seizures G40.89 [facility] [address] [place] [address] 04/11/2024 Mohstepan Gonzalesid [facility] [place] [address] [facility] [place] [address] 04/11/2024 Julianne Arielaaiya [facility] [place] [address] [facility] [place] [address] 04/15/2024 Julianne Saraiya Arteritis, unspecified I77.6 ; Syncope and collapse R55 ; Headache, unspecified R51.9 ; Unspecified symptoms and signs involving cognitive functions and awareness R41.9 ; Unspecified sequelae of cerebral infarction I69.30 and Other seizures G40.89 [facility] [address] [place] [address] 06/17/2024 Lemehul Hernández Headache, unspecifie d R51.9 ; Personal history of transient ischemic attack (TIA), and cerebral infarction without residual deficits Z86.73 and Syncope and collapse R55 [address] [address] 04/30/2024 Radiology Provider [facility] [address] [place] [address] 06/17/2024 Le Hernández [facility] [address] [place] [address] 10/08/2024 Julianne Saraiya Arteritis, unspecified I77.6 ; Headache, unspecified R51.9 ; Unspecified sequelae of cerebral infarction I69.30 and Cervicogenic headache G44.86 [facility] [address] [place] [address] 07/10/2024 Le Hernández [facility] [address] [facility] [place] [address] 08/20/2024 Le Hernández [facility] [address] [place] [address] 08/26/2024 Le Hernández Headache, unspecifie d R51.9 ; Personal history of transient ischemic attack (TIA), and cerebral infarction without residual deficits Z86.73 and Abnormal findings on diagnostic imaging of other specified body structures R93.89 [facility] [address] [place] [address] 09/19/2024 Le Hernández [facility] [address] [place] [address] 01/07/2025 Le Hernández Headache, unspecifie d R51.9 and Personal history of transient ischemic attack (TIA), and cerebral infarction without residual deficits Z86.73 [facility] [address] [place] [address] 01/15/2025 Lemehul Hernández Headache, unspecifie d R51.9 ; Weakness R53.1 and Personal history of transient ischemic attack (TIA), and cerebral infarction without residual deficits Z86.73 Assessments Encounter Date Diagnosis (ICD Code) Assessment Notes Treatment Notes Treatment Clinical Notes Section Notes 02/13/2024 Arteritis, unspecified (ICD-10 - I77.6) 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 To identify etiology of her symptoms, I recommend repeat brain MRI with and without contrast, and CT angiogram of the brain and carotid arteries, given her history of vasculitis. I discussed with the patient, to observe extreme caution. She is currently not driving. She we will increase the Topamax slightly to 200 mg twice a day for now to see if that helps with anything. The patient verbalized understanding. 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 To identify etiology of her symptoms, I recommend repeat brain MRI with and without contrast, and CT angiogram of the brain and carotid arteries, given her history of vasculitis. I discussed with the patient, to observe extreme caution. She is currently not driving. She we will increase the Topamax slightly to 200 mg twice a day for now to see if that helps with anything. The patient verbalized understanding. 06/17/2024 Personal history of transient ischemic attack (TIA), and cerebral infarction without residual deficits (ICD-10 - Z86.73) We discussed that I am happy to hear that the increase in Topamax has helped improve her headache burden not only with frequency but also with severity and for now I do not have any new medication recommendations when she does have a headache she does not feel typically opdg-yvo-bdvoiyz medication is even warranted but if it is typically this can be something she uses in moderation. She was able to get her MRI of the brain done which did not show any findings felt to explain her syncopal episode I did show her prior stroke that was seen back in July 2023. The testing was ordered in conjunction with the CTA of the head and neck because of the syncope that happened in February, the CTA of the neck came back normal we are trying to get the results for the CTA of the head she just had done, we will let her know if there are any issues with this. She was able to see cardiology who did not feel her loop recorder or any cardiac issues were at play. I am happy that she has not had any episodes again since then. She did have an EEG reported by Dr. Richter in her last note that was normal. I do not have any new medication recommendations. She is still in physical therapy, she is still does have her baseline weakness on the left side and the paresthesias. At this point I do not have any new recommendations for this but she promises that if there are any new or worsening symptoms to let us know as this can change our recommendations moving forward.She is aware if there ever is a concern for loss of awareness, consciousness or another episode of syncope to STOP DRIVING and contact our office. time of visit:10:27 AM-10:48 AM, 21 minutes and 8 seconds 06/17/2024 Headache, unspecified (ICD-10 - R51.9) We discussed that I am happy to hear that the increase in Topamax has helped improve her headache burden not only with frequency but also with severity and for now I do not have any new medication recommendations when she does have a headache she does not feel typically jybp-rjv-fifxhwr medication is even warranted but if it is typically this can be something she uses in moderation. She was able to get her MRI of the brain done which did not show any findings felt to explain her syncopal episode I did show her prior stroke that was seen back in July 2023. The testing was ordered in conjunction with the CTA of the head and neck because of the syncope that happened in February, the CTA of the neck came back normal we are trying to get the results for the CTA of the head she just had done, we will let her know if there are any issues with this. She was able to see cardiology who did not feel her loop recorder or any cardiac issues were at play. I am happy that she has not had any episodes again since then. She did have an EEG reported by Dr. Ricther in her last note that was normal. I do not have any new medication recommendations. She is still in physical therapy, she is still does have her baseline weakness on the left side and the paresthesias. At this point I do not have any new recommendations for this but she promises that if there are any new or worsening symptoms to let us know as this can change our recommendations moving forward.She is aware if there ever is a concern for loss of awareness, consciousness or another episode of syncope to STOP DRIVING and contact our office. 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 We discussed that she feels confident that her strength today is the same as it has been in the last couple of months. I was able to do document this accordingly and based on her hospital visit, her description of her symptoms and my testing review I do agree that to the best of our abilities we are acknowledging that this was a reactivation of her strokelike symptoms because of the severe illness that she was experiencing. I am happy to hear that she is on her blood thinners including her anticoagulant, warfarin and this is being appropriately monitored. 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 Otherwise I do not have any new medication recommendations or any additional testing. Out of an abundance of caution I would like for her to keep her appointment as scheduled to be to go over her CTA of the head testing and provide any further recommendations at that point. Subsequently if interested she is aware virtual appointments are still available to her. 08/26/2024 Headache, unspecified (ICD-10 - R51.9) We discussed juan t she is tolerating Topamax 200 mg twice a day and not only she tolerating it well it is working really well for her headaches I have no reason to make any changes to this. We discussed that she feels confident that her strength today is the same as it has been in the last couple of months. I was able to do document this accordingly and based on her hospital visit, her description of her symptoms and my testing review I do agree that to the best of our abilities we are acknowledging that this was a reactivation of her strokelike symptoms because of the severe illness that she was experiencing. I am happy to hear that she is on her blood thinners including her anticoagulant, warfarin and this is being appropriately monitored. 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 Otherwise I do not have any new medication recommendations or any additional testing. Out of an abundance of caution I would like for her to keep her appointment as scheduled to be to go over her CTA of the head testing and provide any further recommendations at that point. Subsequently if interested she is aware virtual appointments are still available to her. 01/07/2025 Personal history of transient ischemic attack [...] concern that she had mentioned to her licensed plumber where she was having difficulty getting up [...] PM, 17 minutes and 30 seconds 01/07/2025 Headache, unspecified (ICD-10 - R51.9) At [...] concern that she had mentioned to her licensed plumber where she was having difficulty getting up [...] 1:32 PM, 17 minutes and 30 seconds 01/15/2025 Weakness (ICD-10 - R53.1) If the imaging comes back unremarkable/do es not show findings to explain her symptoms I do feel pursuing an EMG would be appropriate and she is aware of this plan of care and comfortable with our plan. From a headache standpoint I have no new recommendations right now. 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 Out of an abundance of caution though especially with her history and the fact that it is mainly the right sided symptoms that are new I would like to get an MRI of the brain as well with and without contrast. I do feel at this point she can restart the Lipitor, I actually recommended. She is still on the Plavix and the warfarin. I would recommend this as well.She is aware that our office would like to see her for about 3-month follow-up with the understanding that we may change this depending on the results mentioned above. She is comfortable this plan of care but also promises me that if anything changes she will let us know. At the end of the visit the patient had a CK level she showed me on her phone from [facility] which was NORMAL. I am canceling my order 01/15/2025 Headache, unspecified (ICD-10 - R51.9) From a headache standpoint I have no new recommendations right now. 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 Out of an abundance of caution though especially with her history and the fact that it is mainly the right sided symptoms that are new I would like to get an MRI of the brain as well with and without contrast. I do feel at this point she can restart the Lipitor, I actually recommended. She is still on the Plavix and the warfarin. I would recommend this as well.She is aware that our office would like to see her for about 3-month follow-up with the understanding that we may change this depending on the results mentioned above. She is comfortable this plan of care but also promises me that if anything changes she will let us know. At the end of the visit the patient had a CK level she showed me on her phone from [facility] which was NORMAL. I am canceling my order 01/15/2025 Personal history of transient ischemic attack (TIA), and cerebral infarction without residual deficits (ICD-10 - Z86.73) From a headache standpoint I have no new recommendations right now. 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 Out of an abundance of caution though especially with her history and the fact that it is mainly the right sided symptoms that are new I would like to get an MRI of the brain as well with and without contrast. I do feel at this point she can restart the Lipitor, I actually recommended. She is still on the Plavix and the warfarin. I would recommend this as well.She is aware that our office would like to see her for about 3-month follow-up with the understanding that we may change this depending on the results mentioned above. She is comfortable this plan of care but also promises me that if anything changes she will let us know. At the end of the visit the patient had a CK level she showed me on her phone from [facility] which was NORMAL. I am canceling my order 10/08/2024 Unspecified sequelae of cerebral infarction (ICD-10 - I69.30) right BG 202204/15/2024 Headache, unspecified (ICD-10 - R51.9) Brief loss of consciousness and amnesia, in order to consider this being seizures, it is a stretch, sometimes insular lesions or foci can cause cardiac arrhythmias leading to seizure-like activity, but extremely unlikely for the patient to be not postictal. To identify etiology of her symptoms, I recommend repeat brain MRI with and without contrast, and CT angiogram of the brain and carotid arteries, given her history of vasculitis. I discussed with the patient, to observe extreme caution. She is currently not driving. She we will increase the Topamax slightly to 200 mg twice a day for now to see if that helps with anything. The patient verbalized understanding. 06/17/2024 Syncope and collapse (ICD-10 - R55) We discussed that I am happy to hear that the increase in Topamax has helped improve her headache burden not only with frequency but also with severity and for now I do not have any new medication recommendations when she does have a headache she does not feel typically [id number] medication is even warranted but if it is typically this can be something she uses in moderation. She was able to get her MRI of the brain done which did not show any findings felt to explain her syncopal episode I did show her prior stroke that was seen back in July 2023. The testing was ordered in conjunction with the CTA of the head and neck because of the syncope that happened in February, the CTA of the neck came back normal we are trying to get the results for the CTA of the head she just had done, we will let her know if there are any issues with this. She was able to see cardiology who did not feel her loop recorder or any cardiac issues were at play. I am happy that she has not had any episodes again since then. She did have an EEG reported by Dr. Richter in her last note that was normal. I do not have any new medication recommendations. She is still in physical therapy, she is still does have her baseline weakness on the left side and the paresthesias. At this point I do not have any new recommendations for this but she promises that if there are any new or worsening symptoms to let us know as this can change our recommendations moving forward.She is aware if there ever is a concern for loss of awareness, consciousness or another episode of syncope to STOP DRIVING and contact our office. time of visit:10:27 AM-10:48 AM, 21 minutes and 8 seconds 02/13/2024 Unspecified symptoms and signs involving cognitive functions and awareness (ICD-10 - R41.9) 04/15/2024 Unspecified symptoms and signs involving cognitive functions and awareness (ICD-10 - R41.9) Brief loss of consciousness and amnesia, in order to consider this being seizures, it is a stretch, sometimes insular lesions or foci can cause cardiac arrhythmias leading to seizure-like activity, but extremely unlikely for the patient to be not postictal. To identify etiology of her symptoms, I recommend repeat brain MRI with and without contrast, and CT angiogram of the brain and carotid arteries, given her history of vasculitis. I discussed with the patient, to observe extreme caution. She is currently not driving. She we will increase the Topamax slightly to 200 mg twice a day for now to see if that helps with anything. The patient verbalized understanding. 02/13/2024 Unspecified sequelae of cerebral infarction (ICD-10 - I69.30) right BG 202208/26/2024 Abnormal findings on diagnostic imaging of other specified body structures (ICD-10 - R93.89) We discussed juan t she is tolerating Topamax 200 mg twice a day and not only she tolerating it well it is working really well for her headaches I have no reason to make any changes to this. We discussed that she feels confident that her strength today is the same as it has been in the last couple of months. I was able to do document this accordingly and based on her hospital visit, her description of her symptoms and my testing review I do agree that to the best of our abilities we are acknowledging that this was a reactivation of her strokelike symptoms because of the severe illness that she was experiencing. I am happy to hear that she is on her blood thinners including her anticoagulant, warfarin and this is being appropriately monitored. 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 Otherwise I do not have any new medication recommendations or any additional testing. Out of an abundance of caution I would like for her to keep her appointment as scheduled to be to go over her CTA of the head testing and provide any further recommendations at that point. Subsequently if interested she is aware virtual appointments are still available to her. 10/08/2024 Cervicogenic headache (ICD-10 - G44.86) 04/15/2024 Unspecified sequelae of cerebral infarction (ICD-10 - I69.30) right BG 2022 Brief loss of consciousness and amnesia, in order to consider this being seizures, it is a stretch, sometimes insular lesions or foci can cause cardiac arrhythmias leading to seizure-like activity, but extremely unlikely for the patient to be not postictal. To identify etiology of her symptoms, I recommend repeat brain MRI with and without contrast, and CT angiogram of the brain and carotid arteries, given her history of vasculitis. I discussed with the patient, to observe extreme caution. She is currently not driving. She we will increase the Topamax slightly to 200 mg twice a day for now to see if that helps with anything. The patient verbalized understanding. 02/13/2024 Other seizures (ICD-10 - G40.89) the patient is experiencing episodes of brief loss of consciousness, which is again probable however leading to minor injuries, after a fall, requires at least to look into the seizure part of the diagnosis, which can sometimes be associated with vasculitis conditions. I think her symptoms coincided when she was not on her methotrexate and prednisone, the symptoms may be due to that. Hopefully while she remains on these medications now-restarted, we will be able to track this in future. In meantime until she gets the EEG done and completed, and resulted, we will ask her to hold off on driving. 04/15/2024 Other seizures (ICD-10 - G40.89) Brief loss of consciousness and amnesia, in order to consider this being seizures, it is a stretch, sometimes insular lesions or foci can cause cardiac arrhythmias leading to seizure-like activity, but extremely unlikely for the patient to be not postictal. To identify etiology of her symptoms, I recommend repeat brain MRI with and without contrast, and CT angiogram of the brain and carotid arteries, given her history of vasculitis. I discussed with the patient, to observe extreme caution. She is currently not driving. She we will increase the Topamax slightly to 200 mg twice a day for now to see if that helps with anything. The patient verbalized understanding. Plan Of Treatment Pending Test Test Name Order Date CMP (COMPLETE METABOLIC PANEL) ANTITHROMBIN III 11/24/2022 ANTI - THROMBIN III (ANTIGEN) 11/24/2022 HFE HEMOCHROMATOSIS C282Y GENE MUTATION 11/24/2022 PROTEIN C (ACTIVITY) 11/24/2022 PROTEIN C, TOTAL 11/24/2022 PROTEIN S, TOTAL 11/24/2022 PROTEIN S, ACTIVITY 11/24/2022 CBC WITH ONCO AUTO DIFF ([facility]) 09/07/2022 CBC WITH ONCO AUTO DIFF ([facility]P) 11/24/2022 CBC WITH ONCO AUTO DIFF ([facility]) 05/08/2023 CBC WITH ONCO AUTO DIFF ([facility]) 03/06/2023 CTA Neck (Carot[facility]) 04/15/2024 CTA Head ([facility]) 08/26/2024 CTA Head ([facility]) 04/15/2024 MRI Brain w/wo contrast * 01/15/2025 MRI Cervical Spine w/o contrast * 2024 MRI Shoulder LT w/o contrast 01/31/2023 Clinical Pathology 05/09/2022 Clinical Pathology 06/29/2023 Clinical Pathology 08/21/2022 Clinical Pathology 02/19/2024 Clinical Pathology 09/30/2024 CRP 11/06/2023 CRP 06/28/2023 IONIA GENERIC ORDER 03/27/2023 IONIA GENERIC ORDER 09/21/2022 IONIA GENERIC ORDER 05/18/2022 IONIA GENERIC ORDER 06/29/2023 IONIA GENERIC ORDER 11/06/2023 ESR 09/12/2021 ESR 06/28/2023 URINE VOLUME AND TIME 09/15/2021 CHROMOSOME BONE MARROW 05/31/2022 DSDNA 06/28/2023 ANTI CARDIOLIPIN AB IGG IGA IGM 06/28/20 23 ANTI CARDIOLIPIN AB IGG IGA IGM 09/12/19 22 ANTI CARDIOLIPIN AB IGG IGA IGM 11/06/19 24 24 HR URINE TOTAL PROTEIN 09/15/2021 FREE LIGHT CHAINS 08/21/2022 FREE LIGHT CHAINS 11/06/2023 PNP, LUPUS ANTICOAGULANT 09/12/2021 IMMUNOELECTROPHORESIS 05/09/2022 IMMUNOELECTROPHORESIS 09/12/2021 IMMUNOELECTROPHORESIS 06/29/2023 IMMUNOELECTROPHORESIS 02/19/2024 IMMUNOELECTROPHORESIS 09/30/2024 PLASMA PROLIF DIS 05/31/2022 BONE MARROW 05/31/2022 ANAYELI PANEL 06/28/2023 EEG Routine 02/13/2024 Surgical Pathology ([facility]) CBC AND AUTO DIFF * 05/09/2022 CBC AND AUTO DIFF * 09/12/2021 CBC AND AUTO DIFF * 06/28/2023 CBC AND AUTO DIFF * 08/21/2022 CBC AND AUTO DIFF * 09/30/2024 CBC AND AUTO DIFF * 02/19/2024 COMPREHENSIVE METABOLIC PANEL 02/19/2024 COMPREHENSIVE METABOLIC PANEL 09/30/2024 COMPREHENSIVE METABOLIC PANEL 11/06/2023 COMPREHENSIVE METABOLIC PANEL 08/21/2022 COMPREHENSIVE METABOLIC PANEL 06/28/2023 COMPREHENSIVE METABOLIC PANEL 09/12/2021 COMPREHENSIVE METABOLIC PANEL 05/09/2022 IRON PROFILE ([facility]) 09/12/2021 FERRITIN 09/12/2021 URINE CULTURE 09/12/2021 IMMUNOGLOBULINS 11/06/2023 ANTI NUCLEAR ANTIBODIES 09/12/2021 BETA-2 GP1 AB PANEL 09/12/2021 BETA-2 GP1 AB PANEL 06/28/2023 BETA-2 GP1 AB PANEL 11/06/2023 URINALYSIS 09/12/2021 SERUM PROTEIN ELECTROPHORESIS 09/12/2021 SERUM PROTEIN ELECTROPHORESIS 05/09/2022 SERUM PROTEIN ELECTROPHORESIS 08/21/2022 SERUM PROTEIN ELECTROPHORESIS 11/06/2023 COMPLEMENT PROFILE 06/28/2023 COPY RECEIVED FROM: 11/24/2022 COPY RECEIVED FROM: 11/24/2022 UNLISTED TEST 03/27/2023 UNLISTED TEST 06/29/2023 UNLISTED TEST 05/18/2022 UNLISTED TEST 11/06/2023 Flow Cytometry Bone Marrow 05/31/2022 PRE-ANALYSIS CELL SORTING, BM 05/31/2022 SERUM IMMUNOFIXATION 08/21/2022 Next Appt Details Provider Name:Julianne rivera, 04/22/2025 08:15:00 AM, [address], [place], [address], Insurance Providers Payer Name Payer Address Payer Phone Subscriber Number Group Number Insured Name Patient Relationship to Insured Coverage Start Date Coverage End Date [employer] PPO PL[employer] LOCAL PLAN [address] [place] [phone] [id number] Anjel Mike Spouse - patient is the spouse of the insured Medications Administered Medication Instructions Date of Administration Dosage Notes Dexamethasone, 4mg/mL 02/21/2022 1 mL Lidocaine HCl 02/21/2022 1 mL Medical (General) History Surgical History Surgery Date(Month/Year) Appendix/gallbladder removal 1991 Tonsil removal 1993 Hysterectomy 2010 Spleen removal 1989 Hospitalization History Reason Date(Month/Year) [facility] fo r reactivation of prior stroke symptoms due to a virus 08/19/24
--- OUTSIDE RECORDS SUMMARY | 2025-01-27 19:33 | XMS_ITS | Encounter Summary ---
Author Organization [facility] tem Address [id number] [address] [place] [address] Care Team Providers Care Employee Services Manager Name Role Phone Ilana Echols MD Primary Care Provider [phone] Reason for Referral * Diagnostic Imaging (Routine) - Closed Specialty Diagnoses / Procedures Referred By Contac t Referred To Contact Radiology Diagnoses Abnormal weight loss Procedures IR biopsy and aspiration bone marrow single or multiple sites IR biopsy and aspiration bone marrow single or multiple sites Mahad Dodd MD Phone: tel: fax: Referral ID Status Reason Start Date Expiration Date Visits Re quested Visits Authorized [id number] Closed 05/18/2022 05/18/2023 1 1 Encounter Details Date Type Department Care Team (Late st Contact Info) Description 05/18/2022 Orders Only [facility] - Interventional Radiology [address] [place] [address] Mahad Dodd MD [address] [address] [place] [address] Abnormal weight loss (Primary Dx) Social History Tobacco Use Types Packs/Day Years Used Date Smoking Tobacco: Never Smokeless Tobacco: Never Alcohol Use Standard Drinks/Week Comments Never 0 (1 standard drink = 0.6 oz pur e alcohol) Childcare Answer Date Recorded Childcare Unknown 01/01/2019 Employment Answer Date Recorded Employment Unknown 01/01/2019 Purpose - Life Answer Date Recorded Purpose and direction in life Unknown Comments No Sex and Gender Information Value Date Recorded Sex Assigned at Not on file Legal Sex Female 11:40 AM EDT Gender Identity Not on file Sexual Orientation Not on file COVID-19 Exposure Response Date Recorded In the last month, have you been in contact with someone who was confirmed or suspected to have Coronavirus / COVID-19? No / Unsure 05/18/2022 9:59 AM EDT documented as of this encounter Plan of Treatment Upcoming Encounters Date Type Department Care Team (Late st Contact Info) Description 02/09/2025 9:15 AM EDT Appointment [facility] - MRI Imaging [address] [place] [address] 02/09/2025 9:45 AM EDT Appointment [facility] - MRI Imaging [address] [place] [address] documented as of this encounter Results * IR biopsy and aspiration bone marrow single or multiple sites (05/31/2022 10:00 AM EST) Anatomical Region Laterality Modality Body N/A X-Ray Angiograph y 05/31/2022 11:3 4 AM EST Narrative 05/31/2022 11:35 AM EST Pre-procedure diagnosis: See history below Post-procedure diagnosis: Same as above Assistants/resident: See the technologist's notes above Consent/pre-procedure evaluation: See below. [place] protocol timeout verification performed. Estimated blood loss: Less than 10 mL Procedure/complications: See below Radiation dosage measurements: See below and see technologist's notes above Conscious sedation: If conscious sedation was administered, preprocedure evaluation for conscious sedation was performed and documented. History: Elevated blood proteins. Abnormal weight loss. Procedure: after explanation of the indications, procedure, risks, possible benefits and alternatives to the bone marrow procedure to the patient, the patient gave consent. The risks include bleeding, infection, allergic reaction, pain, damage to bone, and cardiopulmonary sedation due to conscious sedation. Abnormal weight loss, Lt iliac bone marrow bx No chance of , pt had a hysterectomy 200 mcg fentanyl, 2 mg versed, 30 min sedation time 36 mGy, 0.4 min fluoro time, 1 spot film Sgd ls sc The patient received 200 micrograms of intravenous Fentanyl, 2 milligrams of intravenous Versed, and 30 minutes of [id number] intraservice time for intravenous conscious sedation by an independent, trained observer with monitoring and documentation of heart rate, blood pressure, pulse oximetry, and mental status. 0.4 minutes of fluoroscopy time was used. The left posterior iliac area was sterilely prepped and draped utilizing maximal sterile barrier technique with cap, mask, gown, gloves, sterile field, and chlorhexidine. 1% xylocaine was administered for local anesthesia. After placement of a bone marrow needle into the posterior superior iliac bone, standard bone marrow aspirate and biopsy were obtained using the electric drill set. The needle position was confirmed with digital spot radiograph. There is no immediate complication from the procedure. Impression: 1. Fluoroscopic guidance with digital spot radiograph for posterior iliac bone marrow aspirate and biopsy without immediate complication. The amount of material was deemed sufficient by the pathology technologist. Finalized by Ihsan Chau MD on 05/31/2022 11:35 AM Procedure Note Harshad Chau MD - 05/31/2022 Pre-procedure diagnosis: See history below Post-procedure diagnosis: Same as above Assistants/resident: See the technologist's notes above Consent/pre-procedure evaluation: See below. [place] protocol timeoutverification performed. Estimated blood loss: Less than 10 mL Procedure/complications: See below Radiation dosage measurements: See below and see technologist's notesabove Conscious sedation: If conscious sedation was administered, preprocedureevaluation for conscious sedation was performed and documented. History: Elevated blood proteins. Abnormal weight loss. Procedure: after explanation of the indications, procedure, risks,possible benefits and alternatives to the bone marrow procedure to thepatient, the patient gave consent. The risks include bleeding, infection,allergic reaction, pain, damage to bone, and cardiopulmonary sedation dueto conscious sedation. Abnormal weight loss, Lt iliac bone marrow bx No chance of , pt had a hysterectomy 200 mcg fentanyl, 2 mg versed, 30 min sedation time 36 mGy, 0.4 min fluoro time, 1 spot film Sgd ls sc The patient received 200 micrograms of intravenous Fentanyl, 2 milligramsof intravenous Versed, and 30 minutes of [id number] intraservice timefor intravenous conscious sedation by an independent, trained observerwith monitoring and documentation of heart rate, blood pressure, pulseoximetry, and mental status. 0.4 minutes of fluoroscopy time was used. The leftposterior iliac area was sterilely prepped and draped utilizing maximalsterile barrier technique with cap, mask, gown, gloves, sterile field, andchlorhexidine. 1% xylocaine was administered for local anesthesia. Afterplacement of a bone marrow needle into the posterior superior iliac bone, standardbone marrow aspirate and biopsy were obtained using the electric drillset. The needle position was confirmed with digital spot radiograph.There is no immediate complication from the procedure. Impression: 1. Fluoroscopic guidance with digital spot radiograph for posterior iliacbone marrow aspirate and biopsy without immediate complication. Theamount of material was deemed sufficient by the pathology technologist. Finalized by Ihsan Chau MD on 05/31/2022 11:35 AM us Mahad Dodd MD IMG IR ORDERABLES Final Res ult documented in this encounter Visit Diagnoses Diagnosis Abnormal weight loss- Primary Loss of weight Abnormal weight loss Loss of weight documented in this encounter Additional Health Concerns Infection Onset Date Last Indicated Resolved Time Meningitis Rule-Out 08/20/2023 08/20/2023 08/20/19 24 7:58 PM EST Norovirus 08/17/2024 08/17/2024 08/21/2024 11:1 2 PM EST documented as of this encounter Care Teams Employee Services Manager Relationship Specialty Start Date End Date Ilana Echols MD [address] [place] [address] PCP - General Family Medicine 08/16/24 documented as of this encounter
--- OUTSIDE RECORDS SUMMARY | 2025-01-27 19:33 | XMS_ITS | Clinical Summary ---
Author Organization [facility] tem Address [id number] [address] [place] [address] Care Team Providers Care Building Construction Inspector Name Role Phone Ilana Echols MD Primary Care Provider [phone] Allergies Active Allergy Reactions Criticality Noted Date Comments Clarithromycin GI Disturbance 01/25/2022 Meperidine Nausea And Vomiting 10/16/2017 Medications magnesium oxide (MAGOX) 400 mg tablet Take 1 tablet (400 mg total) by mouth in the morning. 11/13/19 23 Active cyanocobalamin 1000 MCG tablet Take 1 tablet (1,000 mcg total) by mouth every other day. 11/25/19 23 Active PLAVIX 75 mg tablet Take 1 tablet (75 mg total) by mouth in the morning. 04/04/20 23 Active warfarin (COUMADIN) 7.5 mg tablet Take 1 tablet (7.5 mg total) by mouth 2 (two) times a week. Sunday, Sunday, , Sunday Active warfarin (COUMADIN) 5 mg tablet Take 1 tablet (5 mg total) by mouth in the evening. , Sunday, Sunday . Active hydroxychloroquine (PLAQUENIL) 200 mg tablet Take 1 tablet (200 mg total) by mouth in the morning. Active pyridoxine, vitamin B6, (B-6) 50 mg tablet Take 1 tablet (50 mg total) by mouth in the morning. 30 tablet 08/26/19 24 Active predniSONE (DELTASONE) 10 mg tablet Take 1 tablet (10 mg total) by mouth in the morning. 30 tablet 3 08/27/19 24 Active Additional Information Patient taking differently: 7.5 mgoral Daily, Reported on 08/17/2024 folic acid (FOLVITE) 1 mg tablet Take 1 tablet (1 mg total) by mouth in the morning. Active atorvastatin (LIPITOR) 20 mg tabletIndications: Cryptogenic stroke (CMS-HCC),Hyperlip idemia, unspecified hyperlipidemia type Take 1 tablet (20 mg total) by mouth nightly. 30 tablet 5 09/26/19 24 Active topiramate (TOPAMAX) 100 mg tabletIndications: Sequelae, post-stroke,Headac he, new daily persistent (NDPH),Chronic tension-type headache, not intractable Take 1 tablet (100 mg total) by mouth in the morning and 1 tablet (100 mg total) before bedtime. 60 tablet 5 11/15/19 24 Active Additional Information Patient taking differently: 200 mgoral 2 times daily, Reported on 08/17/2024 methotrexate 2.5 mg chemo tablet Take 1 tablet by mouth once a week 7 tables every sunday Active venlafaxine (EFFEXOR) 37.5 mg tablet Take 1 tablet (37.5 mg total) by mouth once daily at bedtime. Active benzocaine-menthoL (CEPACOL SORE THROAT) 15-3.6 mg lozenge Dissolve 1 lozenge in the mouth every 2 (two) hours as needed (sore throat). 18 each 08/19/19 25 Active chlorhexidine (PERIDEX) 0.12 % solution Apply 15 mL to the mouth or throat in the morning and 15 mL before bedtime. 08/19/19 25 Active scopolamine (TRANSDERM-SCOP) 1 mg/[address] 1 patch on the skin every third day. 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 Chronic tension-type headache, not intractable 0 04/18/2023 Intractable migraine without aura and without status migrainosus 04/18/2023 Hyperlipidemia 04/18/2023 Acute nonintractable headache, unspecified heada maritza type 03/20/2023 Lacunar infarction 03/01/2023 Arterial ischemic stroke, MC A (middle cerebral artery), right, acute 03/01/2023 Anxiety associated with depression 03/01/2023 Allergic rhinitis 03/01/2023 COVID-19 03/01/2023 Fever 03/01/2023 Cervical paraspinal muscle spasm 03/01/2023 Thyroid nodule 03/01/2023 Status post placement of implantable loop record er 03/01/2023 Difficulty walking 02/07/2023 Hemiparesis affecting left s martinez as late effect of cerebrovascular accident 02/07/2023 Overview (08/14/2023): Last Assessment & Plan: See above. Continue PHYSICAL THERAPY/. 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 History of syncope 12/26/2022 Headache, new daily persistent (NDPH) 12/26/2022 Cryptogenic stroke 12/26/2022 Complicated headache syndromes 12/26/2022 Systemic lupus erythematosus 12/26/2022 Stroke 11/08/2022 Asplenia 10/07/2019 Obesity with body mass index 30 or greater 11/12 Neurocardiogenic pre-syncope 10/17/2017 Neck pain 10/09/2017 Spasm 10/09/2017 Aphasia 09/11/2017 H/O: hysterectomy 08/09/2017 DM (diabetes mellitus) Dermoid cyst Resolved Problems Problem Noted Date Diagnosed Date Resolved Date Herniated cervical disc 04/04/202201/2022 Overview (04/04/2022): Added automatically from request for surgery [id number] Cervical spinal stenosis 04/04/202201/2022 Overview (04/04/2022): Added automatically from request for surgery [id number] Carotid sinus syncope 2017 Hypertension 10/17/2017 Immunizations Immunization Administration Dates Next Due Influenza High Dose Preserva tive Free IM 04/26/2020 Influenza, Im Trivalent Preservative 05/23/2017 Influenza, Injectable, quadr ivalent (PF) 06/07/2021,04/27/2020,05/23/2019,04/22 Influenza, Unspecified 05/19/2021,05/23/2017 MMR 09/16/2018,04/03/2018 Pneumococcal Conjugate 13-Valent 04/22/2019 Pneumococcal Polysaccharide 07/23/2012 Tdap 12/21/2002 Varicella 08/06/2018,05/08/2018 Family History Medical History Relation Name Comments Heart disease Father Atrial fibrillation Maternal Aunt Atrial fibrillation Maternal Uncle Hypertension Mother Anesthesia problems Neg Hx Relation Name Status Comments Father Alive Maternal Aunt Alive Maternal Uncle Alive Mother Alive Social History Tobacco Use Types Packs/Day Years Used Date Smoking Tobacco: Never Smokeless Tobacco: Never Alcohol Use Standard Drinks/Week Comments Never 0 (1 standard drink = 0.6 oz pur e alcohol) [employer] Utilities Answer Date Recorded In the past 12 months has [employer]+, oil, or water Droplr threatened to shut off services in your home? No 08/17/2024 AUDIT-C Answer Date Recorded Q1: How often do you have a drink containing alc ohol? Monthly or less 11/08/2022 Q2: How many drinks containi ng alcohol do you have on a typical day when you are drinking? 1 or 2 11/08/2022 Q3: How often do you have si x or more drinks on one occasion? Never 11/08/2022 PHQ-2 Answer Date Recorded Total Score 0 11/08/2022 PRAPARE - Transportation Answer Date Re corded In the past 12 months, has l ack of transportation kept you from medical appointments or from getting medications? No 07/24 In the past 12 months, has l ack of transportation kept you from meetings, work, or from getting things needed for daily living? No 08/17/2024 Housing Instability Answer Date Recorde d Are you worried or concerned that in the next two months you may not have stable housing that you own, rent or stay in as a part of a household? No 08/17/2024 Childcare Answer Date Recorded Childcare Unknown 01/01/2019 Employment Answer Date Recorded Employment Unknown 01/01/2019 Hunger Screening Answer Date Recorded Within the past 12 months we worried whether our food would run out before we got money to buy more. Never True 08/18/2024 Within the past 12 months th e food we bought just didn't last and we didn't have money to get more. Never True 08/18/2024 Purpose - Life Answer Date Recorded Purpose and direction in life Unknown Comments No Sex and Gender Information Value Date Recorded Sex Assigned at Not on file Legal Sex Female 11:40 AM EDT Gender Identity Not on file Sexual Orientation Not on file Last Filed Vital Signs Vital Sign Reading Time Taken Comments Blood Pressure 104/60 08/19/2024 7:07 AM EST Pulse 78 08/19/2024 7:07 AM EST Temperature 36.9 C (98.4 F) 08/19/2024 7:07 AM EST Respiratory Rate 18 08/19/2024 7:07 AM EST Oxygen Saturation 98% 08/19/2024 7:07 AM EST Inhaled Oxygen Concentration - - Weight 83.9 kg (185 lb) 08/17/2024 5:58 PM EST Height 165.1 cm (5' 5 ) 08/17/2024 5:58 PM EST Body Mass Index 30.79 08/17/2024 5:58 PM EST Plan of Treatment Upcoming Encounters Date Type Department Care Team (Late st Contact Info) Description 02/09/2025 9:15 AM EDT Appointment [facility] - MRI Imaging [address] [place] [address] 02/09/2025 9:45 AM EDT Appointment [facility] - MRI Imaging [address] [place] [address] Health Maintenance Due Date Last Done Comments Adult BMI Follow Up Plan 1994 DTaP,Tdap and Td Vaccines (2 - Td or Tdap) 12/21/2012 12/21/2002 Depression Screening 11/09/2023 11/08/2022 COVID-19 Vaccine (3 - 2023-2 5 season) 2024 06/15/2021, 10/25/2020 Influenza Vaccine 03/23/2025 06/07/2021, , 04/27/2020, Additional history exists Adult BMI Screening 08/17/2025 08/17/2024 Tobacco Screening 08/17/2025 08/17/2024 Pap Smear Discontinued 05/30/2017 Goals Goal Patient Goal Type Associated Problems Recent Progress Patient-Stated? Author home General Yes Rosario Hughes LSW Note: Evaluation of progress towards goal: feeling better, still feels dehydrated Medical Devices Implanted Type Area Motel Food Service Supervisor Device Identifier Shelf Expiration Date Model / Serial / Lot Graft Bn 1ml Brice Puros Rpl [id number] - [id number] Implanted:Qty : 1 on 04/28/2022 by Cheryle Avendaño MD at [facility] Graft Luiza Spine 10/18/2023 [id number] / / [id number] Spacer Spnl 14x6mm Cln 7d 12mm Lg Pk Ti Acdf Strl Lf - [id number] Implanted:Qty : 1 on 04/28/2022 by Cheryle Avendaño MD at [facility] Orthopedic Implant Globus 08/26/2027 [id number] / / [id number] Spacer Spnl 14x6mm Cln 7d 12mm Lg Pk Ti Acdf Strl Lf - [id number] Implanted:Qty : 1 on 04/28/2022 by Cheryle Avendaño MD at [facility] Orthopedic Implant Globus 08/20/2027 [id number] / / [id number] [facility] Linq Ii - [id number] - [id number] Implanted:Qty : 1 on 03/01/[address] [facility] Other Implant MEDTRONIC CARD RHYTHM DEVICES 03/01/2023 [id number] / [id number] / Plate Bn 28mm 2 Lvl Xtend Spne Crv Ant Ns - [id number] Implanted:Qty : 1 on 04/28/2022 by Cheryle Avendaño MD at [facility] Plate Globus [id number] / / Screw Bn 12mm 4.2mm Slf Drl Va Spne Xtend Ns - [id number] Implanted:Qty : 6 on 04/28/2022 by Cheryle Avendaño MD at [facility] Screw Globus 161.012 / / Temporary Pin Implanted:Qty : 1 on 04/28/2022 by Cheryle Avendaño MD at [facility] Globus [id number] / / Drill Bit 12mm Implanted:Qty : 1 on 04/28/2022 by Cheryle Avendaño MD at [facility] Globus [id number] / / Procedures Procedure Name Priority Date/Time Associated Diagnosis Comments [place] REM INTERROG SCRMS <30 D PHYS/QHP Routine 01/08/2025 10:20 PM EDT [place] REM INTERROG SCRMS <30 D PHYS/QHP Routine 12/08/2024 10:16 PM EDT [place] REM INTERROG SCRMS <30 D PHYS/QHP Routine 11/07/2024 10:06 PM EDT from Last 3 Months Results * Remote Device Check (01/08/2025 10:20 PM EDT) Anatomical Region Laterality Modality Other 01/08/2025 10:2 0 PM EDT Nik Kowalski MD HEALTH MAINTENANCE Final Resu lt * Remote Device Check (12/08/2024 10:16 PM EDT) Anatomical Region Laterality Modality Other 12/08/2024 10:1 6 PM EDT Ruddy Salvador MD HEALTH MAINTENANCE Final Result * Remote Device Check (11/07/2024 10:06 PM EDT) Anatomical Region Laterality Modality Other 11/07/2024 10:0 6 PM EDT Lawanda Kate MD HEALTH MAINTENANCE Final Result from Last 3 Months Insurance [employer] [facility] [employer] Advance Directives * Full Code (Latest Code Status on File) Date Activated Date Inactivated Comments 08/17/2024 12:22 AM 08/19/2024 2:16 PM * Full Code Date Activated Date Inactivated Comments 08/14/2023 3:54 PM 08/25/2023 12:57 PM * Full Code Date Activated Date Inactivated Comments 03/21/2023 8:39 AM 03/21/2023 3:42 PM * Full Code Date Activated Date Inactivated Comments 11/08/2022 1:55 PM 11/11/2022 6:21 PM Care Teams Building Construction Inspector Relationship Specialty Start Date End Date Ilana Echols MD [address] [place] [address] PCP - General Family Medicine 08/16/24
--- OUTSIDE RECORDS SUMMARY | 2025-01-27 19:33 | XMS_ITS | Encounter Summary ---
Author Organization [facility] Address [address] [place] [address] Care Team Providers Care Chemical Economist Name Role Phone Ilana Echols MD Primary Care Provider [phone] Ilana Echols MD Unavailable [phone] Reason for Visit * Reason Comments Med Refill Encounter Details Date Type Department Care Team (Late st Contact Info) Description 03/07/2024 Refill [facility] [address] [place] [address] Ilana Echols MD [address] [place] [address] Cerebrovascular accident (CVA) due to embolism of right middle cerebral artery (HCC) Social History Tobacco Use Types Packs/Day Years [...] How often do you attend chur or sabianism services? More than 4 times per year 01/29/2024 Do you belong to any clubs o r organizations such as yazdanism groups, unions, fraternal or athletic groups, or [...] Date Recorded Patient Health Questionnaire-2 Score 0 01/31/2024 [facility] [place] of Occupat ional Health - Occupational Stress [...] place to sleep or slept in a chcf (including now)? No 01/24/2023 Housing Stability Vital Sign Answer Malcolm e Recorded In the last 12 months, was t here a time when you were not able to pay the mortgage or rent on time? No 01/29/2024 In the past 12 months, how m any times have you moved where you were living? 0 01/29/2024 At any time in the past 12 m [facility], were you homeless or living in a chcf (including now)? No 01/29/2024 Comments No Sex and Gender Information Value Date Recorded Sex Assigned at Not on file Legal Sex Female 7:16 PM EDT Gender Identity Not on file Sexual Orientation Not on file documented as of this encounter Miscellaneous Notes * Telephone Encounter - Rohini Ruvalcaba MA - 03/07/2024 11:35 AM EDT Approving, but needs appt for additional refills. documented in this encounter Plan of Treatment Upcoming Encounters Date Type Department Care Team (Late st Contact Info) Description 07/13/2025 8:00 AM EST Ancillary Procedure [facility] [address] [place] [address] documented as of this encounter Visit Diagnoses Diagnosis Cerebrovascular accident (CVA) due to embolism of right middle cerebral artery (HCC) documented in this encounter Additional Health Concerns Assessment Noted Time PHQ-9 Depression Total Score: 0 03/06/20 8:10 AM EDT documented as of this encounter Care Teams Chemical Economist Relationship Specialty Start Date End Date Ilana Echols MD [address] [place] [address] PCP - General Family Medicine 12/11/22 Ilana Echols MD [address] [place] [address] PCP - Bea Bland 04/22/23 documented as of this encounter
--- OUTSIDE RECORDS SUMMARY | 2025-01-27 19:33 | XMS_ITS | Encounter Summary ---
Author Organization [facility] tem Address [id number] [address] [place] [address] Care Team Providers Care Crop Nutrition Scientist Name Role Phone Ilana Echols MD Primary Care Provider [phone] Encounter Details Date Type Department Care Team (Late Contact Info) Description 06/12/2022 Telephone [facility]gery [address] [place] [id number] Lamar Sandra MA Social History Tobacco Use Types Packs/Day Years [...] have Coronavirus / COVID-19? No / Unsure 06/13/2022 7:05 AM EST documented as of this encounter Plan of Treatment Upcoming Encounters Date Type Department Care Team (Late Contact Info) Description 02/09/2025 9:15 AM EDT Appointment [facility] - MRI Imaging [address] [place] [address] 02/09/2025 9:45 AM EDT Appointment [facility] - MRI Imaging [address] [place] [phone] documented as of this encounter Visit Diagnoses Not on filedocumented in this encounter Additional Health Concerns Infection Onset Date Last Indicated Resolved Time Meningitis Rule-Out 08/20/2023 08/20/2023 08/20/19 24 7:58 PM EST Norovirus 08/17/2024 08/17/2024 08/21/2024 11:1 2 PM EST documented as of this encounter Care Teams Crop Nutrition Scientist Relationship Specialty Start Date End Date Ilana Echols MD [address] [place] [address] PCP - General Family Medicine 08/16/24 documented as of this encounter
--- OUTSIDE RECORDS SUMMARY | 2025-01-27 19:33 | XMS_ITS | Encounter Summary ---
Author Organization [facility] Address [address] [place] [address] Care Team Providers Care Supervisor Steel Division Name Role Phone Jenniffer Ribeiro FOURDRINIER TENDER Unavailable [phone] Ilana Echols MD Primary Care Provider [phone] Ilana Echols MD Unavailable [phone] Encounter Details Date Type Department Care Team (Late Contact Info) Description 12/28/2022 Abstract [facility] [address] [place] [phone] Jenniffer Ribeiro FOURDRINIER TENDER [address] [place], [place] [id number] Social History Tobacco Use Types Packs/Day Years Used Date Smoking Tobacco: Never Smokeless Tobacco: Never Tobacco Cessation:Counseling Given: Not Answered Alcohol Use Standard Drinks/Week Comments Not Currently 0 (1 standard drink = 0.6 oz pur e alcohol) Comments Unknown Sex and Gender Information Value Date Recorded Sex Assigned at Not on file Legal Sex Female 7:16 PM EDT Gender Identity Not on file Sexual Orientation Not on file documented as of this encounter Plan of Treatment Upcoming Encounters Date Type Department Care Team (Late Contact Info) Description 07/13/2025 8:00 AM EST Ancillary Procedure [facility] [address] [place] [address] [place] [address] documented as of this encounter Visit Diagnoses Not on filedocumented in this encounter Care Teams Supervisor Steel Division Relationship Specialty Start Date End Date Jenniffer Ribeiro NP [address] [place], [place] [id number] PCP - [place] [employer] 03/23/22 Ilana Echols MD [address] [place], [place] [id number] PCP - General Family Medicine 12/11/22 Ilana Echols MD [address] [place] [address] PCP - [place] [employer] 04/22/23 documented as of this encounter
--- OUTSIDE RECORDS SUMMARY | 2025-01-27 19:33 | XMS_ITS | Encounter Summary ---
Author Organization [facility] Address [address] [place] [address] Care Team Providers Care Athletic Coordinator Name Role Phone Ilana Echols MD Primary Care Provider [phone] Ilana Echols MD Unavailable [phone] Encounter Details Date Type Department Care Team (Late st Contact Info) Description 05/04/2024 Abstract [facility] [address] [place] [address] Ilana Echols MD [address] [place] [address] Social History Tobacco Use Types [...] How often do you attend chur or scientologist services? More than 4 times per year 01/29/2024 Do you belong to any clubs o r organizations such as tenriism groups, unions, fraternal or athletic groups, or [...] Recorded Patient Health Questionnaire-2 Score 0 03/20/2024 [facility] - Occupational Stress [...] any time in the past 12 m [facility], were you homeless or living in [...] AM EST Ancillary Procedure [facility] [address] [place] [address] [place] [address] documented as of this encounter Visit Diagnoses Not on filedocumented in this encounter Additional Health Concerns Assessment Noted Time PHQ-9 Depression Total Score: 0 03/06/20 23 8:10 AM EDT documented as of this encounter Care Teams Athletic Coordinator Relationship Specialty Start Date End Date Ilana Echols MD [address] [place] [address] PCP - General Family Medicine 12/11/22 Ilana Echols MD [address] [place] [address] PCP - Bea Bland 04/22/23 documented as of this encounter
--- OUTSIDE RECORDS SUMMARY | 2025-01-27 19:33 | XMS_ITS | Encounter Summary ---
Author Organization [facility] [place] [address] Care Team Providers Care Project Director Name Role Phone Jeimy Morejon MD Unavailable [phone] Ilana Echols Primary Care Provider [phone] Source Comments In the event this information is protected by the Federal Confidentiality of Alcohol and Drug AbusePatient Records regulations: The Federal rules restrict any use of the information to criminally investigate or prosecute any alcohol or drug abuse patient.[facility] Encounter Details Date Type Department Care Team (Late st Contact Info) Description 01/15/2024 Get Medical Advice Rheumatology [address] [id number] Marilee Anaya MD [address] [place] [address] MRI RESULT Social History Tobacco Use Types Packs/Day Years Used Date Smoking Tobacco: Never Smokeless Tobacco: Never Alcohol Use Standard Drinks/Week Comments Not Currently 0 (1 standard drink = 0.6 oz pur e alcohol) PHQ-2 Answer Date Recorded PHQ-2 score 0 11/14/2023 Area Deprivation Index Answer Date Jhonathan rded National Score (1-100), lower number is lower ri sk 74 01/14/2024 State Score (1-10), lower number is lower risk 6 01/14/2024 Data from: https://www.neighborhoodatlas.medicine.[facility].edu/. Last address used for calculation [address] 01/14/2024 Comments Unknown Sex and Gender Information Value Date Recorded Sex Assigned at Not on file Legal Sex Female 9:35 AM EST Gender Identity Not on file Sexual Orientation Not on file documented as of this encounter Plan of Treatment Not on file documented as of this encounter Visit Diagnoses Not on filedocumented in this encounter Care Teams Project Director Relationship Specialty Start Date End Date Ilana Echols [address] [address] PCP - General Family Medicine 09/20/23 Jeimy Morejon MD [address] [place] [address] Rheumatology 09/20/23 documented as of this encounter
--- OUTSIDE RECORDS SUMMARY | 2025-01-27 19:33 | XMS_ITS | Clinical Summary ---
Author Organization [facility] Healthcare Address [address] [place] [address] Care Team Providers Care Paper Cup Machine Tender Name Role Phone Ilana Echols MD Primary Care Provider [phone] Allergies Active Allergy Reactions Criticality Noted Date Comments Clarithromycin GI intolerance,Rash,Unknown Low 08/16/2021 Other Reaction(s): GI intolerance, Other (see comments) Other reaction(s): GI Disturbance Meperidine Nausea And Vomiting, GI intolerance Low 05/30/2017 Other Reaction(s): Other (see comments) Other reaction(s): GI Medications magnesium oxide (Mag-Ox) 400 mg tablet 400 mg in the morning. Active cyanocobalamin (Vitamin B-12) 1000 MCG tablet Take 1,000 mcg by mouth every other day. Active SF 5000 Plus 1.1 % cream USE DIRECTED IN PLACE OF TOOTHPASTE. BRUSH FOR TWO MINUTES TWI... (REFER TO PRESCRIPTION NOTES). 024 Active predniSONE (Deltasone) 5 MG tablet Take 7.5 mg by mouth Daily Active methotrexate 2.5 MG tablet take 7 tablets by mouth ONE TIME PER WEEK as directed Active clopidogrel (Plavix) 75 MG tabletIndications :Cerebrovascular accident (CVA) due to embolism of right middle cerebral artery (HCC) Take 1 tablet (75 mg) by mouth in the morning. 180 tablet 3 024 Active hydroxychloroquin e (Plaquenil) 200 MG tablet Take 200 mg by mouth Daily Active pyridoxine (Vitamin B-6) 50 MG tabletIndications :Vitamin B6 deficiency TAKE 1 TABLET BY MOUTH IN THE MORNING 210 tablet 1 Active Vitamin D-[address] 25 MCG (1000 UT) tablet Take 1,000 Units by mouth in the morning. 025 2025 Active folic acid (Folvite) 1 MG tablet Take 1,000 mcg by mouth in the morning. Active tiZANidine (Zanaflex) 2 MG tablet Active predniSONE (Deltasone) 1 MG tablet Take 1 mg by mouth in the morning. Active topiramate (Topamax) 200 MG tablet Take 200 mg by mouth in the morning and 200 mg before bedtime. Active fluticasone (Flonase) 50 MCG/ACT nasal sprayIndications: Cough, unspecified type Administer 1 spray into each nostril Daily Shake gently. Before first use, prime pump. After use, clean tip and replace cap. 16 g 2 025 2025 Active calcium 500 MG tablet Take 500 mg by mouth in the morning and 500 mg in the evening. Take with meals. 025 2025 Active albuterol HFA 90 mcg/act inhalerIndication s:Wheezing Inhale 2 puffs every 4 (four) hours if needed for wheezing 18 g 025 2025 Active venlafaxine XR (Effexor XR) 37.5 MG 24 hr capsule Active warfarin (Coumadin) 5 MG tabletIndications :Cerebrovascular accident (CVA) due to embolism of right middle cerebral artery (HCC) TAKE 1 TABLET BY MOUTH four times weekly, TAKE 1 & 1/2 (ONE AND ONE-HALF) TABLETS BY MOUTH three times a week 120 tablet 1 Active warfarin (Coumadin) 1 MG tabletIndications :Encounter for current long-term use of anticoagulants TAKE 1 TABLET BY MOUTH DAILY 90 tablet Active atorvastatin (Lipitor) 40 MG tablet 024 2024 Discontinued(O ther) chlorhexidine (Peridex) 0.12 % solution Use 15 mL in the mouth or throat in the morning and 15 mL in the evening. 025 2024 Discontinued(O ther) warfarin (Coumadin) 5 MG tabletIndications :Cerebrovascular accident (CVA) due to embolism of right middle cerebral artery (HCC) TAKE 1 TABLET BY MOUTH FOUR times weekly, then TAKE 1 & 1/2 (ONE AND ONE-HALF) TABLETS BY MOUTH three times a week 120 tablet 025 2024 Discontinued warfarin (Coumadin) 1 MG tabletIndications :Encounter for current long-term use of anticoagulants Take 1 tablet (1 mg) by mouth 1 (one) time each day Take as directed per After Visit Summary. 90 tablet 025 2024 Discontinued Active Problems Problem Noted Date Diagnosed Date Abnormal findings on diagnos tic imaging of other specified body structures 10/27/2024 Encounter for other orthopedic aftercare Localized swelling, mass and lump, left upper li mb 10/27/2024 Other seizures 10/27/2024 Enteritis due to Norovirus 08/18/2024 Aortic valve vegetation ([facility]) 06/10/2024 BMI 29.0-29.9,adult 06/10/2024 Drop foot gait 06/10/2024 Screening for malignant neoplasm of colon 2023 Vasculitis 06/10/2024 Vitamin B 12 deficiency 06/10/2024 Hand fracture, right 04/09/2024 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 On methotrexate and prednisone. This is a mcc issue and she is unlikely to ever return to work environment. Suspected stroke patient las t known to be well 3-4.5 hours ago 08/14/2023 History of CVA (cerebrovascular accident) 2023 Positive RAMYA (antinuclear antibody) 07/27/2023 Reactive depression 05/22/2023 Assessment & Plan (05/22/2023 1:12 PM EDT): Continue zoloft. Chronic tension-type headache, not intractable 0 04/18/2023 Hyperlipidemia 04/18/2023 Assessment & Plan (05/22/2023 1:12 PM EDT): Continue lipitor. TIA (transient ischemic attack) 03/29/2023 Assessment & Plan (07/05/2023 5:01 PM EST): See above. Acquired absence of both cervix and uterus 03/01 Allergic rhinitis 03/01/2023 Anxiety associated with depression 03/01/2023 Cervical paraspinal muscle spasm 03/01/2023 Cervical spondylosis 03/01/2023 COVID-19 03/01/2023 Displacement of cervical int ervertebral disc without myelopathy 03/01/2023 Fever 03/01/2023 Lacunar infarction 03/01/2023 Arterial ischemic stroke, MC A (middle cerebral artery), right, acute 03/01/2023 Assessment & Plan (08/30/2023 11:08 PM EST): CVA in October with another TIA in February. Extensive work up with no definitive cause found. All docs involved feel there is an inflammatory condition causing hypercoagulable state. Discussed with her periodicals library assistant. He is concerned as she has a positive VEGF and plasmacytosis, indicating inflammatory condition. He wants her put on coumadin and kept on plavix. If ANY further issues, will need asa as well. She is still very fatigued with left sided weakness. Continue PHYSICAL THERAPY. No way she could work at this time. Update 08/30/23: [employer] vasculitis confirmed. Now on medications- methotrexate and prednisone. Continue plavix and coumadin. Sees rheum tomorrow. Weakness persists- continue PHYSICAL THERAPY. Assessment & Plan (07/05/2023 5:00 PM EST): CVA in October with another TIA in February. Extensive work up with no definitive cause found. All docs involved feel there is an inflammatory condition causing hypercoagulable state. Discussed with her periodicals library assistant. He is concerned as she has a positive VEGF and plasmacytosis, indicating inflammatory condition. He wants her put on coumadin and kept on plavix. If ANY further issues, will need asa as well. She is still very fatigued with left sided weakness. Continue PHYSICAL THERAPY. No way she could work at this time. Assessment & Plan (05/22/2023 1:10 PM EDT): Extensive work up with no etiology found. Has seen neurology, rheumatology, hematology. Plan to keep her on plavix and eliquis as well as hydroxychloroquine for inflammation. She follows closely with her specialists as well and has been evaluated ay [place]. Sore throat 03/01/2023 Stress 03/01/2023 Thyroid nodule 03/01/2023 Status post placement of implantable loop record er 03/01/2023 Hemiparesis affecting left s martinez as late effect of cerebrovascular accident 02/07/2023 Assessment & Plan (07/05/2023 5:01 PM EST): See above. Continue PHYSICAL THERAPY/. Assessment & Plan (05/22/2023 1:11 PM EDT): Improving, albeit very slowly, with PHYSICAL THERAPY. Follows with Ronny Johnston. 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 Dermoid cyst 10/04/2022 Asplenia 10/07/2019 Obesity (BMI 30-39.9) 11/12/2018 Vasovagal syncope 10/17/2017 Common migraine with intractable migraine 2017 Postconcussion syndrome 10/09/2017 Syncope and collapse 09/13/2017 Aphasia 09/11/2017 Status post hysterectomy 08/09/2017 H/O abdominal hysterectomy 08/09/2017 Resolved Problems Problem Noted Date Diagnosed Date Resolved Date Systemic lupus erythematosus 12/26/2022 03/20/2023 DM (diabetes mellitus) 10/04/202203/20 Encounters Date Type Department Care Team Description 01/27/2025 2:20 PM EDT Office Visit [facility] [address] [place] [address] Kartik Nichols, DO Well woman exam with routine gynecological exam; Cyst of ovary, unspecified laterality; Abnormal liver enzymes 01/27/2025 Telephone [facility] [address] [place] [address] Ilana Echols MD 01/22/2025 Telephone [facility] [address] [facility] [place] [address] Ilana Echols MD 01/20/2025 Travel 01/13/2025 Telephone [facility] [address] [facility] [place] [address] Ilana Echols MD 01/12/2025 9:00 AM EDT Ancillary Procedure [facility] [address] [place] [address] [place] [address] Right ovarian cyst 01/05/2025 Telephone [facility] [address] [facility] [place] [address] Ilana Echols MD 01/05/2025 Travel 12/29/2024 Refill [facility] [address] [facility] [place] [address] Ilana Echols MD Encounter for current long-term use of anticoagulants 12/29/2024 Refill [facility] [address] [facility] [place] [address] Mariel Santana NP Cerebrovascular accident (CVA) due to embolism of right middle cerebral artery (HCC) 12/23/2024 3:30 PM EDT Office Visit [facility] [address] [facility] [place] [address] Anai Rothman NP Superficial abrasion (Primary Dx) 12/23/2024 Telephone [facility] [address] [facility] [place] [address] Susanne Powers MA 12/23/2024 Bamboo flowsheet [facility] [address] [facility] [place] [address] Anai Rothman NP 12/23/2024 Travel 12/17/2024 Telephone [facility] [address] [facility] [place] [address] Susanne Powers MA 12/08/2024 Telephone [facility] [address] [place] [address] Isabel Pappas MA 12/05/2024 Telephone [facility] [address] [place] [address] Isabel Pappas MA 12/02/2024 Telephone [facility] [address] [place] [address] Ilana Echols MD 12/01/2024 2:30 PM EDT Office Visit [facility] [address] [place] [address] Jenniffer Ribeiro NP Acute cough (Primary Dx); Viral URI with cough; Acute cystitis without hematuria 12/01/2024 12:00 PM EDT Ancillary Procedure [facility] RADIOLOGY [address] [place] [address] Acute cough 12/01/2024 Results Follow-Up [facility] [address] [place] [address] Jenniffer Ribeiro NP 12/01/2024 Bamboo flowsheet [facility] [address] [place] [address] Jenniffer Ribeiro NP 12/01/2024 Travel 11/28/2024 9:15 AM EDT Clinical Support [facility] [address] [place] [address] Urinary frequency 11/28/2024 Results Follow-Up [facility] [address] [place] [address] Anai Rothman NP 11/28/2024 Travel 11/28/2024 Orders Only [facility] [address] [place] [address] Anai Rothman NP Acute cystitis with hematuria (Primary Dx) 11/27/2024 Telephone [facility] [address] [place] [address] Isabel Pappas MA 11/25/[address] [facility] [address] [facility] [place] [address] Ilana Echols MD 11/21/2024 Telephone [facility] [place] [address] [place] [address] Ilana Echols MD 11/04/2024 Telephone [facility] [place] [address] [place] [address] Ilana Echols MD 11/02/2024 Abstract [facility] [place] [address] [facility] [place] [address] Mariel Santana NP 10/30/2024 9:00 AM EDT Office Visit [facility] [place] [address] [place] [address] Ilana Echols MD Viral upper respiratory tract infection (Primary Dx); Nasal congestion; Left foot drop 10/30/[address]amboo [address] [facility] [address] [place] [address] Ilana Echols MD 10/30/2024 Travel 10/28/2024 Travel 10/28/2024 Telephone [facility] [place] [address] [place] [address] Ilana Echols MD from Last 3 Months Immunizations Immunization Administration Dates Next Due Influenza, High Dose Seasona l, Preservative Free 04/26/2020 Influenza, Unspecified 05/19/2021,05/23/2017 Influenza, injectable, quadr ivalent, preservative free 06/07/2021,04/27/2020,05/23/2019,04/22 Influenza, seasonal, injectable 05/23/2017 Allan SARS-CoV-2 06/14/2021,10/24/2020 MMR 09/16/2018, 9,04/03/2018,04/02 Pneumococcal Conjugate PCV 13 04/22/2019 Pneumococcal Polysaccharide PPSV23 07/23/2012 Tdap 12/21/2002,12/20/2002 Varicella 08/06/2018, 9,05/08/2018,05/07 Family History Medical History Relation Name Comments Heart disease Father Dominik Hypertension Father Dominik Hypertension Mother Kassy Thyroid disease Mother Kassy Colon cancer Other Relation Name Status Comments Father Dominik Alive Mother Kassy Alive Other Granfather Social History Tobacco Use Types Packs/Day Years Used Date Smoking Tobacco: Never Smokeless Tobacco: Never Tobacco Cessation:Counseling Given: Not Answered Alcohol Use Standard Drinks/Week Comments Never 0 [...] often do you attend chur ch or cheondoism services? More than 4 times per year 01/29/2024 Do you belong to any clubs o r organizations such as jainism groups, unions, fraternal or athletic groups, or [...] Recorded Patient Health Questionnaire-2 Score 0 10/30/2024 [facility] - Occupational Stress [...] any time in the past 12 m [facility], were you homeless or living [...] Pressure 122/78 01/27/2025 2:36 PM EDT Pulse 86 12/23/2024 3:30 PM EDT Temperature 36.8 C (98.2 F) 12/01/2024 2:01 PM EDT Respiratory Rate 18 12/01/2024 2:01 PM EDT Oxygen Saturation 96% 12/23/2024 3:30 PM EDT Inhaled Oxygen Concentration - - Weight 82.2 kg (181 lb 1.9 oz) 01/27/2025 2:36 P M EDT Height 165.1 cm (5' 5 ) 12/23/2024 3:30 PM EDT Body Mass Index 30.14 12/23/2024 3:30 PM EDT Plan of Treatment Upcoming Encounters Date Type Department Care Team (Late st Contact Info) Description 07/13/2025 8:00 AM EST Ancillary Procedure [facility] OB [address] [place] [address] [place] [address] Health Maintenance Due Date Last Done Comments CT Colonography 1976 FIT-DNA 1976 FIT 1976 FOBT 1976 Sigmoidoscopy 1976 Mammogram 02/10/2025 02/11/2024, 12/21, 12/30/2021, Additional history exists Influenza Vaccine (#1) 2025 , 05/19/2021, 04/27/2020, Additional history exists Colonoscopy 06/25/2034 06/25/2024, 06/25/2024 Colorectal Cancer Screening 06/25/2034 Cervical Cancer Screening Discontinued Pap Smear Discontinued 05/30/2017 HPV/Cotest Discontinued Procedures Procedure Name Priority Date/Time Associated Diagnosis Comments US PELVIC COMPLETE W/ TV Routine 01/12/2025 9:03 AM EDT Right ovarian cyst STATUS COVID-19/FLU Routine 12/01/2024 2 :46 PM EDT Viral URI with cough XR CHEST 2 VIEWS STAT 12/01/2024 2:34 PM EDT Acute cough CULTURE, URINE, ROUTINE Routine 11/28/2024 9:53 AM EDT Urinary frequency POCT URINALYSIS DIPSTICK Routine 11/28/2024 9:20 AM EDT Urinary frequency HM COLONOSCOPY Routine 06/25/2024 12:58 PM EST MAMMOGRAM* Routine 02/11/2024 5:55 AM EDT from Last 3 Months or Most Recently Relevant to Health Maintenance Results * US Pelvis w/ TV (01/12/2025 9:03 AM EDT) Anatomical Region Laterality Modality Pelvis Ultrasound 01/13/2025 8:32 AM EDT Narrative 01/13/2025 8:32 AM EDT EXAM: US PELVIC COMPLETE W/ TV HISTORY: [...] absent. Interpreted by: Electronically signed by TONE MOHR II, MD, PHD at 13-Jan-2025 08:30:54 AM [facility] Procedure Note Tone Mohr MD - 01/13/2025 EXAM: US PELVIC COMPLETE W/ TV HISTORY: History of ovarian cysts, PCOS. Partial hysterectomy with leftoophorectomy. COMPARISON: None available. TECHNIQUE: Two-dimensional transabdominal grayscale ultrasound imaging ofthe pelvis was performed. Color flow Doppler imaging of the ovaries wasalso performed. Transvaginal was performed. FINDINGS: UTERUS The uterus is surgically absent, and the midline pelvis appearsunremarkable. RIGHT OVARY 4.7 x 2.1 x 4.0 cm The right ovary demonstrates a normal echotexture. There is normal colorDoppler flow. There are multiple follicles/cysts visualized, with thelargest measuring 2.0 cm. LEFT OVARY The left ovary is surgically absent. No fluid is present within the cul-de-sac. IMPRESSION: 1. Surgically absent uterus. 2. Multiple right ovarian follicles/cysts, measuring up to 2.0 cm. 3. Normal color Doppler flow within the right ovary, the left ovary issurgically absent. Interpreted by: Electronically signed by TONE MOHR II, MD, PHD [id number] 08:30:54 AM [facility] us Kartik Simone DO IM US PROCEDURES Final Result * STATUS COVID-19/FLU (12/01/2024 2:46 PM EDT) FLU A Negative FLU B Negative SARS COV 2 RNA Negative Swab 12/01/2024 2:46 PM EDT Jenniffer Ribeiro FARM ADVISOR POINT OF CARE TEST ENTE R/EDIT ORDERABLES Final Result * XR chest 2 views (12/01/2024 2:34 PM EDT) Anatomical Region Laterality Modality Chest Radiographic Elvi ging 12/01/2024 3:04 PM EDT Narrative 12/01/2024 3:04 PM EDT XR CHEST 2 VIEWS Reason for exam: [...] signed and approved by the interpreting Radiologist. Procedure Note Cole Diaz MD - 12/01/2024 XR CHEST 2 VIEWS Reason for exam: Acute cough, fever, chills for two days Technique: PA and lateral view Findings: Loop recorder in the cervical spine fusion are noted. There are surgicalclips in the left upper quadrant of the abdomen. The heart size is normal.The pulmonary vascularity is unremarkable. The lungs are fully expandedand clear. No pleural abnormalities are seen. No evidence ofmediastinal or hilar enlargement. The osseous structures are intact. Nosoft tissue abnormalities are seen. IMPRESSION: No evidence of active cardiopulmonary disease. Dictated on: 12/01/2024 12:53 PM This report has been electronically signed and approved by theinterpreting Radiologist. Jenniffer Ribeiro NP IMG XR PROCEDURES Final Result * (ABNORMAL) Urine culture (clean catch) (11/28/2024 9:53 AM EDT) MICRO NUMBER [id number] [facility] SPECIMEN QUALITY Adequate QUEST SOURCE: (QUEST) URINE QUEST STATUS FINAL QUEST ISOLATE 1 SEE NOTE(A) [facility] Comment: Greater than 100,000 CFU/mL of Escherichia coli E.coli INT THEO AMOX/CLAVULANATE I 16 AMP/SULBACTAM I 16 CEFAZOLIN NR <=4 2 CEFEPIME S <=0.12 CEFTAZIDIME S <=1 CEFTRIAXONE S <=0.25 CIPROFLOXACIN S <=0.06 GENTAMICIN S <=1 IMIPENEM S <=0.25 LEVOFLOXACIN S <=0.12 MEROPENEM S <=0.25 NITROFURANTOIN S <=16 PIP/TAZOBACTAM S <=4 TRIMETHOPRIM/SULFA S <=20 Legend: S = Susceptible I = Intermediate R = Resistant NS = Not susceptible SDD = Susceptible Dose Dependent * = Not Tested NR = Not Reported NN = See Therapy Comments THERAPY COMMENTS Note 1: For infections other than uncomplicated UTI caused by E. coli, K. pneumoniae or P. mirabilis: Cefazolin is resistant if THEO > or = 8 mcg/mL. (Distinguishing susceptible versus intermediate for isolates with THEO < or = 4 mcg/mL requires additional testing.) Note 2: For uncomplicated UTI caused by E. coli, K. pneumoniae or P. mirabilis: Cefazolin is susceptible if THEO <32 mcg/mL and predicts susceptible to the oral agents cefaclor, cefdinir, cefpodoxime, cefprozil, cefuroxime, cephalexin and loracarbef. Urine Urine specimen obtained by clean catch procedure / Unknown 11/28/2024 9:53 AM EDT 11/28/2024 4:51 PM EDT Narrative Resulting Agency Comment Performing Organization Information Site ID: [id number] Name: [facility] Address: [address] [place] [address], [address] [place] [id number] Director: Rigoberto Connor MD us Anai Rothman NP LAB MICROBIOLOGY - GENERAL JOSIE CHING Final Result [facility] * (ABNORMAL) POCT Urinalysis dipstick (11/28/2024 9:20 AM EDT) Color, UA Yellow Clarity, UA Clear Glucose, UA Negative Negative - 2000(110) ++++ mg/dL Bilirubin, UA Negative Negative - 4(70) +++ mg/dL Ketones, UA Positive Negative - 160(16) ++++ mg/dL Spec Grav, UA 1.030 1 - 1.03 Blood, UA Positive Negative - 50 Armand/mcL pH, UA 5.0 5 - 9 Protein, UA Trace Negative - 2000(20) ++++ mg/dL Urobilinogen, UA 0.2 0.2 - 12 mg/dL Leukocytes, UA 4+ Negative - 500+++ Bairon/mcL Nitrite, UA Negative Negative - Positive Urine 11/28/2024 9:20 AM EDT Anai Rothman NP POINT OF CARE TEST ENTER/EDIT O RDERABLES Final Result * Hm Colonoscopy (06/25/2024 12:58 PM EST) Anatomical Region Laterality Modality Other Ilana Echols MD HEALTH MAINTENANCE Final Resu lt * MAMMOGRAM* (02/11/2024 5:55 AM EDT) Anatomical Region Laterality Modality Radiographic Levi ging Ilana Echols MD IMG XR PROCEDURES Final Resul t from Last 3 Months or Most Recently Relevant to Health Maintenance Insurance BS Care Teams Paper Cup Machine Tender Relationship Specialty Start Date End Date Ilana Echols MD [address] [place] [address] PCP - General Family Medicine 12/11/22
--- OUTSIDE RECORDS SUMMARY | 2025-01-27 19:33 | XMS_ITS | Encounter Summary ---
Author Organization [facility] Address [address] [place] [address] Care Team Providers Care Body Trimmer Name Role Phone Ilana Echols MD Primary Care Provider [phone] Ilana Echols MD Unavailable [phone] Encounter Details Date Type Department Care Team (Late st Contact Info) Description 06/17/2024 Abstract [facility] [address] [place] [address] Ilana Echols MD [address] [place] [address] Social History Tobacco Use Types [...] How often do you attend chur or caodaism services? More than 4 times per year 01/29/2024 Do you belong to any clubs o r organizations such as islam groups, unions, fraternal or athletic groups, or [...] Recorded Patient Health Questionnaire-2 Score 0 03/20/2024 [facility] - Occupational [...] slept in a assisted (including now)? No 01/24/2023 Housing Stability Vital Sign Answer Malcolm e Recorded In the last 12 months, was t here a time when you were not able to pay the mortgage or rent on time? No 01/29/2024 In the past 12 months, how m any times have you moved where you were living? 0 01/29/2024 At any time in the past [address] [facility], were you homeless or living in a assisted (including now)? No 01/29/2024 Comments No Sex [...] AM EST Ancillary Procedure [facility] [address] [place] [address] [place] [address] documented as of this encounter Visit Diagnoses Not on filedocumented in this encounter Additional Health Concerns Assessment Noted Time PHQ-9 Depression Total Score: 0 03/06/20 23 8:10 AM EDT documented as of this encounter Care Teams Body Trimmer Relationship Specialty Start Date End Date Ilana Echols MD [address] [place] [address] PCP - General Family Medicine 12/11/22 Ilana Echols MD [address] [place] [address] PCP - Bea Bland 04/22/23 documented as of this encounter
--- OUTSIDE RECORDS SUMMARY | 2025-01-27 19:33 | XMS_ITS | Encounter Summary ---
Author Organization [facility] Address [address] [place] [address] Care Team Providers Care Finance Assistant Name Role Phone Jenniffer Ribeiro GREY PERCHER Unavailable [phone] Ilana Echols MD Primary Care Provider [phone] Ilana Echols MD Unavailable [phone] Encounter Details Date Type Department Care Team (Late st Contact Info) Description 02/05/2023 Abstract [facility] [address] [place] [address] Ilana Echols MD [address] [place] [address] Social History Tobacco Use Types [...] neighbors? More than three times a week 01/24/2023 How often do you get togethe r with friends or relatives? Once a week 01/24/2023 How often do you attend chur or taoist services? 1 to 4 times per year 01/24/2023 Do you belong to any clubs o r organizations such as latter day groups, unions, fraternal or athletic groups, or school groups? No 01/24/2023 How often do you attend meet ings of the clubs or organizations you belong to? Patient declined 01/24/2023 Are you , , di vorced, , never , or living with a partner? 01/24/2023 AUDIT-C Answer Date Recorded Q1: How often do you have a drink containing alcohol? Never 01/24/2023 Q2: How many drinks containi ng alcohol do you have on a typical day when you are drinking? Patient does not drink Q3: How often do you have si x or more drinks on one occasion? Never 01/24/2023 Overall Financial Resource Strain (CARDIA) Answe r Date Recorded How hard is it for you to pa y for the very basics like food, housing, medical care, and heating? Not hard at all 01/24/2023 PHQ-2 Answer Date Recorded Patient Health Questionnaire-2 Score 0 01/25/[facility]23 [facility] Answer Date Recorded Do you feel stress - tense, restless, nervous, or anxious, or unable to sleep at night because your mind is troubled all the time - these days? Only a little 01/24/2023 Exercise Vital Sign Answer Date Recorde d Days of Exercise per Week Not on file 2022 On average, how many minutes do you engage in exercise at this level? Patient declined 01/24/2023 Hunger Vital Sign Answer Date Recorded Within the past 12 months, y ou worried that your food would run out before you got the money to buy more. Never true 01/25/20 23 Within the past 12 months, t he food you bought just didn't last and you didn't have money to get more. Never true 01/24/2023 PRAPARE - Transportation Answer Date Re corded In the past 12 months, has l ack of transportation kept you from medical appointments or from getting medications? No 11/2022 In the past 12 months, has l ack of transportation kept you from meetings, work, or from getting things needed for daily living? No 01/24/2023 Housing Stability Vital Sign Answer [...] place to sleep or slept in a long term (including now)? No 01/24/2023 Comments Unknown Sex and Gender Information Value Date Recorded Sex Assigned at Not on file Legal Sex Female 7:16 PM EDT Gender Identity Not on file Sexual Orientation Not on file COVID-19 Exposure Response Date Recorded In the last 10 days, have yo u been in contact with someone who was confirmed or suspected to have Coronavirus/COVID-19? No / Unsure 02/02/2023 8:28 AM EDT documented as of this encounter Plan of Treatment Upcoming Encounters Date Type Department Care Team (Late st Contact Info) Description 07/13/2025 8:00 AM EST Ancillary Procedure [facility] [address] [place] [address] documented as of this encounter Visit Diagnoses Not on filedocumented in this encounter Care Teams Finance Assistant Relationship Specialty Start Date End Date Jenniffer Ribeiro NP [address] [facility] [place] [address] PCP - Bea Bland 03/23/22 Ilana Echols MD [address] [facility] [place] [address] PCP - General Family Medicine 12/11/22 Ilana Echols MD [address] [place] [address] PCP - Bea Bland 04/22/23 documented as of this encounter
--- OUTSIDE RECORDS SUMMARY | 2025-01-27 19:33 | XMS_ITS | Encounter Summary ---
Author Organization [facility] Address [address] [place] [address] Care Team Providers Care Front End Web Designer Name Role Phone Jeimy Morejon MD Unavailable [phone] Ilana Echols Primary Care Provider [phone] Source Comments In the event this information is protected by the Federal Confidentiality of Alcohol and Drug AbusePatient Records regulations: The Federal rules restrict any use of the information to criminally investigate or prosecute any alcohol or drug abuse patient.[facility] Encounter Details Date Type Department Care Team (Late st Contact Info) Description 04/07/2024 Patient [facility] -[address] [place] [address] Silvia Gaines RPh At your next appointment, choose [facility]. Social History Tobacco Use Types Packs/Day Years [...] is lower risk 6 01/14/2024 Data from: https://www.neighborhoodatlas.medicine.[facility].edu/. Last address used for calculation [...] on filedocumented in this encounter Care Teams Front End Web Designer Relationship Specialty Start Date End Date Ilana Echols [address] [place] [address] PCP - General Family Medicine 09/20/23 Jeimy Moerjon MD [address] [place] [address] Rheumatology 09/20/23 documented as of this encounter
--- OUTSIDE RECORDS SUMMARY | 2025-01-27 19:33 | XMS_ITS | Encounter Summary ---
Author Organization [facility] Address [address] [place] [address] Care Team Providers Care Database Developer Name Role Phone Ilana Echols MD Primary Care Provider [phone] Ilana Echols MD Unavailable [phone] Encounter Details Date Type Department Care Team (Late st Contact Info) Description 02/13/2024 Orders Only [facility] FM [address] [place] [address] Ilana Echols MD [address] [place] [address] Social History Tobacco Use Types [...] How often do you attend chur or yarsanism services? More than 4 times per year 01/29/2024 Do you belong to any clubs o r organizations such as baptism groups, unions, fraternal or athletic groups, or [...] Recorded Patient Health Questionnaire-2 Score 0 01/31/2024 [facility]at ional Health [...] place to sleep or slept in a intermediate (including now)? No 01/24/2023 Housing Stability Vital Sign Answer Malcolm e Recorded In the last 12 months, was t here a time when you were not able to pay the mortgage or rent on time? No 01/29/2024 In the past 12 months, how m any times have you moved where you were living? 0 01/29/2024 At any time in the past 12 m [facility], were you homeless or living in a intermediate (including now)? No 01/29/2024 Comments No Sex [...] AM EST Ancillary Procedure [facility] [address] [place] [address] [place] [address] documented as of this encounter Procedures Procedure Name Priority Date/Time Associated Diagnosis Comments MAMMOGRAM* Routine 02/11/2024 5:55 AM EDT documented in this encounter Results * MAMMOGRAM* (02/11/2024 5:55 AM EDT) Anatomical Region Laterality Modality Radiographic Elvi ging Ilnaa Echols MD IMG XR PROCEDURES Final Resul t documented in this encounter Visit Diagnoses Not on filedocumented in this encounter Additional Health Concerns Assessment Noted Time PHQ-9 Depression Total Score: 0 03/06/20 8:10 AM EDT documented as of this encounter Care Teams Database Developer Relationship Specialty Start Date End Date Ilana Echols MD [address] [place], [place] [id number] PCP - General Family Medicine 12/11/22 Ilana Echols MD [address] [place] [address] PCP - Bea Bland 04/22/23 documented as of this encounter
--- OUTSIDE RECORDS SUMMARY | 2025-01-27 19:33 | XMS_ITS | Encounter Summary ---
Author Organization [facility] Address [address] [place] [address] Care Team Providers Care Attending Pathologist Name Role Phone Jenniffer Ribeiro MEAT SOAKER Unavailable [phone] Ilana Echols MD Primary Care Provider Ilana Echols MD Unavailable [phone] Encounter Details Date Type Department Care Team (Late st Contact Info) Description 02/01/2023 Abstract [facility] PT [address] [facility] [address] [place] [address] Andrae Carlisle, PT [address] [facility] [address] [place] [address] Social History Tobacco Use Types Packs/Day Years [...] How often do you attend chur or alevism services? 1 to 4 times per year [...] Recorded Patient Health Questionnaire-2 Score 0 01/25/2023 [facility] Occupat ional Health - Occupational [...] in a intermediate (including now)? No 01/24/2023 Comments Unknown Sex [...] 07/13/2025 8:00 AM EST Ancillary Procedure [facility] [address] [place] [address] documented as of this encounter Visit Diagnoses Not on filedocumented in this encounter Care Teams Attending Pathologist Relationship Specialty Start Date End Date Jenniffer Ribeiro NP [address] [facility] [place] [address] PCP - [place] [employer] 03/23/22 Ilana Echols MD [address] [facility] [address] [place], [place] [address] PCP - General Family Medicine 12/11/22 Ilana Echols MD [address] [place] [address] PCP - Bea Bland 04/22/23 documented as of this encounter
--- OUTSIDE RECORDS SUMMARY | 2025-01-27 19:33 | XMS_ITS | Encounter Summary ---
Author Organization [facility] Address [address] [place] [address] Care Team Providers Care Gas Refrigerator Servicer Name Role Phone Ilana Echols MD Primary Care Provider [phone] Ilana Echols MD Unavailable [phone] Encounter Details Date Type Department Care Team (Late st Contact Info) Description 04/13/2024 Abstract [facility] [address] [place] [address] Ilana Echols MD [address] [place] [address] Social History Tobacco Use Types [...] How often do you attend chur or sabianist services? More than 4 times per year 01/29/2024 Do you belong to any clubs o r organizations such as religious groups, unions, fraternal or athletic groups, or [...] Recorded Patient Health Questionnaire-2 Score 0 03/20/2024 [facility] of Occupat ional Health - [...] place to sleep or slept in a group home (including now)? No 01/24/2023 Housing Stability Vital Sign Answer Malcolm e Recorded In the last 12 months, was t here a time when you were not able to pay the mortgage or rent on time? No 01/29/2024 In the past 12 months, how m any times have you moved where you were living? 0 01/29/2024 At any time in the past 12 m [facility], were you homeless or living in a group home (including now)? No 01/29/2024 Comments No Sex [...] AM EST Ancillary Procedure [facility] [address] [place] [address] [place] [address] documented as of this encounter Visit Diagnoses Not on filedocumented in this encounter Additional Health Concerns Assessment Noted Time PHQ-9 Depression Total Score: 0 03/06/20 23 8:10 AM EDT documented as of this encounter Care Teams Gas Refrigerator Servicer Relationship Specialty Start Date End Date Ilana Echols MD [address] [place] [address] PCP - General Family Medicine 12/11/22 Ilana Echols MD [address] [place] [address] PCP - Bea Bland 04/22/23 documented as of this encounter
--- OUTSIDE RECORDS SUMMARY | 2025-01-27 19:34 | XMS_ITS | Encounter Summary ---
Author Organization [facility] Address [address] [place] [address] Care Team Providers Care Pantry Steward/Stewardess Name Role Phone Jenniffer Ribeiro MOTION PICTURE PRINTER Unavailable [phone] Ilana Echols MD Primary Care Provider Ilana Echols MD Unavailable [phone] Encounter Details Date Type Department Care Team (Late st Contact Info) Description 03/09/2023 Abstract [facility] [address] [place] [address] Ilana Echols MD [address] [place] [address] Social History Tobacco Use Types [...] How often do you attend chur or taoism services? 1 to 4 times per year 01/24/2023 Do you belong to any clubs o r organizations such as latter-day groups, unions, fraternal or athletic groups, or [...] Date Recorded Patient Health Questionnaire-2 Score 0 03/06/2023 [facility] Answer Date [...] health care facility (including now)? No 01/24/2023 Comments Unknown Sex [...] suspected to have Coronavirus/COVID-19? No / Unsure 03/12/2023 2:49 PM EDT documented as of this encounter Plan of Treatment Upcoming Encounters Date Type Department Care Team (Late st Contact Info) Description 07/13/2025 8:00 AM EST Ancillary Procedure [facility] [address] [place] [address] documented as of this encounter Visit Diagnoses Not on filedocumented in this encounter Additional Health Concerns Assessment Noted Time PHQ-9 Depression Total Score: 0 03/06/20 23 8:10 AM EDT documented as of this encounter Care Teams Pantry Steward/Stewardess Relationship Specialty Start Date End Date Jenniffer Ribeiro NP [address] [place] [address] PCP - [place] [employer] 03/23/22 Ilana Echols MD [address] [place] [address] PCP - General Family Medicine 12/11/22 Ilana Echols MD [address] [place] [address] PCP - Bea Bland 04/22/23 documented as of this encounter
--- OUTSIDE RECORDS SUMMARY | 2025-01-27 19:34 | XMS_ITS | Encounter Summary ---
Author Organization [facility] Address [address] [place] [address] Care Team Providers Care Pit Inspector Name Role Phone Jenniffer Ribeiro STERILE TECH Unavailable [phone] Ilana Echols MD Primary Care Provider [phone] Ilana Echols MD Unavailable [phone] Encounter Details Date Type Department Care Team (Late st Contact Info) Description 02/16/2023 Abstract [facility] [address] [place] [address] Ilana Echols MD [address] [place] [address] Social History Tobacco Use [...] How often do you attend chur or jewish services? 1 to 4 times per year 01/24/2023 Do you belong to any clubs o r organizations such as restorationist groups, unions, fraternal or athletic groups, or [...] Recorded Patient Health Questionnaire-2 Score 0 01/25/2023 [facility] Questionnaire Answer Date Recorded [...] place to sleep or slept in a skilled nursing (including now)? No 01/24/2023 Comments Unknown Sex [...] 07/13/2025 8:00 AM EST Ancillary Procedure [facility] [address] [place] [address] documented as of this encounter Visit Diagnoses Not on filedocumented in this encounter Care Teams Pit Inspector Relationship Specialty Start Date End Date Jenniffer Ribeiro NP [address] [facility] [place] [address] PCP - Bea Bland 03/23/22 Ilana Echols MD [address] [facility] [place] [address] PCP - General Family Medicine 12/11/22 Ilana Echols MD [address] [place] [address] PCP - Bea Bland 04/22/23 documented as of this encounter
--- OUTSIDE RECORDS SUMMARY | 2025-01-27 19:34 | XMS_ITS | Encounter Summary ---
Author Organization [facility] Address [address] [place] [address] Care Team Providers Care Social Work Instructor Name Role Phone Ilana Echols MD Primary Care Provider [phone] Encounter Details Date Type Department Care Team (Late st Contact Info) Description 01/27/2025 Telephone [facility] [address] [place] [address] Ilana Echols MD [address] [place] [address] Social History Tobacco Use Types [...] How often do you attend chur or voodoo services? More than 4 times per year 01/29/2024 Do you belong to any clubs o r organizations such as lutheran groups, unions, fraternal or athletic groups, or [...] Recorded Patient Health Questionnaire-2 Score 0 10/30/2024 [facility] - Occupational Stress Questionnaire Answer Date [...] place to sleep or slept in a fci (including now)? No 01/24/2023 Housing Stability Vital Sign Answer Malcolm e Recorded In the last 12 months, was t here a time when you were not able to pay the mortgage or rent on time? No 01/29/2024 In the past 12 months, how m any times have you moved where you were living? 0 01/29/2024 At any time in the past 12 m [facility], were you homeless or living in a fci (including now)? No 01/29/2024 Comments No Sex and Gender Information Value Date Recorded Sex Assigned at Not on file Legal Sex Female 7:16 PM EDT Gender Identity Not on file Sexual Orientation Not on file documented as of this encounter Miscellaneous Notes * Telephone Encounter - Ilana Nelson MA - 01/27/2025 3:17 PM EDT Spoke with pt and she voices understanding. * Telephone Encounter - Linda Careyzahida - 01/27/2025 1:37 PM EDT Patient calling with INR 3.0. please advise pt. Thank you. documented in this encounter Plan of Treatment Upcoming Encounters Date Type Department Care Team (Late st Contact Info) Description 07/13/2025 8:00 AM EST Ancillary Procedure [facility] OB [address] [facility] [place] [address] documented as of this encounter Visit Diagnoses Not on filedocumented in this encounter Additional Health Concerns Assessment Noted Time PHQ-9 Depression Total Score: 0 03/06/20 8:10 AM EDT documented as of this encounter Care Teams Social Work Instructor Relationship Specialty Start Date End Date Ilana Echols MD [address] [place] [address] PCP - General Family Medicine 12/11/22 documented as of this encounter
--- OUTSIDE RECORDS SUMMARY | 2025-01-27 19:34 | XMS_ITS | Encounter Summary ---
Author Organization [facility] Address [address] [place] [address] Care Team Providers Care Management Assistant Name Role Phone Ilana Echols MD Primary Care Provider [phone] Encounter Details Date Type Department Care Team (Late st Contact Info) Description 11/28/2024 Results Follow-Up [facility] FM [address] [place] [address] Anai Rothman NP [address] [place], [place] [id number] Social History Tobacco Use Types Packs/Day Years [...] How often do you attend chur or christianity services? More than 4 times per year 01/29/2024 Do you belong to any clubs o r organizations such as jew groups, unions, fraternal or athletic groups, or [...] Recorded Patient Health Questionnaire-2 Score 0 10/30/2024 [facility] of Occupat ional Health - [...] place to sleep or slept in a fdc (including now)? No 01/24/2023 Housing Stability Vital [...] were you homeless or living in a fdc (including now)? No 01/29/2024 Comments No Sex [...] AM EST Ancillary Procedure [facility] OB [address] [place] [address] [place] [address] documented as of this encounter Visit Diagnoses Not on filedocumented in this encounter Additional Health Concerns Assessment Noted Time PHQ-9 Depression Total Score: 0 03/06/20 23 8:10 AM EDT documented as of this encounter Care Teams Management Assistant Relationship Specialty Start Date End Date Ilana Echols MD [address] [place] [address] PCP - General Family Medicine 12/11/22 documented as of this encounter
--- OUTSIDE RECORDS SUMMARY | 2025-01-27 19:34 | XMS_ITS | Encounter Summary ---
Author Organization [facility] Address [address] [place] [address] Care Team Providers Care Inspector Elevators Name Role Phone Ilana Echols MD Primary Care Provider [phone] Ilana Echols MD Unavailable [phone] Encounter Details Date Type Department Care Team (Late st Contact Info) Description 10/11/2024 Abstract [facility] [address] [place] [address] Ilana Echols MD [address] [place] [address] Social History Tobacco Use Types [...] How often do you attend chur or christian services? More than 4 times per year 01/29/2024 Do you belong to any clubs o r organizations such as yazidism groups, unions, fraternal or athletic groups, or [...] Date Recorded Patient Health Questionnaire-2 Score 0 10/09/2024 [facility] of Occupat ional Health - [...] place to sleep or slept in a custodial (including now)? No 01/24/2023 Housing Stability Vital Sign Answer Malcolm e Recorded In the last 12 months, was t here a time when you were not able to pay the mortgage or rent on time? No 01/29/2024 In the past 12 months, how m any times have you moved where you were living? 0 01/29/2024 At any time in the past 12 m [facility], were you homeless or living in a custodial (including now)? No 01/29/2024 Comments No Sex [...] AM EST Ancillary Procedure [facility] OB [address] [place] [address] [place] [address] documented as of this encounter Visit Diagnoses Not on filedocumented in this encounter Additional Health Concerns Assessment Noted Time PHQ-9 Depression Total Score: 0 03/06/20 23 8:10 AM EDT documented as of this encounter Care Teams Inspector Elevators Relationship Specialty Start Date End Date Ilana Echols MD [address] [place] [address] PCP - General Family Medicine 12/11/22 Ilana Echols MD [address] [place] [address] PCP - Bea Bland 04/22/23 documented as of this encounter
--- OUTSIDE RECORDS SUMMARY | 2025-01-27 19:34 | XMS_ITS | Encounter Summary ---
Author Organization [facility] Address [address] [place] [address] Care Team Providers Care Vp Of Product Name Role Phone Ilana Echols MD Primary Care Provider [phone] Encounter Details Date Type Department Care Team (Late st Contact Info) Description 11/02/2024 Abstract [facility] FM [address] [place] [address] Mariel Santana NP [address] [place], [place] [id number] Social History Tobacco Use Types Packs/Day Years [...] How often do you attend chur or adventism services? More than 4 times per year [...] Recorded Patient Health Questionnaire-2 Score 0 10/30/2024 [facility] of Occupat ional Health - Occupational Stress [...] a skilled nursing (including now)? No 01/24/2023 Housing Stability Vital Sign Answer Malcolm e Recorded In the last 12 months, was t here a time when you were not able to pay the mortgage or rent on time? No 01/29/2024 In the past 12 months, how m any times have you moved where you were living? 0 01/29/2024 At any time in the past 12 m [facility], were you homeless or living in a skilled nursing (including now)? No 01/29/2024 Comments No Sex [...] AM EST Ancillary Procedure [facility] OB [address] [place] [address] [place] [address] documented as of this encounter Visit Diagnoses Not on filedocumented in this encounter Additional Health Concerns Assessment Noted Time PHQ-9 Depression Total Score: 0 03/06/20 23 8:10 AM EDT documented as of this encounter Care Teams Vp Of Product Relationship Specialty Start Date End Date Ilana Echols MD [address] [place] [address] PCP - General Family Medicine 12/11/22 documented as of this encounter
--- OUTSIDE RECORDS SUMMARY | 2025-01-27 19:34 | XMS_ITS | Encounter Summary ---
Author Organization [facility] Address [address] [place] [address] Care Team Providers Care Electronic Data Processing Auditor Name Role Phone Jenniffer Ribeiro DRAWBENCH OPERATOR Unavailable [phone] Ilana Echols MD Primary Care Provider [phone] Ilana Echols MD Unavailable [phone] Encounter Details Date Type Department Care Team (Late st Contact Info) Description 03/09/2023 Abstract [facility] [address] [place] [address] Ilana Echols MD [address] [place] [address] Social History Tobacco Use Types [...] How often do you attend chur or amish services? 1 to 4 times per year [...] Recorded Patient Health Questionnaire-2 Score 0 03/06/2023 [facility] Answer Date [...] in a prison (including now)? No 01/24/2023 Comments Unknown Sex [...] 07/13/2025 8:00 AM EST Ancillary Procedure [facility] [address] [place] [address] documented as of this encounter Visit Diagnoses Not on filedocumented in this encounter Additional Health Concerns Assessment Noted Time PHQ-9 Depression Total Score: 0 03/06/20 23 8:10 AM EDT documented as of this encounter Care Teams Electronic Data Processing Auditor Relationship Specialty Start Date End Date Jenniffer Ribeiro NP [address] [place] [address] PCP - [place] Commercial 03/23/22 Ilana Echols MD [address] [place] [address] PCP - General Family Medicine 12/11/22 Ilana Echols MD [address] [place] [address] PCP - Bea Bland 04/22/23 documented as of this encounter
--- OUTSIDE RECORDS SUMMARY | 2025-01-27 19:34 | XMS_ITS | Encounter Summary ---
Author Organization [facility] Address [id number] [address] [place] [address] Care Team Providers Care Subassemblies Wirer Name Role Phone Ilana Echols MD Primary Care Provider [phone] Reason for Visit * Reason Onset Date Comments Inflammation in Vessels in Brain 03/21/2023 Baby Aspirin 03/21/2023 Eloquis 03/21/2023 Encounter Details Date Type Department Care Team (Late st Contact Info) Description 03/21/2023 [facility] [address] [place] [id number] Fernanda Madison Inflammation in Vessels in Brain; Baby Aspirin; Eloquis Social History Tobacco Use Types Packs/Day Years Used Date Smoking Tobacco: Never Smokeless Tobacco: Never Alcohol Use Standard Drinks/Week Comments Never 0 (1 standard drink = 0.6 oz pur e alcohol) AUDIT-C Answer Date Recorded Q1: How often [...] Answer Date Recorded Total Score 0 11/08/2022 Housing Instability Answer Date Recorde d Are you worried or concerned that in the next two months you may not have stable housing that you own, rent or stay in as a part of a household? No 11/11/2022 Childcare Answer Date Recorded Childcare Unknown 01/01/2019 Employment Answer Date Recorded Employment Unknown 01/01/2019 Purpose - Life Answer Date Recorded Purpose and direction in life Unknown Comments No Sex and Gender Information Value Date Recorded Sex Assigned at Not on file Legal Sex Female 11:40 AM EDT Gender Identity Not on file Sexual Orientation Not on file documented as of this encounter Functional Status documented as of this encounter Mental Status * Question Answer Entry Date Author Overall Cognitive Status WFL 03/21/2023 7:16 AM EDT Tameka Dominguez, OTR/L * Question Answer Entry Date Author Overall Cognitive Status X 03/21/2023 10:20 AM EDT Chelsea Bolivar, CCC-HAND STITCHER documented in this encounter Miscellaneous Notes * Telephone Encounter - Fernanda Madison - 03/21/2023 2:01 PM EDT Received call today 03/21/23 2:00 from patient who is requesting a call back. She said that she was just released from [facility] and they had thought she had a stroke over the past 2 days, but found out that it's inflammation in the vessels in brain. She said that they treated her with steroids and sent her home with 3 day script of oral steroids. They said that they wanted patient to run it by Dr. Gómez to know if it's okay for patient to take baby aspirin with the Eloquis. She noted she has over the counter baby Aspirin at home she can take if ok with doctor. See yesterday's 03/20/23 ED to Hosp-Admission encounter in patient's chart. She also said she has a follow up scheduled with provider on 04/18/23 and wants to know if it's okayto keep that appt or not. Please call back and advise, callback#: [phone]. * Telephone Encounter - Thalia Gómez MD - 03/21/2023 2:01 PM EDT I just reviewed her chart. Not sure if she is having inflammation of the vessels in the brain. No documentation to suggest that so far. However it is possible we'll find that information in the discharge summary(which is pending). In any case, I don't think there is any issue with restarting aspirin. I would recommend keeping the f/u appt for 04/18. I would also recommend following up with Rheumatology and hematology after this hospitalization. Thanks * Telephone Encounter - Ilana Meyer CMA - 03/21/2023 2:01 PM EDT Called patient and informed her of message patient states she will discuss more at appt on 04/18. documented in this encounter Plan of Treatment Upcoming Encounters Date Type Department Care Team (Late st Contact Info) Description 02/09/2025 9:15 AM EDT Appointment [facility] - MRI Imaging [address] [facility] [place] [address] 02/09/2025 9:45 AM EDT Appointment [facility] - MRI Imaging [address] [facility] [place] [address] documented as of this encounter Visit Diagnoses Not on filedocumented in this encounter Additional Health Concerns Infection Onset Date Last Indicated Resolved Time Meningitis Rule-Out 08/20/2023 08/20/2023 08/20/19 24 7:58 PM EST Norovirus 08/17/2024 08/17/2024 08/21/2024 11:1 2 PM EST Assessment Noted Time PHQ-9 Depression Total Score: 0 11/09/19 23 12:58 PM EDT documented as of this encounter Care Teams Subassemblies Wirer Relationship Specialty Start Date End Date Ilana Echols MD [address] [address] PCP - General Family Medicine 08/16/24 documented as of this encounter
--- OUTSIDE RECORDS SUMMARY | 2025-01-27 19:34 | XMS_ITS | Encounter Summary ---
Author Organization [facility] Address [address] [place] [address] Care Team Providers Care Senior Qa Engineer Name Role Phone Jenniffer Ribeiro MANAGER OF SOFTWARE DEVELOPMENT Unavailable [phone] Ilana Echols MD Primary Care Provider [phone] Ilana Echols MD Unavailable [phone] Encounter Details Date Type Department Care Team (Late st Contact Info) Description 03/06/2023 Abstract [facility] [address] [place] [address] Ilana Echols MD [address] [place] [address] Social History Tobacco Use Types [...] How often do you attend chur or jehovah's witness services? 1 to 4 times per year [...] Recorded Patient Health Questionnaire-2 Score 0 03/06/2023 [facility] Answer Date Recorded [...] place to sleep or slept in a long-term (including now)? No 01/24/2023 Comments Unknown Sex [...] suspected to have Coronavirus/COVID-19? No / Unsure 03/05/2023 11:03 AM EDT documented as of this encounter Functional Status * Over the past 2 weeks, how often have you been bothered by any of the following problems? Question Answer Date of Assessment Author Little interest or pleasure in doing things Not at all 03/06/2023 8:10 AM EDT Rohini Ruvalcaba MA Feeling down, depressed, or hopeless Not at all 03/06/2023 8:10 AM EDT Rohini Ruvalcaba MA Patient Health Questionnaire -2 Score 0 03/06/2023 8:10 AM YESICAT Rohini Ruvalcaba MA * Over the past 2 weeks, how often have you been bothered by any of the following problems? Question Answer Date of Assessment Author Trouble falling or staying asleep, or sleeping too much Not at all 03/06/2023 8:10 AM EDT Rohini Ruvalcaba MA Feeling tired or having issac le energy Not at all 03/06/2023 8:10 AM EDT Rohini Ruvalcaba MA Poor appetite or overeating Not at all 03/06/2023 8: 10 AM EDT Rohini Ruvalcaba MA Feeling bad about yourself - or that you are a failure or have let yourself or your family down Not at all 03/06/2023 8:10 AM YESICAT Rohini Ruvalcaba MA Trouble concentrating on things, such as reading the newspaper or watching television Not at all 03/06/2023 8:10 AM EDT Rohini Ruvalcaba MA Moving or speaking so slowly that other people could have noticed? Or the opposite - being so fidgety or restless that you have been moving around a lot more than usual. Not at all 03/06/2023 8:10 AM EDT Rohini Iniguez MA Thoughts that you would be better off or hurting yourself in some way Not at all 03/06/2023 8:10 AM EDT Rohini Ruvalcaba MA Patient Health Questionnaire -9 Score 0 03/06/2023 8:10 AM EDT Rohini Ruvalcaba MA documented as of this encounter Plan of Treatment Upcoming Encounters Date Type Department Care Team (Late st Contact Info) Description 07/13/2025 8:00 AM EST Ancillary Procedure [facility] [address] [facility] [place] [address] documented as of this encounter Visit Diagnoses Not on filedocumented in this encounter Additional Health Concerns Assessment Noted Time PHQ-9 Depression Total Score: 0 03/06/20 8:10 AM EDT documented as of this encounter Care Teams Senior Qa Engineer Relationship Specialty Start Date End Date Jenniffer Ribeiro NP [address] [facility] [place] [address] PCP - [place] Commercial 03/23/22 Ilana Echols MD [address] [facility] [place], [place] [id number] PCP - General Family Medicine 12/11/22 Ilana Echols MD [address] [facility] [place], [place] [id number] PCP - Bea Commercial 04/22/23 documented as of this encounter
--- OUTSIDE RECORDS SUMMARY | 2025-01-27 19:34 | XMS_ITS | Encounter Summary ---
Author Organization [facility] Address [address] [place] [address] Care Team Providers Care Diversified Crops Supervisor Name Role Phone Jenniffer Ribeiro BACKUP ADMINISTRATIVE COORDINATOR Unavailable [phone] Ilana Echols MD Primary Care Provider Ilana Echols MD Unavailable [phone] Encounter Details Date Type Department Care Team (Late st Contact Info) Description 03/06/2023 Abstract [facility] [address] [place] [address] Ilana Echols MD [address] [place] [address] Social History Tobacco Use Types [...] do you attend chur or sabianism services? 1 to 4 times per year 01/24/2023 Do you belong to any clubs o r organizations such as advent groups, unions, fraternal or athletic groups, or [...] Recorded Patient Health Questionnaire-2 Score 0 03/06/2023 [facility] Questionnaire Answer Date [...] place to sleep or slept in a detention (including now)? No 01/24/2023 Comments Unknown Sex [...] EST Ancillary Procedure [facility] OB [address] [facility] [place] [address] documented as of this encounter Visit Diagnoses Not on filedocumented in this encounter Additional Health Concerns Assessment Noted Time PHQ-9 Depression Total Score: 0 03/06/20 8:10 AM EDT documented as of this encounter Care Teams Diversified Crops Supervisor Relationship Specialty Start Date End Date Jenniffer Ribeiro NP [address] [facility] [place] [address] PCP - Marceline Commercial 03/23/22 Ilana Echols MD [address] [facility] [place], [place] [address] PCP - General Family Medicine 12/11/22 Ilana Echols MD [address] [facility] [place], [place] [address] PCP - Bea Commercial 04/22/23 documented as of this encounter
--- OUTSIDE RECORDS SUMMARY | 2025-01-27 19:34 | XMS_ITS | Encounter Summary ---
Author Organization [facility] Address [address] [place] [address] Care Team Providers Care Spinal Surgeon Name Role Phone Ilana Echols MD Primary Care Provider [phone] Ilana Echols MD Unavailable [phone] Encounter Details Date Type Department Care Team (Late st Contact Info) Description 01/25/2024 Abstract [facility] [address] [place] [address] Ilana Echols MD [address] [place] [address] Social History Tobacco Use Types [...] How often do you attend chur or hinduism services? More than 4 times per year 01/29/2024 Do you belong to any clubs o r organizations such as holiness groups, unions, fraternal or athletic groups, or [...] Date Recorded Patient Health Questionnaire-2 Score 0 01/08/2024 [facility] - Occupational [...] place to sleep or slept in a longterm (including now)? No 01/24/2023 Housing Stability Vital Sign Answer Malcolm e Recorded In the last 12 months, was t here a time when you were not able to pay the mortgage or rent on time? No 01/29/2024 In the past 12 months, how m any times have you moved where you were living? 0 01/29/2024 At any time in the past 12 m [facility], were you homeless or living in a longterm (including now)? No 01/29/2024 Comments No Sex [...] EST Ancillary Procedure [facility] OB [address] [place] [address] [place] [address] documented as of this encounter Visit Diagnoses Not on filedocumented in this encounter Additional Health Concerns Assessment Noted Time PHQ-9 Depression Total Score: 0 03/06/20 23 8:10 AM EDT documented as of this encounter Care Teams Spinal Surgeon Relationship Specialty Start Date End Date Ilana Echols MD [address] [place] [address] PCP - General Family Medicine 12/11/22 Ilana Echols MD [address] [place] [address] PCP - Bea Bland 04/22/23 documented as of this encounter
--- OUTSIDE RECORDS SUMMARY | 2025-01-27 19:34 | XMS_ITS | Encounter Summary ---
Author Organization [facility] Address [address] [place] [address] Care Team Providers Care Telecommunications Line Installer Name Role Phone Jenniffer Ribeiro SHORE MAN Unavailable [phone] Ilana Echols MD Primary Care Provider [phone] Ilana Echols MD Unavailable [phone] Encounter Details Date Type Department Care Team (Late st Contact Info) Description 02/07/2023 Abstract [facility] PT [address] [place] [address] Mike Johnston, PT [address] [place] [address] Social History Tobacco Use Types Packs/Day Years [...] How often do you attend chur or moravian services? 1 to 4 times per year 01/24/2023 Do you belong to any clubs o r organizations such as gnosticist groups, unions, fraternal or athletic groups, or [...] Recorded Patient Health Questionnaire-2 Score 0 01/25/2023 [facility] Answer [...] in a longterm (including now)? No 01/24/2023 Comments Unknown Sex [...] 07/13/2025 8:00 AM EST Ancillary Procedure [facility] [address] [place] [address] documented as of this encounter Visit Diagnoses Not on filedocumented in this encounter Care Teams Telecommunications Line Installer Relationship Specialty Start Date End Date Jenniffer Ribeiro NP [address] [facility] [place] [address] PCP - Bea Bland 03/23/22 Ilana Echols MD [address] [facility] [place] [address] PCP - General Family Medicine 12/11/22 Ilana Echols MD [address] [place] [address] PCP - Bea Bland 04/22/23 documented as of this encounter
--- OUTSIDE RECORDS SUMMARY | 2025-01-27 19:34 | XMS_ITS | Encounter Summary ---
Author Organization [facility] [employer] Address [id number] [address] [place] [address] Care Team Providers Care Hostess Cashier Name Role Phone Ilana Echols MD Primary Care Provider [phone] Encounter Details Date Type Department Care Team (Late st Contact Info) Description 04/20/2023 Orders Only [facility] [address] [place] [address] External, Scanning Provider Social History Tobacco Use Types Packs/Day Years [...] got money to buy more. Never True 04/18/2023 Within the past 12 months th e food we bought just didn't last and we didn't have money to get more. Never True 04/18/2023 Purpose - Life Answer Date Recorded Purpose [...] Info) Description 02/09/2025 9:15 AM EDT Appointment [facility] - MRI Imaging [address] [place] [address] 02/09/2025 9:45 AM EDT Appointment [facility] - MRI Imaging [address] [place] [address] documented as of this encounter Procedures Procedure Name Priority Date/Time Associated Diagnosis Comments ECG 12-LEAD Routine 03/20/2023 2:36 PM EDT documented in this encounter Results * ECG 12 lead (03/20/2023 2:36 PM EDT) us Scanning Provider External ECG ORDERABLES Final Result MANUALLY TRANSCRIBED RESULTS documented in this encounter Visit Diagnoses Not on filedocumented in this encounter Additional Health Concerns Infection Onset Date Last Indicated Resolved Time Meningitis Rule-Out 08/20/2023 08/20/2023 08/20/19 24 7:58 PM EST Norovirus 08/17/2024 08/17/2024 08/21/2024 11:1 2 PM EST Assessment Noted Time PHQ-9 Depression Total Score: 0 11/09/19 23 12:58 PM EDT documented as of this encounter Care Teams Hostess Cashier Relationship Specialty Start Date End Date Ilana Echols MD [address] [place] [address] PCP - General Family Medicine 08/16/24 documented as of this encounter
--- OUTSIDE RECORDS SUMMARY | 2025-01-27 19:34 | XMS_ITS | Encounter Summary ---
Author Organization [facility] Address [id number] [address] [place] [address] Care Team Providers Care Operating Room Assistant Name Role Phone Ilana Echols MD Primary Care Provider [phone] Encounter Details Date Type Department Care Team (Late st Contact Info) Description 12/05/2022 Orders Only [facility] [address] [place] [phone] Ref Prov, [place] [address] Social History Tobacco Use Types Packs/Day Years [...] Info) Description 02/09/2025 9:15 AM EDT Appointment [facility] - MRI Imaging [address] [place] [address] 02/09/2025 9:45 AM EDT Appointment [facility] - MRI Imaging [address] [facility] [place] [address] documented as of this encounter Procedures Procedure Name Priority Date/Time Associated Diagnosis Comments CT BRAIN W WO CONT Routine 12/04/2022 documented in this encounter Results * CT brain with and without contrast (12/04/2022) Anatomical Region Laterality Modality Neuro, Head, Head and Neck, Neuro Covera N/A Computed Tomography us Not In System Ref Prov IMG CT ORDERABLES Final R esult documented in this encounter Visit Diagnoses Not on filedocumented in this encounter Additional Health Concerns Infection Onset Date Last Indicated Resolved Time Meningitis Rule-Out 08/20/2023 08/20/2023 08/20/19 24 7:58 PM EST Norovirus 08/17/2024 08/17/2024 08/21/2024 11:1 2 PM EST Assessment Noted Time PHQ-9 Depression Total Score: 0 11/09/19 23 12:58 PM EDT documented as of this encounter Care Teams Operating Room Assistant Relationship Specialty Start Date End Date Ilana Echols MD [address] [place] [address] PCP - General Family Medicine 08/16/24 documented as of this encounter
--- OUTSIDE RECORDS SUMMARY | 2025-01-27 19:34 | XMS_ITS | Encounter Summary ---
Author Organization [employer] Address [id number] [address] [place] [address] Care Team Providers Care Bankruptcy Attorney Name Role Phone Ilana Echols MD Primary Care Provider [phone] Reason for Referral * Diagnostic Imaging (Routine) - Closed Specialty Diagnoses / Procedures Referred By Contac t Referred To Contact Radiology Diagnoses Pain Procedures CT brain with and without contrast [facility] [employer] [address] [place] [phone] Phone: tel: fax: Referral ID Status Reason Start Date Expiration Date Visits Re quested Visits Authorized [id number] Closed 12/05/2022 12/05/2023 1 1 * Diagnostic Imaging (Routine) - Closed Specialty Diagnoses / Procedures Referred By Contac t Referred To Contact Radiology Diagnoses Pain Procedures CT brain without contrast [facility] [address] [place] [phone] Phone: tel: fax: Referral ID Status Reason Start Date Expiration Date Visits Re quested Visits Authorized [id number] Closed 12/05/2022 12/05/2023 1 1 Encounter Details Date Type Department Care Team (Late st Contact Info) Description 12/05/2022 Orders Only [facility] [address] [place] [phone] Transcribe, Orders Support User Pain (Primary Dx) Social History Tobacco Use Types [...] Info) Description 02/09/2025 9:15 AM EDT Appointment [facility] - MRI Imaging [address] [place] [address] 02/09/2025 9:45 AM EDT Appointment [facility] - MRI Imaging [address] [place] [address] documented as of this encounter Results * CT brain with and without contrast (12/04/2022 4:20 PM EDT) us Scanning Provider External IMG CT ORDERABLES Fin al Result * CT brain without contrast (10/30/2022 12:05 PM EDT) us Scanning Provider External IMG CT ORDERABLES Fin al Result documented in this encounter Visit Diagnoses Diagnosis Pain- Primary Generalized pain documented in this encounter Additional Health Concerns Infection Onset Date Last Indicated Resolved Time Meningitis Rule-Out 08/20/2023 08/20/2023 08/20/19 7:58 PM EST Norovirus 08/17/2024 08/17/2024 08/21/2024 11:1 2 PM EST Assessment Noted Time PHQ-9 Depression Total Score: 0 11/09/19 12:58 PM EDT documented as of this encounter Care Teams Bankruptcy Attorney Relationship Specialty Start Date End Date Ilana Echols MD [address] [place] [address] PCP - General Family Medicine 08/16/24 documented as of this encounter
--- OUTSIDE RECORDS SUMMARY | 2025-01-27 19:34 | XMS_ITS | Encounter Summary ---
Author Organization [facility] [employer] [facility] Address [id number] [address] [place] [address] Care Team Providers Care Cad Application Support Specialist Name Role Phone Ilana Echols MD Primary Care Provider [phone] Encounter Details Date Type Department Care Team (Late st Contact Info) Description 08/27/2023 Telephone [facility] Neurology [address] [place] [address] Toma Dougherty Social History Tobacco Use Types Packs/Day Years [...] got money to buy more. Never True 08/14/2023 Within the past 12 months th e food we bought just didn't last and we didn't have money to get more. Never True 08/14/2023 Purpose - Life Answer Date Recorded Purpose and direction in life Unknown Comments No Sex and Gender Information Value Date Recorded Sex Assigned at Not on file Legal Sex Female 11:40 AM EDT Gender Identity Not on file Sexual Orientation Not on file documented as of this encounter Miscellaneous Notes * Telephone Encounter - Toma Dougherty - 08/27/2023 8:[address] Gómez and [facility] pools have been notified. Medication Refill request: Medication Name and Strength:predniSONE (DELTASONE) 10 mg tablet Current dose & Frequency: Zo Mike [phone] states that she is to take 20mg for 30days and then 10mg for 30 days. Patient states that Dr. Luis Antonio Fernandes prescribed medication at the hospital but did not prescribe what had been discussed between Dr. Gómez and patient. 30 day or 90 day supply preferred: 30 day Pharmacy Name:[id number] Request was made by:Zo Mike [phone] * Telephone Encounter - Hunter Resendez CMA - 08/27/2023 8:59 AM EST Connect message sent documented in this encounter Plan of Treatment Upcoming Encounters Date Type Department Care Team (Late st Contact Info) Description 02/09/2025 9:15 AM EDT Appointment [facility] - MRI Imaging [address] [facility] [place] [address] 02/09/2025 9:45 AM EDT Appointment [facility] - MRI Imaging [address] [place] [address] documented as of this encounter Visit Diagnoses Not on filedocumented in this encounter Additional Health Concerns Infection Onset Date Last Indicated Resolved Time Norovirus 08/17/2024 08/17/2024 08/21/2024 11:1 2 PM EST Assessment Noted Time PHQ-9 Depression Total Score: 0 11/09/19 12:58 PM EDT documented as of this encounter Care Teams Cad Application Support Specialist Relationship Specialty Start Date End Date Ilana Echols MD [address] [place] [address] PCP - General Family Medicine 08/16/24 documented as of this encounter
--- OUTSIDE RECORDS SUMMARY | 2025-01-27 19:34 | XMS_ITS | Encounter Summary ---
Author Organization [facility] Address [address] [place] [address] Care Team Providers Care Rug Cleaner Helper Name Role Phone Ilana Echols MD Primary Care Provider [phone] Ilana Echols MD Unavailable [phone] Encounter Details Date Type Department Care Team (Late st Contact Info) Description 10/14/2024 Orders Only [facility] FM [address] [place] [address] Ilana Echols MD [address] [place] [address] Social History Tobacco Use Types [...] How often do you attend chur or sikhism services? More than 4 times per year 01/29/2024 Do you belong to any clubs o r organizations such as congregation groups, unions, fraternal or athletic groups, or [...] Recorded Patient Health Questionnaire-2 Score 0 10/09/2024 [facility] Occupat ional Health - [...] any time in the past 12 m [facility], were you homeless or living in a [...] AM EST Ancillary Procedure [facility] OB [address] [place] [address] [place] [address] documented as of this encounter Procedures Procedure Name Priority Date/Time Associated Diagnosis Comments PROTHROMBIN TIME-INR Routine 10/14/2024 4:03 PM EDT documented in this encounter Results * Protime-INR (10/14/2024 4:03 PM EDT) INR 2.4 Blood Venous blood specimen / Unknown Ilana Echols MD LAB BLOOD ORDERABLES Edited R esult - Final documented in this encounter Visit Diagnoses Not on filedocumented in this encounter Additional Health Concerns Assessment Noted Time PHQ-9 Depression Total Score: 0 03/06/20 8:10 AM EDT documented as of this encounter Care Teams Rug Cleaner Helper Relationship Specialty Start Date End Date Ilana Echols MD [address] [facility] [place] [address] PCP - General Family Medicine 12/11/22 Ilana Echols MD [address] [facility] [place] [address] PCP - Bea Commercial 04/22/23 documented as of this encounter
--- OUTSIDE RECORDS SUMMARY | 2025-01-27 19:34 | XMS_ITS | Encounter Summary ---
Author Organization [facility] Address [address] [place] [address] Care Team Providers Care Watch Repair Technician Name Role Phone Ilana Echols MD Primary Care Provider [phone] Ilana Echols MD Unavailable [phone] Encounter Details Date Type Department Care Team (Late st Contact Info) Description 05/09/2023 Abstract [facility] [address] [place] [id number] Ilana Echols MD [address] [place] [address] Social History Tobacco Use Types [...] 01/24/2023 How often do you attend chur ch or congregational services? 1 to 4 times per year 01/24/2023 Do you belong to any clubs o r organizations such as mandaeism groups, unions, fraternal or athletic groups, or [...] Patient Health Questionnaire-2 Score 0 03/06/[address] [facility] - Occupational Stress Questionnaire Answer Date Recorded [...] suspected to have Coronavirus/COVID-19? No / Unsure 05/08/2023 4:57 PM EDT documented as of this encounter Plan of Treatment Upcoming Encounters Date Type Department Care Team (Late st Contact Info) Description 07/13/2025 8:00 AM EST Ancillary Procedure [facility] [address] [place] [address] [place] [address] documented as of this encounter Visit Diagnoses Not on filedocumented in this encounter Additional Health Concerns Assessment Noted Time PHQ-9 Depression Total Score: 0 03/06/20 8:10 AM EDT documented as of this encounter Care Teams Watch Repair Technician Relationship Specialty Start Date End Date Ilana Echols MD [address] [place] [address] PCP - General Family Medicine 12/11/22 Ilana Echols MD [address] [place] [address] PCP - [place] Commercial 04/22/23 documented as of this encounter
--- OUTSIDE RECORDS SUMMARY | 2025-01-27 19:34 | XMS_ITS | Encounter Summary ---
Author Organization [employer] Address [id number] [address] [place] [address] Care Team Providers Care Cash Posting Representative Name Role Phone Ilana Echols MD Primary Care Provider [phone] Reason for Referral * Cardiology (Routine) - Closed Specialty Diagnoses / Procedures Referred By Contac t Referred To Contact Diagnoses Cryptogenic stroke (CMS-HCC) Cerebrovascular accident (CVA) due to occlusion of right middle cerebral artery (CMS-HCC) Procedures Echo GAY Teo Mckeon MD [address] [place] [address] Phone: tel: fax: Referral ID Status Reason Start Date Expiration Date Visits Re quested Visits Authorized [id number] Closed 11/15/2022 11/15/2023 1 1 Encounter Details Date Type Department Care Team (Late st Contact Info) Description 11/15/2022 Orders Only [facility] [address] [place] [address] Teo Mckeon MD [address] [place] [address] Cryptogenic stroke (CMS-HCC) (Primary Dx); Cerebrovascular accident (CVA) due to occlusion of right middle cerebral artery (CMS-HCC) Social History Tobacco Use Types Packs/Day Years [...] 02/09/2025 9:15 AM EDT Appointment [facility] - MRI Imaging [address] [place] [address] 02/09/2025 9:45 AM EDT Appointment [facility] - MRI Imaging [address] [place] [address] Scheduled Orders Name Type Priority Associated Diagnoses Orde r Schedule Echo GAY Echocardiography Routine Cryptogenic stroke ([facility]-HCC) Cerebrovascular accident (CVA) due to occlusion of right middle cerebral artery ([facility]-HCC) Expected: 11/15/2022, Expires: 11/16/2023 documented as of this encounter Visit Diagnoses Diagnosis Cryptogenic stroke ([facility]-HCC)- Primary Cerebrovascular accident (CVA) due to occlusion of right middle cerebral artery ([facility]-HCC) documented in this encounter Additional Health Concerns Infection Onset Date Last Indicated Resolved Time Meningitis Rule-Out 08/20/2023 08/20/2023 08/20/19 24 7:58 PM EST Norovirus 08/17/2024 08/17/2024 08/21/2024 11:1 2 PM EST Assessment Noted Time PHQ-9 Depression Total Score: 0 11/09/19 12:58 PM EDT documented as of this encounter Care Teams Cash Posting Representative Relationship Specialty Start Date End Date Ilana Echols MD [address] [place] [address] PCP - General Family Medicine 08/16/24 documented as of this encounter
--- OUTSIDE RECORDS SUMMARY | 2025-01-27 19:34 | XMS_ITS | Encounter Summary ---
Author Organization [facility] Address [address] [place] [address] Care Team Providers Care School Community Relations Coordinator Name Role Phone Ilana Echols MD Primary Care Provider [phone] Ilana Echols MD Unavailable [phone] Encounter Details Date Type Department Care Team (Late st Contact Info) Description 10/29/2023 Abstract [facility] [address] [place] [id number] Ilana Echols MD [address] [place] [address] Social History Tobacco Use Types [...] often do you attend chur ch or caodaism services? 1 to 4 times per year [...] Recorded Patient Health Questionnaire-2 Score 0 03/06/2023 [facility] - [facility]ational Stress Questionnaire Answer [...] place to sleep or slept in a usp (including now)? No 01/24/2023 Comments No Sex and Gender Information Value Date Recorded Sex Assigned at Not on file Legal Sex Female 7:16 PM EDT Gender Identity Not on file Sexual Orientation Not on file documented as of this encounter Plan of Treatment Upcoming Encounters Date Type Department Care Team (Late st Contact Info) Description 07/13/2025 8:00 AM EST Ancillary Procedure [facility] [address] [place] [address] [place] [address] documented as of this encounter Visit Diagnoses Not on filedocumented in this encounter Additional Health Concerns Assessment Noted Time PHQ-9 Depression Total Score: 0 03/06/20 23 8:10 AM EDT documented as of this encounter Care Teams School Community Relations Coordinator Relationship Specialty Start Date End Date Ilana Echols MD [address] [place] [address] PCP - General Family Medicine 12/11/22 Ilana Echols MD [address] [place] [address] PCP - Bea Commercial 04/22/23 documented as of this encounter
--- OUTSIDE RECORDS SUMMARY | 2025-01-27 19:34 | XMS_ITS | Encounter Summary ---
Author Organization [facility] Address [address] [place] [address] Care Team Providers Care Contact Center Analyst Name Role Phone Ilana Echols MD Primary Care Provider [phone] Encounter Details Date Type Department Care Team (Latest Contact Info) Description 01/20/2025 Travel Social History Tobacco Use Types Packs/Day Years [...] often do you attend chur ch or synagogue services? More than 4 times per year 01/29/2024 Do you belong to any clubs o r organizations such as christian groups, unions, fraternal or athletic groups, or [...] Recorded Patient Health Questionnaire-2 Score 0 10/30/2024 [facility] of Occupat ional Health - Occupational Stress [...] any time in the past 12 m [facility], were you homeless or living [...] 07/13/2025 8:00 AM EST Ancillary Procedure [facility] [address] [place] [address] [place] [address] documented as of this encounter Visit Diagnoses Not on filedocumented in this encounter Additional Health Concerns Assessment Noted Time PHQ-9 Depression Total Score: 0 03/06/20 23 8:10 AM EDT documented as of this encounter Care Teams Contact Center Analyst Relationship Specialty Start Date End Date Ialna Echols MD [address] [place] [address] PCP - General Family Medicine 12/11/22 documented as of this encounter
--- OUTSIDE RECORDS SUMMARY | 2025-01-27 19:34 | XMS_ITS | Encounter Summary ---
Author Organization [facility] Address [address] [place] [address] Care Team Providers Care Hair Dryer Name Role Phone Ilana Echols MD Primary Care Provider [phone] Encounter Details Date Type Department Care Team (Late st Contact Info) Description 01/13/2025 Telephone [facility] [address] [place] [address] Ilana Echols MD [address] [place] [address] Social History Tobacco Use Types [...] do you attend chur or jewish services? More than 4 times per year 01/29/2024 Do you belong to any clubs o r organizations such as sikhism groups, unions, fraternal or athletic groups, or [...] Recorded Patient Health Questionnaire-2 Score 0 10/30/2024 [facility] - Occupational Stress Questionnaire Answer Date [...] place to sleep or slept in a halfway (including now)? No 01/24/2023 Housing Stability Vital [...] in the past 12 m [facility], were you homeless or living in a halfway (including now)? No 01/29/2024 Comments No Sex and Gender Information Value Date Recorded Sex Assigned at Not on file Legal Sex Female 7:16 PM EDT Gender Identity Not on file Sexual Orientation Not on file documented as of this encounter Miscellaneous Notes * Telephone Encounter - Lamar Billy MA - 01/15/2025 4:34 PM EDT Patient notified via vm as requested by pt. * Telephone Encounter - Lamar Billy MA - 01/15/2025 4:01 PM EDT Patient is currently taking 6mg 5 days a week and 5mg 2 days a week. Patient requests that we leavevoicemail if we call back and she does not answer. * Telephone Encounter - Linda Garrett - 01/13/2025 9:39 AM EDT Patient is calling today with her INR which is 1.8. She is taking her medication as directed. Please advise pt. Thank you. documented in this encounter Plan of Treatment Upcoming Encounters Date Type Department Care Team (Late st Contact Info) Description 07/13/2025 8:00 AM EST Ancillary Procedure [facility] BCP OB [address] [facility] [place] [address] documented as of this encounter Visit Diagnoses Not on filedocumented in this encounter Additional Health Concerns Assessment Noted Time PHQ-9 Depression Total Score: 0 03/06/20 8:10 AM EDT documented as of this encounter Care Teams Hair Dryer Relationship Specialty Start Date End Date Ilana Echols MD [address] [place] [address] PCP - General Family Medicine 12/11/22 documented as of this encounter
--- OUTSIDE RECORDS SUMMARY | 2025-01-27 19:34 | XMS_ITS | Encounter Summary ---
Author Organization [facility] Address [address] [place] [address] Care Team Providers Care County Auditor Name Role Phone Jenniffer Ribeiro FOREPART REDUCER Unavailable [phone] Ilana Echols MD Primary Care Provider [phone] Ilana Echols MD Unavailable [phone] Encounter Details Date Type Department Care Team (Late st Contact Info) Description 03/09/2023 Abstract [facility] [address] [place] [address] Ilana Echols MD [address] [place] [address] Social History Tobacco Use [...] How often do you attend chur or mormon services? 1 to 4 times per year 01/24/2023 Do you belong to any clubs o r organizations such as episcopalian groups, unions, fraternal or athletic groups, or [...] Recorded Patient Health Questionnaire-2 Score 0 03/06/2023 [facility] Questionnaire Answer Date [...] place to sleep or slept in a correction (including now)? No 01/24/2023 Comments Unknown Sex [...] 07/13/2025 8:00 AM EST Ancillary Procedure [facility] [address] [place] [address] documented as of this encounter Visit Diagnoses Not on filedocumented in this encounter Additional Health Concerns Assessment Noted Time PHQ-9 Depression Total Score: 0 03/06/20 23 8:10 AM EDT documented as of this encounter Care Teams County Auditor Relationship Specialty Start Date End Date Jenniffer Ribeiro NP [address] [place] [address] PCP - [place] Commercial 03/23/22 Ilana Echols MD [address] [place] [address] PCP - General Family Medicine 12/11/22 Ilana Echols MD [address] [place] [address] PCP - Bea Bland 04/22/23 documented as of this encounter
--- OUTSIDE RECORDS SUMMARY | 2025-01-27 19:34 | XMS_ITS | Encounter Summary ---
Author Organization [facility] Address [address] [place] [address] Care Team Providers Care All Round Logger Name Role Phone Jenniffer Ribeiro REVENUE SETTLEMENTS ADMINISTRATOR Unavailable [phone] Ilana Echols MD Primary Care Provider [phone] Ilana Echols MD Unavailable [phone] Encounter Details Date Type Department Care Team (Late st Contact Info) Description 02/09/2023 Abstract [facility] [address] [place] [address] Ilana Echols MD [address] [place] [address] Social History Tobacco Use Types [...] How often do you attend chur or congregational services? 1 to 4 times per year 01/24/2023 Do you belong to any clubs o r organizations such as scientologist groups, unions, fraternal or athletic groups, or [...] Recorded Patient Health Questionnaire-2 Score 0 01/25/2023 [facility] Questionnaire Answer Date Recorded [...] 07/13/2025 8:00 AM EST Ancillary Procedure NOM[facility] [address] [place] [address] documented as of this encounter Visit Diagnoses Not on filedocumented in this encounter Care Teams All Round Logger Relationship Specialty Start Date End Date Jenniffer Ribeiro NP [address] [facility] [place] [address] PCP - Bea Bland 03/23/22 Ilana Echols MD [address] [facility] [place] [address] PCP - General Family Medicine 12/11/22 Ilana Echols MD [address] [place] [address] PCP - Bea Bland 04/22/23 documented as of this encounter
--- OUTSIDE RECORDS SUMMARY | 2025-01-27 19:34 | XMS_ITS | Encounter Summary ---
Author Organization [facility] Address [address] [place] [address] Care Team Providers Care Commercial Credit Officer Name Role Phone Jenniffer Ribeiro PRIMING MIXTURE CARRIER Unavailable [phone] Ilana Echols MD Primary Care Provider [phone] Ilana Echols MD Unavailable [phone] Encounter Details Date Type Department Care Team (Late st Contact Info) Description 02/09/2023 Abstract [facility] [address] [place] [address] Ilana Echols MD [address] [place] [address] Social History Tobacco Use Types [...] do you attend chur or christianity services? 1 to 4 times per year 01/24/2023 Do you belong to any clubs o r organizations such as bahai groups, unions, fraternal or athletic groups, or [...] Recorded Patient Health Questionnaire-2 Score 0 01/25/2023 [facility] Questionnaire Answer Date [...] place to sleep or slept in a retirement (including now)? No 01/24/2023 Comments Unknown Sex [...] 07/13/2025 8:00 AM EST Ancillary Procedure [facility] [address] [place] [address] documented as of this encounter Visit Diagnoses Not on filedocumented in this encounter Care Teams Commercial Credit Officer Relationship Specialty Start Date End Date Jenniffer Ribeiro NP [address] [facility] [place] [address] PCP - Bea Bland 03/23/22 Ilana Echols MD [address] [facility] [place] [address] PCP - General Family Medicine 12/11/22 Ilana Echols MD [address] [place] [address] PCP - Bea Bland 04/22/23 documented as of this encounter
--- OUTSIDE RECORDS SUMMARY | 2025-01-27 19:34 | XMS_ITS | Encounter Summary ---
Author Organization [facility] Address [id number] [address] [place] [address] Care Team Providers Care Nurse Supervisor Name Role Phone Ilana Echols MD Primary Care Provider [phone] Reason for Visit * Reason Onset Date Comments Appointment 04/18/2023 Encounter Details Date Type Department Care Team (Late st Contact Info) Description 04/18/2023 Telephone [facility] [address] [place] [address] Ilana Lima, [facility] Appointment Social History Tobacco Use Types Packs/Day [...] Info) Description 02/09/2025 9:15 AM EDT Appointment [facility] - MRI Imaging [address] [place] [address] 02/09/2025 9:45 AM EDT Appointment [facility] - MRI Imaging [address] [place] [address] documented as of this encounter Visit Diagnoses Not on filedocumented in this encounter Additional Health Concerns Infection Onset Date Last Indicated Resolved Time Meningitis Rule-Out 08/20/2023 08/20/2023 08/20/19 24 7:58 PM EST Norovirus 08/17/2024 08/17/2024 08/21/2024 11:1 2 PM EST Assessment Noted Time PHQ-9 Depression Total Score: 0 11/09/19 23 12:58 PM EDT documented as of this encounter Care Teams Nurse Supervisor Relationship Specialty Start Date End Date Ilana Echols MD [address] [place] [address] PCP - General Family Medicine 08/16/24 documented as of this encounter
--- OUTSIDE RECORDS SUMMARY | 2025-01-27 19:34 | XMS_ITS | Encounter Summary ---
Author Organization [facility] Address [address] [place] [address] Care Team Providers Care Shredding Floor Equipment Operator Name Role Phone Jenniffer Ribeiro SQL DATABASE ADMINISTRATOR Unavailable [phone] Ilana Echols MD Primary Care Provider [phone] Ilana Echols MD Unavailable [phone] Encounter Details Date Type Department Care Team (Late st Contact Info) Description 03/05/2023 Abstract [facility] [address] [place] [address] Mike Johnston, PT [address] [place] [address] Social History Tobacco Use Types [...] do you attend chur or hinduism services? 1 to 4 times per year 01/24/2023 Do you belong to any clubs o r organizations such as cheondoism groups, unions, fraternal or athletic groups, or [...] Health Questionnaire-2 Score 0 03/06/2023 [facility] Questionnaire Answer Date [...] in a halfway (including now)? No 01/24/2023 Comments Unknown Sex [...] Not at all 03/06/2023 8: 10 AM Rohini Cash MA Feeling bad about yourself - or that you are a failure or have let yourself or your family down Not at all 03/06/2023 8:10 AM Rohini Cash MA Trouble concentrating on things, such as reading the newspaper or watching television Not at all 03/06/2023 8:10 AM Rohini Cash MA Moving or speaking so slowly that other people could have noticed? Or the opposite - being so fidgety or restless that you have been moving around a lot more than usual. Not at all 03/06/2023 8:10 AM Rohini Smith MA Thoughts that you would be better off or hurting yourself in some way Not at all 03/06/2023 8:10 AM Rohini Cash MA Patient Health Questionnaire -9 Score 0 03/06/2023 8:10 AM Rohini Cash MA documented as of this encounter Plan of Treatment Upcoming Encounters Date Type Department Care Team (Late st Contact Info) Description 07/13/2025 8:00 AM EST Ancillary Procedure [facility] B[facility] OB [address] [place] [address] [place] [address] documented as of this encounter Visit Diagnoses Not on filedocumented in this encounter Care Teams Shredding Floor Equipment Operator Relationship Specialty Start Date End Date Jenniffer Ribeiro NP [address] [place] [address] PCP - [place] Commercial 03/23/22 Ilana Echols MD [address] [place] [address] PCP - General Family Medicine 12/11/22 Ilana Echols MD [address] [facility] [place] [address] PCP - [place] Commercial 04/22/23 documented as of this encounter
--- OUTSIDE RECORDS SUMMARY | 2025-01-27 19:34 | XMS_ITS | Encounter Summary ---
Author Organization [facility] Address [address] [place] [address] Care Team Providers Care Booth Operator Name Role Phone Ilana Echols MD Primary Care Provider [phone] Encounter Details Date Type Department Care Team (Late st Contact Info) Description 01/22/2025 Telephone [facility] [address] [place] [address] Ilana Echols MD [address] [place] [address] Social History Tobacco Use Types [...] any clubs o r organizations such as voodoo groups, unions, fraternal or athletic groups, or [...] Recorded Patient Health Questionnaire-2 Score 0 10/30/2024 [facility] - Occupational Stress Questionnaire Answer Date [...] in a detention (including now)? No 01/24/2023 Housing Stability Vital [...] time in the past 12 m [facility], were you homeless or living in a detention (including now)? No 01/29/2024 Comments No Sex and Gender Information Value Date Recorded Sex Assigned at Not on file Legal Sex Female 7:16 PM EDT Gender Identity Not on file Sexual Orientation Not on file documented as of this encounter Miscellaneous Notes * Telephone Encounter - Susanne Powers MA - 01/22/2025 4:39 PM EDT Patient informed * Telephone Encounter - Ilana Echols MD - 01/22/2025 2:28 PM EDT 6 mg 4 times per week and 7 mg 3 times per week. (MWF). Would like to get this number back to 2.5-3 * Telephone Encounter - Linda Garrett - 01/22/2025 1:37 PM EDT Received as voicemail: Hi, it is Dorene Cany calling. I was just calling in my INR level, it is 1.9 today. My numbers [phone]. Thank you. It is for Dr. Hughes, thank you, omi braga. documented in this encounter Plan of Treatment Upcoming Encounters Date Type Department Care Team (Late st Contact Info) Description 07/13/2025 8:00 AM EST Ancillary Procedure [facility] [address] [address] documented as of this encounter Visit Diagnoses Not on filedocumented in this encounter Additional Health Concerns Assessment Noted Time PHQ-9 Depression Total Score: 0 03/06/20 8:10 AM EDT documented as of this encounter Care Teams Booth Operator Relationship Specialty Start Date End Date Ilana Echols MD [address] [place] [address] PCP - General Family Medicine 12/11/22 documented as of this encounter
--- OUTSIDE RECORDS SUMMARY | 2025-01-27 19:34 | XMS_ITS | Clinical Summary ---
Author Organization [facility] Address [address] [place] [address] Care Team Providers Care Land Manager Name Role Phone Moose Arroyo MD Primary Care Provider [phone] Allergies Active Allergy Reactions Criticality Noted Date Comments Meperidine Nausea And Vomiting Low 05/30/2017 Medications No known medications Immunizations Immunization Administration Dates Next Due Influenza Vaccine, unspecified formulation 05/23 TDaP, ADACEL (age 10y-64y), BOOSTRIX (age 10y+), IM, 0.5mL 12/21/2002 Family History Medical History Relation Name Comments Heart Disease Father Hypertension Father Heart Disease Mother Hypertension Mother Relation Name Status Comments Brother Alive Father Alive Maternal Grandfather Maternal Grandmother Alive Mother Alive Paternal Grandfather Paternal Grandmother Social History Tobacco Use Types Packs/Day Years Used Date Smoking Tobacco: Never Smokeless Tobacco: Never Tobacco Cessation:Counseling Given: Not Answered Alcohol Use Standard Drinks/Week Comments No 0 (1 standard drink = 0.6 oz pur e alcohol) Comments No Sex and Gender Information Value Date Recorded Sex Assigned at Not on file Legal Sex Female 12:56 PM EST Gender Identity Not on file Sexual Orientation Not on file Last Filed Vital Signs Vital Sign Reading Time Taken Comments Blood Pressure 116/76 05/30/2017 8:37 AM EST Pulse - - Temperature - - Respiratory Rate 14 02/26/2023 9:42 AM EDT Oxygen Saturation - - Inhaled Oxygen Concentration - - Weight 83.9 kg (185 lb) 02/26/2023 9:42 AM EDT Height 166.4 cm (5' 5.5 ) 02/26/2023 9:42 AM EDT Body Mass Index 30.32 02/26/2023 9:42 AM EDT Plan of Treatment Health Maintenance Due Date Last Done Comments Hib vaccine (1 of 1 - Risk 1-dose series) 03/08/1978 Meningococcal (ACWY) vaccine (1 - Risk 2-dose series) 1978 Meningococcal B vaccine (1 of 5 - Increased Risk) 1986 Depression Screen 1988 Hepatitis C screen 1994 Hepatitis B vaccine (1 of 3 - 19+ 3-dose series) 12/07/1995 DTaP/Tdap/Td vaccine (2 - Td or Tdap) 12/21/2012 12/21/2002 Lipids 2016 Pneumococcal 0-49 years Vaccine (3 of 3 - PPSV23, PCV20 or PCV21) 06/17/2019 04/22/2019, 07/23/2012 Colonoscopy 2021 Colorectal Cancer Screen 2021 FIT/FOBT: Average risk 2021 Fecal-DNA (Cologuard): Average risk 2021 Sigmoidoscopy/CT colonography 2021 Breast cancer screen 12/31/2023 12/30/2021, 12/22/2020, 11/14/2018 COVID-19 Vaccine ( season) 2024 06/15/2021, 10/25/2020 Flu vaccine (#1) 02/20/2025 06/07/2021, , 04/27/2020, Additional history exists Shingles vaccine (1 of 2) 12/06/20262018, 08/05/2018, 05/08/2018, Additional history exists HIV screen Completed 04/22/2008 Cervical cancer screen Discontinued Pap smear Discontinued 05/30/2017 HPV (without or with Pap) Discontinued Hepatitis A vaccine Aged Out No longe r eligible based on patient's age to complete this topic Polio vaccine Aged Out No longer elig ible based on patient's age to complete this topic Procedures Procedure Name Priority Date/Time Associated Diagnosis Comments ARTIST AND REPERTOIRE MANAGER CYTOLOGY Routine 05/30/2017 10:29 AM EST from Last 3 Months or Most Recently Relevant to Health Maintenance Results * ARTIST AND REPERTOIRE MANAGER Cytology (05/30/2017 10:29 AM EST) Cytology Report (NOTE) [id number] [facility] ANATOMIC PATHOLOGY [address] [place] [id number] GYNECOLOGIC CYTOLOGY REPORT Patient Name: ZO HEADLEY MR#: [id number] Specimen #[id number] Source: 1: Vaginal material, (ThinPrep vial, Imaging-assisted review) Clinical History Hysterectomy Z01.419 Routine bond underwriter exam without abnormal findings INTERPRETATION Vaginal material, (ThinPrep vial, Imaging-assisted review): Specimen Adequacy: Satisfactory for evaluation. Descriptive Diagnosis: Negative for intraepithelial lesion or malignancy. Fungal organisms morphologically consistent with Arabella species. Fleet Administrator: ZAK Orozco(ASCP) Electronically Signed Out caitlin/06/07/2017 06/07/2017 12:00 AM EST [facility] 05/30/2017 10:2 9 AM EST 05/31/2017 10:29 AM EST Gissel Rain BILLBOARD POSTER HELPER - CNChelsi PATHOLOGY/CYTOLO GY ORDERABLES Final Result [facility] [address] [place], [place] [address] [phone] [facility] [address] [place] [address] from Last 3 Months or Most Recently Relevant to Health Maintenance Insurance Care Teams Land Manager Relationship Specialty Start Date End Date Moose Arroyo MD PCP - General Family Medicine 05/30/17
--- OUTSIDE RECORDS SUMMARY | 2025-01-27 19:34 | XMS_ITS | Encounter Summary ---
Author [facility] Address [id number] [address] [place] [address] Care Team Providers Care Tire Duster Name Role Phone Ilana Echols MD Primary Care Provider [phone] Encounter Details Date Type Department Care Team (Late st Contact Info) Description 12/04/2022 Orders Only [facility] [place] [phone] Blu Mares, SURFACE HYDROLOGIST-SURFACE GRINDER TENDER [address] [place] [address] [address] [place] [address] Social History Tobacco Use Types Packs/Day Years [...] Info) Description 02/09/2025 9:15 AM EDT Appointment [facility] - MRI Imaging [address] [place] [address] 02/09/2025 9:45 AM EDT Appointment [facility] - MRI Imaging [address] [place] [address] documented as of this encounter Visit Diagnoses Not on filedocumented in this encounter Additional Health Concerns Infection Onset Date Last Indicated Resolved Time Meningitis Rule-Out 08/20/2023 08/20/2023 08/20/19 24 7:58 PM EST Norovirus 08/17/2024 08/17/2024 08/21/2024 11:1 2 PM EST Assessment Noted Time PHQ-9 Depression Total Score: 0 11/09/19 23 12:58 PM EDT documented as of this encounter Care Teams Tire Duster Relationship Specialty Start Date End Date Ilana Echols MD [address] [place] [address] PCP - General Family Medicine 08/16/24 documented as of this encounter
--- OUTSIDE RECORDS SUMMARY | 2025-01-27 19:34 | XMS_ITS | Encounter Summary ---
Author Organization [facility] Address [address] [place] [address] Care Team Providers Care Piccolo Mechanic Name Role Phone Ilana Echols MD Primary Care Provider [phone] Ilana Echols MD Unavailable [phone] Encounter Details Date Type Department Care Team (Late st Contact Info) Description 09/12/2024 External Result Encounter [facility] [address] [place] [address] Ilana Echols MD [address] [place] [address] Social History Tobacco Use Types [...] often do you attend chur ch or gnosticist services? More than 4 times per year 01/29/2024 Do you belong to any clubs o r organizations such as hoahaoism groups, unions, fraternal or athletic groups, or [...] Date Recorded Patient Health Questionnaire-2 Score 0 08/28/2024 [facility] - Occupational [...] in a usp (including now)? No 01/24/2023 Housing Stability Vital Sign Answer Malcolm e Recorded In the last 12 months, was t here a time when you were not able to pay the mortgage or rent on time? No 01/29/2024 In the past 12 months, how m any times have you moved where you were living? 0 01/29/2024 At any time in the past 12 m [facility], were you homeless or living in a usp (including now)? No 01/29/2024 Comments No Sex [...] AM EST Ancillary Procedure [facility] [address] [place] [address] [place] [address] documented as of this encounter Procedures Procedure Name Priority Date/Time Associated Diagnosis Comments [facility] GENERIC ORDER ([facility]) Routine 10/16/2024 10:24 AM EDT UNLISTED TEST ([facility]) Routine 10/16/2024 10:24 AM EDT HCG, TUMOR MARKER Routine 10/16/2024 10: 24 AM EDT ALPHA FETOPROTEIN, TUMOR MARKER Routine 10/16/2024 10:24 AM EDT CA 125 Routine 10/16/2024 10:24 AM EDT CEA Routine 10/16/2024 10:24 AM EDT US PELVIS TRANSVAGINAL 09/28/2024 2:[address] ABDOMEN PELVIS W AND WO IV CONTRAST 09/12/2024 3:04 PM EST documented in this encounter Results * Frontback GENERIC ORDER ([facility]) (10/16/2024 10:24 AM EDT) Pathologist [facility] TEST NAME [id number] LACTATE DEHYDROGENASE ISOENZYMES ON SERUM [facility] TEST RESULT SEE NOTE [facility] Comment: NOTE Test name Result Flag Units RefIntvl Lactate Dehydrogenase, Total 194 U/L 105-230 Lactate Dehydrogenase - 1 27 % 14-27 Lactate Dehydrogenase - 2 33 % 29-42 Lactate Dehydrogenase - 3 21 % 18-30 Lactate Dehydrogenase - 4 8 % 8-15 Lactate Dehydrogenase - 5 11 % 6-23 Performed By: [facility] [employer] [address] [place] [id number] Motor Vehicle Emissions Inspector: Harshad Pang MD, PhD CLIA Number: [id number] PERFORMED AT [address] [place] [address] 10/16/2024 10:2 4 AM EDT 10/16/2024 10:25 AM EDT Kartik Simone DO LAB BLOOD ORDERABLES Final Resul t Performing Organization Address City/[facility]/ZIP Co de Phone Number [facility] * HCG, tumor marker (10/16/2024 10:24 AM EDT) B-HCG QNT TUMOR MKR <0.6 IU/L [facility] Comment: NOTE REFERENCE VALUE Females: <1.0 (Premenopausal, non-) <7.0 (Postmenopausal) ADDITIONAL INFORMATION This test has been modified from the slitter scorer's instructions. Its performance characteristics were determined by [facility] in a manner consistent with CLIA requirements. [...] absence of malignant disease. Test Performed by: [facility] [place] [address] Behavioral Psychologist: Presley Abreu Ph.D.; CLIA# [id number] PERFORMED AT [address] [place] [address] 10/16/2024 10:2 4 AM EDT 10/16/2024 10:25 AM EDT Kartik Simone DO LAB BLOOD ORDERABLES Final Resul t Performing Organization Address City/[facility] Co de Phone Number [facility] * UNLISTED TEST ([facility]) (10/16/2024 10:24 AM EDT) Pathologist [facility] UNLISTED LAB TEST Sent to reference lab [facility] 10/16/2024 10:2 4 AM EDT 10/16/2024 10:25 AM EDT us Kartik Simone DO LAB BLOOD ORDERABLES Final Resul t [facility] * CEA (10/16/2024 10:24 AM EDT) CEA 2.2 0.0 - 3.0 ng/mL [facility] Comment: 0.0-3.0 ng/mL FOR NON SMOKERS 0.0-5.0 ng/mL FOR SMOKERS The method used for this test is Markell [place] DXI chemiluminescent immunoassay. Values obtained by different assay methods cannot be used interchangeably. PERFORMED AT [address], [place] [address] 10/16/2024 10:2 4 AM EDT 10/16/2024 10:25 AM EDT Kartik Simone DO LAB BLOOD ORDERABLES Final Resul t Performing Organization Address [facility] Co de Phone Number [facility] * CA 125 (10/16/2024 10:24 AM EDT) CA 125 9 0 - 35 U/mL [facility] Comment: The method used for this test is Markell Grand View DXI chemiluminescent immunoassay. Values obtained by different assay methods cannot be used interchangeably. PERFORMED AT [address] [address] 10/16/2024 10:2 4 AM EDT 10/16/2024 10:25 AM EDT us Kartik Simone DO LAB BLOOD ORDERABLES Final Resul t [facility] * AFP tumor marker (10/16/2024 10:24 AM EDT) ALPHA FETOPROTEIN 2.0 0 - 9.9 ng/mL [facility] Comment:PERFORMED AT [place] [address],[place] [address] 10/16/2024 10:2 4 AM EDT 10/16/2024 10:25 AM EDT us Kartik Simone DO LAB BLOOD ORDERABLES Final Resul t [facility] * US pelvis transvaginal (09/28/2024 2:48 PM EDT) Anatomical Region Laterality Modality Pelvis Ultrasound 09/28/2024 2:48 PM EDT Narrative 09/28/2024 2:47 PM EDT THIS EXAM WAS PERFORMED AT [facility] Transabdominal and transvaginal pelvic ultrasound dated 09/26/2024 at 8:19 AM INDICATION: Cyst of [...] Julio Higgins MD on 09/28/2024 2:47 PM Procedure Note Radiology, Radiologist, - 09/28/2024 THIS EXAM WAS PERFORMED AT [facility] Transabdominal and transvaginal pelvic ultrasound dated 09/26/2024 at 8:19AM INDICATION: Cyst of the ovary. FINDINGS: No comparisons available. Status post hysterectomy. The rightovary measures 4.3 x 3 x 2.8 cm and contains 2 small cysts measuring 1.8and 1.6 cm each. There is a heterogeneous area in the right ovarymeasuring 1.7 x 1.3 cm. The left ovary is surgically removed. No freefluid. IMPRESSION: 1. Small cysts in the right ovary measuring up to 1.8 cm. 2. Heterogeneous area in the right ovary measuring 1.7 x 1.3 cm, mayrepresent a prior hemorrhagic cyst. 3. No free fluid. 4. Status post hysterectomy and left oophorectomy. Finalized by Julio Higgins MD on 09/28/2024 2:47 PM us Ilana Echols MD IMG US PROCEDURES Final Resul t * CT abdomen pelvis w and wo IV contrast (09/12/2024 3:04 PM EST) Anatomical Region Laterality Modality Body, Pelvis, Abdomen Computed T omography 09/12/2024 3:04 PM EST Narrative 09/12/2024 3:03 PM EST THIS EXAM WAS PERFORMED AT [facility] CT ABDOMEN AND PELVIS W WO CONT [...] Recommendations for adnexal lesion management based on Dex et al., J Am Jun Radiol 10:675-81 (2013). I, Aly Farrell MD have personally reviewed the image(s) and agree with and/or edited the report Finalized by Aly Farrell MD on 09/12/2024 3:03 PM Procedure Note Radiology, Radiologist, MD - 09/12/2024 THIS EXAM WAS PERFORMED AT [facility] CT ABDOMEN AND PELVIS W WO CONT HISTORY: Adrenal nodule, follow-up renal mass. Abnormal CT. Follow-up. COMPARISON: CT abdomen and pelvis 08/16/2024 TECHNIQUE: CT images of the abdomen and pelvis obtained without and withadministration of intravenous contrast. Automated exposure control wasutilized. All CT scans at this facility use dose modulation, iterativereconstruction, and/or weight based dosing when appropriate to reduceradiation dose to as low as reasonably achievable. FINDINGS: Streak artifact from patient's left arm. LOWER CHEST: No lower lung consolidation. No pleural effusion. Minimalbibasilar dependent atelectasis. No cardiomegaly or pericardial effusion.No significant vascular calcifications. VASCULATURE: Nonaneurysmal abdominal aorta. No significant vascularcalcifications. The main portal, splenic and superior mesenteric vein arepatent. LIVER AND BILIARY: Noncirrhotic liver morphology. Status postcholecystectomy. No biliary dilation. PANCREAS: Unremarkable. SPLEEN: Status post splenectomy. ADRENALS: Unremarkable. KIDNEYS/URETERS/BLADDER: Nonobstructive 4 mm calculus arising from theinferior pole of the left kidney. No ureteral calculi or collecting systemdilation. Within the inferior pole of the right kidney there is aunilocular, hypoattenuating lesion without internal septations orcalcifications and no perceptible wall. There is no significant enhancement on postcontrastimages. The urinary bladder is unremarkable. No ureteral filling defectson delayed contrast images. REPRODUCTIVE ORGANS: Status post hysterectomy. Similar appearing rightovary with a few internal simple fluid cystic structures with adjacentbowel loops. This finding appears similar dating back to study 2022. Noleft ovary visualized. A 3.7 cm cystic-appearing lesion is seen in theright adnexa. GI TRACT AND PERITONEUM: Similar small hiatal hernia. No evidence of freeair or bowel obstruction. The appendix is not clearly visualized howeverthere are no secondary signs of acute appendicitis in the right lowerquadrant. LYMPH NODES: No enlarged lymph nodes. MUSCULOSKELETAL: No abdominal wall abnormalities. No acute osseousabnormalities. IMPRESSION: * Hypoattenuating lesion in the right kidney is compatible with a Bosniak1 simple benign renal cyst and requires no dedicated follow-up. * A cystic-appearing right adnexal lesion measuring 3.7 cm is seen. In apre-menopausal woman, recommend no additional imaging or follow-up. In anearly post-menopausal woman (<5 years since menopause), follow-upultrasound at 6-12 months is recommended. In a late post-menopausal woman(>5 years since menopause), because of its size >3 cm, further evaluation withultrasound is recommended. Approved by Merlyn Rosas MD on 09/12/2024 2:13 PM Recommendations for adnexal lesion management based on Dex, et al., J AmColl Radiol 10:675-81 (2013). I, Aly Farrell MD have personally reviewed the image(s) and agree withand/or edited the report Finalized by Aly Farrell MD on 09/12/2024 3:03 PM Ilana Echols MD IMG CT PROCEDURES Final Resul t documented in this encounter Visit Diagnoses Not on filedocumented in this encounter Additional Health Concerns Assessment Noted Time PHQ-9 Depression Total Score: 0 03/06/20 8:10 AM EDT documented as of this encounter Care Teams Piccolo Mechanic Relationship Specialty Start Date End Date Ilana Echols MD [address] [place], [place] [id number] PCP - General Family Medicine 12/11/22 Ilana Echols MD [address] [place] [address] PCP - Bea Bland 04/22/23 documented as of this encounter
--- OUTSIDE RECORDS SUMMARY | 2025-01-27 19:35 | XMS_ITS | Encounter Summary ---
Author Organization [employer] Address [id number] [address] [place] [address] Care Team Providers Care Scheduling Representative Name Role Phone Ilana Echols MD Primary Care Provider [phone] Encounter Details Date Type Department Care Team (Late st Contact Info) Description 11/13/2022 [facility] [address] [place] [phone] Makayla Duval MD [address] [place] [address] Social History Tobacco Use Types Packs/Day Years [...] encounter Miscellaneous Notes * Telephone Encounter - Chelsea Alston - 11/13/2022 7:43 AM EDT This is notification that we have received a referral for the patient. Please reach out to schedulenew patient appointment in your office. Please check the referral tab in appt desk for details and to make sure to assign referral or schedule off of it. Thank you. * Telephone Encounter - JERALD Jaffe - 11/13/2022 7:43 AM EDT PT NATHANAEL W/ DR. SHELTON @8:30 . documented in this encounter Plan of Treatment Upcoming Encounters Date Type Department Care Team (Late st Contact Info) Description 02/09/2025 9:15 AM EDT Appointment [facility] - MRI Imaging [address] [place] [address] 02/09/2025 9:45 AM EDT Appointment [facility] - MRI Imaging [address] [place] [address] documented as of this encounter Visit Diagnoses Not on filedocumented in this encounter Additional Health Concerns Infection Onset Date Last Indicated Resolved Time Meningitis Rule-Out 08/20/2023 08/20/2023 08/20/19 24 7:58 PM EST Norovirus 08/17/2024 08/17/2024 08/21/2024 11:1 2 PM EST Assessment Noted Time PHQ-9 Depression Total Score: 0 11/09/19 23 12:58 PM EDT documented as of this encounter Care Teams Scheduling Representative Relationship Specialty Start Date End Date Ilana Echols MD [address] [place] [address] PCP - General Family Medicine 08/16/24 documented as of this encounter
--- OUTSIDE RECORDS SUMMARY | 2025-01-27 19:35 | XMS_ITS | Encounter Summary ---
Author Organization [facility] Address [address] [place] [address] Care Team Providers Care Can Solderer Name Role Phone Jenniffer Ribeiro CABLE INSTALLER Unavailable [phone] Ilana Echols MD Primary Care Provider [phone] Ilana Echols MD Unavailable Encounter Details Date Type Department Care Team (Late st Contact Info) Description 04/17/2023 Abstract [facility] [address] [place] [address] Ilana Echols MD [address] [place] [address] Social History Tobacco Use Types [...] any clubs o r organizations such as zoroastrian groups, unions, fraternal or athletic groups, or [...] Recorded Patient Health Questionnaire-2 Score 0 03/06/2023 [facility]ational Stress Questionnaire Answer Date [...] place to sleep or slept in a mcfp (including now)? No 01/24/2023 Comments Unknown Sex [...] suspected to have Coronavirus/COVID-19? No / Unsure 04/17/2023 7:28 AM EDT documented as of this encounter Plan of Treatment Upcoming Encounters Date Type Department Care Team (Late st Contact Info) Description 07/13/2025 8:00 AM EST Ancillary Procedure [facility] [address] [place] [address] [place] [address] documented as of this encounter Visit Diagnoses Not on filedocumented in this encounter Additional Health Concerns Assessment Noted Time PHQ-9 Depression Total Score: 0 03/06/20 8:10 AM EDT documented as of this encounter Care Teams Can Solderer Relationship Specialty Start Date End Date Jenniffer Ribeiro NP [address] [place] [address] PCP - [place] [employer] 03/23/22 Ilana Echols MD [address] [place] [address] PCP - General Family Medicine 12/11/22 Ilana Echols MD [address] [place] [address] PCP - [employer] [employer] 04/22/23 documented as of this encounter
--- OUTSIDE RECORDS SUMMARY | 2025-01-27 19:35 | XMS_ITS | Encounter Summary ---
Author Organization [facility] Address [id number] [address] [place] [address] Care Team Providers Care Messaging Architect Name Role Phone Ilana Echols MD Primary Care Provider [phone] Encounter Details Date Type Department Care Team (Late Contact Info) Description 07/05/2022 Telephone [facility] [address] [facility] [address] [place] [address] Lamar Sandra MA Social History Tobacco Use [...] have Coronavirus / COVID-19? No / Unsure 06/19/2022 8:20 AM EST documented as of this encounter Plan of Treatment Upcoming Encounters Date Type Department Care Team ([facility] Contact Info) Description 02/09/2025 9:15 AM EDT Appointment [facility] - MRI Imaging [address] [place] [address] 02/09/2025 9:45 AM EDT Appointment [facility] - MRI Imaging [address] [place] [phone] documented as of this encounter Visit Diagnoses Not on filedocumented in this encounter Additional Health Concerns Infection Onset Date Last Indicated Resolved Time Meningitis Rule-Out 08/20/2023 08/20/2023 08/20/19 24 7:58 PM EST Norovirus 08/17/2024 08/17/2024 08/21/2024 11:1 2 PM EST documented as of this encounter Care Teams Messaging Architect Relationship Specialty Start Date End Date Ilana Echols MD [address] [place] [address] PCP - General Family Medicine 08/16/24 documented as of this encounter
--- OUTSIDE RECORDS SUMMARY | 2025-01-27 19:35 | XMS_ITS | Encounter Summary ---
Author Organization [facility] Address [address] [place] [address] Care Team Providers Care Asphalt Tile Floor Layer Name Role Phone Jenniffer Ribeiro LABORER YARD Unavailable [phone] Ilana Echols MD Primary Care Provider [phone] Ilana Echols MD Unavailable [phone] Encounter Details Date Type Department Care Team (Late st Contact Info) Description 04/02/2023 Abstract [facility] [address] [place] [address] Ilana Echols MD [address] [place] [address] Social History Tobacco Use Types [...] do you attend chur or voodoo services? 1 to 4 times per year 01/24/2023 Do you belong to any clubs o r organizations such as confucianism groups, unions, fraternal or athletic groups, or [...] Recorded Patient Health Questionnaire-2 Score 0 03[facility]2023 [facility] Answer Date [...] a group home (including now)? No 01/24/2023 Comments Unknown Sex [...] suspected to have Coronavirus/COVID-19? No / Unsure 03/30/2023 10:16 AM EDT documented as of this encounter Plan of Treatment Upcoming Encounters Date Type Department Care Team (Late st Contact Info) Description 07/13/2025 8:00 AM EST Ancillary Procedure [facility] [address] [place] [address] documented as of this encounter Visit Diagnoses Not on filedocumented in this encounter Additional Health Concerns Assessment Noted Time PHQ-9 Depression Total Score: 0 03/06/20 23 8:10 AM EDT documented as of this encounter Care Teams Asphalt Tile Floor Layer Relationship Specialty Start Date End Date Jenniffer Ribeiro NP [address] [place] [address] PCP - [place] [employer] 03/23/22 Ilana Echols MD [address] [place] [address] PCP - General Family Medicine 12/11/22 Ilana Echols MD [address] [place] [address] PCP - Bea Bland 04/22/23 documented as of this encounter
--- OUTSIDE RECORDS SUMMARY | 2025-01-27 19:35 | XMS_ITS | Encounter Summary ---
Author Organization [facility] Address [id number] [address] [place] [address] Care Team Providers Care Director Of Catering Name Role Phone Ilana Echols MD Primary Care Provider [phone] Encounter Details Date Type Department Care Team (Late st Contact Info) Description 11/08/2022 Orders Only [facility] [address] [place] [phone] Calvin Rush, TICKETING CLERK-SAXOPHONE ASSEMBLER [address] [place] [address] Social History Tobacco Use Types Packs/Day Years [...] as of this encounter Functional Status * Audit-C Score Answer Date of Assessment Author 1 11/08/2022 12:58 PM EDT Tee Navarro RN * Question Answer Date of Assessment Author Q1: How often do you have a drink containing alcohol? Monthly or less 11/08/2022 12:58 PM EDT Kurt Navarro RN Q2: How many drinks containing alcohol do you have on a typical day when you are drinking? 1 or 2 11/08/2022 12:58 PM EDT Nayla Navarro R N Q3: How often do you have six or more drinks on one occasion? Never 11/08/2022 12:58 PM EDT Nayla Navarro R N * Question Answer Date of Assessment Author Functional Status Independent 11/08/2022 12:59 PM EDT Nayla Navarro RN documented as of this encounter Mental Status * Question Answer Entry Date Author Overall Cognitive Status WFL 11/09/2022 9:20 AM EDT Galilea Briceno PT * Question Answer Entry Date Author Overall Cognitive Status X 11/08/2022 3:00 PM EDT Gavino Redmond, Student Speech Therapy documented in this encounter Plan of Treatment Upcoming Encounters Date Type Department Care Team (Late st Contact Info) Description 02/09/2025 9:15 AM EDT Appointment [facility] - MRI Imaging [address] [place] [address] 02/09/2025 9:45 AM EDT Appointment [facility] - MRI Imaging [address] [place] [address] documented as of this encounter Visit Diagnoses Not on filedocumented in this encounter Additional Health Concerns Infection Onset Date Last Indicated Resolved Time Meningitis Rule-Out 08/20/2023 08/20/2023 08/20/19 24 7:58 PM EST Norovirus 08/17/2024 08/17/2024 08/21/2024 11:1 2 PM EST Assessment Noted Time PHQ-9 Depression Total Score: 0 11/09/19 23 12:58 PM EDT documented as of this encounter Care Teams Director Of Catering Relationship Specialty Start Date End Date Ilana Echols MD [address] [place] [address] PCP - General Family Medicine 08/16/24 documented as of this encounter
--- OUTSIDE RECORDS SUMMARY | 2025-01-27 19:35 | XMS_ITS | Encounter Summary ---
Author Organization [facility] Address [address] [place] [address] Care Team Providers Care Service Department Manager Name Role Phone Ilana Echols MD Primary Care Provider [phone] Mahad Dodd MD Unavailable [phone] Reason for Visit * Reason Comments Med Refill Encounter Details Date Type Department Care Team (Late st Contact Info) Description 12/29/2024 Refill [facility] Rheumatology [address] [facility] [address] [place] [phone] Jeimy Morejon MD [address] [address] Systemic lupus erythematosus with other organ involvement, unspecified SLE type ([facility]) Social History Tobacco Use Types Packs/Day Years [...] medical appointments or from getting medications? No 08/1 01/2023 In the past 12 months, has l [...] place to sleep or slept in a nursing home (including now)? No 03/08/2023 Comments Unknown Sex [...] Description 02/10/2025 11:00 AM EDT [facility] [address] [place] [address] 02/10/2025 12:00 PM EDT [facility] [address] [place] [address] 03/25/2025 9:30 AM EDT Follow-Up [facility] Rheumatology [address] [place] [address] Jeimy Morejon MD [address] [facility] [place] [address] 04/15/2025 9:30 AM EDT [facility]Up [facility] [address] [place] [address] Mahad Dodd MD [address] [facility] [place] [address] 04/30/2025 9:15 AM EDT Follow-Up [facility] [address] [place] [address] Silvia Dsouza MD [address] [place], [place] [address] [place] [address] documented as of this encounter Visit Diagnoses Diagnosis Systemic lupus erythematosus with other organ involvement, unspecified SLE type (CMS/HCC) documented in this encounter Care Teams Service Department Manager Relationship Specialty Start Date End Date Ilana Echols MD PCP - General 11/15/22 Mahad Dodd MD [address] [place] [address] Hematology and Oncology 10/03/24 documented as of this encounter
--- OUTSIDE RECORDS SUMMARY | 2025-01-27 19:35 | XMS_ITS | Clinical Summary ---
Author Organization [facility] Address [address] [place] [address] Care Team Providers Care Tax Director Name Role Phone Ilana Echols MD Primary Care Provider [phone] Mahad Dodd MD Unavailable [phone] Allergies Active Allergy Reactions Criticality Noted Date Comments Clarithromycin Rash,GI intolerance,Other,Unknow n Low 08/16/2021 Other reaction(s): GI Disturbance Other reaction(s): GI intolerance Other Reaction(s): GI intolerance, Other (see comments) Other reaction(s): GI Disturbance Other reaction(s): GI Disturbance Meperidine Nausea And Vomiting,Unknown,GI intolerance,Other Low 05/30/2017 Other reaction(s): GI Other Reaction(s): Other (see comments) Other reaction(s): GI Other reaction(s): GI Medications magnesium oxide (Mag-Ox) 400 mg (241.3 mg magnesium) tablet Take 400 mg by mouth in the morning. 11/13/19 23 Active acetaminophen (Tylenol 8 Hour) 650 mg ER tablet every 8 (eight) hours. Active atorvastatin (Lipitor) 20 mg tablet Take 20 mg by mouth in the morning. 01/03/20 23 Active cyanocobalamin (Vitamin B-12) 1,000 mcg tablet Take 1,000 mcg by mouth every other day. 02/08/20 23 Active clopidogrel (Plavix) 75 mg tablet Take 75 mg by mouth in the morning. 04/03/20 23 Active Nurtec ODT 75 mg tablet,disintegra ting dissolve 75 milligram under the tongue once daily if needed for MIGRAINE HEADACHE 05/08/20 23 Active warfarin (Coumadin) 5 mg tablet 6 mg in the morning. 07/21/20 23 Active topiramate (Topamax) 100 mg tablet Take 200 mg by mouth in the morning and at bedtime. 07/10/20 23 Active Vitamin B-6 50 mg tablet Take 50 mg by mouth in the morning. 08/26/19 24 Active magnesium oxide (Mag-Ox) 400 mg (241.3 mg magnesium) tablet every 12 (twelve) hours. Active methotrexate (Xatmep) 2.5 mg/mL oral solution as directed Orally Active venlafaxine (Effexor) 37.5 mg tablet Take 37.5 mg by mouth in the morning and at bedtime. Active oxyCODONE-acetami nophen (Percocet) 5-325 mg tablet Take 1 tablet by mouth every 6 (six) hours if needed. 03/05/20 24 Active hydroxychloroquin e (Plaquenil) 200 mg tabletIndications :Systemic lupus erythematosus, unspecified SLE type, unspecified organ involvement status (CMS/HCC) Take 1 tablet (200 mg) by mouth in the morning. 30 tablet 04/09/20 24 025 Active benzocaine-mentho L (Cepastat Sore Throat) 15-3.6 mg Take 1 lozenge by mouth every 2 (two) hours if needed. 08/19/19 25 Active amoxicillin (Amoxil) 500 mg capsule TAKE 1 CAPSULE BY MOUTH THREE TIMES DAILY (IN THE MORNING, IN THE EVENING and BEFORE bedtime) 04/10/20 24 Active nitrofurantoin, macrocrystal-mono hydrate, (Macrobid) 100 mg capsule TAKE 1 CAPSULE BY MOUTH TWICE DAILY (IN THE MORNING and BEFORE bedtime) 04/30/20 24 Active fluconazole (Diflucan) 150 mg tablet TAKE 1 TABLET BY MOUTH A SINGLE DOSE 05/01/20 24 Active scopolamine (Transderm-Scop) 1 mg over 3 [address] 1 patch on the skin every 3rd (third) day. 08/20/19 25 Active chlorhexidine (Peridex) 0.12 % solution Use 15 mL in the mouth or throat twice a day. 08/19/19 25 Active enoxaparin (Lovenox) 80 mg/0.8 mL syringe INJECT 1 syringe TWICE DAILY (IN THE MORNING and BEFORE bedtime) FOR 7 DAYS 06/10/20 24 Active calcium 500 mg calcium (1,250 mg) tabletIndications :Systemic lupus erythematosus with other organ involvement, unspecified SLE type (CMS/HCC),High risk medication use,SOFTWARE VALIDATION TECHNICIAN vasculitis,Histor y of CVA (cerebrovascular accident),bed bug exterminator methotrexate user,bed bug exterminator systemic steroid user Take 1 tablet (500 mg) by mouth with breakfast and with evening meal. 180 tablet 3 09/25/19 Active cholecalciferol (Vitamin D-3) 25 MCG (1000 units) tabletIndications :Systemic lupus erythematosus with other organ involvement, unspecified SLE type (CMS/HCC),High risk medication use,SOFTWARE VALIDATION TECHNICIAN vasculitis,Histor y of CVA (cerebrovascular accident),USP methotrexate user,bed bug exterminator systemic steroid user Take 1 tablet (1,000 Units) by mouth in the morning. 90 tablet 09/25/19 Active predniSONE (Deltasone) 1 mg tabletIndications :Systemic lupus erythematosus with other organ involvement, unspecified SLE type (CMS/HCC),High risk medication use,SOFTWARE VALIDATION TECHNICIAN vasculitis,Histor y of CVA (cerebrovascular accident),USP methotrexate user,USP systemic steroid user Take 1 tablet (1 mg) by mouth in the morning. 90 tablet 3 09/25/19 Active methotrexate 2.5 mg tabletIndications :SOFTWARE VALIDATION TECHNICIAN vasculitis Take 7 tablets (17.5 mg total) by mouth 1 (one) time per week Follow directions carefully, and ask to explain any part you do not understand. Take exactly as directed. 84 tablet 3 09/25/19 Active folic acid (Folvite) 1 mg tabletIndications :SOFTWARE VALIDATION TECHNICIAN vasculitis Take 1 tablet (1,000 mcg) by mouth in the morning. 90 tablet 09/25/19 Active atorvastatin (Lipitor) 40 mg tablet Take 40 mg by mouth in the morning. Active topiramate (Topamax) 200 mg tablet Take 200 mg by mouth in the morning and at bedtime. Active warfarin (Coumadin) 1 mg tablet Take 1 mg by mouth. Active sertraline (Zoloft) 25 mg tablet 1 (one) time each day at the same time. 10/28/19 23 024 Discontin ued(Thera py completed ) Active Problems Problem Noted Date Diagnosed Date Arteritis, unspecified 12/24/2024 Other seizures 10/27/2024 Localized swelling, mass and lump, left upper li mb 10/27/2024 Enteritis due to Norovirus 08/18/2024 Sepsis 08/17/2024 Aortic valve vegetation 06/10/2024 BMI 29.0-29.9,adult 06/10/2024 Drop foot gait 06/10/2024 Screening for malignant neoplasm of colon 2023 Vitamin B 12 deficiency 06/10/2024 Hand fracture, right 04/09/2024 Hereditary thrombophilia 01/22/2024 Systemic lupus erythematosus 12/28/2023 SOFTWARE VALIDATION TECHNICIAN vasculitis 12/28/2023 Transient neurological symptoms 09/21/2023 Suspected stroke patient las t known to be well 3-4.5 hours ago 08/14/2023 History of CVA (cerebrovascular accident) 2023 Positive RAMYA (antinuclear antibody) 07/27/2023 Chronic tension-type headache, not intractable 0 04/18/2023 Hyperlipidemia 04/18/2023 Overview (04/09/2024): Last Assessment & Plan: Continue lipitor. Acquired absence of both cervix and uterus 03/01 Allergic rhinitis 03/01/2023 Cervical spondylosis 03/01/2023 COVID-19 03/01/2023 Displacement of cervical int ervertebral disc without myelopathy 03/01/2023 Fever 03/01/2023 Lacunar infarction 03/01/2023 Anxiety associated with depression 03/01/2023 Sore throat 03/01/2023 Status post placement of implantable loop record er 03/01/2023 Stress 03/01/2023 Thyroid nodule 03/01/2023 Difficulty walking 02/07/2023 Hemiparesis affecting left s martinez as late effect of cerebrovascular accident 02/07/2023 Overview (04/09/2024): Last Assessment & Plan: See above. Continue PHYSICAL THERAPY/. Last Assessment & Plan: See above. Continue PHYSICAL THERAPY/. Acute nonintractable headache 12/26/2022 Headache, new daily persistent (NDPH) 12/26/2022 History of syncope 12/26/2022 Cerebrovascular accident 11/08/2022 Dermoid cyst 10/04/2022 DM (diabetes mellitus) 10/04/2022 Asplenia 10/07/2019 Obesity 10/30/2018 Vasovagal syncope 10/17/2017 Postconcussion syndrome 10/09/2017 Neck pain 10/09/2017 Refractory migraine without aura 10/09/2017 Spasm 10/09/2017 Aphasia 09/11/2017 Status post hysterectomy 08/09/2017 Encounters Date Type Department Care Team Description 01/16/2025 1:32 PM EDT - 01/16/2025 11:59 PM EDT Hospital Encounter [facility] Ultrasound Imaging [address] [place] [phone] Abnormal MRI, breast Discharge Disposition: Home or Self Care () 12/29/2024 Refill [facility] Rheumatology [address] [place] [phone] Jeimy Morejon MD Systemic lupus erythematosus with other organ involvement, unspecified SLE type (CMS/HCC) 12/25/2024 10:15 AM EDT Follow-Up [facility] Oncology Clinic [address] [place] [phone] Silvia Dsouza MD Abnormal MRI, breast (Primary Dx) 12/24/2024 9:45 AM EDT Lab [facility] Outpatient Draw Station [address] [place] [phone] Systemic lupus erythematosus with other organ involvement, unspecified SLE type (CMS/HCC); High risk medication use; SOFTWARE VALIDATION TECHNICIAN vasculitis; Proximal muscle weakness; Vitamin B12 deficiency; Vitamin D deficiency; Other specified hypothyroidism 12/24/2024 9:00 AM EDT Follow-Up Formerly named [facility] Rheumatology [address] [place] [phone] Jeimy Morejon MD Systemic lupus erythematosus with other organ involvement, unspecified SLE type (CMS/HCC) (Primary Dx); Proximal muscle weakness; Vitamin B12 deficiency; Vitamin D deficiency; Other specified hypothyroidism 12/18/2024 3:40 PM EDT - 12/18/2024 11:59 PM EDT Hospital Encounter [facility] MR Imaging [address] [place] [phone] Nipple discharge Discharge Disposition: Home or Self Care () 12/08/2024 9:00 AM EDT Lab [facility] Outpatient Draw Station [address] [place] [phone] Systemic lupus erythematosus with other organ involvement, unspecified SLE type (CMS/HCC); High risk medication use; SOFTWARE VALIDATION TECHNICIAN vasculitis; History of CVA (cerebrovascular accident); bed bug exterminator methotrexate user; bed bug exterminator systemic steroid user; Other hyperlipidemia; Primary SOFTWARE VALIDATION TECHNICIAN vasculitis 12/02/2024 12:05 AM EDT - 12/02/2024 11:59 PM EDT Hospital Encounter [facility] Radiology External Films [address] [place] [phone] Discharge Disposition: Home or Self Care () 12/02/2024 - 12/02/2024 12:04 AM EDT Hospital Encounter [facility] Radiology External Films [address] [place] [phone] Discharge Disposition: Home or Self Care () 11/27/2024 2:00 PM EDT Follow-Up [facility] Oncology Clinic [address] [place] [phone] Silvia Dsouza MD Nipple discharge (Primary Dx) 11/20/2024 Abstract [facility] Oncology Clinic [address] [place] [phone] Silvia Dsouza MD 11/13/2024 3:45 PM EDT Office Visit [facility] Oncology Clinic [address] [place] [phone] Silvia Dsouza MD Mastitis (Primary Dx) from Last 3 Months Immunizations Immunization Administration Dates Next Due Influenza Nasal, Unspecified 05/19/2021 Influenza, High Dose Seasona l, Preservative Free 04/26/2020 Influenza, Unspecified 05/23/2017 Influenza, injectable, quadr ivalent, preservative free 06/07/2021,04/27/2020,05/23/2019,04/22 Influenza, seasonal, injectable 05/23/2017 Allan Sars-Cov-2 Vaccination 1,06/14/2021,10/25/2020,10/24 MMR 09/16/2018, 9,04/03/2018,04/02 Pneumococcal Conjugate PCV 13 04/22/2019 Pneumococcal Polysaccharide PPV23 07/23/2012 Tdap 12/21/2002,12/20/2002 Varicella 08/06/2018, 9,05/08/2018,05/07 Family History Medical History Relation Name Comments Cancer Maternal Grandfather Lung ca Clotting disorder Maternal Grandmother Blood clot Hypertension Mother Mom Clotting disorder Mother's Sister Blood clot Relation Name Status Comments Maternal Grandfather Lung ca Maternal Grandmother Blood clot Mother Mom Mother's Sister Blood clot Social History Tobacco Use Types Packs/Day Years [...] place to sleep or slept in a care home (including now)? No 03/08/2023 Comments Unknown Sex and Gender Information Value Date Recorded Sex Assigned at Female 10/04/2022 8:34 AM EDT Legal Sex Female 2:18 PM EST Gender Identity Female 10/04/2022 8:34 AM EDT Sexual Orientation Heterosexual or Straight 09/20 8:34 AM EDT Last Filed Vital Signs Vital Sign Reading Time Taken Comments Blood Pressure 136/77 12/25/2024 10:05 AM EDT Pulse 84 12/25/2024 10:05 AM EDT Temperature 36.7 C (98.1 F) 12/25/2024 10:05 AM EDT Respiratory Rate - - Oxygen Saturation 100% 12/25/2024 10:05 AM EDT Inhaled Oxygen Concentration - - Weight 82.8 kg (182 lb 9.6 oz) 12/25/2024 10:05 AM EDT Height 165.1 cm (5' 5 ) 12/25/2024 10:05 AM EDT Body Mass Index 30.39 12/25/2024 10:05 AM EDT Plan of Treatment Upcoming Encounters Date Type Department Care Team (Late st Contact Info) Description 02/10/2025 11:00 AM EDT [facility] Ultrasound Imaging [address] [place] [phone] 02/10/2025 12:00 PM EDT [facility] Ultrasound Imaging [address] [place] [phone] 03/25/2025 9:30 AM EDT Follow-Up Formerly named [facility] Rheumatology [address] [place] [phone] Jeimy Morejon MD [address] [facility] [place] [place] [phone] 04/15/2025 9:30 AM EDT Follow-Up [facility] Oncology Clinic [address] [place] [phone] Mahad Dodd MD [address] [place] [phone] 04/30/2025 9:15 AM EDT Follow-Up [facility] Oncology Clinic [address] [place] [phone] Silvia Dsouza MD [address] [place] [address] Health Maintenance Due Date Last Done Comments CT Colonography 1976 Colonoscopy 1976 Colorectal Cancer Screening 1976 Diabetes: Hemoglobin A1C 1976 FIT-DNA 1976 FIT 1976 FOBT 1976 Sigmoidoscopy 1976 HIB Vaccines (1 of 1 - Risk 1-dose series) 03/08/1978 Meningococcal Vaccine (1 - Risk 2-dose series) 1978 Diabetes: Retinopathy Screening 1986 Meningococcal B Vaccine (1 of 5 - Increased Risk) 1986 Diabetes: Urine Protein Screening 12/07/1995 Hepatitis B Vaccines (1 of 3 - 19+ 3-dose series) 12/07/1995 HPV/Cotest 2006 Adult Tetanus 12/21/2012 12/21/2002, 12/20/2002 Pneumococcal Vaccine: Pediatrics (0 to 5 Years) and At-Risk Patients (6 to 64 Years) (3 of 3 - PCV20 or PCV21) 06/17/2019 04/22/2019, 07/23/2012 Cervical Cancer Screening 05/30/2020 Pap Smear 05/30/2020 05/30/2017 Mammogram 12/31/2023 12/30/2021, 12/30/2021 COVID-19 Vaccine ( season) 2024 06/15/2021, 06/14/2021, 10/25/2020, Additional history exists Influenza Vaccine (#1) 2025 , 05/19/2021, 04/27/2020, Additional history exists Depression Screening 12/25/2025 12/25/2024 Zoster Vaccines (1 of 2) 2026 019, 08/05/2018, 05/08/2018, Additional history exists HPV Vaccines Aged Out No longer eligi ble based on patient's age to complete this topic IPV Vaccines Aged Out No longer eligi ble based on patient's age to complete this topic Rotavirus Vaccines Aged Out No longer eligible based on patient's age to complete this topic Procedures Procedure Name Priority Date/Time Associated Diagnosis Comments CBC WITH AUTO DIFFERENTIAL Routine 12/24/2024 9:24 AM EDT Systemic lupus erythematosus with other organ involvement, unspecified SLE type (CMS/HCC) High risk medication use SOFTWARE VALIDATION TECHNICIAN vasculitis VITAMIN B12 Routine 12/24/2024 9:24 AM EDT Systemic lupus erythematosus with other organ involvement, unspecified SLE type (CMS/HCC) Proximal muscle weakness Vitamin B12 deficiency Vitamin D deficiency Other specified hypothyroidism T4, FREE Routine 12/24/2024 9:24 AM EDT Systemic lupus erythematosus with other organ involvement, unspecified SLE type (CMS/HCC) Proximal muscle weakness Vitamin B12 deficiency Vitamin D deficiency Other specified hypothyroidism TSH Routine 12/24/2024 9:24 AM EDT Systemic lupus erythematosus with other organ involvement, unspecified SLE type (CMS/HCC) Proximal muscle weakness Vitamin B12 deficiency Vitamin D deficiency Other specified hypothyroidism VITAMIN D 25 HYDROXY Routine 12/24/2024 9:24 AM EDT Systemic lupus erythematosus with other organ involvement, unspecified SLE type (CMS/HCC) Proximal muscle weakness Vitamin B12 deficiency Vitamin D deficiency Other specified hypothyroidism CK Routine 12/24/2024 9:24 AM EDT Systemic lupus erythematosus with other organ involvement, unspecified SLE type (CMS/HCC) Proximal muscle weakness Vitamin B12 deficiency Vitamin D deficiency Other specified hypothyroidism SEDIMENTATION RATE Routine 12/24/2024 9: 24 AM EDT Systemic lupus erythematosus with other organ involvement, unspecified SLE type (CMS/HCC) High risk medication use SOFTWARE VALIDATION TECHNICIAN vasculitis COMPREHENSIVE METABOLIC PANEL Routine 12/24/2024 9:24 AM EDT Systemic lupus erythematosus with other organ involvement, unspecified SLE type (CMS/HCC) High risk medication use SOFTWARE VALIDATION TECHNICIAN vasculitis CBC AND DIFFERENTIAL Routine 12/24/2024 9:24 AM EDT Systemic lupus erythematosus with other organ involvement, unspecified SLE type (CMS/HCC) High risk medication use SOFTWARE VALIDATION TECHNICIAN vasculitis BI MR BREAST BILATERAL W AND WO CONTRAST Routine 12/18/2024 5:09 PM EDT Nipple discharge IMMUNOFIXATION ELECTROPHORESIS Routine 12/08/2024 8:55 AM EDT Primary SOFTWARE VALIDATION TECHNICIAN vasculitis KAPPA / LAMBDA LIGHT CHAINS, FREE Routine 12/08/2024 8:55 AM EDT Primary SOFTWARE VALIDATION TECHNICIAN vasculitis CBC WITH AUTO DIFFERENTIAL Routine 12/08/2024 8:55 AM EDT Systemic lupus erythematosus with other organ involvement, unspecified SLE type (CMS/HCC) High risk medication use SOFTWARE VALIDATION TECHNICIAN vasculitis History of CVA (cerebrovascular accident) bed bug exterminator methotrexate user USP systemic steroid user Other hyperlipidemia LIPID PANEL Routine 12/08/2024 8:55 AM EDT Systemic lupus erythematosus with other organ involvement, unspecified SLE type (CMS/HCC) High risk medication use SOFTWARE VALIDATION TECHNICIAN vasculitis History of CVA (cerebrovascular accident) USP methotrexate user bed bug exterminator systemic steroid user Other hyperlipidemia SEDIMENTATION RATE Routine 12/08/2024 8: 55 AM EDT Systemic lupus erythematosus with other organ involvement, unspecified SLE type (CMS/HCC) High risk medication use SOFTWARE VALIDATION TECHNICIAN vasculitis History of CVA (cerebrovascular accident) USP methotrexate user bed bug exterminator systemic steroid user Other hyperlipidemia COMPREHENSIVE METABOLIC PANEL Routine 12/08/2024 8:55 AM EDT Systemic lupus erythematosus with other organ involvement, unspecified SLE type (CMS/HCC) High risk medication use SOFTWARE VALIDATION TECHNICIAN vasculitis History of CVA (cerebrovascular accident) bed bug exterminator methotrexate user USP systemic steroid user Other hyperlipidemia CBC AND DIFFERENTIAL Routine 12/08/2024 8:55 AM EDT Systemic lupus erythematosus with other organ involvement, unspecified SLE type (CMS/HCC) High risk medication use SOFTWARE VALIDATION TECHNICIAN vasculitis History of CVA (cerebrovascular accident) USP methotrexate user bed bug exterminator systemic steroid user Other hyperlipidemia XR TRANSFER OF OUTSIDE FILMS Routine 12/02/2024 12:05 AM EDT US TRANSFER OF OUTSIDE FILMS Routine 12/02/2024 12:00 AM EDT PROTEIN ELECTROPHORESIS, SERUM Routine 11/27/2024 2:30 PM EDT Primary SOFTWARE VALIDATION TECHNICIAN vasculitis from Last 3 Months Results * (ABNORMAL) CBC auto differential (12/24/2024 9:24 AM EDT) Only the most recent of2 resultswithin the time period is included. Auto WBC 7.04 4.00 - 10.60 10*3/uL 12/24/2024 10:24 AM EDT [facility] ([facility]) RBC 4.02 3.80 - 5.00 10*6/uL 12/24/2024 10:24 AM EDT [facility] ([facility]) Hemoglobin 12.9 12.0 - 15.0 g/dL 12/24/2024 10:24 AM T [facility] ([facility]) Hematocrit 39.6 36.0 - 45.0 % 12/24/2024 10:24 AM EDT [facility] ([facility]) MCV 98.5(H) 82.0 - 98.0 fL 12/24/2024 10:24 AM EDT [facility] ([facility]) MCH 32.1 27.0 - 33.0 pg 12/24/2024 10:24 AM EDT [facility] ([facility]) MCHC 32.6 32.0 - 35.0 g/dL 12/24/2024 10:24 AM EDT [facility] ([facility]) RDW 15.5(H) 11.5 - 15.0 % 12/24/2024 10:24 AM EDT [facility] ([facility]) Neutrophils % 78.8(H) 40.0 - 72.0 % 12/24/2024 10:24 AM [facility] ([facility]) Lymphocytes % 13.6(L) 20.0 - 45.0 % 12/24/2024 10:24 AM [facility] ([facility]) Monocytes % 5.8 5.0 - 12.0 % 12/24/2024 10:24 AM [facility] ([facility]) Eosinophils % 0.9 0.0 - 6.0 % 12/24/2024 10:24 AM [facility] ([facility]) Basophils % 0.6 0.0 - 1.0 % 12/24/2024 10:24 AM [facility] ([facility]) Neutrophils Absolute 5.55 1.60 - 7.60 10*3/uL 12/24/2024 10:24 AM [facility] ([facility]) Lymphocytes Absolute 0.96(L) 1.20 - 4.00 10*3/uL 12/24/2024 10:24 AM [facility] ([facility]) Monocytes Absolute 0.41 0.10 - 1.00 10*3/uL 12/24/2024 10:24 AM [facility] ([facility]) Eosinophils Absolute 0.06 0.00 - 0.50 10*3/uL 12/24/2024 10:24 AM [facility] ([facility]) Basophils Absolute 0.04 0.00 - 0.20 10*3/uL 12/24/2024 10:24 AM [facility] ([facility]) Platelets 322 150 - 400 10*3/uL 12/24/2024 10:24 AM [facility] ([facility]) nRBC % 0.0 0 % 12/24/2024 10:24 AM [facility] ([facility]) Immature Granulocytes % 0.3 0.0 - 1.0 % 12/24/2024 10:24 AM [facility] ([facility]) Immature Granulocytes Absolute 0.02 0.00 - 0.20 10*3/uL 12/24/2024 10:24 AM [facility] ([facility]) Blood Venous blood specimen / Unknown Venipuncture / Unknown 12/24/2024 9:24 AM EDT 12/24/2024 10:17 AM EDT us Jeimy Morejon MD LAB BLOOD ORDERABLES Final Re sult [facility] ([facility]) [address] [place] [address] * Vitamin D 25 hydroxy (12/24/2024 9:24 AM EDT) Pathologist [facility] Vit D, 25-Hydroxy 34.2 30.0 - 80.0 ng/mL 12/24/2024 3:49 PM EDT [facility] ([facility]) Comment:>80.0 Toxicity possi ble Blood Venous blood specimen / Unknown Venipuncture / Unknown 12/24/2024 9:24 AM EDT 12/24/2024 10:14 AM EDT us Jeimy Morejon MD LAB BLOOD ORDERABLES Final Re sult Performing Organization Address [facility] Co de Phone Number [facility] ([facility]) [address] [place] [address] * Sedimentation rate (12/24/2024 9:24 AM EDT) Only the most recent of2 resultswithin the time period is included. [facility] Sed Rate 3 <20 mm/hr 12/24/2024 10:54 AM EDT [facility] ([facility]) Blood Venous blood specimen / Unknown Venipuncture / Unknown 12/24/2024 9:24 AM EDT 12/24/2024 10:17 AM EDT us Jeimy Morejon MD LAB BLOOD ORDERABLES Final Re sult Performing Organization Address City/[facility]/ZIP Co de Phone Number [facility] [address] [place] [address] * TSH (12/24/2024 9:24 AM EDT) Pathologist [facility] TSH 1.24 0.34 - 5.60 mIU/L 12/24/2024 11:17 AM EDT [facility] ([facility]) Blood Venous blood specimen / Unknown Venipuncture / Unknown 12/24/2024 9:24 AM EDT 12/24/2024 10:14 AM EDT us Jeimy Morejon MD LAB BLOOD ORDERABLES Final Re sult Performing Organization Address City/[facility]/ZIP Co de Phone Number [facility] [address] [place] [address] * (ABNORMAL) T4, free (12/24/2024 9:24 AM EDT) Free T4 0.56(L) 0.71 - 1.85 ng/dL 12/24/2024 11:17 AM EDT [facility] Blood Venous blood specimen / Unknown Venipuncture / Unknown 12/24/2024 9:24 AM EDT 12/24/2024 10:14 AM EDT us Jeimy Morejon MD LAB BLOOD ORDERABLES Final Re sult Performing Organization Address [facility] [facility] Co de Phone Number [facility] [address] [place] [phone] * Vitamin B12 (12/24/2024 9:24 AM EDT) Pathologist [facility] Vitamin B-12 429 180 - 914 pg/mL 12/24/2024 11:24 AM EDT [facility] Comment: REFERENCE RANGES: 180-914 pg/mL Normal 145-179 pg/mL Indeterminate <145 pg/mL Deficient Blood Venous blood specimen / Unknown Venipuncture / Unknown 12/24/2024 9:24 AM EDT 12/24/2024 10:14 AM EDT us Jeimy Morejon MD LAB BLOOD ORDERABLES Final Re sult Performing Organization Address City/State/[facility] Co de Phone Number [facility] ([facility]) [address] [place] [address] * CK (12/24/2024 9:24 AM EDT) Total CK 98.0 30.0 - 223.0 U/L 12/24/2024 11:03 AM EDT [facility] ([facility]) Blood Venous blood specimen / Unknown Venipuncture / Unknown 12/24/2024 9:24 AM EDT 12/24/2024 10:14 AM EDT Jeimy Morejon MD LAB BLOOD ORDERABLES Final Re sult Performing Organization Address [facility] Co de Phone Number [facility] ([facility]) [address] [place] [address] * (ABNORMAL) Comprehensive metabolic panel (12/24/2024 9:24 AM EDT) Only the most recent of2 resultswithin the time period is included. Sodium 138 136 - 145 mmol/L 12/24/2024 11:03 AM EDT [facility] ([facility]) Potassium 4.5 3.5 - 5.1 mmol/L 12/24/2024 11:03 AM EDT [facility] ([facility]) Chloride 110(H) 98 - 107 mmol/L 12/24/2024 11:03 AM EDT [facility] ([facility]) CO2 21 21 - 31 mmol/L 12/24/2024 11:03 AM EDT [facility] ([facility]) Anion Gap 12 7 - 20 mmol/L 12/24/2024 11:03 AM EDT [facility] ([facility]) BUN 11 7 - 25 mg/dL 12/24/2024 11:03 AM EDT [facility] ([facility]) Creatinine 0.74 0.60 - 1.20 mg/dL 12/24/2024 11:03 AM EDT [facility] ([facility]) BUN/Creatinine Ratio 14.9 06/10/2024 11:03 AM EDT [facility] ([facility]) Glucose 94 70 - 100 mg/dL 12/24/2024 11:03 AM EDT [facility] ([facility]) Calcium 8.8 8.6 - 10.3 mg/dL 12/24/2024 11:03 AM EDT [facility] ([facility]) AST 50(H) 13 - 39 U/L 12/24/2024 11:03 AM T [facility] ([facility]) ALT (SGPT) 34 7 - 52 U/L 12/24/2024 11:03 AM EDT [facility] ([facility]) Alkaline Phosphatase 54 34 - 104 U/L 12/24/2024 11:03 AM EDT [facility] ([facility]) Total Protein 6.3 6.0 - 8.3 g/dL 12/24/2024 11:03 AM T [facility] ([facility]) Albumin 3.8 3.5 - 5.7 g/dL 12/24/2024 11:03 AM T [facility]) Total Bilirubin 0.3 0.3 - 1.0 mg/dL 12/24/2024 11:03 AM T [facility] ([facility]) eGFR 99.7 >60.0 mL/min/1. 73m*2 12/24/2024 11:03 AM T [facility] ([facility]) Comment:The [facility] s estimated glomerular filtration rate (eGFR) will no longer include consideration of race in its calculation. The National [employer] s eGFR Task Force developed new recommendations for [...] disproportionately affect any one group of individuals. Blood Venous blood specimen / Unknown Venipuncture / Unknown 12/24/2024 9:24 AM EDT 12/24/2024 10:14 AM EDT us Jeimy Morejon MD LAB BLOOD ORDERABLES Final Re sult [facility] ([place] [address] [place] [address] * Bilateral breast MR with and without contrast (12/18/2024 5:09 PM EDT) Anatomical Region Laterality Modality Breast Bilateral Magnetic Resonan ce 12/19/2024 3:01 PM EDT Impressions 12/19/2024 3:12 PM EDT No MRI evidence for malignancy. ASSESSMENT: BI-RADS 3: Probably Benign RECOMMENDATION: Breast MRI in 6 Months A letter of notification will be sent to the patient regarding the results. Electronically signed: Oren Beatty MD. Narrative 12/19/2024 3:12 PM EDT BI MR BREAST BILATERAL W AND WO CONTRAST 12/18/2024 3:52 PM HISTORY: Patient is complaining of nipple discharge. Prior hysterectomy and oophorectomy. COMPARISON: Right breast echo and right mammogram from 11/20/2024 at outside institution. PROTOCOL: All images are generated with the Nosopharm 3T MRI . Three-dimensional, high-resolution fat-suppressed T1 [...] ducts. No ductal pathologic enhancement is appreciated. Procedure Note Oren Beatty MD - 12/19/2024 BI MR BREAST BILATERAL W AND WO CONTRAST 12/18/2024 3:52 PM HISTORY: Patient is complaining of nipple discharge. Prior hysterectomyand oophorectomy. COMPARISON[facility] PROTOCOL: All images are generated with the Nosopharm 3T MRI .Three-dimensional, high-resolution fat-suppressed T1 weighted images were obtained priorto, immediately following, and after a delay relative to contrastadministration. Precontrast axial T2 fat-sat sequences were also obtained. 3-D image and subtraction processing were performed using CAD Stream software. Theimages were interpreted using image subtraction, re-registration, multiplanar reconstruction, 2-D and 3-D acquisition and subtraction MIP, BINTA, timeactivity curves and color mapping. CONTRAST: 15 mL of IV contrast FINDINGS: Background parenchymal enhancement: Marked. There is well-defined rounded mass with type I washout curve in theright breast lower inner aspect at 6 o'clock position anterior depth [id number] x 7 x 10 mm likely representing fibroadenoma. There are also multiple fociof enhancement seen scattered throughout both breasts. The largest focus inthe right breast in the upper inner quadrant at 2 o'clock position middledepth measuring 18 x 8 x 12 mm with mixture of type I, type II and type IIIwashout curves. The largest focus in the left breast is in the lower outerquadrant at 5 o'clock position middle depth measuring 29 x 9.7 x 22 mm with similarmixture of type I, type II and type III washout curves. Multiple additional smallerfoci are seen. No significant pathologic adenopathy is appreciated. Artifact isseen from loop recorder along the left medial chest wall. MR ductogram did not reveal any significant dilated ducts. No ductalpathologic enhancement is appreciated. IMPRESSION: No MRI evidence for malignancy. ASSESSMENT: BI-RADS 3: Probably Benign RECOMMENDATION: Breast MRI in 6 Months A letter of notification will be sent to the patient regarding theresults. Electronically signed: Oren Beatty MD. us Silvia Dsouza MD IMG MRI PROCEDURES Final Result * (ABNORMAL) [place] / lambda light chains, free (12/08/2024 8:55 AM EDT) [place] Free Light Chains 25.80(H) 3.30 - 19.40 mg/L 12/08/2024 12:04 PM EDT [facility] ([facility]) Comment:New Testing Methodol ogy: Now performed using Freelite reagent on the Binding Site Optilite. Results obtained with different assay methods cannot be used interchangeably. The normal ranges have been updated. Lambda Free Light Chains 20.70 5.71 - 26.30 mg/L 12/08/2024 12:04 PM EDT [facility] ([facility]) Comment:New Testing Methodol ogy: Now performed using Freelite reagent on the Binding Site Optilite. Results obtained with different assay methods cannot be used interchangeably. The normal ranges have been updated. [place]/Lambda Free Light Chains Ratio 1.25 0.26 - 1.65 12/08/2024 12:04 PM EDT [facility] ([facility]) Blood Venous blood specimen / Unknown Venipuncture / Unknown 12/08/2024 8:55 AM EDT 12/08/2024 9:06 AM EDT us Mahad Dodd MD LAB BLOOD ORDERABLES Final Re sult [facility] [address] [place] [address] * (ABNORMAL) Immunofixation electrophoresis (12/08/2024 8:55 AM EDT) Pathologist [facility] JUDY 1 Please see attached report. 12/17/2024 2:39 PM EDT [facility] ([facility]) IgG 991.0 610.3 - 1,616.0 mg/dL 12/17/2024 2:39 PM EDT [facility] ([facility]) Comment:Testing performed us ing a new methodology, turbidimetry. Normal ranges have been updated. Old normal range was 591-1540 mg/dL. IgA 560.0(H) 84.5 - 499.0 mg/dL 12/17/2024 2:39 PM EDT [facility] ([facility]) Comment:Testing performed us ing a new methodology, turbidimetry. Normal ranges have been updated. Old normal range was 60-413 mg/dL (adult). IgM 35.3 35.0 - 242.0 mg/dL 12/17/2024 2:39 PM EDT [facility] ([facility]) Comment:Testing performed us ing a new methodology, turbidimetry. Normal ranges have been updated. Old normal range was 54-285 mg/dL. [place] Free Light Chains 25.80(H) 3.30 - 19.40 mg/L 12/17/2024 2:39 PM EDT [facility] ([facility]) Comment:New Testing Methodol ogy: Now performed using Freelite reagent on the Binding Site Optilite. Results obtained with different assay methods cannot be used interchangeably. The normal ranges have been updated. Lambda Free Light Chains 20.70 5.71 - 26.30 mg/L 12/17/2024 2:39 PM EDT [facility] ([facility]) Comment:New Testing Methodol ogy: Now performed using Freelite reagent on the Binding Site Optilite. Results obtained with different assay methods cannot be used interchangeably. The normal ranges have been updated. [place]/Lambda Free Light Chains Ratio 1.25 0.26 - 1.65 12/17/2024 2:39 PM EDT [facility] ([facility]) Blood Venous blood specimen / Unknown Venipuncture / Unknown 12/08/2024 8:55 AM EDT 12/08/2024 9:06 AM EDT us Mahad Dodd MD LAB BLOOD ORDERABLES Final Re sult [facility] ([facility]) [address] [place] [address] * Lipid panel (12/08/2024 8:55 AM EDT) Triglycerides 126 <150 mg/dL 12/08/2024 10:10 AM EDT [facility] ([facility]) Comment: TRIGLYCERIDE REFERENCE RANGE: 20 YEARS AND OLDER CARDIOVASCULAR RISK LESS THAN 150 mg/dL LOW RISK 150 TO 199 mg/dL BORDERLINE RISK 200 mg/dL AND GREATER HIGH RISK Cholesterol 123 120 - 200 mg/dL 12/08/2024 10:10 AM EDT [facility] ([facility]) LDL Calculated 39 0 - 160 mg/dL 12/08/2024 10:10 AM EDT [facility] ([facility]) HDL 59 23 - 92 mg/dL 12/08/2024 10:10 AM EDT [facility] ([facility]) Non HDL Cholesterol 64 12/08/2024 10:10 AM EDT [facility] ([facility]) Total VLDL-C 25 0 - 40 mg/dL 12/08/2024 10:10 AM EDT [facility] ([facility]) Cholesterol/HDL Ratio 2.1 mg/dL 12/08/2024 10:10 AM EDT [facility]) Blood Venous blood specimen / Unknown Venipuncture / Unknown 12/08/2024 8:55 AM EDT 12/08/2024 9:06 AM EDT us Jeimy Morejon MD LAB BLOOD ORDERABLES Final Re sult [facility] ([facility]) [address] [place] [address] * XR transfer of outside films (12/02/2024 12:05 AM EDT) Narrative IMAGING - 12/02/2024 2:28 PM EDT This order has been auto-finalized and does not contain a result. us Silvia Dsouza MD IMG XR PROCEDURES Final Result IMAGING * US transfer of outside films (12/02/2024 12:00 AM EDT) Narrative IMAGING - 12/02/2024 2:27 PM EDT This order has been auto-finalized and does not contain a result. us Silvia Dsouza MD IMG US PROCEDURES Final Result IMAGING * Protein electrophoresis, serum (11/27/2024 2:30 PM EDT) Total Protein 6.9 6.0 - 8.3 g/dL 12/04/2024 2:27 PM EDT [facility] Protein Electrophoresis Interpretation Please see attached report. 12/04/2024 2:27 PM EDT [facility]) Blood Venous blood specimen / Unknown Venipuncture / Unknown 11/27/2024 2:30 PM EDT 11/27/2024 3:23 PM EDT us Mahad Dodd MD LAB BLOOD ORDERABLES Final Re sult [facility] ([facility] [address] [place] [address] from Last 3 Months Insurance [facility] [employer] Care Teams Tax Director Relationship Specialty Start Date End Date Ilana Echols MD PCP - General 11/15/22 Mahad Dodd MD [address] [facility] [place] [address] Hematology and Oncology 10/03/24
--- OUTSIDE RECORDS SUMMARY | 2025-01-27 19:35 | XMS_ITS | Encounter Summary ---
Author Organization [facility] Address [address] [place] [address] Care Team Providers Care Surfacing Technician Name Role Phone Ilana Echols MD Primary Care Provider [phone] Ilana Echols MD Unavailable [phone] Encounter Details Date Type Department Care Team (Late st Contact Info) Description 01/14/2024 Clinisync Result Encounter [facility] External Department Unsolicited Provider, Generic External Data Social History Tobacco Use Types Packs/Day Years [...] often do you attend chur ch or zoroastrianism services? 1 to 4 times per year 01/24/2023 Do you belong to any clubs o r organizations such as oriental orthodox groups, unions, fraternal or athletic groups, or [...] Recorded Patient Health Questionnaire-2 Score 0 01/08/2024 [facility] - Occupational [...] a longterm (including now)? No 01/24/2023 Comments No Sex and Gender Information Value Date Recorded Sex Assigned at Not on file Legal Sex Female 7:16 PM EDT Gender Identity Not on file Sexual Orientation Not on file documented as of this encounter Plan of Treatment Upcoming Encounters Date Type Department Care Team (Late st Contact Info) Description 07/13/2025 8:00 AM EST Ancillary Procedure [facility] [address] [place] [id number] documented as of this encounter Procedures Procedure Name Priority Date/Time Associated Diagnosis Comments MRI BRAIN WO/W IVCON 01/14/2024 5:20 PM EDT documented in this encounter Results * MRI BRAIN WO/W IVCON (01/14/2024 5:20 PM EDT) Anatomical Region Laterality Modality Other 01/14/2024 5:20 PM EDT Narrative 01/14/2024 10:16 PM EDT * * *Final Report* * * DATE OF EXAM: Jan 14 2024 5:20PM [facility] 0295 - MRI BRAIN WO/W IVCON / PROCEDURE REASON: * * * * Physician Interpretation * * * * EXAMINATION: MRA BRAIN WO/W IVCON, MRI BRAIN WO/W IVCON CLINICAL HISTORY: TECHNIQUE: Routine noncontrast and postcontrast MRI brain protocol including diffusion and gradient echo images. Intracranial 3D [id number] MRA, pre and postcontrast with post-processing performed at the modality and 2D multiplanar and 3D maximum intensity projections were created, reviewed and archived. Contrast: Dotarem. Contrast Dose: 16ML cc Route of Administration: IV MQ: [id number]_4 COMPARISON: MRI dated 08/14/2023. RESULT: BRAIN: Acute Change: There is no evidence of an acute intracranial process. 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 Mass Lesion/ Mass Effect: No evidence of an intracranial mass or extra-axial fluid collection. No significant mass effect. Chronic Change: Scattered punctate foci of increased T2 and FLAIR signal are noted in the supratentorial white matter which is a nonspecific finding, but likely represents minimal chronic microvascular ischemia. Parenchyma: No significant volume loss for age. The brain parenchyma is otherwise within normal limits of signal intensity and morphology. Ventricles: Normal caliber and morphology. Skull Base: Hypothalamic and pituitary region are grossly normal. Craniocervical junction is normal. No significant marrow replacement process. Vasculature: Major intracranial arterial structures, and dural venous sinuses show typical flow void, suggesting patency by spin echo criteria. Other: The visualized paranasal sinuses and mastoid air cells are clear. The orbits and extracranial soft tissues are unremarkable. INTRACRANIAL MRA: Anterior Circulation: Right ICA: No significant stenosis. Right MCA: No significant stenosis. Right AILYN: No significant stenosis. Left ICA: No significant stenosis. Left MCA: No significant stenosis. Left AILYN: No significant stenosis. Vertebrobasilar Circulation: Right vertebral artery:No significant stenosis. Left vertebral artery:No significant stenosis. Basilar artery: No significant stenosis. Right VP PRODUCT: No significant stenosis. Left VP PRODUCT: No significant stenosis. Aneurysm/AVM: None. Anterior communicating artery: Present. Posterior communicating arteries: Present. Postcontrast MR angiogram images revealing mild concentric enhancement of RIGHT MCA involving M1 segment, and distal M1 and proximal M2 branches suspicious for vasculitis. Image: 51, 56 suspect subtle concentric enhancement also on LEFT MCA M1 segment image: 123, series: 6. series: 26, IMPRESSION: 1. No acute intracranial abnormality. 2. Redemonstration of chronic infarct of RIGHT distal ganglia. 3. No significant intracranial stenosis. No large vessel occlusion. 3. Concentric vessel wall enhancement along the RIGHT greater than LEFT MCAs, as detailed above suspicious for vasculitis. Boat Joiner Helper: ANT Transcribe Date/Time: Jan 14 2024 9:56P Dictated by : ABDI KENT MD This examination was interpreted and the report reviewed and electronically signed by: ABDI KENT MD on Jan 14 2024 10:14PM EST [id number]^ACN Procedure Note Radiology, Radiologist, - 01/14/2024 * * *Final Report* * * DATE OF EXAM: Jan 14 2024 5:20PM [facility] - MRI BRAIN WO/W IVCON / PROCEDURE REASON: * * * * Physician Interpretation * * * * EXAMINATION: MRA BRAIN WO/W IVCON, MRI BRAIN WO/W IVCON CLINICAL HISTORY: TECHNIQUE: Routine noncontrast and postcontrast MRI brain protocol including diffusion and gradient echo images. Intracranial 3D [id number] MRA, pre and postcontrast with post-processing performed at the modality and 2D multiplanar and 3D maximum intensity projections were created, reviewed and archived. Contrast: Dotarem. Contrast Dose: 16ML cc Route of Administration: IV MQ: MRAB_4 COMPARISON: MRI dated 08/14/2023. RESULT: BRAIN: Acute Change: There is no evidence of an acute intracranial process. 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 Mass Lesion/ Mass Effect: No evidence of an intracranial mass or extra-axial fluid collection. No significant mass effect. Chronic Change: Scattered punctate foci of increased T2 and FLAIR signal are noted in the supratentorial white matter which is a nonspecific finding, but likely represents minimal chronic microvascular ischemia. Parenchyma: No significant volume loss for age. The brain parenchyma is otherwise within normal limits of signal intensity and morphology. Ventricles: Normal caliber and morphology. Skull Base: Hypothalamic and pituitary region are grossly normal. Craniocervical junction is normal. No significant marrow replacement process. Vasculature: Major intracranial arterial structures, and dural venous sinuses show typical flow void, suggesting patency by spin echocriteria. Other: The visualized paranasal sinuses and mastoid air cells are clear. The orbits and extracranial soft tissues are unremarkable. INTRACRANIAL MRA: Anterior Circulation: Right ICA: No significant stenosis. Right MCA: No significant stenosis. Right AILYN: No significant stenosis. Left ICA: No significant stenosis. Left MCA: No significant stenosis. Left AILYN: No significant stenosis. Vertebrobasilar Circulation: Right vertebral artery:No significant stenosis. Left vertebral artery:No significant stenosis. Basilar artery: No significant stenosis. Right VP PRODUCT: No significant stenosis. Left VP PRODUCT: No significant stenosis. Aneurysm/AVM: None. Anterior communicating artery: Present. Posterior communicating arteries: Present. Postcontrast MR angiogram images revealing mild concentric enhancement of RIGHT MCA involving M1 segment, and distal M1 and proximal M2 branches suspicious for vasculitis. Image: 51, 56 suspect subtle concentric enhancement also on LEFT MCA M1 segment image: 123, series: 6. series: 26, IMPRESSION: 1. No acute intracranial abnormality. 2. Redemonstration of chronic infarct of RIGHT distal ganglia. 3. No significant intracranial stenosis. No large vessel occlusion. 3. Concentric vessel wall enhancement along the RIGHT greater than LEFT MCAs, as detailed above suspicious for vasculitis. Boat Joiner Helper: PSCB Transcribe Date/Time: Jan 14 2024 9:56P Dictated by : ABDI KENT MD This examination was interpreted and the report reviewed and electronically signed by: ABDI KENT MD on Jan 14 2024 10:14PM EST [id number]^ACN Generic External Data Provider [facility] Final Result documented in this encounter Visit Diagnoses Not on filedocumented in this encounter Additional Health Concerns Assessment Noted Time PHQ-9 Depression Total Score: 0 03/06/20 23 8:10 AM EDT documented as of this encounter Care Teams Surfacing Technician Relationship Specialty Start Date End Date Ilana Echols MD [address] [place] [address] PCP - General Family Medicine 12/11/22 Ilana Echols MD [address] [place] [address] PCP - [place] [employer] 04/22/23 documented as of this encounter
--- OUTSIDE RECORDS SUMMARY | 2025-01-27 19:35 | XMS_ITS | Encounter Summary ---
Author Organization [facility] Address [address] [place] [address] Care Team Providers Care Tailor [employer] Name Role Phone Ilana Echols MD Primary Care Provider [phone] Ilana Echols MD Unavailable [phone] Encounter Details Date Type Department Care Team (Late st Contact Info) Description 06/13/2023 Orders Only [facility] [address] [place] [address] Ilana Echols MD [address] [place] [address] Social History Tobacco Use Types [...] often do you attend chur ch or anabaptist services? 1 to 4 times per year 01/24/2023 Do you belong to any clubs o r organizations such as catholic groups, unions, fraternal or athletic groups, or [...] Health Questionnaire-2 Score 0 [facility] Answer Date [...] suspected to have Coronavirus/COVID-19? No / Unsure 06/05/2023 9:51 AM EST documented as of this encounter Plan of Treatment Upcoming Encounters Date Type Department Care Team (Late st Contact Info) Description 07/13/2025 8:00 AM EST Ancillary Procedure [facility] [address] [place] [phone] documented as of this encounter Procedures Procedure Name Priority Date/Time Associated Diagnosis Comments DIABETIC RETINOPATHY SCREENING - OU - BOTH EYES Routine 06/01/2023 3:29 PM EST documented in this encounter Results * Diabetic Retinopathy Screening - OU - Both Eyes (06/01/2023 3:29 PM EST) Anatomical Region Laterality Modality Head Other us Ilana Echols MD OPHTH PHOTOGRAPHY Final Resul t documented in this encounter Visit Diagnoses Not on filedocumented in this encounter Additional Health Concerns Assessment Noted Time PHQ-9 Depression Total Score: 0 03/06/20 23 8:10 AM EDT documented as of this encounter Care Teams Tailor [employer] Relationship Specialty Start Date End Date Ilana Echols MD [address] [facility] ([place], [place] [place] [address] PCP - General Family Medicine 12/11/22 Ilana Echols MD [address] [place] [address] PCP - [place] [employer] 04/22/23 documented as of this encounter
--- OUTSIDE RECORDS SUMMARY | 2025-01-27 19:35 | XMS_ITS | Encounter Summary ---
Author Organization [facility] Address [address] [place] [address] Care Team Providers Care Principal Strategist Name Role Phone Ilana Echols MD Primary Care Provider [phone] Ilana Echols MD Unavailable [phone] Encounter Details Date Type Department Care [...] often do you attend chur ch or faith services? 1 to 4 times per year 01/24/2023 Do you belong to any clubs o r organizations such as synagogue groups, unions, fraternal or athletic groups, or [...] Recorded Patient Health Questionnaire-2 Score 0 01/08/2024 [facility] - [...] long term (including now)? No 01/24/2023 Comments No Sex and Gender Information Value Date Recorded Sex Assigned at Not on file Legal Sex Female 7:16 PM EDT Gender Identity Not on file Sexual Orientation Not on file documented as of this encounter Plan of Treatment Upcoming Encounters Date Type Department Care Team (Late st Contact Info) Description 07/13/2025 8:00 AM EST Ancillary Procedure [facility] [address] [place] [id number] documented as of this encounter Procedures Procedure Name Priority Date/Time Associated Diagnosis Comments MRA BRAIN WO/W IVCON 01/14/2024 5:20 PM EDT documented in this encounter Results * MRA BRAIN WO/W IVCON (01/14/2024 5:20 PM EDT) Anatomical Region Laterality Modality Other 01/14/2024 5:20 PM EDT Narrative 01/14/2024 10:16 PM EDT * * *Final Report* * * DATE OF EXAM: Jan 14 2024 5:20PM [facility] 0273 - MRA BRAIN WO/W IVCON / PROCEDURE REASON: 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 Intracranial 3D [id number] MRA, pre and postcontrast with post-processing performed [...] stenosis. Basilar artery: No significant stenosis. Right CATERER'S AIDE: No significant stenosis. Left CATERER'S AIDE: No significant stenosis. Aneurysm/AVM: None. Anterior communicating [...] MCAs, as detailed above suspicious for vasculitis. 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 Intracranial 3D [id number] MRA, pre and postcontrast with post-processing performed [...] stenosis. Basilar artery: No significant stenosis. Right CATERER'S AIDE: No significant stenosis. Left CATERER'S AIDE: No significant stenosis. Aneurysm/AVM: None. Anterior communicating [...] MCAs, as detailed above suspicious for vasculitis. Physical Trainer: ANT Transcribe Date/Time: Jan 14 2024 9:56P Dictated by : ABDI KENT MD This examination was interpreted and the report reviewed and electronically signed by: ABDI KENT MD on Jan 14 2024 10:14PM EST [id number]^SI^ACN us Generic External Data Provider [facility] Final Result documented in this encounter Visit Diagnoses Not on filedocumented in this encounter Additional Health Concerns Assessment Noted Time PHQ-9 Depression Total Score: 0 03/06/20 23 8:10 AM EDT documented as of this encounter Care Teams Principal Strategist Relationship Specialty Start Date End Date Ilana Echols MD [address] [place] [address] PCP - General Family Medicine 12/11/22 Ilana Echols MD [address] [place] [address] PCP - [place] [employer] 04/22/23 documented as of this encounter
[2025-01-30 18:13] LABS: Age Gdln ACOG Testing Note (.); IGP, Aptima HPV, rfx 16/18,45 Note (.)
== END 2025-01-27 19:30 | disposition home or self-care (01) ==
LOC: LAB 19:29
PROVIDERS: PCP Family Medicine; Visit Provider Obstetrics & Gynecology
DX: Z01.419 Encounter for gynecological examination (general) (routine) without abnormal findings (principal)
CPT/HCPCS: 87624; 88175